=== PATIENT | female | born 1930 | race Caucasian/White ===

== ENCOUNTER 2017-01-05 07:18 | Inpatient (IN) | payer MEDICARE, OTHER ==
[2017-01-05] MEDS ORDERED: SODIUM CHLORIDE 0.9% 1,000 ML IV STA ×5 (07:22→13:37)
--- NOTE | 2017-01-05 07:28 | ED ---
Abdominal Pain HPI - General Stated Complaint: diff breathing Time Seen by Provider: 01/05/17 07:18 Source: patient, EMS, RN notes reviewed, old records reviewed Mode of arrival: EMS - History of Present Illness Initial Comments: This is a 86-year-old female with a history of COPD who was brought in by EMS after family called because of abdominal pain with nausea vomiting and diarrhea. Past 2-3 days. Upon arrival the paramedics found the patient was dyspneic with a tachycardic heart rate low pulse oximeter reading and also she did have altered mental status were normally she is awake alert oriented 3. Is confused. She also had urinary frequency has been urinating in bed apparently. No reports of any blood per rectum. No reports of fevers chills or sweats. The patient herself is a poor historian at this time limited available information due to no family members being present. MD Complaint: abdominal pain, other - Related Data Home Medications Medication Instructions Recorded Confirmed ALPRAZolam [Xanax] 0.5 mg PO Q8HR PRN 01/05/17 01/05/17 Albuterol Nebulized [Ventolin 2.5 mg INHALATION Q6H PRN 01/05/17 01/05/17 Nebulized] Aspirin 81 mg PO DAILY 01/05/17 01/05/17 Budesonide/Formoterol Fumarate 2 puff INHALATION RT-BID 01/05/17 01/05/17 [Symbicort 160-4.5 Mcg Inhaler] Calcium Carb-Vit D 500Mg-200Un 1 tab PO W/SUPPER 01/05/17 01/05/17 [Oscal 500+D] Diphenox-Atrop 2.5-0.025 mg 1 tab PO TID 01/05/17 01/05/17 [Lomotil] Hydrocodone/Acetaminophen [[place] 1 tab PO TID PRN 01/05/17 01/05/17 5-325] Ipratropium-Albuterol Nebulize 3 ml INHALATION RT-TID 01/05/17 01/05/17 [Duoneb 0.5 mg-3 mg/3 ml Soln] Lactulose [Cephulac] 20 gm PO DAILY PRN 01/05/17 01/05/17 Levothyroxine Sodium [Synthroid] 25 mcg PO DAILY 01/05/17 01/05/17 Loratadine [Claritin] 10 mg PO DAILY PRN 01/05/17 01/05/17 Magnesium Oxide [Mag-Ox] 400 mg PO W/SUPPER 01/05/17 01/05/17 Meclizine HCl 12.5 mg PO TID PRN 01/05/17 01/05/17 Melatonin 5 mg PO HS 01/05/17 01/05/17 Omeprazole 20 mg PO DAILY 01/05/17 01/05/17 Ondansetron HCl [Zofran] 8 mg PO Q8H PRN 01/05/17 01/05/17 Potassium Chloride [Klor-Con 10] 10 meq PO BID-W/MEALS 01/05/17 01/05/17 amLODIPine [Norvasc] 5 mg PO DAILY 01/05/17 01/05/17 guaiFENesin [Mucinex] 600 mg PO BID-W/MEALS 01/05/17 01/05/17 traZODone HCL 100 mg PO HS PRN 01/05/17 01/05/17 Allergies Allergy/AdvReac Type Severity Reaction Status Date / Time metronidazole [From Flagyl] Allergy Unknown Verified 01/05/17 08:23 [id number]-Vvt-Gbi Reductase Allergy Unknown Verified 01/05/17 08:23 Inhibitor sulfamethoxazole Allergy Unknown Verified 01/05/17 08:23 [From Bactrim] trimethobenzamide Allergy Unknown Verified 01/05/17 08:23 [From Tigan] trimethoprim [From Bactrim] Allergy Unknown Verified 01/05/17 08:23 Review of Systems ROS Statement: Those systems with pertinent positive or pertinent negative responses have been documented in the HPI. ROS Other: All systems not noted in ROS Statement are negative. Limitations: ROS unobtainable due to patients medical condition General Exam - General Exam Comments Initial Comments: This is a well-developed well-nourished awake alert but confused female Limitations: altered mental status, physical limitation ENT exam: Present: mucous membranes dry Neck exam: Present: normal inspection. Absent: tenderness, meningismus, lymphadenopathy Respiratory exam: Present: accessory muscle use (Markedly diminished breath sounds on the right compared to the left which also is diminished. No definite crackles or wheezes at this time the patient currently is receiving a DuoNeb treatment. Additionally she does have evidence of a right mastectomy.), decreased breath sounds Cardiovascular Exam: Present: tachycardia GI/Abdominal exam: Present: distended, tenderness. Absent: bruit, pulsatile mass, hernia Rectal exam: Present: deferred External exam: Present: normal external exam Extremities exam: Present: other (Diminished capillary refill: Extremities patient does state she also has cool extremities) Back exam: Present: normal inspection Neurological exam: Present: altered, CN II-XII intact. Absent: motor sensory deficit Psychiatric exam: Present: anxious Skin exam: Present: warm, intact (: Extremities no mottling) Course Vital Signs 01/05/17 01/05/17 01/05/17 07:19 08:48 08:57 Temperature 97.4 F L 97.8 F Pulse Rate 133 H 177 H Respiratory 20 18 Rate Blood Pressure 112/69 106/54 O2 Sat by Pulse 99 Oximetry - Reevaluation(s) Reevaluation #1: 01/05/17 08:07 The patient was noted have runs of apparent SVT. It was captured and EKG and on the monitor. She did require adenosine which did not really seem to affect the rate. On the monitors there was some evidence of possible torsades. IV magnesium has been ordered. Patient also is on Synthroid for thyroid studies have been added. I did discuss the initial findings with the patient's son who states she's been ill for several days and has refused medical evaluation up until today. Reevaluation #2: 01/05/17 09:20 Patient still has evidence of paroxysmal SVT with some wide-complex activity. Patient will be started on amiodarone. Reevaluation #3: 01/05/17 12:20 The patient's heart rate seems to have stabilized compared to earlier after the IV amiodarone. CAT scan shows evidence of a early small bowel obstruction versus ileus. Reevaluation #4: 01/05/17 12:24 Repeat EKG shortly after the initial one showed a sinus tachycardia with PACs rate was 141. Interval 138 QRS duration 68 daily since QTC of 314/[address]-T wave configuration PVC was noted. Reevaluation #5: 01/05/17 12:36 The lactic acid has returned to normal initial elevated level was likely secondary to dehydration. Procedures - Central Line Placement Right SC Consent Obtained: emergent situation Time Out Performed: Yes Patient Placed on Monitor/Pulse Ox: Yes Prep: mask, gown, gloves, other Central Line Prep: Chlorhexidine scrub Local Anesthesia Used: Lidocaine 1% Amount of Anesthesia Used (mls): 4 Ultrasound Used for Placement: No Central Line Lumen Inserted: triple Bloods Obtained for Lab: No Central Line Position: good blood return, sutured in place with 2-0 silk Dressing Applied: Tegaderm Post Procedure X-Ray: tip of catheter in good position Patient Tolerated Procedure: well Complications: none Medical Decision Making - Lab Data Result diagrams: 01/05/17 07:48 01/05/17 07:48 Lab Results 01/05/17 01/05/17 01/05/17 Range/Units 07:48 07:48 07:48 WBC 26.7 H* (3.8-10.6) k/uL RBC 4.79 (3.80-5.40) m/uL Hgb 13.7 (11.4-16.0) gm/dL Hct 41.4 (34.0-46.0) % MCV 86.3 (80.0-100.0) fL MCH 28.5 (25.0-35.0) pg MCHC 33.0 (31.0-37.0) g/dL RDW 16.1 H (11.5-15.5) % Plt Count 435 (150-450) k/uL Neutrophils % (Manual) 62.0 % Band Neutrophils % 25.0 % Lymphocytes % (Manual) 7.0 % Monocytes % (Manual) 6.0 % Neutrophils # (Manual) 23.2 H (1.3-7.7) k/uL Lymphocytes # (Manual) 1.9 (1.0-4.8) k/uL Monocytes # (Manual) 1.6 H (0-1.0) k/uL Nucleated RBCs 0 (0-0) /100 WBC Anisocytosis Slight Target Cells Present PT (9.0-12.0) sec INR (<1.1) APTT (22.0-30.0) sec Sodium 130 L (137-145) mmol/L Potassium 3.8 (3.5-5.1) mmol/L Chloride 94 L (98-107) mmol/L Carbon Dioxide 25 (22-30) mmol/L Anion Gap 11 mmol/L BUN 29 H (7-17) mg/dL Creatinine 1.00 (0.52-1.04) mg/dL Est GFR (MDRD) Af Amer >60 (>60 ml/min/1.73 sqM) Est GFR (MDRD) Non-Af 52 (>60 ml/min/1.73 sqM) Glucose 73 L (74-99) mg/dL Plasma Lactic Acid Zuhair (0.7-2.0) mmol/L Calcium 8.2 L (8.4-10.2) mg/dL Magnesium 1.3 L (1.6-2.3) mg/dL Total Bilirubin 1.4 H (0.2-1.3) mg/dL AST 35 (14-36) U/L ALT 24 (9-52) U/L Alkaline Phosphatase 214 H (38-126) U/L Total Creatine Kinase 112 (30-135) U/L CK-MB (CK-2) 1.1 (0.0-2.4) ng/mL CK-MB (CK-2) Rel Index 1.0 Troponin I 0.017 (0.000-0.034) ng/mL Total Protein 6.8 (6.3-8.2) g/dL Albumin 2.6 L (3.5-5.0) g/dL Amylase 44 (30-110) U/L Lipase 12 L (23-300) U/L Urine Color Urine Appearance (Clear) Urine pH (5.0-8.0) Ur Specific [place] (1.001-1.035) Urine Protein (Negative) Urine Glucose (UA) (Negative) Urine Ketones (Negative) Urine Blood (Negative) Urine Nitrite (Negative) Urine Bilirubin (Negative) Urine Urobilinogen (<2.0) mg/dL Ur Leukocyte Esterase (Negative) 01/05/17 01/05/17 01/05/17 Range/Units 07:48 07:48 08:50 WBC (3.8-10.6) k/uL RBC (3.80-5.40) m/uL Hgb (11.4-16.0) gm/dL Hct (34.0-46.0) % MCV (80.0-100.0) fL MCH (25.0-35.0) pg MCHC (31.0-37.0) g/dL RDW (11.5-15.5) % Plt Count (150-450) k/uL Neutrophils % (Manual) % Band Neutrophils % % Lymphocytes % (Manual) % Monocytes % (Manual) % Neutrophils # (Manual) (1.3-7.7) k/uL Lymphocytes # (Manual) (1.0-4.8) k/uL Monocytes # (Manual) (0-1.0) k/uL Nucleated RBCs (0-0) /100 WBC Anisocytosis Target Cells PT 20.9 H (9.0-12.0) sec INR 2.2 (<1.1) APTT 46.4 H (22.0-30.0) sec Sodium (137-145) mmol/L Potassium (3.5-5.1) mmol/L Chloride (98-107) mmol/L Carbon Dioxide (22-30) mmol/L Anion Gap mmol/L BUN (7-17) mg/dL Creatinine (0.52-1.04) mg/dL Est GFR (MDRD) Af Amer (>60 ml/min/1.73 sqM) Est GFR (MDRD) Non-Af (>60 ml/min/1.73 sqM) Glucose (74-99) mg/dL Plasma Lactic Acid [place] 2.6 H* (0.7-2.0) mmol/L Calcium (8.4-10.2) mg/dL Magnesium (1.6-2.3) mg/dL Total Bilirubin (0.2-1.3) mg/dL AST (14-36) U/L ALT (9-52) U/L Alkaline Phosphatase (38-126) U/L Total Creatine Kinase (30-135) U/L CK-MB (CK-2) (0.0-2.4) ng/mL CK-MB (CK-2) Rel Index Troponin I (0.000-0.034) ng/mL Total Protein (6.3-8.2) g/dL Albumin (3.5-5.0) g/dL Amylase (30-110) U/L Lipase (23-300) U/L Urine Color [place] Urine Appearance Clear (Clear) Urine pH 6.0 (5.0-8.0) Ur Specific [place] 1.022 (1.001-1.035) Urine Protein Trace H (Negative) Urine Glucose (UA) Negative (Negative) Urine Ketones Trace H (Negative) Urine Blood Negative (Negative) Urine Nitrite Negative (Negative) Urine Bilirubin 1+ H (Negative) Urine Urobilinogen 4.0 (<2.0) mg/dL Ur Leukocyte Esterase Negative (Negative) 01/05/17 Range/Units 11:40 WBC (3.8-10.6) k/uL RBC (3.80-5.40) m/uL Hgb (11.4-16.0) gm/dL Hct (34.0-46.0) % MCV (80.0-100.0) fL MCH (25.0-35.0) pg MCHC (31.0-37.0) g/dL RDW (11.5-15.5) % Plt Count (150-450) k/uL Neutrophils % (Manual) % Band Neutrophils % % Lymphocytes % (Manual) % Monocytes % (Manual) % Neutrophils # (Manual) (1.3-7.7) k/uL Lymphocytes # (Manual) (1.0-4.8) k/uL Monocytes # (Manual) (0-1.0) k/uL Nucleated RBCs (0-0) /100 WBC Anisocytosis Target Cells PT (9.0-12.0) sec INR (<1.1) APTT (22.0-30.0) sec Sodium (137-145) mmol/L Potassium (3.5-5.1) mmol/L Chloride (98-107) mmol/L Carbon Dioxide (22-30) mmol/L Anion Gap mmol/L BUN (7-17) mg/dL Creatinine (0.52-1.04) mg/dL Est GFR (MDRD) Af Amer (>60 ml/min/1.73 sqM) Est GFR (MDRD) Non-Af (>60 ml/min/1.73 sqM) Glucose (74-99) mg/dL Plasma Lactic Acid [place] 1.8 (0.7-2.0) mmol/L Calcium (8.4-10.2) mg/dL Magnesium (1.6-2.3) mg/dL Total Bilirubin (0.2-1.3) mg/dL AST (14-36) U/L ALT (9-52) U/L Alkaline Phosphatase (38-126) U/L Total Creatine Kinase (30-135) U/L CK-MB (CK-2) (0.0-2.4) ng/mL CK-MB (CK-2) Rel Index Troponin I (0.000-0.034) ng/mL Total Protein (6.3-8.2) g/dL Albumin (3.5-5.0) g/dL Amylase (30-110) U/L Lipase (23-300) U/L Urine Color Urine Appearance (Clear) Urine pH (5.0-8.0) Ur Specific [place] (1.001-1.035) Urine Protein (Negative) Urine Glucose (UA) (Negative) Urine Ketones (Negative) Urine Blood (Negative) Urine Nitrite (Negative) Urine Bilirubin (Negative) Urine Urobilinogen (<2.0) mg/dL Ur Leukocyte Esterase (Negative) - EKG Data -: EKG Interpreted by Me (Initial EKG showed evidence of sinus tachycardia SVT rate was 200 QRS 66 QT) - Radiology Data Radiology results: report reviewed (I did review the x-rays and report or is evidence of a distal small bowel obstruction. X-ray of the chest appears be unremarkable.), image reviewed Critical Care Time Critical Care Time: Yes Critical Care Time: 55 minutes of critical care time which does not include the central line placement. This does include initial monitoring the EMS call and discussed with paramedics history physical lab and x-ray CAT scan results on the patient and evaluation thereof. Multiple reevaluation the patient response to therapy. Discussion with attending hours on several occasions. Discussion with the admitting physician. Admission orders and documentation the above. Disposition Clinical Impression: Paroxysmal supraventricular tachycardia, Small bowel obstruction, Hypomagnesemia syndrome, Dehydration, Confusion, Hypotension, Prerenal azotemia Disposition: ADMITTED IP TO [facility] Condition: Serious Referrals: Humza Garcia MD [Primary Care Provider] - 1-2 days
[2017-01-05] MEDS ORDERED: MAGNESIUM SULFATE-D5W PMX 1 GM in DEXTROSE/WATER 1 100ML.BAG IVPB ONE ×2 (08:05→08:22)
[2017-01-05] MEDS ORDERED: ADENOSINE 3 MG/ML 2 ML VIAL IVP STA ×2 (08:08→08:09)
[2017-01-05 08:09] LABS: ALT 24 U/L (9-52); AST 35 U/L (14-36); Alkaline Phosphatase 214 U/L (38-126); Amylase 44 U/L (30-110); Anion Gap 11 mmol/L; Anisocytosis Slight; Blood Urea Nitrogen 29 mg/dL (7-17); CH 27.4; CHCM 31.8; Calcium 8.2 mg/dL (8.4-10.2); Carbon Dioxide 25 mmol/L (22-30); Chloride 94 mmol/L (98-107); Glucose 73 mg/dL (74-99); HCT 41.4 % (34.0-46.0); HDW 2.33; HGB 13.7 gm/dL (11.4-16.0); Immature Gran Flag Marked; MCH 28.5 pg (25.0-35.0); MCV 86.3 fL (80.0-100.0); Magnesium 1.3 mg/dL (1.6-2.3); Mean Platelet Volume 7.5; Non-African American GFR(MDRD) 52 (>60 ml/min/1.73 sqM); Potassium 3.8 mmol/L (3.5-5.1); RBC 4.79 m/uL (3.80-5.40); RDW 16.1 % (11.5-15.5); Sodium 130 mmol/L (137-145); Total Bilirubin 1.4 mg/dL (0.2-1.3); Total Protein 6.8 g/dL (6.3-8.2); WBC (Perox) 26.12
[2017-01-05 08:16] LABS: INR 2.2 (<1.1); Partial Thromboplastin Time 46.4 sec (22.0-30.0); Prothrombin Time 20.9 sec (9.0-12.0)
[2017-01-05 08:17] LABS: WBC 26.7 k/uL (3.8-10.6)
[2017-01-05] MEDS ORDERED: SODIUM CHLORIDE 0.9% 1,000 ML IV ONE (08:21)
[2017-01-05] MEDS ORDERED: DILTIAZEM 125 MG in SODIUM CHLORIDE 0.9% 100 ML IV ONE (08:22)
[2017-01-05 08:34] LABS: Add Differential Manual Differential
[2017-01-05 08:37] LABS: Nucleated Red Blood Cells 0 /100 WBC (0-0); Total Cells Counted 100
[2017-01-05 08:38] LABS: Target Cells Present
[2017-01-05 08:47] LABS: Creatine Kinase MB 1.1 ng/mL (0.0-2.4); Troponin I 0.017 ng/mL (0.000-0.034)
--- NOTE | 2017-01-05 08:55 | XR ---
EXAMINATION TYPE: XR KUB DATE OF EXAM: 01/05/2017 8:40 AM COMPARISON: NONE HISTORY: Pain TECHNIQUE: Single supine KUB image of the abdomen is obtained FINDINGS: There are dilated loops of small bowel with paucity of air within the colon. Suspect distal small bow el obstruction. Gas and fecal material is seen in non-distended colon. No convincing evidence for pneumoperitoneum. No unusual calcifications. The lung bases are clear. The osseous structures are intact. IMPRESSION: 1. Correlate for distal small bowel obstruction.
--- NOTE | 2017-01-05 08:56 | XR ---
EXAMINATION TYPE: XR chest 1V portable DATE OF EXAM: 01/05/2017 8:41 AM HISTORY: Shortness of breath. COMPARISON: 03/12/2013 TECHNIQUE: Single view of the chest is submitted. FINDINGS: Demonstrated are scattered senescent parenchymal change. There is no evidence for focal infiltrate. The heart is stable. Vascularity seen on end right hilum. Hilar and mediastinal structures are within normal limits. Degenerative changes are seen of the dorsal spine. IMPRESSION: 1. Chronic changes without evidence for acute pulmonary disease.
[2017-01-05] MEDS ORDERED: RX INFO: IV CONTRAST WAS GIVEN 1 EACH MISC MISCELLANE PRN (09:06)
[2017-01-05 09:10] LABS: Appearance,Urine Clear (Clear); Bilirubin,Urine 1+ (Negative); Glucose,Urine (UA) Negative (Negative); Ketones,Urine Trace (Negative); Leukocyte Esterase,Urine Negative (Negative); Nitrite,Urine Negative (Negative); Protein,Urine Trace (Negative); Specific Gravity,Urine 1.022 (1.001-1.035); UA Billing (MACRO vs. MICRO) CHEM
[2017-01-05] MEDS ORDERED: DEXTROSE 5% IN WATER 100 ML with AMIODARONE 150 MG IV ONE (09:17)
[2017-01-05] MEDS ORDERED: PIPERACILLIN-TAZOBACTAM 3.375 GM in DEXTROSE/WATER 1 50ML.BAG IVPB STA (09:32)
--- NOTE | 2017-01-05 10:29 | XR ---
EXAMINATION TYPE: XR chest 1V portable DATE OF EXAM: 01/05/2017 10:20 AM COMPARISON: 01/05/2017 03/18/2012 INDICATION: Abnormal chest x-ray, pain TECHNIQUE: Single frontal view of the chest is obtained. FINDINGS: The heart size is normal. The pulmonary vasculature is normal. There are some scattered punctate densities throughout the bilateral lungs which are stable. A right central venous catheter is present with the tip in the superior vena cava region. No pneumothorax is evident. Vascular calcifications at the aortic arch. Suspicious infiltrates are not identified. IMPRESSION: 1. Multiple bilateral punctate lung nodules. These are present in 2011. 2. Right central venous catheter tip is in the superior vena cava region.
[2017-01-05] MEDS ORDERED: fentaNYL (PF) 50 MCG/ML 2 ML AMP IV STA ×2 (10:32→16:39)
--- NOTE | 2017-01-05 11:24 | CT ---
EXAMINATION TYPE: CT abdomen pelvis w con DATE OF EXAM: 01/05/2017 10:58 AM COMPARISON: NONE INDICATION: Difficulty breathing; SBO DLP: 1164 mGycm, Automated exposure control for dose reduction was used. CONTRAST: 100 ml mL of Omnipaque 300. Study performed without Oral Contrast TECHNIQUE: Axial images were obtained from above the diaphragm to the pubic rami in the axial plane a t 5 mm thick sections. Reconstructed images are reviewed on the computer in the coronal plane. FINDINGS: Limited CT sections are obtained the lung bases. There is some atelectasis of the lingula. Some comp ressive atelectasis may be in the left lung base as well. Coronary artery calcification is present.. CT ABDOMEN: Liver: There is moderate fatty infiltration through the liver. No discrete masses are evident. Spleen: Normal Pancreas: Atrophic Adrenal glands: The adrenal glands are normal. Gallbladder: Surgically absent. Kidneys: No masses are evident. No hydronephrosis is present. A 1.0 cm cyst on the posterior superi or right kidney. A 0.8 cm posterior lateral left renal cyst is present. Delayed images were obtained through the kidneys, which remain unremarkable. Aorta: Vascular calcification is within the aorta. Inferior vena cava: Normal. CT PELVIS: Multiple dilated small bowel loops are present with fluid. Colon contains fluid but is decompressed. Small bowel zone of transition is not identified. Correlate for ileus. Early small bowel obstruction should be considered. Appendix: Not identified. No suspicious tubular structures are evident. Urinary bladder: Maxwell catheter is present. Small amount of air from the catheter placement may be pr esent. Genitourinary structures: Uterus and ovaries are not identified. Osseous structures: No suspicious lytic or sclerotic lesions. Degenerative changes are within the lum bar facets. A left hip prosthesis is present causing beam hardening artifact. Sacroiliac joint degene rative changes are noted. IMPRESSIONS: 1. Findings suggestive for ileus. Early small bowel obstruction should be considered within the diff erential. 2. Moderate fatty infiltration to the liver.
[2017-01-05] MEDS ORDERED: NALOXONE 0.4 MG/ML 1 ML VIAL IV PRN (12:37)
--- NOTE | 2017-01-05 12:43 | ED ---
Medical Decision Making - Lab Data Result diagrams: 01/05/17 07:48 01/05/17 07:48 Lab Results 01/05/17 01/05/17 01/05/17 Range/Units 07:48 07:48 07:48 WBC 26.7 H* (3.8-10.6) k/uL RBC 4.79 (3.80-5.40) m/uL Hgb 13.7 (11.4-16.0) gm/dL Hct 41.4 (34.0-46.0) % MCV 86.3 (80.0-100.0) fL MCH 28.5 (25.0-35.0) pg MCHC 33.0 (31.0-37.0) g/dL RDW 16.1 H (11.5-15.5) % Plt Count 435 (150-450) k/uL Neutrophils % (Manual) 62.0 % Band Neutrophils % 25.0 % Lymphocytes % (Manual) 7.0 % Monocytes % (Manual) 6.0 % Neutrophils # (Manual) 23.2 H (1.3-7.7) k/uL Lymphocytes # (Manual) 1.9 (1.0-4.8) k/uL Monocytes # (Manual) 1.6 H (0-1.0) k/uL Nucleated RBCs 0 (0-0) /100 WBC Anisocytosis Slight Target Cells Present PT (9.0-12.0) sec INR (<1.1) APTT (22.0-30.0) sec Sodium 130 L (137-145) mmol/L Potassium 3.8 (3.5-5.1) mmol/L Chloride 94 L (98-107) mmol/L Carbon Dioxide 25 (22-30) mmol/L Anion Gap 11 mmol/L BUN 29 H (7-17) mg/dL Creatinine 1.00 (0.52-1.04) mg/dL Est GFR (MDRD) Af Amer >60 (>60 ml/min/1.73 sqM) Est GFR (MDRD) Non-Af 52 (>60 ml/min/1.73 sqM) Glucose 73 L (74-99) mg/dL Plasma Lactic Acid [place] (0.7-2.0) mmol/L Calcium 8.2 L (8.4-10.2) mg/dL Magnesium 1.3 L (1.6-2.3) mg/dL Total Bilirubin 1.4 H (0.2-1.3) mg/dL AST 35 (14-36) U/L ALT 24 (9-52) U/L Alkaline Phosphatase 214 H (38-126) U/L Total Creatine Kinase 112 (30-135) U/L CK-MB (CK-2) 1.1 (0.0-2.4) ng/mL CK-MB (CK-2) Rel Index 1.0 Troponin I 0.017 (0.000-0.034) ng/mL Total Protein 6.8 (6.3-8.2) g/dL Albumin 2.6 L (3.5-5.0) g/dL Amylase 44 (30-110) U/L Lipase 12 L (23-300) U/L Urine Color Urine Appearance (Clear) Urine pH (5.0-8.0) Ur Specific [place] (1.001-1.035) Urine Protein (Negative) Urine Glucose (UA) (Negative) Urine Ketones (Negative) Urine Blood (Negative) Urine Nitrite (Negative) Urine Bilirubin (Negative) Urine Urobilinogen (<2.0) mg/dL Ur Leukocyte Esterase (Negative) 01/05/17 01/05/17 01/05/17 Range/Units 07:48 07:48 08:50 WBC (3.8-10.6) k/uL RBC (3.80-5.40) m/uL Hgb (11.4-16.0) gm/dL Hct (34.0-46.0) % MCV (80.0-100.0) fL MCH (25.0-35.0) pg MCHC (31.0-37.0) g/dL RDW (11.5-15.5) % Plt Count (150-450) k/uL Neutrophils % (Manual) % Band Neutrophils % % Lymphocytes % (Manual) % Monocytes % (Manual) % Neutrophils # (Manual) (1.3-7.7) k/uL Lymphocytes # (Manual) (1.0-4.8) k/uL Monocytes # (Manual) (0-1.0) k/uL Nucleated RBCs (0-0) /100 WBC Anisocytosis Target Cells PT 20.9 H (9.0-12.0) sec INR 2.2 (<1.1) APTT 46.4 H (22.0-30.0) sec Sodium (137-145) mmol/L Potassium (3.5-5.1) mmol/L Chloride (98-107) mmol/L Carbon Dioxide (22-30) mmol/L Anion Gap mmol/L BUN (7-17) mg/dL Creatinine (0.52-1.04) mg/dL Est GFR (MDRD) Af Amer (>60 ml/min/1.73 sqM) Est GFR (MDRD) Non-Af (>60 ml/min/1.73 sqM) Glucose (74-99) mg/dL Plasma Lactic Acid [place] 2.6 H* (0.7-2.0) mmol/L Calcium (8.4-10.2) mg/dL Magnesium (1.6-2.3) mg/dL Total Bilirubin (0.2-1.3) mg/dL AST (14-36) U/L ALT (9-52) U/L Alkaline Phosphatase (38-126) U/L Total Creatine Kinase (30-135) U/L CK-MB (CK-2) (0.0-2.4) ng/mL CK-MB (CK-2) Rel Index Troponin I (0.000-0.034) ng/mL Total Protein (6.3-8.2) g/dL Albumin (3.5-5.0) g/dL Amylase (30-110) U/L Lipase (23-300) U/L Urine Color [place] Urine Appearance Clear (Clear) Urine pH 6.0 (5.0-8.0) Ur Specific [place] 1.022 (1.001-1.035) Urine Protein Trace H (Negative) Urine Glucose (UA) Negative (Negative) Urine Ketones Trace H (Negative) Urine Blood Negative (Negative) Urine Nitrite Negative (Negative) Urine Bilirubin 1+ H (Negative) Urine Urobilinogen 4.0 (<2.0) mg/dL Ur Leukocyte Esterase Negative (Negative) 01/05/17 Range/Units 11:40 WBC (3.8-10.6) k/uL RBC (3.80-5.40) m/uL Hgb (11.4-16.0) gm/dL Hct (34.0-46.0) % MCV (80.0-100.0) fL MCH (25.0-35.0) pg MCHC (31.0-37.0) g/dL RDW (11.5-15.5) % Plt Count (150-450) k/uL Neutrophils % (Manual) % Band Neutrophils % % Lymphocytes % (Manual) % Monocytes % (Manual) % Neutrophils # (Manual) (1.3-7.7) k/uL Lymphocytes # (Manual) (1.0-4.8) k/uL Monocytes # (Manual) (0-1.0) k/uL Nucleated RBCs (0-0) /100 WBC Anisocytosis Target Cells PT (9.0-12.0) sec INR (<1.1) APTT (22.0-30.0) sec Sodium (137-145) mmol/L Potassium (3.5-5.1) mmol/L Chloride (98-107) mmol/L Carbon Dioxide (22-30) mmol/L Anion Gap mmol/L BUN (7-17) mg/dL Creatinine (0.52-1.04) mg/dL Est GFR (MDRD) Af Amer (>60 ml/min/1.73 sqM) Est GFR (MDRD) Non-Af (>60 ml/min/1.73 sqM) Glucose (74-99) mg/dL Plasma Lactic Acid [place] 1.8 (0.7-2.0) mmol/L Calcium (8.4-10.2) mg/dL Magnesium (1.6-2.3) mg/dL Total Bilirubin (0.2-1.3) mg/dL AST (14-36) U/L ALT (9-52) U/L Alkaline Phosphatase (38-126) U/L Total Creatine Kinase (30-135) U/L CK-MB (CK-2) (0.0-2.4) ng/mL CK-MB (CK-2) Rel Index Troponin I (0.000-0.034) ng/mL Total Protein (6.3-8.2) g/dL Albumin (3.5-5.0) g/dL Amylase (30-110) U/L Lipase (23-300) U/L Urine Color Urine Appearance (Clear) Urine pH (5.0-8.0) Ur Specific [place] (1.001-1.035) Urine Protein (Negative) Urine Glucose (UA) (Negative) Urine Ketones (Negative) Urine Blood (Negative) Urine Nitrite (Negative) Urine Bilirubin (Negative) Urine Urobilinogen (<2.0) mg/dL Ur Leukocyte Esterase (Negative) Disposition Clinical Impression: Paroxysmal supraventricular tachycardia, Small bowel obstruction, Hypomagnesemia syndrome, Dehydration, Confusion, Hypotension, Prerenal azotemia Disposition: ADMITTED IP TO THIS [facility] Condition: Serious Referrals: Humza Garcia MD [Primary Care Provider] - 1-2 days Decision Time: 08:00
[2017-01-05] MEDS: 0.9% NACL WITH KCL 20 MEQ/L 1,000 ML IV SCH (14:41)
[2017-01-05 14:46] LABS: Glucose,Whole Blood 78 mg/dL (75-99)
[2017-01-05] MEDS: IPRATROPIUM-ALBUTEROL 3 ML NEB INHALATION SCH ×2 (17:15→21:10)
[2017-01-05 17:40] LABS: Glucose,Whole Blood 47 mg/dL (75-99)
[2017-01-05] MEDS ORDERED: DEXTROSE 50%-WATER 50 ML SYRINGE IVP ONE (17:40)
[2017-01-05 18:47] LABS: Glucose,Whole Blood 92 mg/dL (75-99)
[2017-01-05 18:57] LABS: Anisocytosis Slight; CH 27.2; CHCM 29.6; HCT 35.7 % (34.0-46.0); HDW 2.25; HGB 11.1 gm/dL (11.4-16.0); Hypochromasia Marked; Immature Gran Flag Marked; MCH 28.6 pg (25.0-35.0); MCHC 31.1 g/dL (31.0-37.0); Mean Platelet Volume 7.2; RBC 3.88 m/uL (3.80-5.40); RDW 16.1 % (11.5-15.5); WBC 17.1 k/uL (3.8-10.6); WBC (Perox) 18.82
[2017-01-05 19:05] LABS: INR 2.1 (<1.1); Prothrombin Time 20.6 sec (9.0-12.0)
[2017-01-05 19:07] LABS: Anion Gap 8 mmol/L; Blood Urea Nitrogen 24 mg/dL (7-17); Carbon Dioxide 19 mmol/L (22-30); Chloride 106 mmol/L (98-107); Glucose 88 mg/dL (74-99); Magnesium 1.7 mg/dL (1.6-2.3); Non-African American GFR(MDRD) >60 (>60 ml/min/1.73 sqM); Potassium 3.8 mmol/L (3.5-5.1); Sodium 133 mmol/L (137-145)
[2017-01-05 19:22] LABS: Add Differential Manual Differential
[2017-01-05 19:27] LABS: Metamyelocytes % 1.5 %; Nucleated Red Blood Cells 0 /100 WBC (0-0); Target Cells Present; Total Cells Counted 200
[2017-01-05 19:28] LABS: Manual Review Performed
--- NOTE | 2017-01-05 21:02 | P.GSCN ---
History of Present Illness Consult date: 01/05/17 Reason for Consult: Abdominal pain History of present illness: Patient was brought to the ER today with abdominal bloating, lower abdominal pain, some anorexia, and diarrhea with incontinence. She apparently has been having episodes like this intermittently over the last few months. She was hospitalized most recently at [facility] and underwent colonoscopy by Dr. Barros. Denies rectal bleeding. Pain she states is intermittent and crampy at times. CAT scan shows fluid-filled bowel loops consistent with enteritis. The mesenteric vasculature reveals some atherosclerosis but I do not see any discrete cutoff of the flow of contrast. Some areas where the small bowel and colon have some subtle bowel wall thickening suspected. Small bowel obstruction was listed as a possible diagnosis. Some dysuria. The patient was hypoxic and also hypertensive. She is currently in the ICU. Lactic acid was elevated although improved on the second check. She has bandemia and the level of bandemia has increased during the hospital stay. She still has some hypotension. She is afebrile. The patient's INR is elevated. The patient and her daughter both state that she is not on Coumadin. There is question of intermittent A. fib. Review of Systems The patient denies any acute changes in his vision or hearing, no dysphagia or odynophagia, no chest pain or shortness of breath, no dysuria or hematuria, no headache, no runny nose, no rectal bleeding or melena, no unexplained weight loss Past Medical History Past Medical History: Asthma, Coronary Artery Disease (CAD), Cancer, COPD, GERD/ Reflux, Hyperlipidemia, Hypertension, Osteoarthritis (OA), Pneumonia, Thyroid Disorder Additional Past Medical History / Comment(s): R BREAST CANCER, bronchitis, IBS ( newly diagnosed), balance issues, numbness/tingling bilateral legs/feet, anemia , UTI, chronic low back pain, past fracture L hip with sx and fx L wrist, sinus problems. History of Any Multi-Drug Resistant Organisms: None Reported Past Surgical History: Bladder Surgery, Breast Surgery, Cholecystectomy, Heart Catheterization, Hysterectomy Additional Past Surgical History / Comment(s): 1979 RIGHT MASTECTOMY, colonoscopies, bilateral cataracts removed with lasek sx, hemorroidectomy, L hip fx repair (metal in hip), bladder suspension. Past Anesthesia/Blood Transfusion Reactions: No Reported Reaction Past Psychological History: Anxiety Additional Psychological History / Comment(s): Pt lives with her daughter. She uses a walker with wheels or a 4 prong cane to ambulate. She has a potty chair and hospital bed. She has recently uses [facility] home care but that is complete. Smoking Status: Former smoker Past Alcohol Use History: None Reported Additional Past Alcohol Use History / Comment(s): Pt quit smoking in 1989. Past Drug Use History: None Reported - Past Family History Father History Unknown: Yes Additional Family Medical History / Comment(s): Pt adopted and does not know parents hx. Medications and Allergies Home Medications Medication Instructions Recorded Confirmed Type ALPRAZolam [Xanax] 0.5 mg PO Q8HR PRN 01/05/17 01/05/17 History Albuterol Nebulized [Ventolin 2.5 mg INHALATION Q6H PRN 01/05/17 01/05/17 History Nebulized] Aspirin 81 mg PO DAILY 01/05/17 01/05/17 History Budesonide/Formoterol Fumarate 2 puff INHALATION RT-BID 01/05/17 01/05/17 History [Symbicort 160-4.5 Mcg Inhaler] Calcium Carb-Vit D 500Mg-200Un 1 tab PO W/SUPPER 01/05/17 01/05/17 History [Oscal 500+D] Diphenox-Atrop 2.5-0.025 mg 1 tab PO TID 01/05/17 01/05/17 History [Lomotil] Hydrocodone/Acetaminophen [[place] 1 tab PO TID PRN 01/05/17 01/05/17 History 5-325] Ipratropium-Albuterol Nebulize 3 ml INHALATION RT-TID 01/05/17 01/05/17 History [Duoneb 0.5 mg-3 mg/3 ml Soln] Lactulose [Cephulac] 20 gm PO DAILY PRN 01/05/17 01/05/17 History Levothyroxine Sodium [Synthroid] 25 mcg PO DAILY 01/05/17 01/05/17 History Loratadine [Claritin] 10 mg PO DAILY PRN 01/05/17 01/05/17 History Magnesium Oxide [Mag-Ox] 400 mg PO W/SUPPER 01/05/17 01/05/17 History Meclizine HCl 12.5 mg PO TID PRN 01/05/17 01/05/17 History Melatonin 5 mg PO HS 01/05/17 01/05/17 History Omeprazole 20 mg PO DAILY 01/05/17 01/05/17 History Ondansetron HCl [Zofran] 8 mg PO Q8H PRN 01/05/17 01/05/17 History Potassium Chloride [Klor-Con 10] 10 meq PO BID-W/MEALS 01/05/17 01/05/17 History amLODIPine [Norvasc] 5 mg PO DAILY 01/05/17 01/05/17 History guaiFENesin [Mucinex] 600 mg PO BID-W/MEALS 01/05/17 01/05/17 History traZODone HCL 100 mg PO HS PRN 01/05/17 01/05/17 History Allergies Allergy/AdvReac Type Severity Reaction Status Date / Time metronidazole [From Flagyl] Allergy Unknown Verified 01/05/17 08:23 Nixvvht-Obb-Lhq Reductase Allergy Unknown Verified 01/05/17 08:23 Inhibitor sulfamethoxazole Allergy Unknown Verified 01/05/17 08:23 [From Bactrim] trimethobenzamide Allergy Unknown Verified 01/05/17 08:23 [From Tigan] trimethoprim [From Bactrim] Allergy Unknown Verified 01/05/17 08:23 Surgical - Exam Vital Signs Temp Pulse Resp BP 97.4 F L 133 H 20 112/69 01/05/17 07:19 01/05/17 07:19 01/05/17 07:19 01/05/17 07:19 Physical exam: General: Well-developed, well-nourished HEENT: Normocephalic, sclerae nonicteric Abdomen: Distended, mild diffuse tenderness, bowel sounds diminished Extremities: No edema Neuro: Alert and oriented Results - Labs 01/05/17 18:43 01/05/17 18:43 Abnormal Lab Results - Last 24 Hours (Table) 01/05/17 01/05/17 01/05/17 Range/Units 17:39 18:43 18:43 WBC 17.1 H (3.8-10.6) k/uL Hgb 11.1 L (11.4-16.0) gm/dL RDW 16.1 H (11.5-15.5) % Neutrophils # (Manual) 14.9 H (1.3-7.7) k/uL PT 20.6 H (9.0-12.0) sec Sodium (137-145) mmol/L Carbon Dioxide (22-30) mmol/L BUN (7-17) mg/dL POC Glucose (mg/dL) 47 L (75-99) mg/dL Calcium (8.4-10.2) mg/dL 01/05/17 Range/Units 18:43 WBC (3.8-10.6) k/uL Hgb (11.4-16.0) gm/dL RDW (11.5-15.5) % Neutrophils # (Manual) (1.3-7.7) k/uL PT (9.0-12.0) sec Sodium 133 L (137-145) mmol/L Carbon Dioxide 19 L (22-30) mmol/L BUN 24 H (7-17) mg/dL POC Glucose (mg/dL) (75-99) mg/dL Calcium 7.0 L (8.4-10.2) mg/dL Diabetes panel 01/05/17 Range/Units 18:43 Sodium 133 L (137-145) mmol/L Potassium 3.8 (3.5-5.1) mmol/L Chloride 106 (98-107) mmol/L Carbon Dioxide 19 L (22-30) mmol/L BUN 24 H (7-17) mg/dL Creatinine 0.80 (0.52-1.04) mg/dL Glucose 88 (74-99) mg/dL Calcium 7.0 L (8.4-10.2) mg/dL Calcium panel 01/05/17 Range/Units 18:43 Calcium 7.0 L (8.4-10.2) mg/dL Pituitary panel 01/05/17 Range/Units 18:43 Sodium 133 L (137-145) mmol/L Potassium 3.8 (3.5-5.1) mmol/L Chloride 106 (98-107) mmol/L Carbon Dioxide 19 L (22-30) mmol/L BUN 24 H (7-17) mg/dL Creatinine 0.80 (0.52-1.04) mg/dL Glucose 88 (74-99) mg/dL Calcium 7.0 L (8.4-10.2) mg/dL Adrenal panel 01/05/17 Range/Units 18:43 Sodium 133 L (137-145) mmol/L Potassium 3.8 (3.5-5.1) mmol/L Chloride 106 (98-107) mmol/L Carbon Dioxide 19 L (22-30) mmol/L BUN 24 H (7-17) mg/dL Creatinine 0.80 (0.52-1.04) mg/dL Glucose 88 (74-99) mg/dL Calcium 7.0 L (8.4-10.2) mg/dL Assessment and Plan (1) Abdominal pain Narrative/Plan: Continue nothing by mouth. Continue broad-spectrum antibiotics. Await C. diff. Suspect ischemic bowel as the etiology of the patient's abdominal pain at this time. Would recommend GI evaluation given the fact that they saw her during her most recent hospitalization and performed her colonoscopy. I did discuss the options of exploration with the patient's and her family. We'll continue to observe closely with you. Status: Acute
[2017-01-05] MEDS ORDERED: PANTOPRAZOLE 40 MG/10 ML VIAL ONE (21:40)
[2017-01-06] MEDS ORDERED: DEXTROSE 50%-WATER 50 ML SYRINGE IVP ONE ×2 (01:06)
[2017-01-06 04:20] LABS: Glucose,Whole Blood 90 mg/dL (75-99)
[2017-01-06 04:20] LABS: Glucose,Whole Blood 63 mg/dL (75-99)
[2017-01-06 04:21] LABS: Glucose,Whole Blood 88 mg/dL (75-99)
[2017-01-06 04:56] LABS: ALT 29 U/L (9-52); AST 24 U/L (14-36); Alkaline Phosphatase 144 U/L (38-126); Anion Gap 6 mmol/L; Blood Urea Nitrogen 23 mg/dL (7-17); Calcium 7.1 mg/dL (8.4-10.2); Carbon Dioxide 22 mmol/L (22-30); Chloride 107 mmol/L (98-107); Glucose 82 mg/dL (74-99); Magnesium 1.7 mg/dL (1.6-2.3); Non-African American GFR(MDRD) >60 (>60 ml/min/1.73 sqM); Phosphorous 2.5 mg/dL (2.5-4.5); Sodium 135 mmol/L (137-145); Total Protein 4.9 g/dL (6.3-8.2)
[2017-01-06 05:02] LABS: Anisocytosis Slight; CH 27.9; CHCM 31.5; HDW 2.39; HGB 10.8 gm/dL (11.4-16.0); Immature Gran Flag Marked; MCH 28.1 pg (25.0-35.0); MCHC 31.7 g/dL (31.0-37.0); MCV 88.7 fL (80.0-100.0); Mean Platelet Volume 8.2; RBC 3.83 m/uL (3.80-5.40); RDW 16.3 % (11.5-15.5); WBC 16.6 k/uL (3.8-10.6); WBC (Perox) 16.79
[2017-01-06] MEDS: IPRATROPIUM-ALBUTEROL 3 ML NEB INHALATION SCH ×5 (05:10→19:57)
[2017-01-06] MEDS ORDERED: Magnesium Replacement Protocol 1 EACH MISC MISCELLANE PRN (05:23)
[2017-01-06] MEDS: MAGNESIUM SULFATE-D5W PMX 1 GM in DEXTROSE/WATER 1 100ML.BAG IVPB SCH ×2 (06:54→09:05)
--- NOTE | 2017-01-06 07:58 | XR ---
EXAMINATION TYPE: XR chest 1V DATE OF EXAM: 01/06/2017 7:00 AM HISTORY: SOB. REFERENCE: Previous study dated 01/05/2017. FINDINGS: The patient's right subclavian catheter remains in place unchanged in appearance. An NG tub e is been passed. Its tip is in the stomach. There is left basilar airspace disease. There are multiple pulmonary nodules, unchanged from previous . There has developed a left-sided effusion. There is scarring or atelectasis in the right midlung. H eart is mildly prominent. There is some unfolding and ectasia of the thoracic aorta. IMPRESSION: 1. MILD CARDIOMEGALY. 2. WORSENING LEFT BASILAR AIRSPACE DISEASE. 3. DEVELOPING LEFT EFFUSION. 4. MULTIPLE, STABLE PULMONARY NODULES.
[2017-01-06] MEDS: PIPERACILLIN-TAZOBACTAM 3.375 GM in DEXTROSE/WATER 1 50ML.BAG IVPB SCH ×4 (08:56→17:29)
[2017-01-06] MEDS: PANTOPRAZOLE 40 MG/10 ML VIAL IV SCH ×3 (08:57→22:41)
[2017-01-06 10:15] LABS: Add Differential Manual Differential
[2017-01-06 10:23] LABS: Manual Review Performed; Nucleated Red Blood Cells 0 /100 WBC (0-0); Total Cells Counted 200
[2017-01-06 10:24] LABS: Toxic Vacuolation Present
[2017-01-06 10:25] LABS: Target Cells Present
[2017-01-06] MEDS: 0.9% NACL WITH KCL 20 MEQ/L 1,000 ML IV SCH ×3 (11:00→18:50)
[2017-01-06] MEDS: AMIODARONE 450 MG in DEXTROSE 5% IN WATER 250 ML IV SCH ×4 (11:01→17:50)
[2017-01-06 11:51] LABS: Glucose,Whole Blood 96 mg/dL (75-99)
--- NOTE | 2017-01-06 12:16 | ECHOF ---
Referral Reason:new onset afib MEASUREMENTS -------- HEIGHT: 160.0 cm WEIGHT: 73.9 kg BP: 101/70 IVSd: 1.1 cm (0.6 - 1.1) LVIDd: 3.4 cm (3.9 - 5.3) LVPWd: 1.0 cm (0.6 - 1.1) IVSs: 1.6 cm LVIDs: 1.7 cm LVPWs: 1.7 cm Ao Diam: 3.1 cm (2.0 - 3.7) AV Cusp: 1.8 cm (1.5 - 2.6) LA Diam: 3.8 cm (2.7 - 3.8) MV EXCURSION: 7.289 mm (> 18.000) MV EF SLOPE: 49 mm/s (70 - 150) EPSS: 0.7 cm MV E Terrance: 0.58 m/s MV DecT: 147 ms MV A Terrance: 0.84 m/s MV E/A Ratio: 0.70 AR PHT: 350 ms RAP: 5.00 mmHg RVSP: 12.14 mmHg FINDINGS -------- Atrial fibrillation. This was a technically adequate study. Left ventricular wall thickness is normal. Overall left ventricular systolic function is normal with, an EF between 55 - 60 %. The diastolic filling pattern is normal for the age of the patient 14.50. The right ventricle is normal in size and function. The left atrium is normal in size. The right atrium is normal in size. Aortic valve is trileaflet and is mildly thickened. There is mild aortic regurgitation. The mitral valve leaflets are mildly thickened. There is trace mitral regurgitation. Trace tricuspid regurgitation present. The right ventricular systolic pressure, as measured by Doppler, is 12.14mmHg. Pulmonic valve appears structurally normal. The aortic root size is normal. The pericardium is normal. CONCLUSIONS -------- 1. Atrial fibrillation. 2. There is mild aortic regurgitation. 3. The mitral valve leaflets are mildly thickened. 4. There is trace mitral regurgitation. 5. Trace tricuspid regurgitation present. 6. The right ventricular systolic pressure, as measured by Doppler, is 12.14mmHg. 7. Pulmonic valve appears structurally normal. 8. The aortic root size is normal. 9. The pericardium is normal. 10. This was a technically adequate study. 11. Left ventricular wall thickness is normal. 12. Overall left ventricular systolic function is normal with, an EF between 55 - 60 %. 13. The diastolic filling pattern is normal for the age of the patient 14.50 14. The right ventricle is normal in size and function. 15. The left atrium is normal in size. 16. The right atrium is normal in size. 17. Aortic valve is trileaflet and is mildly thickened. V BELT BUILDER: Shana Lomeli RDCS
--- NOTE | 2017-01-06 12:58 | CONS ---
DATE OF CONSULTATION: This is an 86-year-old elderly lady who came into the hospital yesterday afternoon with increasing shortness of breath. EMS brought her after the family called because of some abdominal pain and diarrhea. Upon arrival, they found that she was dyspneic, tachycardic with a low oxygen saturation. She was also a bit confused. She was brought into the hospital and after arrival, EKG revealed what seems to be atrial flutter with 2:[address]-T changes. She received adenosine without much benefit. Subsequently, she was started on amiodarone and now has converted to sinus rhythm. She has sinus with PACs. She has an NG tube for a bowel obstruction. She is resting comfortably. Denies any chest pain. Her laboratory data does not reveal any significant troponin elevation. She had an echocardiogram that was performed this morning and study revealed a fairly well-preserved systolic function with an ejection fraction of 55% to 60% with some diastolic dysfunction. At the time of my evaluation, she is comfortable. Her abdominal pain has resolved and the diarrhea seems to be better also. NG-tube is in right now. PAST MEDICAL HISTORY: 1. Hypertension. 2. Hypothyroidism. 3. History of gastroesophageal reflux disease. 4. History of some cardiac arrhythmia, details unclear. I will review the office chart. Apparently she has seen Dr. Damon in the past. Medications at home include trazodone, albuterol, magnesium supplements, Zofran, levothyroxine, calcium supplements and Norvasc. ALLERGIES: She is allergic to METRONIDAZOLE, STATINS and SULFA DRUGS. On examination, blood pressure is 108/70, pulse rate is about 98 per minute, sinus. HEENT unremarkable. Fundus was not examined by me. Neck is supple. There is JVD of 1 cm, no carotid bruit. Heart exam reveals S1, S2 with irregular rhythm, short systolic murmur. Lungs reveal diminished air entry. Abdomen is soft. CENTRAL NERVOUS SYSTEM: Grossly no focal deficits. Lower extremities reveal diminished pulses, 1+ edema. IMPRESSION: 1. Paroxysmal atrial flutter, converted to sinus rhythm. 2. History of hypertension. 3. Bowel obstruction with some diarrhea, which is improving with NG-tube in place. RECOMMENDATION: I am recommending that we continue IV amiodarone and when she can take oral medications, will switch her to oral amiodarone. I will review her office record. Her thyroid supplements need to be resumed as well. Thank you very much for the consult.
--- NOTE | 2017-01-06 14:18 | P.HPIM ---
History of Present Illness H&P Date: 01/06/17 86-year-old female arrived via the EMS system to the emergency room on January 05 to be evaluated for abdominal pain nausea vomiting frequent stooling with incontinent urine onset several days prior. Patient is a poor historian health care history has been obtained from reviewing prior computerized record from the emergency room. T he record indicated that the paramedics found the patient short of breath tachycardic with a low pulse oximetry. Also they noted the patient to be confused. According to the family this was all different from the patient's baseline. Currently this morning the patient's being seen in the intensive care unit is tachycardic did have a short burst of A. fib with a rapid ventricular response heart rate up in the 170s converted shortly after to sinus rhythm heart rate down to 110. Pleasant but oriented to self only patient states she's not sure why she is in the hospital when questioning patient stating she was sore all over and could not control her urine. No family at the bedside x-rays were obtained in the emergency room suggest evidence of a distal small bowel obstruction. The chest x-ray was unremarkable. Subsequently the patient was admitted to the intensive care unit with a surgical cardiology consultation requested currently a nasal gastric tube is in place. The white count on admission was 17.4 the INR on admission was 2.2 home medication record indicates patient is not on Coumadin or any anticoagulation reviewing surgical eval indicate the patient did have a colonoscopy done by Dr. Papo WILKINSON at [facility] recently not certain of the timing Echocardiogram was obtained did show left ventricular systolic function normal EF between 55 and 60%. No valvular heart disease noted Review of Systems Essentially unremarkable except as mentioned in the present illness Past Medical History Past Medical History: Asthma, Coronary Artery Disease (CAD), Cancer, COPD, GERD/ Reflux, Hyperlipidemia, Hypertension, Osteoarthritis (OA), Pneumonia, Thyroid Disorder Additional Past Medical History / Comment(s): R BREAST CANCER, bronchitis, IBS ( newly diagnosed), balance issues, numbness/tingling bilateral legs/feet, anemia , UTI, chronic low back pain, past fracture L hip with sx and fx L wrist, sinus problems. History of Any Multi-Drug Resistant Organisms: None Reported Past Surgical History: Bladder Surgery, Breast Surgery, Cholecystectomy, Heart Catheterization, Hysterectomy Additional Past Surgical History / Comment(s): 1979 RIGHT MASTECTOMY, colonoscopies, bilateral cataracts removed with lasek sx, hemorroidectomy, L hip fx repair (metal in hip), bladder suspension. Past Anesthesia/Blood Transfusion Reactions: No Reported Reaction Past Psychological History: Anxiety Additional Psychological History / Comment(s): Pt lives with her daughter. She uses a walker with wheels or a 4 prong cane to ambulate. She has a potty chair and hospital bed. She has recently uses [facility] home care but that is complete. Smoking Status: Former smoker Past Alcohol Use History: None Reported Additional Past Alcohol Use History / Comment(s): Pt quit smoking in 1989. Past Drug Use History: None Reported - Past Family History Father History Unknown: Yes Additional Family Medical History / Comment(s): Pt adopted and does not know parents hx. Medications and Allergies Home Medications Medication Instructions Recorded Confirmed Type ALPRAZolam [Xanax] 0.5 mg PO Q8HR PRN 01/05/17 01/05/17 History Albuterol Nebulized [Ventolin 2.5 mg INHALATION Q6H PRN 01/05/17 01/05/17 History Nebulized] Aspirin 81 mg PO DAILY 01/05/17 01/05/17 History Budesonide/Formoterol Fumarate 2 puff INHALATION RT-BID 01/05/17 01/05/17 History [Symbicort 160-4.5 Mcg Inhaler] Calcium Carb-Vit D 500Mg-200Un 1 tab PO W/SUPPER 01/05/17 01/05/17 History [Oscal 500+D] Diphenox-Atrop 2.5-0.025 mg 1 tab PO TID 01/05/17 01/05/17 History [Lomotil] Hydrocodone/Acetaminophen [[place] 1 tab PO TID PRN 01/05/17 01/05/17 History 5-325] Ipratropium-Albuterol Nebulize 3 ml INHALATION RT-TID 01/05/17 01/05/17 History [Duoneb 0.5 mg-3 mg/3 ml Soln] Lactulose [Cephulac] 20 gm PO DAILY PRN 01/05/17 01/05/17 History Levothyroxine Sodium [Synthroid] 25 mcg PO DAILY 01/05/17 01/05/17 History Loratadine [Claritin] 10 mg PO DAILY PRN 01/05/17 01/05/17 History Magnesium Oxide [Mag-Ox] 400 mg PO W/SUPPER 01/05/17 01/05/17 History Meclizine HCl 12.5 mg PO TID PRN 01/05/17 01/05/17 History Melatonin 5 mg PO HS 01/05/17 01/05/17 History Omeprazole 20 mg PO DAILY 01/05/17 01/05/17 History Ondansetron HCl [Zofran] 8 mg PO Q8H PRN 01/05/17 01/05/17 History Potassium Chloride [Klor-Con 10] 10 meq PO BID-W/MEALS 01/05/17 01/05/17 History amLODIPine [Norvasc] 5 mg PO DAILY 01/05/17 01/05/17 History guaiFENesin [Mucinex] 600 mg PO BID-W/MEALS 01/05/17 01/05/17 History traZODone HCL 100 mg PO HS PRN 01/05/17 01/05/17 History Allergies Allergy/AdvReac Type Severity Reaction Status Date / Time metronidazole [From Flagyl] Allergy Unknown Verified 01/05/17 08:23 Ntkqhuv-Snv-Ibz Reductase Allergy Unknown Verified 01/05/17 08:23 Inhibitor sulfamethoxazole Allergy Unknown Verified 01/05/17 08:23 [From Bactrim] trimethobenzamide Allergy Unknown Verified 01/05/17 08:23 [From Tigan] trimethoprim [From Bactrim] Allergy Unknown Verified 01/05/17 08:23 Physical Exam Vitals: Vital Signs Temp Pulse Pulse Resp BP BP Pulse Ox 01/06/17 11:49 103 H 01/06/17 11:38 98 01/06/17 10:00 101 H 17 101/70 96 01/06/17 09:00 105 H 17 104/55 100 01/06/17 08:00 97 F L 105 H 17 100/48 100 01/06/17 07:44 103 H 01/06/17 07:35 102 H 98 01/06/17 07:00 104 H 19 111/56 96 01/06/17 06:00 100 20 97/46 96 01/06/17 05:00 100 21 99/60 98 01/06/17 04:00 97.8 F 99 21 93/51 98 01/06/17 03:00 100 19 92/44 100 01/06/17 02:00 103 H 15 95/44 98 01/06/17 01:00 101 H 43 H 93/48 95 01/06/17 00:00 97.8 F 98 20 103/51 94 L 01/05/17 23:00 101 H 20 98/45 100 01/05/17 22:00 102 H 31 H 86/47 83 L 01/05/17 21:23 105 H 01/05/17 21:10 101 H 01/05/17 21:00 98 22 98/44 100 01/05/17 20:33 97.6 F 99 20 95/45 96 01/05/17 20:00 100 57 L 21 85/45 97 01/05/17 19:00 113 H 18 97 01/05/17 18:00 97 20 91/41 100 01/05/17 17:25 97.7 F 57 L 19 84/43 01/05/17 16:50 99 18 100/52 95 01/05/17 16:00 96 20 100/53 98 01/05/17 14:45 107 H 18 93/57 97 01/05/17 14:11 106 H 18 129/61 98 Intake and Output 01/05/17 01/06/17 01/06/17 22:59 06:59 14:59 Intake Total 375 1000 400 Output Total 205 435 565 Balance 170 565 -165 Intake: IV 250 1000 250 0.9% NaCl with KCl 20 Meq 250 1000 250 /l 1,000 ml @ 125 mls/hr IV .Q8H SELENA Rx#:[id number] Intake, IV Titration 125 150 Amount 0.9% NaCl with KCl 20 Meq 125 /l 1,000 ml @ 125 mls/hr IV .Q8H SELENA Rx#:[id number] Magnesium Sulfate-D5w Pmx 100 1 gm In Dextrose/Water 1 100ml.bag @ 100 mls/hr IVPB Q1H SELENA Rx#: [id number] Piperacillin-Tazobactam 3 50 .375 gm In Dextrose/Water 1 50ml.bag @ 12.5 mls/hr IVPB ONCE STA Rx#: [id number] Output: Gastric Drainage 400 Urine 205 435 165 Other: Voiding Method Indwelling Catheter Indwelling Catheter Indwelling Catheter Weight 70 kg 74.2 kg 74.2 kg Patient Weight 01/07/17 06:59 Weight 74.2 kg Physical exam 86-year-old female looking older than stated age sitting up pleasant cooperative oriented to self Lungs diminished at the bases otherwise adequate air movement no wheezing rales or rhonchi noted sats are 96% Heart S1-S2 audible irregular heart rate currently 110 tachycardic denying chest pain no murmur Abdomen slightly distended firm few hypoactive bowel tones indwelling Maxwell catheter in place no stool nasal gastric tube connected to suction Extremities no evidence of edema to the upper or lower extremities Results CBC & Chem 7: 01/06/17 06:00 01/06/17 03:50 Labs: Abnormal Lab Results - Last 24 Hours (Table) 01/05/17 01/05/17 01/05/17 Range/Units 17:39 18:43 18:43 WBC 17.1 H (3.8-10.6) k/uL Hgb 11.1 L (11.4-16.0) gm/dL RDW 16.1 H (11.5-15.5) % Neutrophils # (Manual) 14.9 H (1.3-7.7) k/uL PT 20.6 H (9.0-12.0) sec Sodium (137-145) mmol/L Carbon Dioxide (22-30) mmol/L BUN (7-17) mg/dL POC Glucose (mg/dL) 47 L (75-99) mg/dL Calcium (8.4-10.2) mg/dL Alkaline Phosphatase (38-126) U/L Total Protein (6.3-8.2) g/dL Albumin (3.5-5.0) g/dL 01/05/17 01/06/17 01/06/17 Range/Units 18:43 00:55 03:50 WBC (3.8-10.6) k/uL Hgb (11.4-16.0) gm/dL RDW (11.5-15.5) % Neutrophils # (Manual) (1.3-7.7) k/uL PT (9.0-12.0) sec Sodium 133 L 135 L (137-145) mmol/L Carbon Dioxide 19 L (22-30) mmol/L BUN 24 H 23 H (7-17) mg/dL POC Glucose (mg/dL) 63 L (75-99) mg/dL Calcium 7.0 L 7.1 L (8.4-10.2) mg/dL Alkaline Phosphatase 144 H (38-126) U/L Total Protein 4.9 L (6.3-8.2) g/dL Albumin 1.8 L (3.5-5.0) g/dL 01/06/17 Range/Units 06:00 WBC 16.6 H (3.8-10.6) k/uL Hgb 10.8 L (11.4-16.0) gm/dL RDW 16.3 H (11.5-15.5) % Neutrophils # (Manual) 14.0 H (1.3-7.7) k/uL PT (9.0-12.0) sec Sodium (137-145) mmol/L Carbon Dioxide (22-30) mmol/L BUN (7-17) mg/dL POC Glucose (mg/dL) (75-99) mg/dL Calcium (8.4-10.2) mg/dL Alkaline Phosphatase (38-126) U/L Total Protein (6.3-8.2) g/dL Albumin (3.5-5.0) g/dL Thrombosis Risk Factor Assmnt - Choose All That Apply Any of the Below Risk Factors Present?: Yes Each Factor Represents 1 point: Abnormal pulmonary function (COPD), Obesity ( BMI >25) Other Risk Factors: Yes Each Risk Factor Represents 2 Points: Malignancy Other congenital or acquired thrombophilia - If yes, enter type in comment: No Thrombosis Risk Factor Assessment Total Risk Factor Score: 4 Thrombosis Risk Factor Assessment Level: Moderate Risk Assessment and Plan Plan: Impression Present on admission nausea vomiting abdominal pain suspect ischemic bowel as etiology Present on admission coagulopathy INR 2.2 Episodes of paroxysmal atrial fibrillation with rapid ventricular response Present on admission hypocalcium Present on admission leukocytosis Echocardiogram on January 06 HER systolic function with an ejection fraction 55-60 % with some diastolic dysfunction Cardiac arrhythmias history of History of esophageal reflux disease History of a recent colonoscopy by Dr. Barros Plan Continue recommendations by cardiology service defer to Continue recommendations by surgical service Dr. Green defer to IV fluid for hydration Monitor labs keep electrolytes therapeutic Resume home meds when appropriate DVT and GI prophylaxis IV amiodarone per cardiology services recommendations Continue broad-spectrum antibiotics Follow-up on stool for C. diff pending GI service eval pending The above dictated assessment and findings were discussed with dr green Impression and the plan of care have been dictated as directed. Laura Patel nurse practitioner acting as a scribe for dr green
--- NOTE | 2017-01-06 15:33 | HP ---
DATE OF ADMISSION: CHIEF COMPLAINT: Acute respiratory distress with nausea, vomiting, diarrhea and tachycardia. HISTORY OF PRESENT ILLNESS: This is another admission for this 86-year-old white female. She suddenly started to have nausea, vomiting and diarrhea and became acutely dyspneic. Ambulance was summoned. When they arrived she had a pulse of over 200 beats per minute and was confused. She came to the emergency room, where she was assessed, and it was decided that she should be admitted. Her magnesium was low, and studies suggested that she may have an ileus or small bowel obstruction. Review of systems cannot be obtained, in that she is lethargic and somewhat disoriented. PHYSICAL EXAMINATION: Blood pressure 94/55 with a pulse of 63, respirations of 39, and she is afebrile. In general she appeared to be pale and dehydrated. She was weak and somewhat lethargic. Head, ears, eyes, nose, mouth and throat were otherwise normal. Neck veins were not distended. The carotids were normal. Chest demonstrated poor breath sounds. Cardiac exam demonstrated tachycardia, at times going up over 200 beats per minute. The abdomen was slightly protuberant, soft and nontender. Bowel sounds were not heard. Extremities were normal. Neurologically she seemed to be intact except for being lethargic and somewhat confused. There was no focal neurologic deficit. She is admitted to the hospital with diagnoses: 1. Acute respiratory failure. 2. Nausea, vomiting, diarrhea; etiology unknown. 3. Supraventricular tachycardia with rate over 200. 4. Hypomagnesemia. 5. Possible ileus or small bowel obstruction. 6. Probable anemia. PLAN: 1. Bed rest. 2. IV fluids. 3. Consult with Cardiology and General Surgery.
--- NOTE | 2017-01-06 15:38 | PN ---
DATE OF SERVICE: 01/06/2017 CHIEF COMPLAINT: Respiratory failure, vomiting and diarrhea. Possible ileus or bowel obstruction. Pallor. HISTORY OF PRESENT ILLNESS: This lady is extremely pale this morning. Hemoglobin was read out as 7, but she looks like she is much more anemic. PHYSICAL EXAMINATION: She is a little bit lethargic but fairly intact. She is extremely pale. Chest demonstrates rales and rhonchi bilaterally. Cardiac exam demonstrates tachycardia. The abdomen is slightly protuberant, soft, and she is not particularly tender. Bowel sounds are not heard. IMPRESSION: 1. Acute respiratory failure. 2. Anemia, etiology unknown. 3. Supraventricular tachycardia. 4. Ileus or bowel obstruction. PLAN: 1. Repeat labs, with specific attention to hemoglobin. 2. Continue IV fluids. 3. Await recommendations from Cardiology. 4. Continue to follow her abdominal findings.
--- NOTE | 2017-01-06 16:16 | P.PN ---
Subjective Principal diagnosis: Abdominal pain Patient says her pain is much improved. Still no flatus or bowel movement. Her labs are improved as well. White blood cell count 16.6. Bandemia is mostly resolved. Lactic acid is normal. Objective - Vital Signs Vital signs: Vital Signs Temp 97.5 F L 01/06/17 12:00 Pulse 93 01/06/17 15:50 Resp 19 01/06/17 14:00 BP 104/43 01/06/17 14:00 Pulse Ox 91 L 01/06/17 14:00 Intake & Output 01/05/17 01/06/17 01/06/17 18:59 06:59 18:59 Intake Total 1375 1025 Output Total 250 640 745 Balance -250 735 280 Weight 74.2 kg 74.2 kg Intake: IV 1250 750 0.9% NaCl with KCl 20 Meq 1250 750 /l 1,000 ml @ 125 mls/hr IV .Q8H [facility] Rx#:[id number] Intake, IV Titration 125 275 Amount 0.9% NaCl with KCl 20 Meq 125 125 /l 1,000 ml @ 125 mls/hr IV .Q8H [facility] Rx#:[id number] Magnesium Sulfate-D5w Pmx 100 1 gm In Dextrose/Water 1 100ml.bag @ 100 mls/hr IVPB Q1H [facility] Rx#: [id number] Piperacillin-Tazobactam 3 50 .375 gm In Dextrose/Water 1 50ml.bag @ 12.5 mls/hr IVPB ONCE [facility] Rx#: [id number] Output: Gastric Drainage 400 Urine 250 640 345 Other: Voiding Method Indwelling Catheter Indwelling Catheter - Exam Abdomen: Soft, minimal distention, minimal lower abdominal tenderness bilaterally - Labs CBC & Chem 7: 01/06/17 06:00 01/06/17 03:50 Labs: Abnormal Lab Results - Last 24 Hours (Table) 01/05/17 01/05/17 01/05/17 Range/Units 17:39 18:43 18:43 WBC 17.1 H (3.8-10.6) k/uL Hgb 11.1 L (11.4-16.0) gm/dL RDW 16.1 H (11.5-15.5) % Neutrophils # (Manual) 14.9 H (1.3-7.7) k/uL PT 20.6 H (9.0-12.0) sec Sodium (137-145) mmol/L Carbon Dioxide (22-30) mmol/L BUN (7-17) mg/dL POC Glucose (mg/dL) 47 L (75-99) mg/dL Calcium (8.4-10.2) mg/dL Alkaline Phosphatase (38-126) U/L Total Protein (6.3-8.2) g/dL Albumin (3.5-5.0) g/dL 01/05/17 01/06/17 01/06/17 Range/Units 18:43 00:55 03:50 WBC (3.8-10.6) k/uL Hgb (11.4-16.0) gm/dL RDW (11.5-15.5) % Neutrophils # (Manual) (1.3-7.7) k/uL PT (9.0-12.0) sec Sodium 133 L 135 L (137-145) mmol/L Carbon Dioxide 19 L (22-30) mmol/L BUN 24 H 23 H (7-17) mg/dL POC Glucose (mg/dL) 63 L (75-99) mg/dL Calcium 7.0 L 7.1 L (8.4-10.2) mg/dL Alkaline Phosphatase 144 H (38-126) U/L Total Protein 4.9 L (6.3-8.2) g/dL Albumin 1.8 L (3.5-5.0) g/dL 01/06/17 Range/Units 06:00 WBC 16.6 H (3.8-10.6) k/uL Hgb 10.8 L (11.4-16.0) gm/dL RDW 16.3 H (11.5-15.5) % Neutrophils # (Manual) 14.0 H (1.3-7.7) k/uL PT (9.0-12.0) sec Sodium (137-145) mmol/L Carbon Dioxide (22-30) mmol/L BUN (7-17) mg/dL POC Glucose (mg/dL) (75-99) mg/dL Calcium (8.4-10.2) mg/dL Alkaline Phosphatase (38-126) U/L Total Protein (6.3-8.2) g/dL Albumin (3.5-5.0) g/dL Assessment and Plan (1) Abdominal pain Narrative/Plan: Keep nasogastric tube until tomorrow. Keep nothing by mouth for now. Continue broad-spectrum antibiotics. Suspect low flow ischemia as the source of the patient's abdominal pain and suspected ischemic bowel. This seems to have improved conservatively. We'll follow with you. Await GI evaluation. Status: Acute
[2017-01-06 17:14] LABS: Glucose,Whole Blood 74 mg/dL (75-99)
--- NOTE | 2017-01-06 17:56 | CONS ---
DATE OF CONSULTATION: 01/06/2017 REASON FOR CONSULTATION: Abdominal pain. HISTORY OF PRESENT ILLNESS: The patient is an 86-year-old white female who is known to me from her previous hospitalizations at [facility]. She was admitted to the hospital because of intermittent cramping lower abdominal pain which has been progressively getting worse for the last 3 to 4 days' duration, associated with some nausea but no emesis. She came into the emergency room and subsequently had a CT of the abdomen and pelvis done that showed fluid-filled small bowel loops suspicious for enteritis with a small bowel obstruction. Subsequently she was noted to have severe leukocytosis and lactic acidosis, and hence she was admitted to the intensive care unit. She was seen by Dr. Green yesterday for possible small bowel ischemia. At present she is being managed conservatively with broad-spectrum antibiotics and NG tube placement. We were consulted to evaluate her, as she is known to me from is known to me from previous office visits. The patient was evaluated about 6 months ago for intermittent diarrhea and lower abdominal pain on and off for the last one-year duration. She underwent EGD and colonoscopy in April of 2016. Upper endoscopy showed some gastritis and small hiatal hernia, but colonoscopy was within normal limits. The patient was subsequently diagnosed with irritable bowel syndrome and was treated with anti-motility agents on an outpatient basis. This morning patient states that the abdominal pain has significantly improved. No further episodes of nausea or vomiting. She still has an NG tube in place. Past medical history is significant for: 1. GERD. 2. IBS. 3. Coronary artery disease. 4. Congestive heart failure. 5. COPD. 6. Hypertension. 7. Hyperlipidemia. 8. Hypothyroidism. PAST SURGICAL HISTORY: 1. Right mastectomy. 2. Last colonoscopy April of 2016 that was normal. 3. EGD at the same time showed gastritis and small hiatal hernia. 4. History of hemorrhoidectomy. 5. Bilateral cataract surgery. 6. Bladder suspension. Medications at home include: 1. Xanax. 2. Ventolin. 3. Aspirin. 4. Lomotil. 5. Badger. 6. Synthroid. 7. Claritin. 8. Meclizine. 9. Omeprazole. 10. Zofran. 11. K-Henrietta. 12. Norvasc. 13. Mucinex. 14. Trazodone. 15. Magnesium oxide. ALLERGIES: 1. FLAGYL. 2. STATINS. 3. BACTRIM. 4. TIGAN. SOCIAL HISTORY: Quit smoking many years ago. No alcohol use. FAMILY HISTORY: Patient was adopted, so no family history is available. On physical examination she appears comfortable, in no apparent distress. Vital signs are stable. Blood pressure 109/50, pulse rate 103, temperature 97.5. HEENT EXAMINATION: Unremarkable. Conjunctivae pink. Sclerae anicteric. Oral cavity with no lesions. NECK: No JVD or lymph node enlargement. Chest was clear to auscultation. HEART: Regular rate and rhythm. ABDOMEN: Soft. It was tender diffusely all over the abdomen but no rebound or rigidity. Bowel sounds are positive. No organomegaly. EXTREMITIES: No pedal edema. SKIN: No rashes. NEURO: She is alert and oriented x3. No focal deficits. LABS DONE AT THE TIME OF ADMISSION TO THE HOSPITAL: WBC was 26.7. Today it is 16.3. Platelets are 435. Hemoglobin is 10.8. PT 20.6 with an INR of 2.1. Comprehensive metabolic panel is within normal limits. Amylase and lipase are normal. Lactic acid was 1.8 and this morning it is 1.1. IMPRESSION: 1. This is a lady who presented to the hospital with diffuse abdominal pain for the last 3 to 4 days' duration associated with some nausea, vomiting and intermittent episodes of diarrhea. At the time of admission she was noted to have severe leukocytosis. CT scan showed evidence of dilated small bowel loops suspicious for a small bowel obstruction versus ileus versus enteritis. Dr. Green from Surgery has been consulted and she is at present on broad-spectrum antibiotics, being treated conservatively. Overall her clinical picture is gradually improving. Possibility of small bowel ischemia is presently being entertained. 2. History of irritable bowel syndrome with a negative EGD and colonoscopy in April of 2016, on anti-motility agents on an outpatient basis. RECOMMENDATIONS: 1. Agree with broad-spectrum antibiotics. 2. Keep her n.p.o. for now. 3. I will continue to follow the patient closely during her hospital stay. 4. No need for any endoscopic intervention. Thank you for this consultation.
[2017-01-06] MEDS ORDERED: IPRATROPIUM-ALBUTEROL 3 ML NEB INHALATION PRN (22:07)
[2017-01-07 02:14] LABS: Glucose,Whole Blood 90 mg/dL (75-99)
[2017-01-07] MEDS: 0.9% NACL WITH KCL 20 MEQ/L 1,000 ML IV SCH ×3 (02:38→09:27)
[2017-01-07] MEDS: PIPERACILLIN-TAZOBACTAM 3.375 GM in DEXTROSE/WATER 1 50ML.BAG IVPB SCH ×3 (03:05→18:06)
[2017-01-07] MEDS: AMIODARONE 450 MG in DEXTROSE 5% IN WATER 250 ML IV SCH ×6 (03:06→14:32)
[2017-01-07 06:49] LABS: Glucose,Whole Blood 77 mg/dL (75-99)
[2017-01-07] MEDS: IPRATROPIUM-ALBUTEROL 3 ML NEB INHALATION SCH ×4 (07:38→20:14)
[2017-01-07 08:02] LABS: Anisocytosis Slight; CH 27.6; CHCM 31.2; HCT 31.2 % (34.0-46.0); HDW 2.46; HGB 9.9 gm/dL (11.4-16.0); Hypochromasia Slight; Immature Gran Flag Marked; MCH 28.1 pg (25.0-35.0); MCHC 31.6 g/dL (31.0-37.0); MCV 88.8 fL (80.0-100.0); Mean Platelet Volume 7.9; RBC 3.51 m/uL (3.80-5.40); RDW 16.2 % (11.5-15.5); WBC 12.9 k/uL (3.8-10.6)
[2017-01-07 08:13] LABS: Add Differential Manual Differential
[2017-01-07 08:18] LABS: Band Neutrophils % 5.5 %; Manual Review Performed; Metamyelocytes % 0.5 %; Nucleated Red Blood Cells 0 /100 WBC (0-0); Total Cells Counted 200
[2017-01-07 08:22] LABS: Anion Gap 3 mmol/L; Blood Urea Nitrogen 22 mg/dL (7-17); Calcium 7.3 mg/dL (8.4-10.2); Carbon Dioxide 23 mmol/L (22-30); Chloride 112 mmol/L (98-107); Glucose 90 mg/dL (74-99); Magnesium 2.1 mg/dL (1.6-2.3); Non-African American GFR(MDRD) >60 (>60 ml/min/1.73 sqM); Phosphorous 2.7 mg/dL (2.5-4.5); Potassium 4.9 mmol/L (3.5-5.1); Sodium 138 mmol/L (137-145)
[2017-01-07] MEDS: PANTOPRAZOLE 40 MG/10 ML VIAL IV SCH ×2 (09:26→21:46)
[2017-01-07 12:03] LABS: Glucose,Whole Blood 66 mg/dL (75-99)
[2017-01-07] MEDS: DEXTROSE 50%-WATER 50 ML SYRINGE IVP STA (12:14)
[2017-01-07 12:39] LABS: Glucose,Whole Blood 70 mg/dL (75-99)
[2017-01-07] MEDS ORDERED: DEXTROSE 50%-WATER 50 ML SYRINGE IVP STA (12:39)
[2017-01-07 13:01] LABS: Glucose,Whole Blood 58 mg/dL (75-99)
[2017-01-07 13:08] LABS: Glucose,Whole Blood 277 mg/dL (75-99)
--- NOTE | 2017-01-07 13:10 | PN ---
DATE OF SERVICE: 01/07/2017 CHIEF COMPLAINT: Tachycardia, anemia, abdominal pain with bowel obstruction or ileus. HISTORY OF PRESENT ILLNESS: This lady is alert and awake. Vital signs are fairly stable. She is still tachycardic. NG tube is in place. PHYSICAL EXAMINATION: She remains pale. Chest demonstrates rhonchi and rales bilaterally. Cardiac exam demonstrates sinus tachycardia. The abdomen is slightly protuberant. There is lower abdominal tenderness. There are no masses. Bowel sounds are not heard. IMPRESSION: 1. Ileus or small bowel obstruction. 2. Anemia. 3. Tachycardia. PLAN: No change in her program at this time and await further recommendations from Surgery.
[2017-01-07] MEDS: SODIUM CHLORIDE 0.9% 1,000 ML IV SCH ×2 (13:16→21:46)
--- NOTE | 2017-01-07 13:43 | XR ---
2 view abdomen HISTORY: Follow-up small bowel obstruction Correlation to prior abdomen and CT 05 January 2017 Distended loops of small bowel are present, there is an NG tube within the stomach. Basilar increased density with obscured left hemidiaphragm is noted. Surgical clips are present in the right upper joyce drant. There is blunting the left costophrenic angle and right costophrenic angle. Postop change agai n noted to the left hip. Right subclavian central venous catheter is present with the distal tip over lying superior vena cava. There are overlying cardiac leads. IMPRESSION: Suspect some improvement as compared to previous exam, findings may represent ileus rathe r than bowel obstruction, correlate.
--- NOTE | 2017-01-07 14:00 | P.PN ---
Subjective Minute is lying comfortably in bed no chest pain no respiratory distress She came to the hospital with shortness of breath she is found to be tachycardic and dyspneic with a low oxygen saturation and mild confusion She was in atrial flutter with 21 block treated with amiodarone and now in sinus rhythm Normal LV function She follows with me in the office and has had supraventricular arrhythmias in the past that her first documented [facility] On examination Heart sounds are normal no murmurs no gallops breath sounds are normal no rhonchi no crackles Abdomen is soft Extremities are warm Rhythm is regular She is being evaluated by surgery for ischemic bowel Impression Known atrial flutter History of SVT History of nonsustained VT Admitted with atrial flutter with 1-1 conduction versus rapid atrial tachycardia /atrial fibrillation Suspected ischemic bowel Plan She will need anticoagulation for prevention of embolism secondary to atrial flutter Objective - Vital Signs Vital signs: Vital Signs Temp 97.4 F L 01/07/17 12:00 Pulse 84 01/07/17 13:00 Resp 16 01/07/17 13:00 BP 99/52 01/07/17 13:00 Pulse Ox 99 01/07/17 13:00 Intake & Output 01/06/17 01/07/17 01/07/17 18:59 06:59 18:59 Intake Total 9085.844 0148 1664 Output Total 865 405 215 Balance 375.959 6627 1449 Weight 74.2 kg 75.2 kg Intake: IV 1000 1500 875 0.9% NaCl with KCl 20 Meq 1000 1500 500 /l 1,000 ml @ 125 mls/hr IV .Q8H [facility] Rx#:[id number] 0.9nacl 375 Intake, IV Titration 801.457 309 Amount 0.9% NaCl with KCl 20 Meq 375 /l 1,000 ml @ 125 mls/hr IV .Q8H [facility] Rx#:[id number] Amiodarone 450 mg In 226.457 259 Dextrose 5% in Water 250 ml @ 1 MG/MIN 34.53 mls/ hr IV .Q7H31M [facility] Rx#: [id number] Magnesium Sulfate-D5w Pmx 100 1 gm In Dextrose/Water 1 100ml.bag @ 100 mls/hr IVPB Q1H [facility] Rx#: [id number] Piperacillin-Tazobactam 3 50 .375 gm In Dextrose/Water 1 50ml.bag @ 12.5 mls/hr IVPB ONCE [facility] Rx#: [id number] Piperacillin-Tazobactam 3 50 50 .375 gm In Dextrose/Water 1 50ml.bag @ 12.5 mls/hr IVPB Q8H [facility] Rx#: [id number] Oral 480 Output: Gastric Drainage 400 Urine 465 405 215 Other: Voiding Method Indwelling Catheter Indwelling Catheter Indwelling Catheter # Bowel Movements 0 - Labs CBC & Chem 7: 01/07/17 07:45 01/07/17 07:45 Labs: Abnormal Lab Results - Last 24 Hours (Table) 01/06/17 01/07/17 01/07/17 Range/Units 17:12 07:45 07:45 WBC 12.9 H (3.8-10.6) k/uL RBC 3.51 L (3.80-5.40) m/uL Hgb 9.9 L (11.4-16.0) gm/dL Hct 31.2 L (34.0-46.0) % RDW 16.2 H (11.5-15.5) % Neutrophils # (Manual) 10.7 H (1.3-7.7) k/uL Chloride 112 H (98-107) mmol/L BUN 22 H (7-17) mg/dL POC Glucose (mg/dL) 74 L (75-99) mg/dL Calcium 7.3 L (8.4-10.2) mg/dL 01/07/17 01/07/17 01/07/17 Range/Units 12:01 12:38 12:59 WBC (3.8-10.6) k/uL RBC (3.80-5.40) m/uL Hgb (11.4-16.0) gm/dL Hct (34.0-46.0) % RDW (11.5-15.5) % Neutrophils # (Manual) (1.3-7.7) k/uL Chloride (98-107) mmol/L BUN (7-17) mg/dL POC Glucose (mg/dL) 66 L 70 L 58 L (75-99) mg/dL Calcium (8.4-10.2) mg/dL 01/07/17 Range/Units 13:07 WBC (3.8-10.6) k/uL RBC (3.80-5.40) m/uL Hgb (11.4-16.0) gm/dL Hct (34.0-46.0) % RDW (11.5-15.5) % Neutrophils # (Manual) (1.3-7.7) k/uL Chloride (98-107) mmol/L BUN (7-17) mg/dL POC Glucose (mg/dL) 277 H (75-99) mg/dL Calcium (8.4-10.2) mg/dL
--- NOTE | 2017-01-07 14:17 | P.PN ---
Subjective Principal diagnosis: Abdominal pain Patient denies abdominal pain. No seen in bowel function. Denies nausea. Today's x-ray shows an ileus pattern slightly improved. Objective - Vital Signs Vital signs: Vital Signs Temp 97.4 F L 01/07/17 12:00 Pulse 84 01/07/17 13:00 Resp 16 01/07/17 13:00 BP 99/52 01/07/17 13:00 Pulse Ox 99 01/07/17 13:00 Intake & Output 01/06/17 01/07/17 01/07/17 18:59 06:59 18:59 Intake Total 8014.415 0630 1664 Output Total 865 405 215 Balance 702.394 1296 1449 Weight 74.2 kg 75.2 kg Intake: IV 1000 1500 875 0.9% NaCl with KCl 20 Meq 1000 1500 500 /l 1,000 ml @ 125 mls/hr IV .Q8H [facility] Rx#:[id number] 0.9nacl 375 Intake, IV Titration 801.457 309 Amount 0.9% NaCl with KCl 20 Meq 375 /l 1,000 ml @ 125 mls/hr IV .Q8H [facility] Rx#:[id number] Amiodarone 450 mg In 226.457 259 Dextrose 5% in Water 250 ml @ 1 MG/MIN 34.53 mls/ hr IV .Q7H31M [facility] Rx#: [id number] Magnesium Sulfate-D5w Pmx 100 1 gm In Dextrose/Water 1 100ml.bag @ 100 mls/hr IVPB Q1H [facility] Rx#: [id number] Piperacillin-Tazobactam 3 50 .375 gm In Dextrose/Water 1 50ml.bag @ 12.5 mls/hr IVPB ONCE [facility] Rx#: [id number] Piperacillin-Tazobactam 3 50 50 .375 gm In Dextrose/Water 1 50ml.bag @ 12.5 mls/hr IVPB Q8H [facility] Rx#: [id number] Oral 480 Output: Gastric Drainage 400 Urine 465 405 215 Other: Voiding Method Indwelling Catheter Indwelling Catheter Indwelling Catheter # Bowel Movements 0 - Exam Abdomen: Soft, nontender, nondistended - Labs CBC & Chem 7: 01/07/17 07:45 01/07/17 07:45 Labs: Abnormal Lab Results - Last 24 Hours (Table) 01/06/17 01/07/1701/07/17 Range/Units 17:12 07:45 07:45 WBC 12.9 H (3.8-10.6) k/uL RBC 3.51 L (3.80-5.40) m/uL Hgb 9.9 L (11.4-16.0) gm/dL Hct 31.2 L (34.0-46.0) % RDW 16.2 H (11.5-15.5) % Neutrophils # (Manual) 10.7 H (1.3-7.7) k/uL Chloride 112 H (98-107) mmol/L BUN 22 H (7-17) mg/dL POC Glucose (mg/dL) 74 L (75-99) mg/dL Calcium 7.3 L (8.4-10.2) mg/dL 01/07/17 01/07/17 01/07/17 Range/Units 12:01 12:38 12:59 WBC (3.8-10.6) k/uL RBC (3.80-5.40) m/uL Hgb (11.4-16.0) gm/dL Hct (34.0-46.0) % RDW (11.5-15.5) % Neutrophils # (Manual) (1.3-7.7) k/uL Chloride (98-107) mmol/L BUN (7-17) mg/dL POC Glucose (mg/dL) 66 L 70 L 58 L (75-99) mg/dL Calcium (8.4-10.2) mg/dL 01/07/17 Range/Units 13:07 WBC (3.8-10.6) k/uL RBC (3.80-5.40) m/uL Hgb (11.4-16.0) gm/dL Hct (34.0-46.0) % RDW (11.5-15.5) % Neutrophils # (Manual) (1.3-7.7) k/uL Chloride (98-107) mmol/L BUN (7-17) mg/dL POC Glucose (mg/dL) 277 H (75-99) mg/dL Calcium (8.4-10.2) mg/dL Assessment and Plan (1) Abdominal pain Narrative/Plan: We'll clamp the patient's nasogastric tube at this time. Possible removal of nasogastric tube later today. Status: Acute
--- NOTE | 2017-01-07 16:23 | P.CNPUL ---
History of Present Illness Consult date: 01/06/17 Requesting physician: Humza Garcia Reason for consult: other (ICU management, known to office) Chief complaint: Shortness of breath History of present illness: This is an 86-year-old female patient who is being evaluated and examined today in the intensive care unit. The patient was brought into the emergency room via EMS after family called due to increasing in abdominal pain with no nausea vomiting and diarrhea that had been going on for the past 3 days. Upon arrival the paramedics on the patient to be dyspneic and tachycardic and her pulse ox was low as well. She did have some altered mental status changes however normally is alert and oriented 3. She is also been having some frequency in urination and bedtime wetting. While in the emergency room the patient did go into SVT, was given adenosine which did not affect the rate. She also then went into possibly torsades and was given IV magnesium. CT of the abdomen and pelvis reveals suggestions for ileus, possible early small bowel obstruction, and a moderate fatty infiltration to the liver. Surgical on consult for CT results. Also GI was consulted. Chest x-ray was completed and reveals some mild cardiomegaly, worsening left basilar airspace disease, developing left effusion, and multiple stable pulmonary nodules. Upon examination today the patient is resting up in bed on 4 L of oxygen she does complain of a cough which is dry. She continues to be nothing by mouth. Review of Systems 14 point review of systems was completed and is negative other than what's noted in the HPI Past Medical History Past Medical History: Asthma, Coronary Artery Disease (CAD), Cancer, COPD, GERD/ Reflux, Hyperlipidemia, Hypertension, Osteoarthritis (OA), Pneumonia, Thyroid Disorder Additional Past Medical History / Comment(s): R BREAST CANCER, bronchitis, IBS ( newly diagnosed), balance issues, numbness/tingling bilateral legs/feet, anemia , UTI, chronic low back pain, past fracture L hip with sx and fx L wrist, sinus problems. History of Any Multi-Drug Resistant Organisms: None Reported Past Surgical History: Bladder Surgery, Breast Surgery, Cholecystectomy, Heart Catheterization, Hysterectomy Additional Past Surgical History / Comment(s): 1979 RIGHT MASTECTOMY, colonoscopies, bilateral cataracts removed with lasek sx, hemorroidectomy, L hip fx repair (metal in hip), bladder suspension. Past Anesthesia/Blood Transfusion Reactions: No Reported Reaction Past Psychological History: Anxiety Additional Psychological History / Comment(s): Pt lives with her daughter. She uses a walker with wheels or a 4 prong cane to ambulate. She has a potty chair and hospital bed. She has recently uses [facility] home care but that is complete. Smoking Status: Former smoker Past Alcohol Use History: None Reported Additional Past Alcohol Use History / Comment(s): Pt quit smoking in 1989. Past Drug Use History: None Reported - Past Family History Father History Unknown: Yes Additional Family Medical History / Comment(s): Pt adopted and does not know parents hx. Medications and Allergies Home Medications Medication Instructions Recorded Confirmed Type ALPRAZolam [Xanax] 0.5 mg PO Q8HR PRN 01/05/17 01/05/17 History Albuterol Nebulized [Ventolin 2.5 mg INHALATION Q6H PRN 01/05/17 01/05/17 History Nebulized] Aspirin 81 mg PO DAILY 01/05/17 01/05/17 History Budesonide/Formoterol Fumarate 2 puff INHALATION RT-BID 01/05/17 01/05/17 History [Symbicort 160-4.5 Mcg Inhaler] Calcium Carb-Vit D 500Mg-200Un 1 tab PO W/SUPPER 01/05/17 01/05/17 History [Oscal 500+D] Diphenox-Atrop 2.5-0.025 mg 1 tab PO TID 01/05/17 01/05/17 History [Lomotil] Hydrocodone/Acetaminophen [[place] 1 tab PO TID PRN 01/05/17 01/05/17 History 5-325] Ipratropium-Albuterol Nebulize 3 ml INHALATION RT-TID 01/05/17 01/05/17 History [Duoneb 0.5 mg-3 mg/3 ml Soln] Lactulose [Cephulac] 20 gm PO DAILY PRN 01/05/17 01/05/17 History Levothyroxine Sodium [Synthroid] 25 mcg PO DAILY 01/05/17 01/05/17 History Loratadine [Claritin] 10 mg PO DAILY PRN 01/05/17 01/05/17 History Magnesium Oxide [Mag-Ox] 400 mg PO W/SUPPER 01/05/17 01/05/17 History Meclizine HCl 12.5 mg PO TID PRN 01/05/17 01/05/17 History Melatonin 5 mg PO HS 01/05/17 01/05/17 History Omeprazole 20 mg PO DAILY 01/05/17 01/05/17 History Ondansetron HCl [Zofran] 8 mg PO Q8H PRN 01/05/17 01/05/17 History Potassium Chloride [Klor-Con 10] 10 meq PO BID-W/MEALS 01/05/17 01/05/17 History amLODIPine [Norvasc] 5 mg PO DAILY 01/05/17 01/05/17 History guaiFENesin [Mucinex] 600 mg PO BID-W/MEALS 01/05/17 01/05/17 History traZODone HCL 100 mg PO HS PRN 01/05/17 01/05/17 History Allergies Allergy/AdvReac Type Severity Reaction Status Date / Time metronidazole [From Flagyl] Allergy Unknown Verified 01/05/17 08:23 Cyascik-Tcu-Eek Reductase Allergy Unknown Verified 01/05/17 08:23 Inhibitor sulfamethoxazole Allergy Unknown Verified 01/05/17 08:23 [From Bactrim] trimethobenzamide Allergy Unknown Verified 01/05/17 08:23 [From Tigan] trimethoprim [From Bactrim] Allergy Unknown Verified 01/05/17 08:23 Physical Exam Vitals: Vital Signs Temp Pulse Pulse Resp BP BP Pulse Ox 01/06/17 09:00 105 H 17 104/55 100 01/06/17 08:00 97 F L 105 H 18 100/48 100 01/06/17 07:44 103 H 01/06/17 07:35 102 H 98 01/06/17 07:00 104 H 19 111/56 96 01/06/17 06:00 100 20 97/46 96 01/06/17 05:00 100 21 99/60 98 01/06/17 04:00 97.8 F 99 21 93/51 98 01/06/17 03:00 100 19 92/44 100 01/06/17 02:00 103 H 15 95/44 98 01/06/17 01:00 101 H 43 H 93/48 95 01/06/17 00:00 97.8 F 98 20 103/51 94 L 01/05/17 23:00 101 H 20 98/45 100 01/05/17 22:00 102 H 31 H 86/47 83 L 01/05/17 21:23 105 H 01/05/17 21:10 101 H 01/05/17 21:00 98 22 98/44 100 01/05/17 20:33 97.6 F 99 20 95/45 96 01/05/17 20:00 100 57 L 21 85/45 97 01/05/17 19:00 113 H 18 97 01/05/17 18:00 97 20 91/41 100 01/05/17 17:25 97.7 F 57 L 19 84/43 01/05/17 16:50 99 18 100/52 95 01/05/17 16:00 96 20 100/53 98 01/05/17 14:45 107 H 18 93/57 97 01/05/17 14:11 106 H 18 129/61 98 01/05/17 13:56 104 H 99/51 96 01/05/17 13:41 106 H 82/55 99 01/05/17 13:30 104 H 80/50 99 01/05/17 12:54 100 18 91/51 99 Intake and Output 01/05/17 01/06/17 01/06/17 22:59 06:59 14:59 Intake Total 375 1000 250 Output Total 205 435 475 Balance 170 565 -225 Intake: IV 250 1000 250 0.9% NaCl with KCl 20 Meq 250 1000 250 /l 1,000 ml @ 125 mls/hr IV .Q8H [facility] Rx#:[id number] Intake, IV Titration 125 Amount 0.9% NaCl with KCl 20 Meq 125 /l 1,000 ml @ 125 mls/hr IV .Q8H [facility] Rx#:[id number] Output: Gastric Drainage 400 Urine 205 435 75 Other: Voiding Method Indwelling Catheter Indwelling Catheter Weight 70 kg 74.2 kg 74.2 kg Patient Weight 01/07/17 06:59 Weight 74.2 kg GENERAL EXAM: Alert, active, comfortable in no apparent distress. HEAD: Normocephalic. EYES: Normal reaction of pupils, equal size. NOSE: Clear with pink turbinates. THROAT: No erythema or exudates. NECK: No masses, no JVD. CHEST: No chest wall deformity. LUNGS: Equal air entry noted to be somewhat coarse, few scattered rhonchi. CVS: S1 and S2 normal with no audible mumurs, regular rhythm. ABDOMEN: Slightly distended mild diffuse tenderness noted, hypoactive bowel sounds EXTREMITIES: No edema noted, pedal pulses palpable. SKIN: No rashes CENTRAL NERVOUS SYSTEM: No focal deficits, tone is normal in all 4 extremities. Results - Laboratory Findings CBC and BMP: 01/06/17 06:00 01/06/17 03:50 PT/INR, D-dimer PT 20.6 sec (9.0-12.0) H 01/05/17 18:43 INR 2.1 (<1.1) 01/05/17 18:43 Abnormal lab findings: Abnormal Labs 01/05/17 01/05/17 01/05/17 17:39 18:43 18:43 WBC 17.1 H Hgb 11.1 L RDW 16.1 H Neutrophils # (Manual) 14.9 H PT 20.6 H Sodium Carbon Dioxide BUN POC Glucose (mg/dL) 47 L Calcium Alkaline Phosphatase Total Protein Albumin 01/05/17 01/06/17 01/06/17 18:43 00:55 03:50 WBC Hgb RDW Neutrophils # (Manual) PT Sodium 133 L 135 L Carbon Dioxide 19 L BUN 24 H 23 H POC Glucose (mg/dL) 63 L Calcium 7.0 L 7.1 L Alkaline Phosphatase 144 H Total Protein 4.9 L Albumin 1.8 L 01/06/17 06:00 WBC 16.6 H Hgb 10.8 L RDW 16.3 H Neutrophils # (Manual) 14.0 H PT Sodium Carbon Dioxide BUN POC Glucose (mg/dL) Calcium Alkaline Phosphatase Total Protein Albumin - Diagnostic Findings Chest x-ray: report reviewed Assessment and Plan Plan: Assessment Acute hypoxic respiratory failure Paroxysmal supraventricular tachycardia Small bowel obstruction Dehydration Hypotension Diffuse abdominal pain Leukocytosis Plan Medications have been reviewed and will be continued as ordered. Flu swab has been negative. Continue with nebulizer treatments, supplemental oxygen, and pulmonary hygiene. Incentive spirometer was initiated. Appreciate recommendations from surgical and GI. We will continue to monitor labs/reports and adjust treatment as necessary. I performed an examination of the patient and discussed their management with the nurse practitioner. I have reviewed the nurse practitioner's note and agree with the documented findings and plan of care.
--- NOTE | 2017-01-07 16:27 | P.PN ---
Subjective This is an 86-year-old female patient who is being evaluated and examined today in the intensive care unit. The patient was brought into the emergency room via EMS after family called due to increasing in abdominal pain with no nausea vomiting and diarrhea that had been going on for the past 3 days. Upon arrival the paramedics on the patient to be dyspneic and tachycardic and her pulse ox was low as well. She did have some altered mental status changes however normally is alert and oriented 3. She is also been having some frequency in urination and bedtime wetting. While in the emergency room the patient did go into SVT, was given adenosine which did not affect the rate. She also then went into possibly torsades and was given IV magnesium. CT of the abdomen and pelvis reveals suggestions for ileus, possible early small bowel obstruction, and a moderate fatty infiltration to the liver. Surgical on consult for CT results. Also GI was consulted. Chest x-ray was completed and reveals some mild cardiomegaly, worsening left basilar airspace disease, developing left effusion, and multiple stable pulmonary nodules. Upon examination today the patient's resting up in bed on the 4 L of oxygen via nasal cannula. Patient denies any cough or shortness of breath at this time. Objective - Vital Signs Vital signs: Vital Signs Temp 97.4 F L 01/07/17 12:00 Pulse 84 01/07/17 15:53 Resp 14 01/07/17 15:00 BP 108/53 01/07/17 15:00 Pulse Ox 98 01/07/17 15:00 Intake & Output 01/06/17 01/07/17 01/07/17 18:59 06:59 18:59 Intake Total 6626.156 1537 1947.4 Output Total 865 405 845 Balance 534.469 9136 1102.4 Weight 74.2 kg 75.2 kg Intake: IV 1000 1500 1125 0.9% NaCl with KCl 20 Meq 1000 1500 500 /l 1,000 ml @ 125 mls/hr IV .Q8H [facility] Rx#:[id number] 0.9nacl 625 Intake, IV Titration 801.457 342.4 Amount 0.9% NaCl with KCl 20 Meq 375 /l 1,000 ml @ 125 mls/hr IV .Q8H [facility] Rx#:[id number] Amiodarone 450 mg In 33.4 Dextrose 5% in Water 250 ml @ 0.5 MG/MIN 17.26 mls /hr IV .Q15H1M [facility] Rx#: [id number] Amiodarone 450 mg In 226.457 259 Dextrose 5% in Water 250 ml @ 1 MG/MIN 34.53 mls/ hr IV .Q7H31M [facility] Rx#: [id number] Magnesium Sulfate-D5w Pmx 100 1 gm In Dextrose/Water 1 100ml.bag @ 100 mls/hr IVPB Q1H [facility] Rx#: [id number] Piperacillin-Tazobactam 3 50 .375 gm In Dextrose/Water 1 50ml.bag @ 12.5 mls/hr IVPB [facility] Rx#: [id number] Piperacillin-Tazobactam 3 50 50 .375 gm In Dextrose/Water 1 50ml.bag @ 12.5 mls/hr IVPB Q8H [facility] Rx#: [id number] Oral 480 Output: Gastric Drainage 400 600 Urine 465 405 245 Other: Voiding Method Indwelling Catheter Indwelling Catheter Indwelling Catheter # Bowel Movements 0 - Exam GENERAL EXAM: Alert, active, comfortable in no apparent distress. HEAD: Normocephalic. EYES: Normal reaction of pupils, equal size. NOSE: Clear with pink turbinates. THROAT: No erythema or exudates. NECK: No masses, no JVD. CHEST: No chest wall deformity. LUNGS: Equal air entry with no crackles, wheeze, rhonchi or dullness. CVS: S1 and S2 normal with no audible mumurs, regular rhythm. ABDOMEN: No hepatosplenomegaly, normal bowel sounds, no guarding or rigidity. EXTREMITIES: No edema noted, pedal pulses palpable. SKIN: No rashes CENTRAL NERVOUS SYSTEM: No focal deficits, tone is normal in all 4 extremities. - Labs CBC & Chem 7: 01/07/17 07:45 01/07/17 07:45 Labs: Abnormal Lab Results - Last 24 Hours (Table) 01/06/17 01/07/17 01/07/17 Range/Units 17:12 07:45 07:45 WBC 12.9 H (3.8-10.6) k/uL RBC 3.51 L (3.80-5.40) m/uL Hgb 9.9 L (11.4-16.0) gm/dL Hct 31.2 L (34.0-46.0) % RDW 16.2 H (11.5-15.5) % Neutrophils # (Manual) 10.7 H (1.3-7.7) k/uL Chloride 112 H (98-107) mmol/L BUN 22 H (7-17) mg/dL POC Glucose (mg/dL) 74 L (75-99) mg/dL Calcium 7.3 L (8.4-10.2) mg/dL 01/07/17 01/07/17 01/07/17 Range/Units 12:01 12:38 12:59 WBC (3.8-10.6) k/uL RBC (3.80-5.40) m/uL Hgb (11.4-16.0) gm/dL Hct (34.0-46.0) % RDW (11.5-15.5) % Neutrophils # (Manual) (1.3-7.7) k/uL Chloride (98-107) mmol/L BUN (7-17) mg/dL POC Glucose (mg/dL) 66 L 70 L 58 L (75-99) mg/dL Calcium (8.4-10.2) mg/dL 01/07/17 Range/Units 13:07 WBC (3.8-10.6) k/uL RBC (3.80-5.40) m/uL Hgb (11.4-16.0) gm/dL Hct (34.0-46.0) % RDW (11.5-15.5) % Neutrophils # (Manual) (1.3-7.7) k/uL Chloride (98-107) mmol/L BUN (7-17) mg/dL POC Glucose (mg/dL) 277 H (75-99) mg/dL Calcium (8.4-10.2) mg/dL Assessment and Plan Plan: Assessment Acute hypoxic respiratory failure Paroxysmal supraventricular tachycardia Small bowel obstruction Dehydration Hypotension Diffuse abdominal pain Leukocytosis Plan Patient could be downgraded to selective care. Medications have been reviewed and will be continued as ordered. Flu swab has been negative. Continue with nebulizer treatments, supplemental oxygen, and pulmonary hygiene. Incentive spirometer was initiated. Appreciate recommendations from surgical and GI. We will continue to monitor labs/reports and adjust treatment as necessary. I performed an examination of the patient and discussed their management with the nurse practitioner. I have reviewed the nurse practitioner's note and agree with the documented findings and plan of care.
[2017-01-07 18:20] LABS: Glucose,Whole Blood 99 mg/dL (75-99)
[2017-01-08] MEDS: AMIODARONE 450 MG in DEXTROSE 5% IN WATER 250 ML IV SCH ×2 (00:03)
[2017-01-08 00:21] LABS: Glucose,Whole Blood 86 mg/dL (75-99)
[2017-01-08] MEDS: PIPERACILLIN-TAZOBACTAM 3.375 GM in DEXTROSE/WATER 1 50ML.BAG IVPB SCH ×3 (04:19→17:03)
[2017-01-08 06:24] LABS: Glucose,Whole Blood 69 mg/dL (75-99)
[2017-01-08 06:24] LABS: Glucose,Whole Blood 77 mg/dL (75-99)
[2017-01-08 06:47] LABS: Anion Gap 4 mmol/L; Blood Urea Nitrogen 16 mg/dL (7-17); Calcium 7.2 mg/dL (8.4-10.2); Carbon Dioxide 17 mmol/L (22-30); Chloride 114 mmol/L (98-107); Glucose 82 mg/dL (74-99); Magnesium 1.8 mg/dL (1.6-2.3); Non-African American GFR(MDRD) >60 (>60 ml/min/1.73 sqM); Phosphorous 2.3 mg/dL (2.5-4.5); Potassium 4.7 mmol/L (3.5-5.1); Sodium 135 mmol/L (137-145)
[2017-01-08 06:49] LABS: Anisocytosis Slight; CH 27.4; CHCM 30.1; HCT 32.8 % (34.0-46.0); HDW 2.44; HGB 10.2 gm/dL (11.4-16.0); Hypochromasia Moderate; Immature Gran Flag Marked; MCH 28.4 pg (25.0-35.0); MCHC 31.1 g/dL (31.0-37.0); MCV 91.1 fL (80.0-100.0); Mean Platelet Volume 8.2; RDW 16.2 % (11.5-15.5); WBC 12.5 k/uL (3.8-10.6)
[2017-01-08 06:58] LABS: Add Differential Manual Differential
[2017-01-08 07:00] LABS: Manual Review Performed; Nucleated Red Blood Cells 0 /100 WBC (0-0); Total Cells Counted 200
[2017-01-08 07:01] LABS: Toxic Vacuolation Present
[2017-01-08] MEDS ORDERED: BISACODYL 10 MG SUPP RECTAL STA (07:46)
--- NOTE | 2017-01-08 07:47 | P.PN ---
Subjective Principal diagnosis: Abdominal pain Patient doing well today. Denies abdominal pain. She did pass flatus. Her nasogastric tube was removed. She is hungry. Objective - Vital Signs Vital signs: Vital Signs Temp 97.5 F L 01/08/17 04:00 Pulse 79 01/08/17 04:00 Resp 16 01/08/17 04:00 BP 117/58 01/08/17 04:00 Pulse Ox 97 01/08/17 04:00 Intake & Output 01/07/17 01/08/17 01/08/17 18:59 06:59 18:59 Intake Total 1947.4 1500 Output Total 845 Balance 1102.4 1500 Weight 79.5 kg Intake: IV 1125 1500 0.9% NaCl with KCl 20 Meq 500 /l 1,000 ml @ 125 mls/hr IV .Q8H [facility] Rx#:[id number] 0.9nacl 625 1500 Intake, IV Titration 342.4 Amount Amiodarone 450 mg In 33.4 Dextrose 5% in Water 250 ml @ 0.5 MG/MIN 17.26 mls /hr IV .Q15H1M [facility] Rx#: [id number] Amiodarone 450 mg In 259 Dextrose 5% in Water 250 ml @ 1 MG/MIN 34.53 mls/ hr IV .Q7H31M [facility] Rx#: [id number] Piperacillin-Tazobactam 3 50 .375 gm In Dextrose/Water 1 50ml.bag @ 12.5 mls/hr IVPB Q8H [facility] Rx#: [id number] Oral 480 Output: Gastric Drainage 600 Urine 245 Other: Voiding Method Indwelling Catheter Diaper Incontinent # Voids 1 - Exam Abdomen: Soft, minimal distention, nontender - Labs CBC & Chem 7: 01/08/17 06:10 01/08/17 06:10 Labs: Abnormal Lab Results - Last 24 Hours (Table) 01/07/17 01/07/17 01/07/17 Range/Units 07:45 07:45 12:01 WBC 12.9 H (3.8-10.6) k/uL RBC 3.51 L (3.80-5.40) m/uL Hgb 9.9 L (11.4-16.0) gm/dL Hct 31.2 L (34.0-46.0) % RDW 16.2 H (11.5-15.5) % Neutrophils # (Manual) 10.7 H (1.3-7.7) k/uL Monocytes # (Manual) (0-1.0) k/uL Sodium (137-145) mmol/L Chloride 112 H (98-107) mmol/L Carbon Dioxide (22-30) mmol/L BUN 22 H (7-17) mg/dL Creatinine (0.52-1.04) mg/dL POC Glucose (mg/dL) 66 L (75-99) mg/dL Calcium 7.3 L (8.4-10.2) mg/dL Phosphorus (2.5-4.5) mg/dL 01/07/17 01/07/17 01/07/17 Range/Units 12:38 12:59 13:07 WBC (3.8-10.6) k/uL RBC (3.80-5.40) m/uL Hgb (11.4-16.0) gm/dL Hct (34.0-46.0) % RDW (11.5-15.5) % Neutrophils # (Manual) (1.3-7.7) k/uL Monocytes # (Manual) (0-1.0) k/uL Sodium (137-145) mmol/L Chloride (98-107) mmol/L Carbon Dioxide (22-30) mmol/L BUN (7-17) mg/dL Creatinine (0.52-1.04) mg/dL POC Glucose (mg/dL) 70 L 58 L 277 H (75-99) mg/dL Calcium (8.4-10.2) mg/dL Phosphorus (2.5-4.5) mg/dL 01/08/17 01/08/17 01/08/17 Range/Units 06:10 06:10 06:21 WBC 12.5 H (3.8-10.6) k/uL RBC 3.60 L (3.80-5.40) m/uL Hgb 10.2 L (11.4-16.0) gm/dL Hct 32.8 L (34.0-46.0) % RDW 16.2 H (11.5-15.5) % Neutrophils # (Manual) 10.3 H (1.3-7.7) k/uL Monocytes # (Manual) 1.1 H (0-1.0) k/uL Sodium 135 L (137-145) mmol/L Chloride 114 H (98-107) mmol/L Carbon Dioxide 17 L (22-30) mmol/L BUN (7-17) mg/dL Creatinine 0.44 L (0.52-1.04) mg/dL POC Glucose (mg/dL) 69 L (75-99) mg/dL Calcium 7.2 L (8.4-10.2) mg/dL Phosphorus 2.3 L (2.5-4.5) mg/dL Assessment and Plan (1) Abdominal pain Narrative/Plan: Will start clear liquid diet. Dulcolax suppository today. Status: Acute
[2017-01-08] MEDS: IPRATROPIUM-ALBUTEROL 3 ML NEB INHALATION SCH ×4 (07:58→20:05)
[2017-01-08] MEDS: SODIUM CHLORIDE 0.9% 1,000 ML IV SCH ×2 (08:40→15:24)
[2017-01-08] MEDS: PANTOPRAZOLE 40 MG/10 ML VIAL IV SCH ×2 (08:41→22:16)
[2017-01-08] MEDS: AMIODARONE 200 MG TAB PO SCH (11:25)
--- NOTE | 2017-01-08 11:33 | P.PN ---
Miguel Reese is doing well. She is lying comfortably in bed. No chest discomfort no undue shortness of breath On examination Temperature 96.9F, pulse rate in the 70s and 80s sinus rhythm blood pressure 111/55 mmHg Heart sounds S1 and S2 are soft and regular no murmurs Breath sounds are normal no rhonchi no crackles Abdomen is soft nontender Extremities are warm no edema Impression Atrial flutter SVT Nonsustained VT Admitted with atrial flutter with one-to-one conduction versus atrial tachycardia/atrial fibrillation Suspected ischemic bowel Suggest Switched to oral amiodarone 200 mg by mouth daily If no surgery is contemplated she should be anticoagulated for stroke prevention and prevention of embolism Objective - Vital Signs Vital signs: Vital Signs Temp 96.9 F L 01/08/17 08:00 Pulse 88 01/08/17 08:09 Resp 18 01/08/17 08:00 BP 111/55 01/08/17 08:00 Pulse Ox 92 L 01/08/17 08:00 Intake & Output 01/07/17 01/08/17 01/08/17 18:59 06:59 18:59 Intake Total 1947.4 1500 Output Total 845 Balance 1102.4 1500 Weight 79.5 kg Intake: IV 1125 1500 0.9% NaCl with KCl 20 Meq 500 /l 1,000 ml @ 125 mls/hr IV .Q8H [facility] Rx#:[id number] 0.9nacl 625 1500 Intake, IV Titration 342.4 Amount Amiodarone 450 mg In 33.4 Dextrose 5% in Water 250 ml @ 0.5 MG/MIN 17.26 mls /hr IV .Q15H1M [facility] Rx#: [id number] Amiodarone 450 mg In 259 Dextrose 5% in Water 250 ml @ 1 MG/MIN 34.53 mls/ hr IV .Q7H31M [facility] Rx#: [id number] Piperacillin-Tazobactam 3 50 .375 gm In Dextrose/Water 1 50ml.bag @ 12.5 mls/hr IVPB Q8H [facility] Rx#: [id number] Oral 480 Output: Gastric Drainage 600 Urine 245 Other: Voiding Method Indwelling Catheter Diaper Diaper Incontinent Incontinent # Voids 1 - Labs CBC & Chem 7: 01/08/17 06:10 01/08/17 06:10 Labs: Abnormal Lab Results - Last 24 Hours (Table) 01/07/17 01/07/17 01/07/17 Range/Units 12:01 12:38 12:59 WBC (3.8-10.6) k/uL RBC (3.80-5.40) m/uL Hgb (11.4-16.0) gm/dL Hct (34.0-46.0) % RDW (11.5-15.5) % Neutrophils # (Manual) (1.3-7.7) k/uL Monocytes # (Manual) (0-1.0) k/uL Sodium (137-145) mmol/L Chloride (98-107) mmol/L Carbon Dioxide (22-30) mmol/L Creatinine (0.52-1.04) mg/dL POC Glucose (mg/dL) 66 L 70 L 58 L (75-99) mg/dL Calcium (8.4-10.2) mg/dL Phosphorus (2.5-4.5) mg/dL 01/07/17 01/08/17 01/08/17 Range/Units 13:07 06:10 06:10 WBC 12.5 H (3.8-10.6) k/uL RBC 3.60 L (3.80-5.40) m/uL Hgb 10.2 L (11.4-16.0) gm/dL Hct 32.8 L (34.0-46.0) % RDW 16.2 H (11.5-15.5) % Neutrophils # (Manual) 10.3 H (1.3-7.7) k/uL Monocytes # (Manual) 1.1 H (0-1.0) k/uL Sodium 135 L (137-145) mmol/L Chloride 114 H (98-107) mmol/L Carbon Dioxide 17 L (22-30) mmol/L Creatinine 0.44 L (0.52-1.04) mg/dL POC Glucose (mg/dL) 277 H (75-99) mg/dL Calcium 7.2 L (8.4-10.2) mg/dL Phosphorus 2.3 L (2.5-4.5) mg/dL 01/08/17 Range/Units 06:21 WBC (3.8-10.6) k/uL RBC (3.80-5.40) m/uL Hgb (11.4-16.0) gm/dL Hct (34.0-46.0) % RDW (11.5-15.5) % Neutrophils # (Manual) (1.3-7.7) k/uL Monocytes # (Manual) (0-1.0) k/uL Sodium (137-145) mmol/L Chloride (98-107) mmol/L Carbon Dioxide (22-30) mmol/L Creatinine (0.52-1.04) mg/dL POC Glucose (mg/dL) 69 L (75-99) mg/dL Calcium (8.4-10.2) mg/dL Phosphorus (2.5-4.5) mg/dL
--- NOTE | 2017-01-08 12:07 | PN ---
DATE OF SERVICE: 01/08/2017 The patient is an 86-year-old pleasant lady admitted to the hospital with diffuse abdominal pain associated with nausea, vomiting, and lactacidosis. CT scan showed dilated small bowel loops and possibility of mesenteric ischemia versus small bowel obstruction was being considered. She was started on broad-spectrum antibiotics, ( ) with NG tube decompression and for the last 3 days has done extremely well. She was transferred from the ICU yesterday. NG tube is out. She is hungry and wants to have some clear liquids. On physical examination, she appears comfortable in no apparent distress. Vitals as are stable. Blood pressure is 117/58, pulse is 79, temperature 97.8. HEENT: Unremarkable. Conjunctivae pink. Sclerae anicteric. Oral cavity, no lesions. NECK: No JVD or lymph node enlargement. Chest was clear to auscultation. HEART: Regular rate and rhythm. ABDOMEN: Slightly distended. Very minimal tenderness in the left lower quadrant and periumbilical area but it was soft. Bowel sounds positive. EXTREMITIES: No pedal edema. SKIN: No rashes. NEURO: Alert and oriented x3. No focal deficits. LABS: WBC 10.5, hemoglobin 10.2, platelets are normal. Basic metabolic panel is within normal limits. IMPRESSION: This is a lady who presents with abdominal pain, abdominal distention, nausea, vomiting lactic acidosis, possibly related to small bowel ischemia versus small bowel obstruction. CT of the abdomen findings as mentioned above. On broad-spectrum antibiotics significantly improved in the last 3 days. RECOMMENDATIONS: 1. Start on clear liquid diet if okay with surgery. 2. Continue antibiotics. 3. No plans on any endoscopic intervention. 4. We will follow her closely during her hospital stay.
[2017-01-08 12:11] LABS: Glucose,Whole Blood 58 mg/dL (75-99)
[2017-01-08 12:32] LABS: Glucose,Whole Blood 53 mg/dL (75-99)
[2017-01-08 12:32] LABS: Glucose,Whole Blood 66 mg/dL (75-99)
[2017-01-08 12:46] LABS: Glucose,Whole Blood 48 mg/dL (75-99)
[2017-01-08] MEDS ORDERED: GLUCAGON 1 MG/ML VIAL ONE (12:47)
[2017-01-08] MEDS ORDERED: DEXTROSE 50%-WATER 50 ML SYRINGE IVP ONE (12:49)
[2017-01-08] MEDS: DEXTROSE 50%-WATER 50 ML SYRINGE IVP STA (12:52)
[2017-01-08 13:19] LABS: Glucose,Whole Blood 62 mg/dL (75-99)
--- NOTE | 2017-01-08 13:25 | P.PN ---
Subjective This is an 86-year-old female patient who is being evaluated and examined today in the intensive care unit. The patient was brought into the emergency room via EMS after family called due to increasing in abdominal pain with no nausea vomiting and diarrhea that had been going on for the past 3 days. Upon arrival the paramedics on the patient to be dyspneic and tachycardic and her pulse ox was low as well. She did have some altered mental status changes however normally is alert and oriented 3. She is also been having some frequency in urination and bedtime wetting. While in the emergency room the patient did go into SVT, was given adenosine which did not affect the rate. She also then went into possibly torsades and was given IV magnesium. CT of the abdomen and pelvis reveals suggestions for ileus, possible early small bowel obstruction, and a moderate fatty infiltration to the liver. Surgical on consult for CT results. Also GI was consulted. Chest x-ray was completed and reveals some mild cardiomegaly, worsening left basilar airspace disease, developing left effusion, and multiple stable pulmonary nodules. Upon examination today the patient's resting up in bed on the 4 L of oxygen via nasal cannula. Patient denies any cough or shortness of breath at this time. Patient was somewhat hypoglycemic this afternoon however she was treated per protocol and it has resolved. Also her NG tube has been discontinued. Objective - Vital Signs Vital signs: Vital Signs Temp 96.9 F L 01/08/17 08:00 Pulse 80 01/08/17 11:53 Resp 18 01/08/17 11:37 BP 104/62 01/08/17 11:37 Pulse Ox 92 L 01/08/17 11:37 Intake & Output 01/07/17 01/08/17 01/08/17 18:59 06:59 18:59 Intake Total 1947.4 1500 Output Total 845 Balance 1102.4 1500 Weight 79.5 kg Intake: IV 1125 1500 0.9% NaCl with KCl 20 Meq 500 /l 1,000 ml @ 125 mls/hr IV .Q8H [facility] Rx#:[id number] 0.9nacl 625 1500 Intake, IV Titration 342.4 Amount Amiodarone 450 mg In 33.4 Dextrose 5% in Water 250 ml @ 0.5 MG/MIN 17.26 mls /hr IV .Q15H1M [facility] Rx#: [id number] Amiodarone 450 mg In 259 Dextrose 5% in Water 250 ml @ 1 MG/MIN 34.53 mls/ hr IV .Q7H31M [facility] Rx#: [id number] Piperacillin-Tazobactam 3 50 .375 gm In Dextrose/Water 1 50ml.bag @ 12.5 mls/hr IVPB Q8H [facility] Rx#: [id number] Oral 480 Output: Gastric Drainage 600 Urine 245 Other: Voiding Method Indwelling Catheter Diaper Diaper Incontinent Incontinent # Voids 1 - Exam GENERAL EXAM: Alert, active, comfortable in no apparent distress. HEAD: Normocephalic. EYES: Normal reaction of pupils, equal size. NOSE: Clear with pink turbinates. THROAT: No erythema or exudates. NECK: No masses, no JVD. CHEST: No chest wall deformity. LUNGS: Equal air entry with no crackles, wheeze, rhonchi or dullness. CVS: S1 and S2 normal with no audible mumurs, regular rhythm. ABDOMEN: No hepatosplenomegaly, normal bowel sounds, no guarding or rigidity. EXTREMITIES: No edema noted, pedal pulses palpable. SKIN: No rashes CENTRAL NERVOUS SYSTEM: No focal deficits, tone is normal in all 4 extremities. - Labs CBC & Chem 7: 01/08/17 06:10 01/08/17 06:10 Labs: Abnormal Lab Results - Last 24 Hours (Table) 01/08/17 01/08/17 01/08/17 Range/Units 06:10 06:10 06:21 WBC 12.5 H (3.8-10.6) k/uL RBC 3.60 L (3.80-5.40) m/uL Hgb 10.2 L (11.4-16.0) gm/dL Hct 32.8 L (34.0-46.0) % RDW 16.2 H (11.5-15.5) % Neutrophils # (Manual) 10.3 H (1.3-7.7) k/uL Monocytes # (Manual) 1.1 H (0-1.0) k/uL Sodium 135 L (137-145) mmol/L Chloride 114 H (98-107) mmol/L Carbon Dioxide 17 L (22-30) mmol/L Creatinine 0.44 L (0.52-1.04) mg/dL POC Glucose (mg/dL) 69 L (75-99) mg/dL Calcium 7.2 L (8.4-10.2) mg/dL Phosphorus 2.3 L (2.5-4.5) mg/dL 01/08/17 01/08/17 01/08/17 Range/Units 12:06 12:18 12:21 WBC (3.8-10.6) k/uL RBC (3.80-5.40) m/uL Hgb (11.4-16.0) gm/dL Hct (34.0-46.0) % RDW (11.5-15.5) % Neutrophils # (Manual) (1.3-7.7) k/uL Monocytes # (Manual) (0-1.0) k/uL Sodium (137-145) mmol/L Chloride (98-107) mmol/L Carbon Dioxide (22-30) mmol/L Creatinine (0.52-1.04) mg/dL POC Glucose (mg/dL) 58 L 53 L 66 L (75-99) mg/dL Calcium (8.4-10.2) mg/dL Phosphorus (2.5-4.5) mg/dL 01/08/17 01/08/17 Range/Units 12:44 13:17 WBC (3.8-10.6) k/uL RBC (3.80-5.40) m/uL Hgb (11.4-16.0) gm/dL Hct (34.0-46.0) % RDW (11.5-15.5) % Neutrophils # (Manual) (1.3-7.7) k/uL Monocytes # (Manual) (0-1.0) k/uL Sodium (137-145) mmol/L Chloride (98-107) mmol/L Carbon Dioxide (22-30) mmol/L Creatinine (0.52-1.04) mg/dL POC Glucose (mg/dL) 48 L 62 L (75-99) mg/dL Calcium (8.4-10.2) mg/dL Phosphorus (2.5-4.5) mg/dL Assessment and Plan Plan: Assessment Acute hypoxic respiratory failure Paroxysmal supraventricular tachycardia Small bowel obstruction Dehydration Hypotension Diffuse abdominal pain Leukocytosis Plan Medications have been reviewed and will be continued as ordered. Flu swab has been negative. Continue with nebulizer treatments, supplemental oxygen, and pulmonary hygiene. Incentive spirometer was initiated. Appreciate recommendations from surgical and GI. She has been switched to oral amiodarone and her heart rate seems to be better controlled. We will continue to monitor labs/reports and adjust treatment as necessary. I performed an examination of the patient and discussed their management with the nurse practitioner. I have reviewed the nurse practitioner's note and agree with the documented findings and plan of care.
[2017-01-08 13:55] LABS: Glucose,Whole Blood 60 mg/dL (75-99)
[2017-01-08 14:16] LABS: Glucose,Whole Blood 123 mg/dL (75-99)
[2017-01-08 18:25] LABS: Glucose,Whole Blood 70 mg/dL (75-99)
[2017-01-08 18:25] LABS: Glucose,Whole Blood 53 mg/dL (75-99)
[2017-01-08 18:59] LABS: Glucose,Whole Blood 87 mg/dL (75-99)
[2017-01-08 21:37] LABS: Glucose,Whole Blood 96 mg/dL (75-99)
[2017-01-08] MEDS ORDERED: SODIUM PHOSPHATE 10 MMOL in SODIUM CHLORIDE 0.9% 100 ML IVPB ONE (23:08)
[2017-01-08] MEDS ORDERED: Phosphorus Replacement Protoco 1 EACH MISC MISCELLANE PRN (23:08)
[2017-01-08] MEDS ORDERED: METOPROLOL TARTRATE 5 MG/5 ML VIAL IVP SCH (23:15)
[2017-01-08] MEDS: MAGNESIUM SULFATE-D5W PMX 1 GM in DEXTROSE/WATER 1 100ML.BAG IVPB SCH (23:45)
[2017-01-09 00:17] LABS: Glucose,Whole Blood 108 mg/dL (75-99)
[2017-01-09] MEDS: MAGNESIUM SULFATE-D5W PMX 1 GM in DEXTROSE/WATER 1 100ML.BAG IVPB SCH (01:17)
[2017-01-09] MEDS: PIPERACILLIN-TAZOBACTAM 3.375 GM in DEXTROSE/WATER 1 50ML.BAG IVPB SCH ×3 (02:23→17:26)
[2017-01-09] MEDS: ONDANSETRON 4 MG/2 ML VIAL IVP PRN ×2 (04:34→09:44)
[2017-01-09] MEDS: METOPROLOL TARTRATE 12.5 MG TAB PO SCH ×3 (06:14→21:35)
[2017-01-09 06:18] LABS: Glucose,Whole Blood 103 mg/dL (75-99)
[2017-01-09 07:14] LABS: Anion Gap 7 mmol/L; Blood Urea Nitrogen 15 mg/dL (7-17); Calcium 7.4 mg/dL (8.4-10.2); Carbon Dioxide 20 mmol/L (22-30); Chloride 110 mmol/L (98-107); Glucose 98 mg/dL (74-99); Magnesium 2.1 mg/dL (1.6-2.3); Non-African American GFR(MDRD) >60 (>60 ml/min/1.73 sqM); Phosphorous 2.7 mg/dL (2.5-4.5); Potassium 4.4 mmol/L (3.5-5.1); Sodium 137 mmol/L (137-145)
[2017-01-09] MEDS: SODIUM CHLORIDE 0.9% 1,000 ML IV SCH ×4 (07:19→13:41)
[2017-01-09] MEDS: IPRATROPIUM-ALBUTEROL 3 ML NEB INHALATION SCH ×4 (07:52→19:32)
[2017-01-09] MEDS: PANTOPRAZOLE 40 MG/10 ML VIAL IV SCH (08:41)
[2017-01-09] MEDS: AMIODARONE 200 MG TAB PO SCH (08:41)
--- NOTE | 2017-01-09 09:27 | P.PN ---
Subjective 86-year-old female being seen this morning sitting up in bed. Patient denies chest pain no shortness of breath. Continues to report having abdominal discomfort. Patients being followed by surgical service. The nasal gastric tube was removed. Patient states not passing gas no stool incontinent of urine labs were noted and reviewed the urine culture shows no growth patients being followed by cardiology service recommendations reviewed noted and appreciated cardiology service indicates that there is no surgery planned patient would need to be anticoagulated for stroke prevention and prevention of emboli for episodes of atrial flutter. Additionally patient has been seen by GI service reviewed the recommendations start on clear liquid continue antibiotics with no plans of endoscopic intervention Objective - Vital Signs Vital signs: Vital Signs Temp 96.8 F L 01/09/17 03:46 Pulse 86 01/09/17 08:03 Resp 18 01/09/17 03:46 BP 119/58 01/09/17 03:46 Pulse Ox 92 L 01/09/17 03:46 Intake & Output 01/08/17 01/09/17 01/09/17 18:59 06:59 18:59 Intake Total 50 Balance 50 Weight 82 kg Intake: Intake, IV Titration 50 Amount Piperacillin-Tazobactam 3 50 .375 gm In Dextrose/Water 1 50ml.bag @ 12.5 mls/hr IVPB Q8H [facility] Rx#: [id number] Other: Voiding Method Diaper Diaper Incontinent Incontinent # Voids 2 1 - Exam Physical exam 86-year-old female resting in bed continues to report having abdominal discomfort no stool no reports of nausea vomiting Lungs bilateral adequate air movement no wheezing rales or rhonchi noted nasal cannula 3 L sats are 92 Heart S1-S2 audible irregular monitor episodes of sinus tach heart rate up during the night with activity currently denying chest pain Abdomen soft nontender slightly distended no stool Extremities no edema - Labs CBC & Chem 7: 01/08/17 06:10 01/09/17 06:28 Labs: Abnormal Lab Results - Last 24 Hours (Table) 01/08/17 01/08/17 01/08/17 Range/Units 12:06 12:18 12:21 Chloride (98-107) mmol/L Carbon Dioxide (22-30) mmol/L Creatinine (0.52-1.04) mg/dL POC Glucose (mg/dL) 58 L 53 L 66 L (75-99) mg/dL Calcium (8.4-10.2) mg/dL 01/08/17 01/08/17 01/08/17 Range/Units 12:44 13:17 13:34 Chloride (98-107) mmol/L Carbon Dioxide (22-30) mmol/L Creatinine (0.52-1.04) mg/dL POC Glucose (mg/dL) 48 L 62 L 60 L (75-99) mg/dL Calcium (8.4-10.2) mg/dL 01/08/17 01/08/17 01/08/17 Range/Units 14:14 17:57 18:23 Chloride (98-107) mmol/L Carbon Dioxide (22-30) mmol/L Creatinine (0.52-1.04) mg/dL POC Glucose (mg/dL) 123 H 53 L 70 L (75-99) mg/dL Calcium (8.4-10.2) mg/dL 01/09/17 01/09/17 01/09/17 Range/Units 00:05 06:16 06:28 Chloride 110 H (98-107) mmol/L Carbon Dioxide 20 L (22-30) mmol/L Creatinine 0.44 L (0.52-1.04) mg/dL POC Glucose (mg/dL) 108 H 103 H (75-99) mg/dL Calcium 7.4 L (8.4-10.2) mg/dL Assessment and Plan Plan: Impression Present on admission nausea vomiting abdominal pain suspect ischemic bowel as etiology Present on admission coagulopathy INR 2.2 Episodes of paroxysmal atrial fibrillation with rapid ventricular response Present on admission hypocalcium Present on admission leukocytosis Echocardiogram on January 06 HER systolic function with an ejection fraction 55-60 % with some diastolic dysfunction Cardiac arrhythmias history of History of esophageal reflux disease History of a colonoscopy April [address] Barros negative findings Acute hypoxic respiratory failure resolving Paroxysmal supraventricular tachycardia Present on admission Atrial flutter with one-to-one conduction or atrial tachycardia ,atrial fibrillation unable to determine cardiology following Plan Continue recommendations by surgical service Dr. Green defer to IV fluid for hydration Monitor labs keep electrolytes therapeutic Resume home meds when appropriate DVT and GI prophylaxis Oral amiodarone per cardiology services recommendations Continue broad-spectrum antibiotics On a clear liquid diet to be advanced per surgical services recommendations If no surgical intervention cardiology recommends anticoagulation be initiated The above dictated assessment and findings were discussed with dr green Impression and the plan of care have been dictated as directed. Laura Patel nurse practitioner acting as a scribe for dr green
[2017-01-09] MEDS: HEPARIN SODIUM,PORCINE 5,000 UNIT/ML 1 ML VIAL SQ SCH ×3 (10:44→23:35)
[2017-01-09 11:56] LABS: Glucose,Whole Blood 87 mg/dL (75-99)
[2017-01-09 11:57] LABS: Anisocytosis Slight; Basophils # (A) 0.1 k/uL (0-0.2); Basophils % (A) 1 %; CH 26.8; CHCM 28.5; Eosinophils % (A) 0 %; HCT 36.2 % (34.0-46.0); HDW 2.21; HGB 10.6 gm/dL (11.4-16.0); Hypochromasia Marked; Immature Gran Flag Slight; Luc # (Auto) 0.18; Luc % (Auto) 1; Lymphocytes # (A) 0.9 k/uL (1.0-4.8); Lymphocytes % (A) 6 %; MCH 27.6 pg (25.0-35.0); MCHC 29.3 g/dL (31.0-37.0); MCV 94.2 fL (80.0-100.0); Mean Platelet Volume 9.6; Monocytes # (A) 0.5 k/uL (0-1.0); Monocytes % (A) 4 %; Neutrophils # (A) 12.4 k/uL (1.3-7.7); Neutrophils % (A) 88 %; RBC 3.84 m/uL (3.80-5.40); RDW 16.4 % (11.5-15.5); WBC 14.2 k/uL (3.8-10.6); WBC (Perox) 13.94
--- NOTE | 2017-01-09 12:25 | PN ---
DATE OF SERVICE: 01/08/2017 CHIEF COMPLAINT: Shortness of breath, SVT, anemia, ileus or small bowel obstruction. HISTORY OF PRESENT ILLNESS: This lady is still struggling. NG tube is out, but she is having a lot of distention and abdominal pain. She has had no vomiting. PHYSICAL EXAMINATION: She remains very pale. Chest demonstrates poor breath sounds with rales and rhonchi bilaterally. Cardiac exam demonstrates tachycardia with rate of around 110. ABDOMEN: Slightly distended and she has generalized tenderness. Bowel sounds are not heard. There are no masses. IMPRESSION: 1. ?Ileus versus small bowel obstruction. 2. Unexplained anemia. 3. Tachycardia. PLAN: Continue to follow with Cardiology and General Surgery.
--- NOTE | 2017-01-09 12:40 | PN ---
DATE OF SERVICE: 01/09/2017 CHIEF COMPLAINT: Persistent abdominal pain. HISTORY OF PRESENT ILLNESS: This lady is still having a lot of abdominal discomfort and cramping. She has had no melena, diarrhea, etc. PHYSICAL EXAM: Her abdomen is fairly distended and she is generally quite tender. There are no masses or visceromegaly. Bowel sounds are heard. IMPRESSION: 1. Ileus or small bowel obstruction. 2. Anemia. 3. Tachycardia. PLAN: Repeat blood work and flat and upright films today.
--- NOTE | 2017-01-09 13:10 | XR ---
EXAMINATION TYPE: XR abdomen complete w decub DATE OF EXAM: 01/09/2017 12:54 PM COMPARISON: 01/07/2017 HISTORY: 86-year-old female with decreased bowel sounds, distended abdomen TECHNIQUE: Supine, upright, and left side down lateral decubitus views of the abdomen are obtained. FINDINGS: Interval removal of NG tube. Multiple lines and tubes over the thoracoabdominal junction. Possible small left effusion with left b asilar opacity. Diffuse small bowel dilatation persists but shows interval worsening with small bowel loops now dilat ed up to 7.2 cm versus 5.5 cm, previously. Diffuse air-fluid levels. Overall paucity of colonic gas. Small amount of rectal air is seen. Left hip hemiarthroplasty noted. Cholecystectomy clips. IMPRESSION: Interval worsening now with small bowel loops dilated up to 7.2 cm versus 5.5 cm, previously. Small b owel obstruction not excluded. No free intraperitoneal air seen.
--- NOTE | 2017-01-09 13:11 | CDI ---
In responding to this query, please exercise your independent professional judgment. The [facility] Coding Staff and Clinical Documentation Specialists appreciate your assistance in clarifying documentation, maintaining compliance with coding guidelines, accurately documenting patients condition and capturing severity of illness. The fact that a question is asked does not imply that any particular answer is desired or expected. Communication forms are a method of clarifying documentation and are not made part of the Legal Health Record. Thank you in advance for your clarification. Last Revision, November 2015 Joshua Henry [address] [facility] [address] Documentation Clarification Form Date: 01/09/2017 1:00:00 PM From: Carey Garciakermit Admit Date: 01/05/2017 12:37:00 PM Patient Name: Mary Ann Culver Visit Number: [id number] Dr. Humza Garcia and Laura Patel NP Patient history/risk factors: Age 86 y/o Suspected ischemic bowel per progress notes Clinical Indicators: Paroxysmal Supraventricular tachycardia per progress notes Atrial flutter, atrial tachycardia, atrial fibrillation per progress notes Dehydration per Pulmonary Labs on admission: wbc 26.7, na 130, cl 94, bun 29, ca 8.2, mg 1.3 Vitals on admission: temp 97.4, hr 133, bp 112/69 - bp dropped to 80/50 Treatment: Multiple IV fluid boluses ICU monitoring In your professional opinion, can you please specify if this indicates a diagnosis listed below? Septic Shock Cardiogenic Shock Hypovolemic Shock Other, please specify Unable to determine Please document in your progress notes and discharge summary in order to capture severity of illness and risk of mortality. Include clinical findings that support your diagnosis. FYI: Press F11 to launch patient chart. Place X here if this finding has no clinical significance, is not applicable or if you are not able to provide any additional documentation. STONE
--- NOTE | 2017-01-09 14:23 | P.PN ---
Subjective This is an 86-year-old female patient who is being evaluated and examined today in the intensive care unit. The patient was brought into the emergency room via EMS after family called due to increasing in abdominal pain with no nausea vomiting and diarrhea that had been going on for the past 3 days. Upon arrival the paramedics on the patient to be dyspneic and tachycardic and her pulse ox was low as well. She did have some altered mental status changes however normally is alert and oriented 3. She is also been having some frequency in urination and bedtime wetting. While in the emergency room the patient did go into SVT, was given adenosine which did not affect the rate. She also then went into possibly torsades and was given IV magnesium. CT of the abdomen and pelvis reveals suggestions for ileus, possible early small bowel obstruction, and a moderate fatty infiltration to the liver. Surgical on consult for CT results. Also GI was consulted. Chest x-ray was completed and reveals some mild cardiomegaly, worsening left basilar airspace disease, developing left effusion, and multiple stable pulmonary nodules. Upon examination today the patient's resting up in bed on the 3 L of oxygen via nasal cannula. Patient denies any cough or shortness of breath at this time. Patient continues to complain of abdominal discomfort Dr. Chitra Yan is aware, and is addressing. Objective - Vital Signs Vital signs: Vital Signs Temp 96.8 F L 01/09/17 03:46 Pulse 65 01/09/17 08:41 Resp 20 01/09/17 08:41 BP 113/66 01/09/17 08:41 Pulse Ox 93 L 01/09/17 08:41 Intake & Output 01/08/17 01/09/17 01/09/17 18:59 06:59 18:59 Intake Total 50 Balance 50 Weight 82 kg 82 kg Intake: Intake, IV Titration 50 Amount Piperacillin-Tazobactam 3 50 .375 gm In Dextrose/Water 1 50ml.bag @ 12.5 mls/hr IVPB Q8H [facility] Rx#: [id number] Other: Voiding Method Diaper Diaper Diaper Incontinent Incontinent Incontinent # Voids 2 1 1 - Exam GENERAL EXAM: Alert, active, comfortable in no apparent distress. HEAD: Normocephalic. EYES: Normal reaction of pupils, equal size. NOSE: Clear with pink turbinates. THROAT: No erythema or exudates. NECK: No masses, no JVD. CHEST: No chest wall deformity. LUNGS: Equal air entry with no crackles, wheeze, rhonchi or dullness. CVS: S1 and S2 normal with no audible mumurs, regular rhythm. ABDOMEN: No hepatosplenomegaly, normal bowel sounds, no guarding or rigidity. EXTREMITIES: No edema noted, pedal pulses palpable. SKIN: No rashes CENTRAL NERVOUS SYSTEM: No focal deficits, tone is normal in all 4 extremities. - Labs CBC & Chem 7: 01/08/17 06:10 01/09/17 06:28 Labs: Abnormal Lab Results - Last 24 Hours (Table) 01/08/17 01/08/17 01/08/17 Range/Units 12:06 12:18 12:21 Chloride (98-107) mmol/L Carbon Dioxide (22-30) mmol/L Creatinine (0.52-1.04) mg/dL POC Glucose (mg/dL) 58 L 53 L 66 L (75-99) mg/dL Calcium (8.4-10.2) mg/dL 01/08/17 01/08/17 01/08/17 Range/Units 12:44 13:17 13:34 Chloride (98-107) mmol/L Carbon Dioxide (22-30) mmol/L Creatinine (0.52-1.04) mg/dL POC Glucose (mg/dL) 48 L 62 L 60 L (75-99) mg/dL Calcium (8.4-10.2) mg/dL 01/08/17 01/08/17 01/08/17 Range/Units 14:14 17:57 18:23 Chloride (98-107) mmol/L Carbon Dioxide (22-30) mmol/L Creatinine (0.52-1.04) mg/dL POC Glucose (mg/dL) 123 H 53 L 70 L (75-99) mg/dL Calcium (8.4-10.2) mg/dL 01/09/17 01/09/17 01/09/17 Range/Units 00:05 06:16 06:28 Chloride 110 H (98-107) mmol/L Carbon Dioxide 20 L (22-30) mmol/L Creatinine 0.44 L (0.52-1.04) mg/dL POC Glucose (mg/dL) 108 H 103 H (75-99) mg/dL Calcium 7.4 L (8.4-10.2) mg/dL Assessment and Plan Plan: Assessment Acute hypoxic respiratory failure Paroxysmal supraventricular tachycardia Small bowel obstruction Dehydration Hypotension Diffuse abdominal pain Leukocytosis Plan Medications have been reviewed and will be continued as ordered. Flu swab has been negative. Continue with nebulizer treatments, supplemental oxygen, and pulmonary hygiene. Incentive spirometer was initiated. Appreciate recommendations from surgical and GI. . We will continue to monitor labs/ reports and adjust treatment as necessary. I performed an examination of the patient and discussed their management with the nurse practitioner. I have reviewed the nurse practitioner's note and agree with the documented findings and plan of care.
--- NOTE | 2017-01-09 14:52 | P.PN ---
Subjective Principal diagnosis: Shortness of breath This is an 86-year-old female who initially presented to the hospital with symptoms of progressively worsening shortness of breath. EKG on arrival here showed atrial flutter for this reason a cardiology consultation was requested. Patient was also found to have possible ischemic bowel or bowel obstruction, currently still nothing by mouth. Patient's heart rate has remained stable, meaning in normal sinus rhythm. If patient is not undergoing surgery we would recommend initiating anticoagulation for stroke prevention. Objective - Vital Signs Vital signs: Vital Signs Temp 96.6 F L 01/09/17 11:30 Pulse 76 01/09/17 11:49 Resp 18 01/09/17 11:30 BP 136/72 01/09/17 11:30 Pulse Ox 93 L 01/09/17 11:30 Intake & Output 01/08/17 01/09/17 01/09/17 18:59 06:59 18:59 Intake Total 50 Balance 50 Weight 82 kg 82 kg Intake: Intake, IV Titration 50 Amount Piperacillin-Tazobactam 3 50 .375 gm In Dextrose/Water 1 50ml.bag @ 12.5 mls/hr IVPB Q8H [facility] Rx#: [id number] Other: Voiding Method Diaper Diaper Diaper Incontinent Incontinent Incontinent # Voids 2 1 1 - Exam PHYSICAL EXAMINATION: HEENT: Head is atraumatic, normocephalic. Pupils equal, round. Neck is supple. There is no elevated jugular venous pressure. HEART EXAMINATION: Heart S1 and S2 with systolic murmur is heard. CHEST EXAMINATION: Lungs are clear to auscultation and precussion. No chest wall tenderness is noted on palpation or with deep breathing. ABDOMEN: Soft, mild generalized tenderness. . Bowel sounds are heard. No organomegaly noted. EXTREMITIES: 2+ peripheral pulses with no evidence of peripheral edema and no calf tenderness noted. NEUROLOGIC patient is awake, alert and oriented -3. . - Labs CBC & Chem 7: 01/09/17 06:28 01/09/17 06:28 Labs: Abnormal Lab Results - Last 24 Hours (Table) 01/08/17 01/08/17 01/09/17 Range/Units 17:57 18:23 00:05 WBC (3.8-10.6) k/uL Hgb (11.4-16.0) gm/dL MCHC (31.0-37.0) g/dL RDW (11.5-15.5) % Neutrophils # (1.3-7.7) k/uL Lymphocytes # (1.0-4.8) k/uL Chloride (98-107) mmol/L Carbon Dioxide (22-30) mmol/L Creatinine (0.52-1.04) mg/dL POC Glucose (mg/dL) 53 L 70 L 108 H (75-99) mg/dL Calcium (8.4-10.2) mg/dL 01/09/17 01/09/17 01/09/17 Range/Units 06:16 06:28 06:28 WBC 14.2 H (3.8-10.6) k/uL Hgb 10.6 L (11.4-16.0) gm/dL MCHC 29.3 L (31.0-37.0) g/dL RDW 16.4 H (11.5-15.5) % Neutrophils # 12.4 H (1.3-7.7) k/uL Lymphocytes # 0.9 L (1.0-4.8) k/uL Chloride 110 H (98-107) mmol/L Carbon Dioxide 20 L (22-30) mmol/L Creatinine 0.44 L (0.52-1.04) mg/dL POC Glucose (mg/dL) 103 H (75-99) mg/dL Calcium 7.4 L (8.4-10.2) mg/dL Assessment and Plan (1) Atrial flutter, paroxysmal Status: Acute (2) HTN (hypertension) Status: Acute (3) Abdominal pain Status: Acute (4) Confusion Status: Acute (5) Hypotension Status: Acute (6) Small bowel obstruction Status: Acute Plan: From cardiology's perspective, we will recommend to continue the patient on her current medications. Once the patient is taking oral medications, if no surgical procedures are planned, she will require anticoagulation for stroke prevention. DNP note has been reviewed, I agree with a documented findings and plan of care. Patient was seen and examined.
[2017-01-09 16:56] LABS: Glucose,Whole Blood 86 mg/dL (75-99)
[2017-01-09] MEDS ORDERED: RX INFO: IV CONTRAST WAS GIVEN 1 EACH MISC MISCELLANE PRN (17:41)
--- NOTE | 2017-01-09 17:45 | P.PN ---
Subjective Principal diagnosis: Abdominal pain Patient with some mild complaints of abdominal pain today. No nausea. Bowel function diminished. She was noted by the nursing staff to have more abdominal distention. Abdominal x-rays show increased small bowel distention. Objective - Vital Signs Vital signs: Vital Signs Temp 96.6 F L 01/09/17 15:30 Pulse 90 01/09/17 15:30 Resp 18 01/09/17 15:30 BP 125/63 01/09/17 15:30 Pulse Ox 93 L 01/09/17 15:30 Intake & Output 01/08/17 01/09/17 01/09/17 18:59 06:59 18:59 Intake Total 50 Balance 50 Weight 82 kg 82 kg Intake: Intake, IV Titration 50 Amount Piperacillin-Tazobactam 3 50 .375 gm In Dextrose/Water 1 50ml.bag @ 12.5 mls/hr IVPB Q8H [facility] Rx#: [id number] Other: Voiding Method Diaper Diaper Diaper Incontinent Incontinent Incontinent # Voids 2 1 1 - Exam Abdomen: Soft, distended, tympanic, mild abdominal tenderness diffusely, bowel sounds diminished - Labs CBC & Chem 7: 01/09/17 06:28 01/09/17 06:28 Labs: Abnormal Lab Results - Last 24 Hours (Table) 01/08/17 01/08/17 01/09/17 Range/Units 17:57 18:23 00:05 WBC (3.8-10.6) k/uL Hgb (11.4-16.0) gm/dL MCHC (31.0-37.0) g/dL RDW (11.5-15.5) % Neutrophils # (1.3-7.7) k/uL Lymphocytes # (1.0-4.8) k/uL Chloride (98-107) mmol/L Carbon Dioxide (22-30) mmol/L Creatinine (0.52-1.04) mg/dL POC Glucose (mg/dL) 53 L 70 L 108 H (75-99) mg/dL Calcium (8.4-10.2) mg/dL 01/09/17 01/09/17 01/09/17 Range/Units 06:16 06:28 06:28 WBC 14.2 H (3.8-10.6) k/uL Hgb 10.6 L (11.4-16.0) gm/dL MCHC 29.3 L (31.0-37.0) g/dL RDW 16.4 H (11.5-15.5) % Neutrophils # 12.4 H (1.3-7.7) k/uL Lymphocytes # 0.9 L (1.0-4.8) k/uL Chloride 110 H (98-107) mmol/L Carbon Dioxide 20 L (22-30) mmol/L Creatinine 0.44 L (0.52-1.04) mg/dL POC Glucose (mg/dL) 103 H (75-99) mg/dL Calcium 7.4 L (8.4-10.2) mg/dL Assessment and Plan (1) Abdominal pain Narrative/Plan: Will place nasogastric tube once again. Repeat CAT scan ordered for tomorrow morning. The patient's family was updated as to her ongoing ileus. Likely still doubt small bowel structure at this point given the air-filled colon seen on the x-rays. Status: Acute
--- NOTE | 2017-01-09 19:29 | XR ---
EXAMINATION TYPE: XR chest 1V portable DATE OF EXAM: 01/09/2017 7:12 PM COMPARISON: 01/06/2017 HISTORY: Check tube placement TECHNIQUE: Single frontal view of the chest is obtained. FINDINGS: There is a nasogastric tube that appears to be looped in the gastric fundus. There is some interstitial edema and infiltrates in the left lung more than the right. Thoracic aorta is atheromat ous. There are no hilar masses. There are chest leads. There is a right subclavian catheter with the tip in the superior vena cava without change. IMPRESSION: There is interstitial pulmonary edema that could relate to heart failure that is the wilmar e or worse than last exam. NG tube is in good position. There is probably some infiltrate at the left lung base that is unchanged.
[2017-01-10 00:46] LABS: Glucose,Whole Blood 109 mg/dL (75-99)
[2017-01-10] MEDS: PIPERACILLIN-TAZOBACTAM 3.375 GM in DEXTROSE/WATER 1 50ML.BAG IVPB SCH ×3 (01:30→18:28)
[2017-01-10 06:30] LABS: Glucose,Whole Blood 104 mg/dL (75-99)
[2017-01-10] MEDS: PANTOPRAZOLE 40 MG TABLET PO SCH (06:43)
[2017-01-10 07:38] LABS: Anisocytosis Slight; CH 28.2; CHCM 32.4; HCT 38.2 % (34.0-46.0); HDW 2.45; HGB 12.3 gm/dL (11.4-16.0); Immature Gran Flag Moderate; MCH 28.1 pg (25.0-35.0); MCHC 32.2 g/dL (31.0-37.0); Mean Platelet Volume 8.4; RBC 4.37 m/uL (3.80-5.40); RDW 16.8 % (11.5-15.5); WBC (Perox) 13.73
[2017-01-10 07:42] LABS: MCV 87.4 fL (80.0-100.0)
[2017-01-10 07:58] LABS: ALT 25 U/L (9-52); AST 39 U/L (14-36); Alkaline Phosphatase 130 U/L (38-126); Anion Gap 4 mmol/L; Blood Urea Nitrogen 20 mg/dL (7-17); Calcium 7.8 mg/dL (8.4-10.2); Carbon Dioxide 25 mmol/L (22-30); Chloride 108 mmol/L (98-107); Glucose 89 mg/dL (74-99); Non-African American GFR(MDRD) >60 (>60 ml/min/1.73 sqM); Phosphorous 2.9 mg/dL (2.5-4.5); Potassium 4.3 mmol/L (3.5-5.1); Sodium 137 mmol/L (137-145); Total Bilirubin 2.1 mg/dL (0.2-1.3); Total Protein 6.3 g/dL (6.3-8.2)
[2017-01-10 08:02] LABS: Add Differential Manual Differential
[2017-01-10 08:09] LABS: Nucleated Red Blood Cells 0 /100 WBC (0-0); Target Cells Present; Total Cells Counted 200
[2017-01-10] MEDS: IPRATROPIUM-ALBUTEROL 3 ML NEB INHALATION SCH ×4 (08:34→21:20)
[2017-01-10] MEDS: HEPARIN SODIUM,PORCINE 5,000 UNIT/ML 1 ML VIAL SQ SCH ×3 (08:57→23:13)
[2017-01-10] MEDS: METOPROLOL TARTRATE 12.5 MG TAB PO SCH ×2 (10:19→21:19)
[2017-01-10] MEDS: AMIODARONE 200 MG TAB PO SCH (10:19)
--- NOTE | 2017-01-10 10:31 | P.PN ---
Subjective A 86-year-old female being seen this morning on rounds with the attending. Chief complaint "hungry I need something to drink " patient is taking ice chips. When questioning patient is denying abdominal discomfort. Abdomen is less distended. A few hypoactive bowel tones noted No stool.Documented incontinent of urine being followed by surgical service and cardiology service recommendations reviewed noted and appreciated the white count this morning is 14 hemoglobin is 12.3 patient is scheduled today for a CAT scan of the abdomen and pelvis with contrast Objective - Vital Signs Vital signs: Vital Signs Temp 97.1 F L 01/10/17 08:00 Pulse 84 01/10/17 08:47 Resp 17 01/10/17 08:00 BP 119/64 01/10/17 08:00 Pulse Ox 94 L 01/10/17 08:00 Intake & Output 01/09/17 01/10/17 01/10/17 18:59 06:59 18:59 Output Total 800 800 Balance -800 -800 Weight 82 kg 80.5 kg 80.5 kg Output: Gastric Drainage 800 800 Other: Voiding Method Diaper Diaper Incontinent Incontinent # Voids 1 1 - Exam Physical exam 86-year-old female resting in bed oriented 3 currently denying abdominal discomfort no stool no reports of nausea vomiting nasal gastric tube in place taking ice chips freely asking for a diet Lungs bilateral adequate air movement no wheezing rales or rhonchi noted nasal cannula 3 L sats are 92 Heart S1-S2 audible irregular monitor episodes of sinus tach heart rate up during the night with activity currently denying chest pain Abdomen soft nontender slightly distended no stool Extremities no edema - Labs CBC & Chem 7: 01/10/17 07:18 01/10/17 07:18 Labs: Abnormal Lab Results - Last 24 Hours (Table) 01/09/17 01/10/17 01/10/17 Range/Units 06:28 00:34 06:28 WBC 14.2 H (3.8-10.6) k/uL Hgb 10.6 L (11.4-16.0) gm/dL MCHC 29.3 L (31.0-37.0) g/dL RDW 16.4 H (11.5-15.5) % Neutrophils # 12.4 H (1.3-7.7) k/uL Neutrophils # (Manual) (1.3-7.7) k/uL Lymphocytes # 0.9 L (1.0-4.8) k/uL Chloride (98-107) mmol/L BUN (7-17) mg/dL POC Glucose (mg/dL) 109 H 104 H (75-99) mg/dL Calcium (8.4-10.2) mg/dL Total Bilirubin (0.2-1.3) mg/dL AST (14-36) U/L Alkaline Phosphatase (38-126) U/L Albumin (3.5-5.0) g/dL 01/10/17 01/10/17 Range/Units 07:18 07:18 WBC 14.0 H (3.8-10.6) k/uL Hgb (11.4-16.0) gm/dL MCHC (31.0-37.0) g/dL RDW 16.8 H (11.5-15.5) % Neutrophils # (1.3-7.7) k/uL Neutrophils # (Manual) 12.6 H (1.3-7.7) k/uL Lymphocytes # (1.0-4.8) k/uL Chloride 108 H (98-107) mmol/L BUN 20 H (7-17) mg/dL POC Glucose (mg/dL) (75-99) mg/dL Calcium 7.8 L (8.4-10.2) mg/dL Total Bilirubin 2.1 H (0.2-1.3) mg/dL AST 39 H (14-36) U/L Alkaline Phosphatase 130 H (38-126) U/L Albumin 2.0 L (3.5-5.0) g/dL Assessment and Plan Plan: Impression Present on admission nausea vomiting abdominal pain suspect ischemic bowel as etiology Present on admission coagulopathy INR 2.2 Episodes of paroxysmal atrial fibrillation with rapid ventricular response Present on admission hypocalcium Present on admission leukocytosis Echocardiogram on January 06 HER systolic function with an ejection fraction 55-60 % with some diastolic dysfunction Cardiac arrhythmias history of History of esophageal reflux disease History of a colonoscopy April [address] Barros negative findings Acute hypoxic respiratory failure resolving Paroxysmal supraventricular tachycardia Present on admission Atrial flutter with one-to-one conduction or atrial tachycardia ,atrial fibrillation unable to determine cardiology following Plan Continue recommendations by surgical service Dr. Green defer to IV fluid for hydration Monitor labs keep electrolytes therapeutic Resume home meds when appropriate DVT and GI prophylaxis Oral amiodarone per cardiology services recommendations Continue broad-spectrum antibiotics On a clear liquid diet to be advanced per surgical services recommendations If no surgical intervention cardiology recommends anticoagulation be initiated Follow up on the CAT scan of the abdomen and pelvis with contrast The above dictated assessment and findings were discussed with dr norma Ferreira and the plan of care have been dictated as directed. Laura Patel nurse practitioner acting as a scribe for dr green
--- NOTE | 2017-01-10 11:37 | P.PN ---
Subjective This is an 86-year-old female patient who is being evaluated and examined today in the intensive care unit. The patient was brought into the emergency room via EMS after family called due to increasing in abdominal pain with no nausea vomiting and diarrhea that had been going on for the past 3 days. Upon arrival the paramedics on the patient to be dyspneic and tachycardic and her pulse ox was low as well. She did have some altered mental status changes however normally is alert and oriented 3. She is also been having some frequency in urination and bedtime wetting. While in the emergency room the patient did go into SVT, was given adenosine which did not affect the rate. She also then went into possibly torsades and was given IV magnesium. CT of the abdomen and pelvis reveals suggestions for ileus, possible early small bowel obstruction, and a moderate fatty infiltration to the liver. Surgical on consult for CT results. Also GI was consulted. Chest x-ray was completed and reveals some mild cardiomegaly, worsening left basilar airspace disease, developing left effusion, and multiple stable pulmonary nodules. Upon examination today the patient's resting up in bed on the 3 L of oxygen via nasal cannula. Patient denies any cough or shortness of breath at this time. Patient denies any abdominal discomfort today, she is requesting have something to eat and drink. NG tube present and hooked to low intermittent suction. Objective - Vital Signs Vital signs: Vital Signs Temp 96.4 F L 01/10/17 11:24 Pulse 84 01/10/17 11:24 Resp 18 01/10/17 11:24 BP 130/58 01/10/17 11:24 Pulse Ox 93 L 01/10/17 11:24 Intake & Output 01/09/17 01/10/17 01/10/17 18:59 06:59 18:59 Output Total 800 800 Balance -800 -800 Weight 82 kg 80.5 kg 80.5 kg Output: Gastric Drainage 800 800 Other: Voiding Method Diaper Diaper Diaper Incontinent Incontinent Incontinent # Voids 1 1 - Exam GENERAL EXAM: Alert, active, comfortable in no apparent distress. HEAD: Normocephalic. EYES: Normal reaction of pupils, equal size. NOSE: Clear with pink turbinates. THROAT: No erythema or exudates. NECK: No masses, no JVD. CHEST: No chest wall deformity. LUNGS: Equal air entry with no crackles, wheeze, rhonchi or dullness. CVS: S1 and S2 normal with no audible mumurs, regular rhythm. ABDOMEN: No hepatosplenomegaly, normal bowel sounds, no guarding or rigidity. EXTREMITIES: No edema noted, pedal pulses palpable. SKIN: No rashes CENTRAL NERVOUS SYSTEM: No focal deficits, tone is normal in all 4 extremities. - Labs CBC & Chem 7: 01/10/17 07:18 01/10/17 07:18 Labs: Abnormal Lab Results - Last 24 Hours (Table) 01/09/17 01/10/17 01/10/17 Range/Units 06:28 00:34 06:28 WBC 14.2 H (3.8-10.6) k/uL Hgb 10.6 L (11.4-16.0) gm/dL MCHC 29.3 L (31.0-37.0) g/dL RDW 16.4 H (11.5-15.5) % Neutrophils # 12.4 H (1.3-7.7) k/uL Neutrophils # (Manual) (1.3-7.7) k/uL Lymphocytes # 0.9 L (1.0-4.8) k/uL Chloride (98-107) mmol/L BUN (7-17) mg/dL POC Glucose (mg/dL) 109 H 104 H (75-99) mg/dL Calcium (8.4-10.2) mg/dL Total Bilirubin (0.2-1.3) mg/dL AST (14-36) U/L Alkaline Phosphatase (38-126) U/L Albumin (3.5-5.0) g/dL 01/10/17 01/10/17 Range/Units 07:18 07:18 WBC 14.0 H (3.8-10.6) k/uL Hgb (11.4-16.0) gm/dL MCHC (31.0-37.0) g/dL RDW 16.8 H (11.5-15.5) % Neutrophils # (1.3-7.7) k/uL Neutrophils # (Manual) 12.6 H (1.3-7.7) k/uL Lymphocytes # (1.0-4.8) k/uL Chloride 108 H (98-107) mmol/L BUN 20 H (7-17) mg/dL POC Glucose (mg/dL) (75-99) mg/dL Calcium 7.8 L (8.4-10.2) mg/dL Total Bilirubin 2.1 H (0.2-1.3) mg/dL AST 39 H (14-36) U/L Alkaline Phosphatase 130 H (38-126) U/L Albumin 2.0 L (3.5-5.0) g/dL Assessment and Plan Plan: Assessment Acute hypoxic respiratory failure Paroxysmal supraventricular tachycardia Small bowel obstruction Dehydration Hypotension Diffuse abdominal pain Leukocytosis Plan Medications have been reviewed and will be continued as ordered. Flu swab has been negative. Continue with nebulizer treatments, supplemental oxygen, and pulmonary hygiene. Incentive spirometer was initiated. Appreciate recommendations from surgical and GI. . We will continue to monitor labs/ reports and adjust treatment as necessary. I performed an examination of the patient and discussed their management with the nurse practitioner. I have reviewed the nurse practitioner's note and agree with the documented findings and plan of care.
[2017-01-10 12:00] LABS: Glucose,Whole Blood 82 mg/dL (75-99)
--- NOTE | 2017-01-10 12:22 | P.PN ---
Subjective Principal diagnosis: Abdominal pain Patient's feels somewhat better since the nasogastric tube was placed last night. She had approximately 800 mL of output immediately after replacement. Abdominal distention improved. Denies pain currently. She is thirsty. CAT scan is currently pending. White blood cell count today 14. Bilirubin slightly elevated at 2 Objective - Vital Signs Vital signs: Vital Signs Temp 96.4 F L 01/10/17 11:24 Pulse 84 01/10/17 11:24 Resp 18 01/10/17 11:24 BP 130/58 01/10/17 11:24 Pulse Ox 93 L 01/10/17 11:24 Intake & Output 01/09/17 01/10/17 01/10/17 18:59 06:59 18:59 Output Total 800 800 Balance -800 -800 Weight 82 kg 80.5 kg 80.5 kg Output: Gastric Drainage 800 800 Other: Voiding Method Diaper Diaper Diaper Incontinent Incontinent Incontinent # Voids 1 1 - Exam Abdomen: Soft, mild distention, mild diffuse tenderness - Labs CBC & Chem 7: 01/10/17 07:18 01/10/17 07:18 Labs: Abnormal Lab Results - Last 24 Hours (Table) 01/10/17 01/10/17 01/10/17 Range/Units 00:34 06:28 07:18 WBC (3.8-10.6) k/uL RDW (11.5-15.5) % Neutrophils # (Manual) (1.3-7.7) k/uL Chloride 108 H (98-107) mmol/L BUN 20 H (7-17) mg/dL POC Glucose (mg/dL) 109 H 104 H (75-99) mg/dL Calcium 7.8 L (8.4-10.2) mg/dL Total Bilirubin 2.1 H (0.2-1.3) mg/dL AST 39 H (14-36) U/L Alkaline Phosphatase 130 H (38-126) U/L Albumin 2.0 L (3.5-5.0) g/dL 01/10/17 Range/Units 07:18 WBC 14.0 H (3.8-10.6) k/uL RDW 16.8 H (11.5-15.5) % Neutrophils # (Manual) 12.6 H (1.3-7.7) k/uL Chloride (98-107) mmol/L BUN (7-17) mg/dL POC Glucose (mg/dL) (75-99) mg/dL Calcium (8.4-10.2) mg/dL Total Bilirubin (0.2-1.3) mg/dL AST (14-36) U/L Alkaline Phosphatase (38-126) U/L Albumin (3.5-5.0) g/dL Assessment and Plan (1) Abdominal pain Narrative/Plan: Will check CT abdomen and pelvis already ordered for today. Continue nasogastric tube to suction for now. Recheck lab work in a.m. Status: Acute
[2017-01-10] MEDS: IOHEXOL 350 MG/ML 25 ML BOTTLE (ORAL USE) PO PRN ×2 (12:59→14:05)
[2017-01-10] MEDS: SODIUM CHLORIDE 0.9% 1,000 ML IV SCH (14:10)
--- NOTE | 2017-01-10 15:42 | CT ---
EXAMINATION TYPE: CT abdomen pelvis w con DATE OF EXAM: 01/10/2017 3:00 PM COMPARISON: 01/05/2017 HISTORY: Abdominal pain. Hx of breast CA. CT DLP: 1551 mGycm CONTRAST: CT scan of the abdomen and pelvis is performed with Oral Contrast and with IV Contrast, patient injec james with 100 mL of Omnipaque 300. FINDINGS: LUNG BASES-: Basilar pleural effusions left greater than right as well as a compressive atelectasis. LIVER/GB: No calcified gallstones. No space occupying hepatic lesion. Biliary tree is of normal ca liber. Severe hepatic steatosis is noted. Cholecystectomy changes are seen. PANCREAS: No inflammation. No distinct mass. SPLEEN: No splenic enlargement. No lesion seen. ADRENALS: No nodule. No thickening. KIDNEYS/BLADDER: No hydronephrosis. No nephrolithiasis. No disctinct renal mass. Urinary bladder g rossly unremarkable. BOWEL: Noted are dilated loops of jejunum measuring up to 4.4 cm. With proximal ileal transition zone difficult to exclude. Ileal loops appear decompressed. No contrast is seen within the ileum or withi n the colon at this time. Mild scattered fecal stasis. Small amount of ascites seen within the pelvis and left paracolic gutter. GENITAL ORGANS: No gross abnormality. LYMPH NODES: No greater than 1cm abdominal or pelvic lymph nodes are appreciated. AORTA: No significant abnormality. OSSEOUS STRUCTURES: Left hip prosthesis with streak artifact limiting evaluation of the pelvis. OTHER: Subcutaneous edema may reflect a degree of anasarca. IMPRESSION: 1. Persistent mildly progressive dilatation of jejunal loops with a suggestion of proximal ileal staley sition zone and lack of contrast within decompressed bowel loops. Partial or early complete small bow el obstruction is suspected. Consider delayed flat plate of the abdomen for confirmation purposes. 2. Interval development of bilateral pleural effusions, left basilar atelectasis and anasarca changes . Small amount of ascites within the abdomen. 3. Severe hepatic steatosis.
[2017-01-10 18:13] LABS: Glucose,Whole Blood 84 mg/dL (75-99)
[2017-01-11 00:36] LABS: Glucose,Whole Blood 57 mg/dL (75-99)
[2017-01-11 00:36] LABS: Glucose,Whole Blood 65 mg/dL (75-99)
[2017-01-11] MEDS ORDERED: DEXTROSE 50%-WATER 50 ML SYRINGE IVP ONE (00:37)
[2017-01-11] MEDS: DEXTROSE 50%-WATER 50 ML SYRINGE IVP STA ×2 (00:38→01:00)
[2017-01-11 00:48] LABS: Glucose,Whole Blood 76 mg/dL (75-99)
[2017-01-11] MEDS: PIPERACILLIN-TAZOBACTAM 3.375 GM in DEXTROSE/WATER 1 50ML.BAG IVPB SCH ×3 (02:26→18:27)
[2017-01-11 05:43] LABS: Glucose,Whole Blood 52 mg/dL (75-99)
[2017-01-11 05:49] LABS: Glucose,Whole Blood 74 mg/dL (75-99)
[2017-01-11] MEDS: PANTOPRAZOLE 40 MG TABLET PO SCH (06:40)
[2017-01-11 07:46] LABS: ALT 30 U/L (9-52); AST 38 U/L (14-36); Alkaline Phosphatase 110 U/L (38-126); Anion Gap 5 mmol/L; Blood Urea Nitrogen 20 mg/dL (7-17); Calcium 7.7 mg/dL (8.4-10.2); Carbon Dioxide 23 mmol/L (22-30); Chloride 109 mmol/L (98-107); Glucose 70 mg/dL (74-99); Non-African American GFR(MDRD) >60 (>60 ml/min/1.73 sqM); Potassium 4.1 mmol/L (3.5-5.1); Sodium 137 mmol/L (137-145); Total Bilirubin 1.6 mg/dL (0.2-1.3); Total Protein 5.6 g/dL (6.3-8.2)
[2017-01-11] MEDS: IPRATROPIUM-ALBUTEROL 3 ML NEB INHALATION SCH ×4 (07:58→20:45)
[2017-01-11 08:20] LABS: Anisocytosis Slight; Basophils % (A) 0 %; CH 27.8; Eosinophils # (A) 0.1 k/uL (0-0.7); Eosinophils % (A) 1 %; HCT 31.9 % (34.0-46.0); HDW 2.45; HGB 10.3 gm/dL (11.4-16.0); Luc # (Auto) 0.17; Luc % (Auto) 2; Lymphocytes % (A) 9 %; MCHC 32.2 g/dL (31.0-37.0); MCV 87.2 fL (80.0-100.0); Mean Platelet Volume 8.6; Monocytes # (A) 0.4 k/uL (0-1.0); Monocytes % (A) 3 %; Neutrophils # (A) 9.3 k/uL (1.3-7.7); Neutrophils % (A) 85 %; RBC 3.66 m/uL (3.80-5.40); RDW 16.9 % (11.5-15.5); WBC (Perox) 11.36
[2017-01-11] MEDS: METOPROLOL TARTRATE 12.5 MG TAB PO SCH ×2 (09:01→21:24)
[2017-01-11] MEDS: AMIODARONE 200 MG TAB PO SCH (09:01)
[2017-01-11] MEDS: HEPARIN SODIUM,PORCINE 5,000 UNIT/ML 1 ML VIAL SQ SCH ×3 (09:01→22:52)
--- NOTE | 2017-01-11 10:49 | P.PN ---
Subjective 86-year-old female being seen with the attending on rounds this morning nasal gastric tube to suction. Patient is asking to be fed. Continues to have tenderness across the abdominal wall. no reports of nausea vomiting.no document stool. Spoke surgical services tentatively will be scheduled tomorrow for a exploratorylaparoscopic as part of workup for abdominal pain labs reviewed blood sugars on the low side 50-74. Hemoglobin stable at 10.3 with a white count of 11 has been afebrile. Surgical service indicated that they will update the daughter on the plan of care no family at bedside Objective - Vital Signs Vital signs: Vital Signs Temp 97.5 F L 01/11/17 07:00 Pulse 88 01/11/17 07:59 Resp 18 01/11/17 07:00 BP 129/65 01/11/17 07:00 Pulse Ox 98 01/11/17 07:59 Intake & Output 01/10/17 01/11/17 01/11/17 18:59 06:59 18:59 Intake Total 1700 150 Output Total 2059 Balance -360 150 Weight 80.5 kg 77 kg Intake: IV 100 0.9nacl 100 Intake, IV Titration 300 50 Amount Piperacillin-Tazobactam 3 100 50 .375 gm In Dextrose/Water 1 50ml.bag @ 12.5 mls/hr IVPB Q8H [facility] Rx#: [id number] Sodium Chloride 0.9% 1, 200 000 ml @ 20 mls/hr IV . Q24H [facility] Rx#:[id number] Oral 1400 Output: Gastric Drainage 2059 Other: Voiding Method Diaper Diaper Incontinent Incontinent # Voids 1 1 - Exam Physical exam 86-year-old female resting in bed oriented 3 currently denying abdominal discomfort no stool no reports of nausea vomiting nasal gastric tube in place taking ice chips freely asking for a dietdenying chest pain or shortness of breath when questioning Lungs bilateral adequate air movement no wheezing rales or rhonchi noted nasal cannula 3 L sats are 98 Heart S1-S2 audible irregular monitor episodes of sinus tachycardia heart rates up in the 90s current heart rate in the 80s currently denying chest pain Abdomen soft nontender slightly distended no stool incontinent a urine Extremities no edema - Labs CBC & Chem 7: 01/11/17 06:44 01/11/17 06:44 Labs: Abnormal Lab Results - Last 24 Hours (Table) 01/11/17 01/11/17 01/11/17 Range/Units 00:27 00:34 05:41 WBC (3.8-10.6) k/uL RBC (3.80-5.40) m/uL Hgb (11.4-16.0) gm/dL Hct (34.0-46.0) % RDW (11.5-15.5) % Neutrophils # (1.3-7.7) k/uL Chloride (98-107) mmol/L BUN (7-17) mg/dL Creatinine (0.52-1.04) mg/dL Glucose (74-99) mg/dL POC Glucose (mg/dL) 65 L 57 L 52 L (75-99) mg/dL Calcium (8.4-10.2) mg/dL Total Bilirubin (0.2-1.3) mg/dL AST (14-36) U/L Total Protein (6.3-8.2) g/dL Albumin (3.5-5.0) g/dL 01/11/17 01/11/17 01/11/17 Range/Units 05:48 06:44 06:44 WBC 11.0 H (3.8-10.6) k/uL RBC 3.66 L (3.80-5.40) m/uL Hgb 10.3 L (11.4-16.0) gm/dL Hct 31.9 L (34.0-46.0) % RDW 16.9 H (11.5-15.5) % Neutrophils # 9.3 H (1.3-7.7) k/uL Chloride 109 H (98-107) mmol/L BUN 20 H (7-17) mg/dL Creatinine 0.47 L (0.52-1.04) mg/dL Glucose 70 L (74-99) mg/dL POC Glucose (mg/dL) 74 L (75-99) mg/dL Calcium 7.7 L (8.4-10.2) mg/dL Total Bilirubin 1.6 H (0.2-1.3) mg/dL AST 38 H (14-36) U/L Total Protein 5.6 L (6.3-8.2) g/dL Albumin 1.8 L (3.5-5.0) g/dL Assessment and Plan Plan: Impression Present on admission nausea vomiting abdominal pain suspect ischemic bowel as etiology Present on admission coagulopathy INR 2.2 Episodes of paroxysmal atrial fibrillation with rapid ventricular response Present on admission hypocalcium Present on admission leukocytosis Echocardiogram on January 06 HER systolic function with an ejection fraction 55-60 % with some diastolic dysfunction Cardiac arrhythmias history of History of esophageal reflux disease History of a colonoscopy April [address] Barros negative findings Acute hypoxic respiratory failure resolving Paroxysmal supraventricular tachycardia Present on admission Atrial flutter with one-to-one conduction or atrial tachycardia ,atrial fibrillation unable to determine cardiology following Plan Continue recommendations by surgical service Dr. Green defer topossible or tomorrow IV fluid for hydration Monitor labs keep electrolytes therapeutic Resume home meds when appropriate DVT and GI prophylaxis Oral amiodarone per cardiology services recommendations Continue broad-spectrum antibiotics IV Zosyn continue the nasogastric tube cardiology recommends anticoagulation be initiated when appropriate The above dictated assessment and findings were discussed with dr green Impression and the plan of care have been dictated as directed. Laura Patel nurse practitioner acting as a scribe for dr green
[2017-01-11 12:14] LABS: Glucose,Whole Blood 40 mg/dL (75-99)
--- NOTE | 2017-01-11 12:32 | P.PN ---
Subjective Principal diagnosis: Abdominal pain Patient's CAT scan yesterday was reviewed. The patient has distended bowel loops possibly on the basis of ongoing small bowel obstruction. The patient says she feels about the same. She is hungry. Her pain is improved since her decompression with the nasogastric tube. White blood cell count today is 11 hemoglobin 10.3. Objective - Vital Signs Vital signs: Vital Signs Temp 97.5 F L 01/11/17 07:00 Pulse 82 01/11/17 08:30 Resp 18 01/11/17 12:00 BP 129/65 01/11/17 07:00 Pulse Ox 98 01/11/17 07:59 Intake & Output 01/10/17 01/11/17 01/11/17 18:59 06:59 18:59 Intake Total 1700 150 20 Output Total 2059 Balance -360 150 20 Weight 80.5 kg 77 kg Intake: IV 100 0.9nacl 100 Intake, IV Titration 300 50 20 Amount Piperacillin-Tazobactam 3 100 50 .375 gm In Dextrose/Water 1 50ml.bag @ 12.5 mls/hr IVPB Q8H [facility] Rx#: [id number] Sodium Chloride 0.9% 1, 200 20 000 ml @ 20 mls/hr IV . Q24H [facility] Rx#:[id number] Oral 1400 Output: Gastric Drainage 2059 Other: Voiding Method Diaper Diaper Diaper Incontinent Incontinent Incontinent # Voids 1 1 - Exam Abdomen: Soft, less distended, mild tenderness - Labs CBC & Chem 7: 01/11/17 06:44 01/11/17 06:44 Labs: Abnormal Lab Results - Last 24 Hours (Table) 01/11/17 01/11/17 01/11/17 Range/Units 00:27 00:34 05:41 WBC (3.8-10.6) k/uL RBC (3.80-5.40) m/uL Hgb (11.4-16.0) gm/dL Hct (34.0-46.0) % RDW (11.5-15.5) % Neutrophils # (1.3-7.7) k/uL Chloride (98-107) mmol/L BUN (7-17) mg/dL Creatinine (0.52-1.04) mg/dL Glucose (74-99) mg/dL POC Glucose (mg/dL) 65 L 57 L 52 L (75-99) mg/dL Calcium (8.4-10.2) mg/dL Total Bilirubin (0.2-1.3) mg/dL AST (14-36) U/L Total Protein (6.3-8.2) g/dL Albumin (3.5-5.0) g/dL 01/11/17 01/11/17 01/11/17 Range/Units 05:48 06:44 06:44 WBC 11.0 H (3.8-10.6) k/uL RBC 3.66 L (3.80-5.40) m/uL Hgb 10.3 L (11.4-16.0) gm/dL Hct 31.9 L (34.0-46.0) % RDW 16.9 H (11.5-15.5) % Neutrophils # 9.3 H (1.3-7.7) k/uL Chloride 109 H (98-107) mmol/L BUN 20 H (7-17) mg/dL Creatinine 0.47 L (0.52-1.04) mg/dL Glucose 70 L (74-99) mg/dL POC Glucose (mg/dL) 74 L (75-99) mg/dL Calcium 7.7 L (8.4-10.2) mg/dL Total Bilirubin 1.6 H (0.2-1.3) mg/dL AST 38 H (14-36) U/L Total Protein 5.6 L (6.3-8.2) g/dL Albumin 1.8 L (3.5-5.0) g/dL 01/11/17 Range/Units 12:07 WBC (3.8-10.6) k/uL RBC (3.80-5.40) m/uL Hgb (11.4-16.0) gm/dL Hct (34.0-46.0) % RDW (11.5-15.5) % Neutrophils # (1.3-7.7) k/uL Chloride (98-107) mmol/L BUN (7-17) mg/dL Creatinine (0.52-1.04) mg/dL Glucose (74-99) mg/dL POC Glucose (mg/dL) 40 L (75-99) mg/dL Calcium (8.4-10.2) mg/dL Total Bilirubin (0.2-1.3) mg/dL AST (14-36) U/L Total Protein (6.3-8.2) g/dL Albumin (3.5-5.0) g/dL Assessment and Plan (1) Abdominal pain Narrative/Plan: The CAT scan findings were discussed with the patient's daughter and the patient. At this point I would suggest a diagnostic laparoscopy to rule out small bowel obstruction. Possible need for laparotomy and/or bowel resection was discussed. The risks of bleeding, infection, bowel injury, leak, abscess, ostomy were all discussed. They understand and wish to proceed. Status: Acute
[2017-01-11] MEDS ORDERED: MVI, ADULT NO.4 WITH VIT K 10 ML, TRACE (CONC-1ML/DOSE) 1 ML in AMINO ACID 5%-D25W+LYTE... IV ONE ×3 (16:00)
--- NOTE | 2017-01-11 16:11 | P.PN ---
Subjective This is an 86-year-old female patient who is being evaluated and examined today in the intensive care unit. The patient was brought into the emergency room via EMS after family called due to increasing in abdominal pain with no nausea vomiting and diarrhea that had been going on for the past 3 days. Upon arrival the paramedics on the patient to be dyspneic and tachycardic and her pulse ox was low as well. She did have some altered mental status changes however normally is alert and oriented 3. She is also been having some frequency in urination and bedtime wetting. While in the emergency room the patient did go into SVT, was given adenosine which did not affect the rate. She also then went into possibly torsades and was given IV magnesium. CT of the abdomen and pelvis reveals suggestions for ileus, possible early small bowel obstruction, and a moderate fatty infiltration to the liver. Surgical on consult for CT results. Also GI was consulted. Chest x-ray was completed and reveals some mild cardiomegaly, worsening left basilar airspace disease, developing left effusion, and multiple stable pulmonary nodules. Upon examination today the patient's resting up in bed on the 3 L of oxygen via nasal cannula. Patient denies any cough or shortness of breath at this time. Patient denies any abdominal discomfort today, she is continuously requesting have something to eat and drink. NG tube present and hooked to low intermittent suction. The patient is possibly going to have a laparotmy procedure or a small bowel resection with Surgical services. Objective - Vital Signs Vital signs: Vital Signs Temp 97.5 F L 01/11/17 07:00 Pulse 88 01/11/17 12:45 Resp 18 01/11/17 12:00 BP 129/65 01/11/17 07:00 Pulse Ox 98 01/11/17 07:59 Intake & Output 01/10/17 01/11/17 01/11/17 18:59 06:59 18:59 Intake Total 1700 150 20 Output Total 2060 Balance -360 150 20 Weight 80.5 kg 77 kg 77 kg Intake: IV 100 0.9nacl 100 Intake, IV Titration 300 50 20 Amount Piperacillin-Tazobactam 3 100 50 .375 gm In Dextrose/Water 1 50ml.bag @ 12.5 mls/hr IVPB Q8H [facility] Rx#: [id number] Sodium Chloride 0.9% 1, 200 20 000 ml @ 20 mls/hr IV . Q24H [facility] Rx#:[id number] Oral 1400 Output: Gastric Drainage 2059 Other: Voiding Method Diaper Diaper Diaper Incontinent Incontinent Incontinent # Voids 1 1 - Exam GENERAL EXAM: Alert, active, comfortable in no apparent distress. HEAD: Normocephalic. EYES: Normal reaction of pupils, equal size. NOSE: Clear with pink turbinates. THROAT: No erythema or exudates. NECK: No masses, no JVD. CHEST: No chest wall deformity. LUNGS: Equal air entry with no crackles, wheeze, rhonchi or dullness. CVS: S1 and S2 normal with no audible mumurs, regular rhythm. ABDOMEN: No hepatosplenomegaly, normal bowel sounds, no guarding or rigidity. EXTREMITIES: No edema noted, pedal pulses palpable. SKIN: No rashes CENTRAL NERVOUS SYSTEM: No focal deficits, tone is normal in all 4 extremities. - Labs CBC & Chem 7: 01/11/17 06:44 01/11/17 06:44 Labs: Abnormal Lab Results - Last 24 Hours (Table) 01/11/17 01/11/17 01/11/17 Range/Units 00:27 00:34 05:41 WBC (3.8-10.6) k/uL RBC (3.80-5.40) m/uL Hgb (11.4-16.0) gm/dL Hct (34.0-46.0) % RDW (11.5-15.5) % Neutrophils # (1.3-7.7) k/uL Chloride (98-107) mmol/L BUN (7-17) mg/dL Creatinine (0.52-1.04) mg/dL Glucose (74-99) mg/dL POC Glucose (mg/dL) 65 L 57 L 52 L (75-99) mg/dL Calcium (8.4-10.2) mg/dL Total Bilirubin (0.2-1.3) mg/dL AST (14-36) U/L Total Protein (6.3-8.2) g/dL Albumin (3.5-5.0) g/dL Triglycerides (<150) mg/dL 01/11/17 01/11/17 01/11/17 Range/Units 05:48 06:44 06:44 WBC 11.0 H (3.8-10.6) k/uL RBC 3.66 L (3.80-5.40) m/uL Hgb 10.3 L (11.4-16.0) gm/dL Hct 31.9 L (34.0-46.0) % RDW 16.9 H (11.5-15.5) % Neutrophils # 9.3 H (1.3-7.7) k/uL Chloride 109 H (98-107) mmol/L BUN 20 H (7-17) mg/dL Creatinine 0.47 L (0.52-1.04) mg/dL Glucose 70 L (74-99) mg/dL POC Glucose (mg/dL) 74 L (75-99) mg/dL Calcium 7.7 L (8.4-10.2) mg/dL Total Bilirubin 1.6 H (0.2-1.3) mg/dL AST 38 H (14-36) U/L Total Protein 5.6 L (6.3-8.2) g/dL Albumin 1.8 L (3.5-5.0) g/dL Triglycerides (<150) mg/dL 01/11/17 01/11/17 Range/Units 06:44 12:07 WBC (3.8-10.6) k/uL RBC (3.80-5.40) m/uL Hgb (11.4-16.0) gm/dL Hct (34.0-46.0) % RDW (11.5-15.5) % Neutrophils # (1.3-7.7) k/uL Chloride (98-107) mmol/L BUN (7-17) mg/dL Creatinine (0.52-1.04) mg/dL Glucose (74-99) mg/dL POC Glucose (mg/dL) 40 L (75-99) mg/dL Calcium (8.4-10.2) mg/dL Total Bilirubin (0.2-1.3) mg/dL AST (14-36) U/L Total Protein (6.3-8.2) g/dL Albumin (3.5-5.0) g/dL Triglycerides 181 H (<150) mg/dL Assessment and Plan Plan: Assessment Acute hypoxic respiratory failure Paroxysmal supraventricular tachycardia Small bowel obstruction Dehydration Hypotension Diffuse abdominal pain Leukocytosis Plan Medications have been reviewed and will be continued as ordered. Flu swab has been negative. Continue with nebulizer treatments, supplemental oxygen, and pulmonary hygiene. Incentive spirometer was initiated. Appreciate recommendations from surgical and GI. Patient possibly going for laparotomy or small bowel resection with surgical services . We will continue to monitor labs /reports and adjust treatment as necessary. I performed an examination of the patient and discussed their management with the nurse practitioner. I have reviewed the nurse practitioner's note and agree with the documented findings and plan of care.
[2017-01-11 16:16] LABS: ALT 26 U/L (9-52); AST 45 U/L (14-36); Alkaline Phosphatase 118 U/L (38-126); Anion Gap 7 mmol/L; Blood Urea Nitrogen 19 mg/dL (7-17); Calcium 7.8 mg/dL (8.4-10.2); Carbon Dioxide 21 mmol/L (22-30); Chloride 107 mmol/L (98-107); Glucose 75 mg/dL (74-99); Magnesium 1.8 mg/dL (1.6-2.3); Non-African American GFR(MDRD) >60 (>60 ml/min/1.73 sqM); Phosphorous 2.8 mg/dL (2.5-4.5); Potassium 4.4 mmol/L (3.5-5.1); Sodium 135 mmol/L (137-145); Total Bilirubin 1.7 mg/dL (0.2-1.3); Total Protein 5.8 g/dL (6.3-8.2); Triglycerides 185 mg/dL (<150)
--- NOTE | 2017-01-11 16:24 | PN ---
DATE OF SERVICE: 01/10/2017 CHIEF COMPLAINT: Bowel obstruction, shortness of breath and arrhythmia. HISTORY OF PRESENT ILLNESS: This lady continues to have difficulty. NG tube has been placed back in and she is having a lot of abdominal discomfort. She also is still going in and out of SVT with rapid ventricular response and she does have some edema, all leaning toward congestive heart failure. REVIEW OF SYSTEMS: She denies any chest pain. PHYSICAL EXAMINATION: She remains pale and slightly edematous. Neck veins not distended. The chest is clear except for poor breath sounds posteriorly with rales and rhonchi and poor breath sounds at the bases. The abdomen is slightly protuberant and generally tender throughout. Bowel sounds are not heard. IMPRESSION: 1. Small bowel obstruction. 2. Mild congestive heart failure. 3. Supraventricular tachycardia. PLAN: No change in program. Await further recommendations from Surgery and Cardiology.
--- NOTE | 2017-01-11 16:49 | PN ---
DATE OF SERVICE: 01/11/2017 CHIEF COMPLAINT: Persistent bowel obstruction, anasarca and SVT. HISTORY OF PRESENT ILLNESS: This lady is still not doing well. NG tube is still in place. She still has episodes of SVT. Surgery wants to hold off on her bowel obstruction management surgically for the time being. PHYSICAL EXAMINATION: She remains edematous and pale. She is alert. Chest demonstrates poor breath sounds with rales and rhonchi throughout and decreased breath sounds in the bases. Cardiac exam demonstrates tachycardia. The abdomen is soft. IMPRESSION: 1. Small bowel obstruction. 2. Supraventricular tachycardia. 3. Anemia. PLAN: Continue with IV fluids and nasogastric tube drainage.
[2017-01-11] MEDS: SODIUM CHLORIDE 0.9% 1,000 ML IV SCH (17:00)
[2017-01-11] MEDS: FAT EMULSION 20% 250 ML in EMPTY BAG 1 BAG IV SCH (18:27)
[2017-01-11] MEDS: HYDROmorphone 1 MG/ML 1 ML SYRINGE IVP PRN (21:39)
[2017-01-12 01:31] LABS: Glucose,Whole Blood 130 mg/dL (75-99)
[2017-01-12] MEDS: PIPERACILLIN-TAZOBACTAM 3.375 GM in DEXTROSE/WATER 1 50ML.BAG IVPB SCH ×3 (02:21→18:13)
[2017-01-12 06:17] LABS: Glucose,Whole Blood 154 mg/dL (75-99)
[2017-01-12] MEDS: PANTOPRAZOLE 40 MG TABLET PO SCH (06:30)
[2017-01-12 06:40] LABS: Anisocytosis Slight; Basophils # (A) 0.1 k/uL (0-0.2); Basophils % (A) 1 %; CHCM 29.7; Eosinophils # (A) 0.1 k/uL (0-0.7); Eosinophils % (A) 1 %; HCT 31.7 % (34.0-46.0); HDW 2.29; HGB 9.7 gm/dL (11.4-16.0); Hypochromasia Marked; Luc # (Auto) 0.13; Luc % (Auto) 1; Lymphocytes # (A) 0.9 k/uL (1.0-4.8); Lymphocytes % (A) 9 %; MCHC 30.7 g/dL (31.0-37.0); MCV 91.4 fL (80.0-100.0); Mean Platelet Volume 8.2; Monocytes # (A) 0.4 k/uL (0-1.0); Monocytes % (A) 4 %; Neutrophils # (A) 8.1 k/uL (1.3-7.7); Neutrophils % (A) 84 %; RBC 3.47 m/uL (3.80-5.40); WBC 9.6 k/uL (3.8-10.6); WBC (Perox) 9.71
[2017-01-12] MEDS: INSULIN LISPRO (humaLOG) 300 UNIT/3 ML VIAL SQ SCH ×4 (06:49→23:40)
[2017-01-12 07:22] LABS: ALT 25 U/L (9-52); AST 37 U/L (14-36); Alkaline Phosphatase 116 U/L (38-126); Anion Gap 5 mmol/L; Blood Urea Nitrogen 19 mg/dL (7-17); Calcium 7.7 mg/dL (8.4-10.2); Carbon Dioxide 22 mmol/L (22-30); Chloride 109 mmol/L (98-107); Glucose 143 mg/dL (74-99); Magnesium 1.8 mg/dL (1.6-2.3); Non-African American GFR(MDRD) >60 (>60 ml/min/1.73 sqM); Phosphorous 2.3 mg/dL (2.5-4.5); Sodium 136 mmol/L (137-145); Total Bilirubin 1.1 mg/dL (0.2-1.3); Total Protein 5.3 g/dL (6.3-8.2)
[2017-01-12] MEDS: IPRATROPIUM-ALBUTEROL 3 ML NEB INHALATION SCH ×4 (08:03→19:40)
[2017-01-12] MEDS: HEPARIN SODIUM,PORCINE 5,000 UNIT/ML 1 ML VIAL SQ SCH ×3 (08:24→23:44)
[2017-01-12] MEDS: HYDROmorphone 1 MG/ML 1 ML SYRINGE IVP PRN ×2 (08:53→23:42)
[2017-01-12 08:54] LABS: INR 1.5 (<1.1); Prothrombin Time 14.7 sec (9.0-12.0)
[2017-01-12] MEDS ORDERED: SODIUM PHOSPHATE 10 MMOL in SODIUM CHLORIDE 0.9% 100 ML IVPB ONE (10:30)
[2017-01-12] MEDS: MAGNESIUM SULFATE-D5W PMX 1 GM in DEXTROSE/WATER 1 100ML.BAG IVPB SCH ×2 (11:18→13:15)
[2017-01-12 12:10] LABS: Glucose,Whole Blood 137 mg/dL (75-99)
--- NOTE | 2017-01-12 12:51 | PN ---
DATE OF SERVICE: 01/12/2017 CHIEF COMPLAINT: Bowel obstruction. HISTORY OF PRESENT ILLNESS: This lady continued to have difficulty and she is going to operating room today. PHYSICAL EXAM: She remains pale. Chest demonstrates rales throughout. The cardiac exam is unchanged and the abdomen is protuberant and slightly tender. IMPRESSION: Bowel obstruction. PLAN: She is going to the operating room today.
[2017-01-12] MEDS: SODIUM CHLORIDE 0.9% 1,000 ML IV SCH (13:18)
--- NOTE | 2017-01-12 13:42 | P.PN ---
Subjective Principal diagnosis: Abdominal pain Patient without new complaints. Nasogastric tube remains bilious. Her hemoglobin was slightly lower today and her INR was 1.5. Type and screen was apparently unsuccessful because of numerous antibiotics. Her blood is being evaluated at [place] this time. Surgery was placed on hold until blood typing can be completed. Objective - Vital Signs Vital signs: Vital Signs Temp 97.8 F 01/12/17 08:00 Pulse 80 01/12/17 12:11 Resp 18 01/12/17 08:00 BP 150/70 01/12/17 08:00 Pulse Ox 90 L 01/12/17 08:04 Intake & Output 01/11/17 01/12/17 01/12/17 18:59 06:59 18:59 Intake Total 220 405 Balance 220 405 Weight 77 kg 81 kg Intake: IV 200 100 0.9nacl 200 100 Intake, IV Titration 20 305 Amount Fat Emulsion 20% 250 ml 105 In Empty Bag 1 bag @ 21 mls/hr IV MoWeFr@1800 [facility] Rx#:[id number] Mvi, Adult No.4 with Vit 150 K 10 ml Trace (Conc-1Ml/ Dose) 1 ml In Amino Acid 5%-D25w+Lytes*E* 1,000 ml @ 30 mls/hr IV .Q24H [facility] Rx#:[id number] Piperacillin-Tazobactam 3 50 .375 gm In Dextrose/Water 1 50ml.bag @ 12.5 mls/hr IVPB Q8H [facility] Rx#: [id number] Sodium Chloride 0.9% 1, 20 000 ml @ 20 mls/hr IV . Q24H [facility] Rx#:[id number] Oral 0 Other: Voiding Method Diaper Diaper Diaper Incontinent Incontinent Incontinent # Voids 1 1 - Exam Abdomen: Soft, minimal distention, nontender - Labs CBC & Chem 7: 01/12/17 06:06 01/12/17 06:06 Labs: Abnormal Lab Results - Last 24 Hours (Table) 01/11/17 01/11/17 01/12/17 Range/Units 06:44 15:24 01:30 RBC (3.80-5.40) m/uL Hgb (11.4-16.0) gm/dL Hct (34.0-46.0) % MCHC (31.0-37.0) g/dL RDW (11.5-15.5) % Neutrophils # (1.3-7.7) k/uL Lymphocytes # (1.0-4.8) k/uL PT (9.0-12.0) sec Sodium 135 L (137-145) mmol/L Chloride (98-107) mmol/L Carbon Dioxide 21 L (22-30) mmol/L BUN 19 H (7-17) mg/dL Creatinine 0.46 L (0.52-1.04) mg/dL Glucose (74-99) mg/dL POC Glucose (mg/dL) 130 H (75-99) mg/dL Calcium 7.8 L (8.4-10.2) mg/dL Phosphorus (2.5-4.5) mg/dL Total Bilirubin 1.7 H (0.2-1.3) mg/dL AST 45 H (14-36) U/L Total Protein 5.8 L (6.3-8.2) g/dL Albumin 1.8 L (3.5-5.0) g/dL Triglycerides 181 H 185 H (<150) mg/dL 01/12/17 01/12/17 01/12/17 Range/Units 06:06 06:06 06:16 RBC 3.47 L (3.80-5.40) m/uL Hgb 9.7 L (11.4-16.0) gm/dL Hct 31.7 L (34.0-46.0) % MCHC 30.7 L (31.0-37.0) g/dL RDW 17.0 H (11.5-15.5) % Neutrophils # 8.1 H (1.3-7.7) k/uL Lymphocytes # 0.9 L (1.0-4.8) k/uL PT (9.0-12.0) sec Sodium 136 L (137-145) mmol/L Chloride 109 H (98-107) mmol/L Carbon Dioxide (22-30) mmol/L BUN 19 H (7-17) mg/dL Creatinine 0.40 L (0.52-1.04) mg/dL Glucose 143 H (74-99) mg/dL POC Glucose (mg/dL) 154 H (75-99) mg/dL Calcium 7.7 L (8.4-10.2) mg/dL Phosphorus 2.3 L (2.5-4.5) mg/dL Total Bilirubin (0.2-1.3) mg/dL AST 37 H (14-36) U/L Total Protein 5.3 L (6.3-8.2) g/dL Albumin 1.7 L (3.5-5.0) g/dL Triglycerides (<150) mg/dL 01/12/17 01/12/17 Range/Units 08:26 12:07 RBC (3.80-5.40) m/uL Hgb (11.4-16.0) gm/dL Hct (34.0-46.0) % MCHC (31.0-37.0) g/dL RDW (11.5-15.5) % Neutrophils # (1.3-7.7) k/uL Lymphocytes # (1.0-4.8) k/uL PT 14.7 H (9.0-12.0) sec Sodium (137-145) mmol/L Chloride (98-107) mmol/L Carbon Dioxide (22-30) mmol/L BUN (7-17) mg/dL Creatinine (0.52-1.04) mg/dL Glucose (74-99) mg/dL POC Glucose (mg/dL) 137 H (75-99) mg/dL Calcium (8.4-10.2) mg/dL Phosphorus (2.5-4.5) mg/dL Total Bilirubin (0.2-1.3) mg/dL AST (14-36) U/L Total Protein (6.3-8.2) g/dL Albumin (3.5-5.0) g/dL Triglycerides (<150) mg/dL Assessment and Plan (1) Abdominal pain Narrative/Plan: Await blood typing. Anticipate surgery tomorrow. Family was informed. Status: Acute
[2017-01-12] MEDS: METOPROLOL TARTRATE 12.5 MG TAB PO SCH ×2 (14:10→20:35)
[2017-01-12] MEDS: AMIODARONE 200 MG TAB PO SCH (14:11)
[2017-01-12] MEDS ORDERED: MVI, ADULT NO.4 WITH VIT K 10 ML, TRACE (CONC-1ML/DOSE) 1 ML in AMINO ACID 5%-D25W+LYTE... IV SCH ×3 (16:00)
--- NOTE | 2017-01-12 17:13 | P.PN ---
Subjective This is an 86-year-old female patient who is being evaluated and examined today in the intensive care unit. The patient was brought into the emergency room via EMS after family called due to increasing in abdominal pain with no nausea vomiting and diarrhea that had been going on for the past 3 days. Upon arrival the paramedics on the patient to be dyspneic and tachycardic and her pulse ox was low as well. She did have some altered mental status changes however normally is alert and oriented 3. She is also been having some frequency in urination and bedtime wetting. While in the emergency room the patient did go into SVT, was given adenosine which did not affect the rate. She also then went into possibly torsades and was given IV magnesium. CT of the abdomen and pelvis reveals suggestions for ileus, possible early small bowel obstruction, and a moderate fatty infiltration to the liver. Surgical on consult for CT results. Also GI was consulted. Chest x-ray was completed and reveals some mild cardiomegaly, worsening left basilar airspace disease, developing left effusion, and multiple stable pulmonary nodules. Upon examination today the patient's resting up in bed on the 3 L of oxygen via nasal cannula. Patient denies any cough or shortness of breath at this time. Patient denies any abdominal discomfort today, she is continuously requesting have something to eat and drink. NG tube present and hooked to low intermittent suction. The patient is possibly going to have a laparotmy procedure or a small bowel resection with Surgical services, was supposed to be today however, is delayed due to blood bank at this time.. Objective - Vital Signs Vital signs: Vital Signs Temp 96.4 F L 01/12/17 15:29 Pulse 84 01/12/17 16:57 Resp 18 01/12/17 16:47 BP 134/64 01/12/17 15:29 Pulse Ox 92 L 01/12/17 15:29 Intake & Output 01/11/17 01/12/17 01/12/17 18:59 06:59 18:59 Intake Total 220 405 Output Total 1 Balance 220 405 -1 Weight 77 kg 81 kg Intake: IV 200 100 0.9nacl 200 100 Intake, IV Titration 20 305 Amount Fat Emulsion 20% 250 ml 105 In Empty Bag 1 bag @ 21 mls/hr IV MoWeFr@1800 [facility] Rx#:[id number] Mvi, Adult No.4 with Vit 150 K 10 ml Trace (Conc-1Ml/ Dose) 1 ml In Amino Acid 5%-D25w+Lytes*E* 1,000 ml @ 30 mls/hr IV .Q24H [facility] Rx#:[id number] Piperacillin-Tazobactam 3 50 .375 gm In Dextrose/Water 1 50ml.bag @ 12.5 mls/hr IVPB Q8H [facility] Rx#: [id number] Sodium Chloride 0.9% 1, 20 000 ml @ 20 mls/hr IV . Q24H [facility] Rx#:[id number] Oral 0 Output: Urine 1 Other: Voiding Method Diaper Diaper Diaper Incontinent Incontinent Incontinent # Voids 1 1 - Exam GENERAL EXAM: Alert, active, comfortable in no apparent distress. HEAD: Normocephalic. EYES: Normal reaction of pupils, equal size. NOSE: Clear with pink turbinates. THROAT: No erythema or exudates. NECK: No masses, no JVD. CHEST: No chest wall deformity. LUNGS: Equal air entry with no crackles, wheeze, rhonchi or dullness. CVS: S1 and S2 normal with no audible mumurs, regular rhythm. ABDOMEN: No hepatosplenomegaly, normal bowel sounds, no guarding or rigidity. EXTREMITIES: No edema noted, pedal pulses palpable. SKIN: No rashes CENTRAL NERVOUS SYSTEM: No focal deficits, tone is normal in all 4 extremities. - Labs CBC & Chem 7: 01/12/17 06:06 01/12/17 06:06 Labs: Abnormal Lab Results - Last 24 Hours (Table) 01/12/17 01/12/17 01/12/17 Range/Units 01:30 06:06 06:06 RBC 3.47 L (3.80-5.40) m/uL Hgb 9.7 L (11.4-16.0) gm/dL Hct 31.7 L (34.0-46.0) % MCHC 30.7 L (31.0-37.0) g/dL RDW 17.0 H (11.5-15.5) % Neutrophils # 8.1 H (1.3-7.7) k/uL Lymphocytes # 0.9 L (1.0-4.8) k/uL PT (9.0-12.0) sec Sodium 136 L (137-145) mmol/L Chloride 109 H (98-107) mmol/L BUN 19 H (7-17) mg/dL Creatinine 0.40 L (0.52-1.04) mg/dL Glucose 143 H (74-99) mg/dL POC Glucose (mg/dL) 130 H (75-99) mg/dL Calcium 7.7 L (8.4-10.2) mg/dL Phosphorus 2.3 L (2.5-4.5) mg/dL AST 37 H (14-36) U/L Total Protein 5.3 L (6.3-8.2) g/dL Albumin 1.7 L (3.5-5.0) g/dL 01/12/17 01/12/17 01/12/17 Range/Units 06:16 08:26 12:07 RBC (3.80-5.40) m/uL Hgb (11.4-16.0) gm/dL Hct (34.0-46.0) % MCHC (31.0-37.0) g/dL RDW (11.5-15.5) % Neutrophils # (1.3-7.7) k/uL Lymphocytes # (1.0-4.8) k/uL PT 14.7 H (9.0-12.0) sec Sodium (137-145) mmol/L Chloride (98-107) mmol/L BUN (7-17) mg/dL Creatinine (0.52-1.04) mg/dL Glucose (74-99) mg/dL POC Glucose (mg/dL) 154 H 137 H (75-99) mg/dL Calcium (8.4-10.2) mg/dL Phosphorus (2.5-4.5) mg/dL AST (14-36) U/L Total Protein (6.3-8.2) g/dL Albumin (3.5-5.0) g/dL Assessment and Plan Plan: Assessment Acute hypoxic respiratory failure Paroxysmal supraventricular tachycardia Small bowel obstruction Dehydration Hypotension Diffuse abdominal pain Leukocytosis Plan Medications have been reviewed and will be continued as ordered. Flu swab has been negative. Continue with nebulizer treatments, supplemental oxygen, and pulmonary hygiene. Incentive spirometer was initiated. Appreciate recommendations from surgical and GI. Patient possibly going for laparotomy or small bowel resection with surgical services . We will continue to monitor labs /reports and adjust treatment as necessary. I performed an examination of the patient and discussed their management with the nurse practitioner. I have reviewed the nurse practitioner's note and agree with the documented findings and plan of care.
[2017-01-12 18:13] LABS: Glucose,Whole Blood 122 mg/dL (75-99)
[2017-01-12 23:40] LABS: Glucose,Whole Blood 127 mg/dL (75-99)
[2017-01-13] MEDS: PIPERACILLIN-TAZOBACTAM 3.375 GM in DEXTROSE/WATER 1 50ML.BAG IVPB SCH ×3 (02:30→20:27)
[2017-01-13 06:08] LABS: Glucose,Whole Blood 130 mg/dL (75-99)
[2017-01-13] MEDS: INSULIN LISPRO (humaLOG) 300 UNIT/3 ML VIAL SQ SCH ×3 (06:22→20:28)
[2017-01-13 06:37] LABS: Anisocytosis Slight; Basophils % (A) 1 %; CH 27.4; CHCM 32.4; Eosinophils # (A) 0.1 k/uL (0-0.7); Eosinophils % (A) 1 %; HCT 28.5 % (34.0-46.0); HDW 2.54; HGB 9.3 gm/dL (11.4-16.0); Luc # (Auto) 0.09; Luc % (Auto) 1; Lymphocytes % (A) 11 %; MCH 27.6 pg (25.0-35.0); MCHC 32.6 g/dL (31.0-37.0); Mean Platelet Volume 8.7; Monocytes # (A) 0.3 k/uL (0-1.0); Monocytes % (A) 3 %; Neutrophils # (A) 7.7 k/uL (1.3-7.7); Neutrophils % (A) 84 %; RBC 3.36 m/uL (3.80-5.40); RDW 17.2 % (11.5-15.5); WBC 9.3 k/uL (3.8-10.6); WBC (Perox) 9.14
[2017-01-13] MEDS: PANTOPRAZOLE 40 MG TABLET PO SCH (06:43)
[2017-01-13 06:49] LABS: MCV 84.8 fL (80.0-100.0)
[2017-01-13 07:26] LABS: ALT 25 U/L (9-52); AST 41 U/L (14-36); Alkaline Phosphatase 94 U/L (38-126); Anion Gap 2 mmol/L; Blood Urea Nitrogen 14 mg/dL (7-17); Calcium 7.3 mg/dL (8.4-10.2); Carbon Dioxide 28 mmol/L (22-30); Chloride 107 mmol/L (98-107); Glucose 124 mg/dL (74-99); Magnesium 1.8 mg/dL (1.6-2.3); Non-African American GFR(MDRD) >60 (>60 ml/min/1.73 sqM); Phosphorous 2.4 mg/dL (2.5-4.5); Sodium 137 mmol/L (137-145); Total Bilirubin 1.3 mg/dL (0.2-1.3); Total Protein 5.2 g/dL (6.3-8.2)
[2017-01-13] MEDS: AMIODARONE 200 MG TAB PO SCH (08:14)
[2017-01-13] MEDS: HEPARIN SODIUM,PORCINE 5,000 UNIT/ML 1 ML VIAL SQ SCH ×3 (08:14→20:07)
[2017-01-13] MEDS: METOPROLOL TARTRATE 12.5 MG TAB PO SCH ×2 (08:14→21:22)
--- NOTE | 2017-01-13 08:46 | P.PN ---
Subjective 86-year-old female being seen on rounds. Currently resting in bed continues to report having abdominal discomfort. The nasogastric tube in placeput out 400 mL 's during the night. no document stool Did note the surgery was held yesterday until blood typing could be completed. Labs this morning were reviewed hemoglobin 9.3 electrolytes within normal limits Objective - Vital Signs Vital signs: Vital Signs Temp 97.4 F L 01/13/17 07:39 Pulse 84 01/13/17 08:25 Resp 18 01/13/17 07:39 BP 148/97 01/13/17 07:39 Pulse Ox 87 L 01/13/17 07:39 Intake & Output 01/12/17 01/13/17 01/13/17 18:59 06:59 18:59 Intake Total 250 Output Total 401 600 Balance -151 -600 Weight 81 kg Intake: Oral 250 Output: Gastric Drainage 400 600 Urine 1 Other: Voiding Method Diaper Diaper Incontinent Incontinent # Voids 1 1 - Exam Physical exam 86-year-old female resting in bed oriented 3 currently denying abdominal discomfort no stool nasal gastric tube in place denying chest pain or shortness of breath when questioning Lungs bilateral adequate air movement no wheezing rales or rhonchi noted nasal cannula 3 L sats are 98 Heart S1-S2 audible irregular monitor episodes of sinus tachycardia heart rates up in the 90s current heart rate in the 80s currently denying chest pain Abdomen soft nontender slightly distended no stool incontinent a urine Extremities no edema - Labs CBC & Chem 7: 01/13/17 06:22 01/13/17 06:22 Labs: Abnormal Lab Results - Last 24 Hours (Table) 01/12/17 01/12/17 01/12/17 Range/Units 08:26 12:07 18:08 RBC (3.80-5.40) m/uL Hgb (11.4-16.0) gm/dL Hct (34.0-46.0) % RDW (11.5-15.5) % PT 14.7 H (9.0-12.0) sec Creatinine (0.52-1.04) mg/dL Glucose (74-99) mg/dL POC Glucose (mg/dL) 137 H 122 H (75-99) mg/dL Calcium (8.4-10.2) mg/dL Phosphorus (2.5-4.5) mg/dL AST (14-36) U/L Total Protein (6.3-8.2) g/dL Albumin (3.5-5.0) g/dL 01/12/17 01/13/17 01/13/17 Range/Units 23:38 06:07 06:22 RBC 3.36 L (3.80-5.40) m/uL Hgb 9.3 L (11.4-16.0) gm/dL Hct 28.5 L (34.0-46.0) % RDW 17.2 H (11.5-15.5) % PT (9.0-12.0) sec Creatinine (0.52-1.04) mg/dL Glucose (74-99) mg/dL POC Glucose (mg/dL) 127 H 130 H (75-99) mg/dL Calcium (8.4-10.2) mg/dL Phosphorus (2.5-4.5) mg/dL AST (14-36) U/L Total Protein (6.3-8.2) g/dL Albumin (3.5-5.0) g/dL 01/13/17 Range/Units 06:22 RBC (3.80-5.40) m/uL Hgb (11.4-16.0) gm/dL Hct (34.0-46.0) % RDW (11.5-15.5) % PT (9.0-12.0) sec Creatinine 0.35 L (0.52-1.04) mg/dL Glucose 124 H (74-99) mg/dL POC Glucose (mg/dL) (75-99) mg/dL Calcium 7.3 L (8.4-10.2) mg/dL Phosphorus 2.4 L (2.5-4.5) mg/dL AST 41 H (14-36) U/L Total Protein 5.2 L (6.3-8.2) g/dL Albumin 1.7 L (3.5-5.0) g/dL Assessment and Plan Plan: Impression Present on admission nausea vomiting abdominal pain suspect ischemic bowel as etiology Present on admission coagulopathy INR 2.2 Episodes of paroxysmal atrial fibrillation with rapid ventricular response Present on admission hypocalcium Present on admission leukocytosis Echocardiogram on [facility] 14 HER systolic function with an ejection fraction 55-60 % with some diastolic dysfunction Cardiac arrhythmias history of History of esophageal reflux disease History of a colonoscopy April [address] Barros negative findings Acute hypoxic respiratory failure resolving Paroxysmal supraventricular tachycardia Present on admission Atrial flutter with one-to-one conduction atrial tachycardia ,atrial fibrillation unable to determine cardiology following mild protein calorie malnutrition suspect due to poor caloric intake present on admission leukocytosis tachycardic hypotensive septic shocksuspect due to ischemic bowel not ruled out Plan Continue recommendations by surgical service Dr. Green defer tosurgery scheduled today IV fluid for hydration Monitor labs keep electrolytes therapeutic Resume home meds when appropriate DVT and GI prophylaxis Oral amiodarone per cardiology services recommendations Continue broad-spectrum antibiotics IV Zosyn continue the nasogastric tube cardiology recommends anticoagulation be initiated when appropriate continue TPN for nutritional support The above dictated assessment and findings were discussed with dr norma Ferreira and the plan of care have been dictated as directed. Laura Patel nurse practitioner acting as a scribe for dr green
[2017-01-13] MEDS: IPRATROPIUM-ALBUTEROL 3 ML NEB INHALATION SCH ×4 (08:59→20:44)
[2017-01-13] MEDS: MAGNESIUM SULFATE-D5W PMX 1 GM in DEXTROSE/WATER 1 100ML.BAG IVPB SCH ×2 (09:55→11:21)
[2017-01-13] MEDS: [UNRECOGNIZED DRUG - REMARK] IV SCH ×4 (11:24)
[2017-01-13 11:25] LABS: Glucose,Whole Blood 147 mg/dL (75-99)
--- NOTE | 2017-01-13 12:42 | P.PN ---
Subjective This is an 86-year-old female patient who is being evaluated and examined today in the intensive care unit. The patient was brought into the emergency room via EMS after family called due to increasing in abdominal pain with no nausea vomiting and diarrhea that had been going on for the past 3 days. Upon arrival the paramedics on the patient to be dyspneic and tachycardic and her pulse ox was low as well. She did have some altered mental status changes however normally is alert and oriented 3. She is also been having some frequency in urination and bedtime wetting. While in the emergency room the patient did go into SVT, was given adenosine which did not affect the rate. She also then went into possibly torsades and was given IV magnesium. CT of the abdomen and pelvis reveals suggestions for ileus, possible early small bowel obstruction, and a moderate fatty infiltration to the liver. Surgical on consult for CT results. Also GI was consulted. Chest x-ray was completed and reveals some mild cardiomegaly, worsening left basilar airspace disease, developing left effusion, and multiple stable pulmonary nodules. Upon examination today the patient's resting up in bed on the 3 L of oxygen via nasal cannula. Patient denies any cough or shortness of breath at this time. Patient denies any abdominal discomfort today, she is continuously requesting have something to eat and drink. NG tube present and hooked to low intermittent suction. Patient also receiving TPN for nutrition. The patient is possibly going to have a laparotmy procedure or a small bowel resection with Surgical services, scheduled for today. Objective - Vital Signs Vital signs: Vital Signs Temp 98.4 F 01/13/17 11:30 Pulse 88 01/13/17 12:27 Resp 18 01/13/17 11:34 BP 120/55 01/13/17 11:30 Pulse Ox 92 L 01/13/17 11:30 Intake & Output 01/12/17 01/13/17 01/13/17 18:59 06:59 18:59 Intake Total 250 535 Output Total 401 600 Balance -151 -600 535 Weight 81 kg 81 kg Intake: IV 215 0.9nacl 215 Intake, IV Titration 320 Amount Mvi, Adult No.4 with Vit 320 K 10 ml Trace (Conc-1Ml/ Dose) 1 ml Magnesium Sulfate 8 meq In Amino Acid 5%-D25w+Lytes*E* 1, 000 ml @ 50 mls/hr IV . [id number] [facility] Rx#:[id number] Oral 250 Output: Gastric Drainage 400 600 Urine 1 Other: Voiding Method Diaper Diaper Diaper Incontinent Incontinent Incontinent # Voids 1 1 1 # Bowel Movements 0 - Exam GENERAL EXAM: Alert, active, comfortable in no apparent distress. HEAD: Normocephalic. EYES: Normal reaction of pupils, equal size. NOSE: Clear with pink turbinates. THROAT: No erythema or exudates. NECK: No masses, no JVD. CHEST: No chest wall deformity. LUNGS: Equal air entry, some scattered rhonchi and wheeze. Basis diminished CVS: S1 and S2 normal with no audible mumurs, regular rhythm. ABDOMEN: No hepatosplenomegaly, normal bowel sounds, no guarding or rigidity. Slightly distended EXTREMITIES: No edema noted, pedal pulses palpable. SKIN: No rashes CENTRAL NERVOUS SYSTEM: No focal deficits, tone is normal in all 4 extremities. - Labs CBC & Chem 7: 01/13/17 06:22 01/13/17 06:22 Labs: Abnormal Lab Results - Last 24 Hours (Table) 01/12/17 01/12/17 01/13/17 Range/Units 18:08 23:38 06:07 RBC (3.80-5.40) m/uL Hgb (11.4-16.0) gm/dL Hct (34.0-46.0) % RDW (11.5-15.5) % Creatinine (0.52-1.04) mg/dL Glucose (74-99) mg/dL POC Glucose (mg/dL) 122 H 127 H 130 H (75-99) mg/dL Calcium (8.4-10.2) mg/dL Phosphorus (2.5-4.5) mg/dL AST (14-36) U/L Total Protein (6.3-8.2) g/dL Albumin (3.5-5.0) g/dL 01/13/17 01/13/17 01/13/17 Range/Units 06:22 06:22 11:21 RBC 3.36 L (3.80-5.40) m/uL Hgb 9.3 L (11.4-16.0) gm/dL Hct 28.5 L (34.0-46.0) % RDW 17.2 H (11.5-15.5) % Creatinine 0.35 L (0.52-1.04) mg/dL Glucose 124 H (74-99) mg/dL POC Glucose (mg/dL) 147 H (75-99) mg/dL Calcium 7.3 L (8.4-10.2) mg/dL Phosphorus 2.4 L (2.5-4.5) mg/dL AST 41 H (14-36) U/L Total Protein 5.2 L (6.3-8.2) g/dL Albumin 1.7 L (3.5-5.0) g/dL Assessment and Plan Plan: Assessment Acute hypoxic respiratory failure Paroxysmal supraventricular tachycardia Small bowel obstruction Dehydration Hypotension Diffuse abdominal pain Leukocytosis Plan Medications have been reviewed and will be continued as ordered. Continue with nebulizer treatments, supplemental oxygen, and pulmonary hygiene. Incentive spirometer was initiated. Appreciate recommendations from surgical and GI. Patient possibly going for laparotomy or small bowel resection with surgical services . We will continue to monitor labs/reports and adjust treatment as necessary. I performed an examination of the patient and discussed their management with the nurse practitioner. I have reviewed the nurse practitioner's note and agree with the documented findings and plan of care.
[2017-01-13] MEDS ORDERED: IV FLUID CONTINUATION 1,000 ML IV ONE ×4 (14:14)
--- NOTE | 2017-01-13 14:15 | PN ---
DATE OF SERVICE: 01/13/2017 CHIEF COMPLAINT: Bowel obstruction. HISTORY OF PRESENT ILLNESS: This lady is suppose to go to the operating room today. She did not apparently go yesterday. PHYSICAL EXAM: Abdomen is still distended and tender. Chest is clear. Cardiac exam is normal. IMPRESSION: Bowel obstruction. PLAN: Surgery today.
[2017-01-13] MEDS ORDERED: fentaNYL (PF) 50 MCG/ML 2 ML AMP ONE (14:37)
[2017-01-13] MEDS ORDERED: MIDAZOLAM 2 MG/2 ML VIAL ONE (14:37)
[2017-01-13] MEDS ORDERED: ALBUMIN HUMAN 5% 250 ML BOTTLE IVPB ONE (14:37)
[2017-01-13] MEDS ORDERED: ROCURONIUM BROMIDE 10 MG/ML 10 ML VIAL IV ONE (14:37)
[2017-01-13] MEDS ORDERED: ETOMIDATE 2 MG/ML 10 ML VIAL ONE (14:37)
[2017-01-13] MEDS ORDERED: NEOSTIGMINE 1 MG/ML 10 ML VIAL ONE (14:37)
[2017-01-13] MEDS ORDERED: SUCCINYLCHOLINE CHLORIDE 100 MG/5 ML SYR IV ONE (14:37)
[2017-01-13] MEDS ORDERED: GLYCOPYRROLATE 0.2 MG/ML 2 ML VIAL ONE (14:37)
[2017-01-13] MEDS ORDERED: BUPIVACAIN-EPI 0.25%-1:200,000 30 ML VIAL SQ ONE (15:19)
[2017-01-13] MEDS ORDERED: LACTATED RINGERS 1,000 ML IV ONE (15:20)
--- NOTE | 2017-01-13 16:05 | P.PCN ---
Date of Procedure: 01/13/17 Procedure(s) Performed: PREOPERATIVE DIAGNOSIS: Abdominal pain, possible bowel obstruction POSTOPERATIVE DIAGNOSIS: Ileus, adhesion PROCEDURE: Diagnostic laparoscopy with lysis of adhesions SURGEON: Norma EBL: Minimal see anesthesia record ANESTHESIA: Gen. COMPLICATIONS: None OPERATIVE PROCEDURE: The patient was brought and placed on the operating room table in the supine position. The patient was placed under general anesthesia at that time. The abdomen was prepped and draped in the usual sterile fashion. A small vertical infraumbilical incision was made. The fascia was grasped with the Lilliana forceps. The fascia was retracted anteriorly. The Veress needle was advanced into the peritoneal cavity. The saline drop test was normal. Insufflation took place up to 15 mmHg. A 5 mm optical trocar was advanced and the peritoneal cavity. 2 additional 5 mm trochars were placed in the right upper quadrant under direct visualization. An additional 5 mm trocar was later placed in the epigastrium. The patient's bowel was visualized. There was no evidence of ischemia. There was some distended bowel loops but no definite transition point. The cecum and ascending colon appeared normal. The ileocecal valve was identified. This appeared normal. I then ran the bowel completely from the ileocecal valve to the ligament of Treitz. There was no abnormalities noted. There was a single adhesion between the omentum and the abdominal wall. Initially I thought this may have represented an adhesive band that was causing some issue for her but after running the entire bowel this appeared to be nonpathologic. I did divide the adhesive band using electrocautery to avoid future problems. The visualized transverse colon and descending colon and sigmoid colon appeared normal. The stomach was inspected and appeared normal. The insufflation was evacuated. The skin at all 4 incision sites were closed using 4-0 Monocryl sutures. Steri-Strips and sterile dressings were applied. At the end of this procedure the sponge and needle counts were correct. DISPOSITION: Stable to the recovery room
[2017-01-13 16:37] LABS: Glucose,Whole Blood 157 mg/dL (75-99)
[2017-01-13] MEDS ORDERED: MIDAZOLAM 2 MG/2 ML VIAL IVP ONE ×2 (16:56→17:28)
[2017-01-13] MEDS: HYDROmorphone 1 MG/ML 1 ML SYRINGE IVP ONE ×2 (16:57→17:04)
[2017-01-13] MEDS ORDERED: [UNRECOGNIZED DRUG - REMARK] IV SCH ×4 (17:00)
[2017-01-13 18:09] LABS: Glucose,Whole Blood 138 mg/dL (75-99)
[2017-01-13] MEDS: SODIUM CHLORIDE 0.9% 1,000 ML IV SCH (20:04)
[2017-01-13] MEDS: FAT EMULSION 20% 250 ML in EMPTY BAG 1 BAG IV SCH (20:07)
[2017-01-13] MEDS: HYDROmorphone 1 MG/ML 1 ML SYRINGE IVP PRN (20:15)
[2017-01-13] MEDS ORDERED: IPRATROPIUM-ALBUTEROL 3 ML NEB INHALATION PRN (20:43)
[2017-01-13] MEDS ORDERED: PROPOFOL 50 ML IV ONE (20:49)
--- NOTE | 2017-01-13 21:10 | XR ---
EXAMINATION TYPE: XR chest 1V portable DATE OF EXAM: 01/13/2017 8:59 PM COMPARISON: 01/09/2017 HISTORY: Check tube placement TECHNIQUE: Single frontal view of the chest is obtained. FINDINGS: There is pulmonary vascular congestion. Endotracheal tube is in fairly good position. Ther e is right central venous catheter with tip in the superior vena cava. There is nasogastric tube that appears in good position. IMPRESSION: There is pulmonary edema consistent with heart failure that is slightly worse than last exam. Endotracheal tube is in good position.
[2017-01-13] MEDS: CHLORHEXIDINE GLUCONATE 15 ML CUP MUCOUS MEM SCH (21:22)
[2017-01-13 21:25] LABS: ABG Base Excess 2.9 mmol/L; ABG HCO3 27 mmol/L (21-25); ABG PCO2 46 mmHg (35-45); ABG PO2 132 mmHg (83-108); ABG TCO2 29 mmol/L (19-24)
[2017-01-13] MEDS ORDERED: SODIUM CHLORIDE 0.9% 500 ML IV ONE (21:42)
[2017-01-13] MEDS ORDERED: NOREPINEPHRIN 16 MG-0.9%NS PMX 16 MG/250 ML ML IV SCH (22:00)
[2017-01-14 00:09] LABS: Glucose,Whole Blood 105 mg/dL (75-99)
[2017-01-14] MEDS: HEPARIN SODIUM,PORCINE 5,000 UNIT/ML 1 ML VIAL SQ SCH ×4 (00:25→23:22)
[2017-01-14] MEDS: INSULIN LISPRO (humaLOG) 300 UNIT/3 ML VIAL SQ SCH ×5 (00:25→23:23)
[2017-01-14] MEDS: PROPOFOL 500 MG in EMPTY BAG 1 BAG IV SCH ×3 (01:13→08:20)
[2017-01-14] MEDS: PIPERACILLIN-TAZOBACTAM 3.375 GM in DEXTROSE/WATER 1 50ML.BAG IVPB SCH ×3 (02:44→18:49)
[2017-01-14 04:47] LABS: Anisocytosis Slight; Basophils % (A) 0 %; CH 27.3; CHCM 31.1; Eosinophils # (A) 0.1 k/uL (0-0.7); Eosinophils % (A) 1 %; HCT 26.2 % (34.0-46.0); HDW 2.51; HGB 8.2 gm/dL (11.4-16.0); Hypochromasia Slight; Luc # (Auto) 0.14; Luc % (Auto) 2; Lymphocytes # (A) 0.9 k/uL (1.0-4.8); Lymphocytes % (A) 11 %; MCH 27.5 pg (25.0-35.0); MCHC 31.2 g/dL (31.0-37.0); Monocytes # (A) 0.3 k/uL (0-1.0); Monocytes % (A) 3 %; Neutrophils # (A) 6.6 k/uL (1.3-7.7); Neutrophils % (A) 82 %; RBC 2.97 m/uL (3.80-5.40); RDW 17.8 % (11.5-15.5); WBC 8.1 k/uL (3.8-10.6); WBC (Perox) 8.43
[2017-01-14 05:12] LABS: ALT 26 U/L (9-52); AST 41 U/L (14-36); Alkaline Phosphatase 97 U/L (38-126); Anion Gap 3 mmol/L; Blood Urea Nitrogen 12 mg/dL (7-17); Calcium 7.4 mg/dL (8.4-10.2); Carbon Dioxide 30 mmol/L (22-30); Chloride 104 mmol/L (98-107); Glucose 123 mg/dL (74-99); Magnesium 2.1 mg/dL (1.6-2.3); Non-African American GFR(MDRD) >60 (>60 ml/min/1.73 sqM); Phosphorous 2.2 mg/dL (2.5-4.5); Potassium 3.4 mmol/L (3.5-5.1); Sodium 137 mmol/L (137-145); Total Bilirubin 1.2 mg/dL (0.2-1.3)
[2017-01-14] MEDS ORDERED: Potassium Replacement Protocol 1 EACH MISC MISCELLANE PRN (05:27)
[2017-01-14] MEDS ORDERED: POTASSIUM CHLORIDE 20 MEQ in WATER FOR INJECTION 1 100ML.BAG IVPB ONE (06:00)
[2017-01-14 06:13] LABS: Glucose,Whole Blood 135 mg/dL (75-99)
--- NOTE | 2017-01-14 07:52 | XR ---
EXAMINATION TYPE: XR chest 1V portable DATE OF EXAM: 01/14/2017 7:04 AM COMPARISON: 01/13/2017 INDICATION: Previous abnormal chest TECHNIQUE: Single frontal view of the chest is obtained. FINDINGS: The heart size is normal. The pulmonary vasculature is somewhat prominent, slightly diminished from prior. There is increased lung markings in the lung apices. Right central venous catheter is present with tip in the superior vena cava region. Nasogastric tube transverses the thorax. Endotracheal tube is present above the yon IMPRESSION: 1. Improving apical lung infiltrates. Continued follow-up is recommended. 2. Lines and catheters discussed above.
[2017-01-14] MEDS ORDERED: SODIUM PHOSPHATE 10 MMOL in SODIUM CHLORIDE 0.9% 100 ML IVPB ONE (08:00)
[2017-01-14] MEDS: [UNRECOGNIZED DRUG - REMARK] IV SCH ×4 (08:00)
[2017-01-14] MEDS: IPRATROPIUM-ALBUTEROL 3 ML NEB INHALATION SCH ×4 (08:04→21:10)
[2017-01-14] MEDS: AMIODARONE 200 MG TAB PO SCH (08:25)
[2017-01-14] MEDS: CHLORHEXIDINE GLUCONATE 15 ML CUP MUCOUS MEM SCH (08:27)
[2017-01-14] MEDS: PANTOPRAZOLE 40 MG TABLET PO SCH (08:27)
--- NOTE | 2017-01-14 12:54 | PN ---
Critical care time of 40 minutes. Ms. Mary Ann Culver is seen, evaluated, and examined. She is at this point in time sedated with propofol drip. She is getting 10 mcg of propofol. She is also on 5 mcg of Levophed drip as well. She is arousable. She remains on full respirator support. Current vent settings, assist control rate of 18, breathing 20, tidal volume of 500, 5 of PEEP and 40% oxygen. She is status post exploratory laparotomy for small bowel obstruction for surgery. Please refer to operative details. Her last set of vitals include blood pressure is 116/61, respiratory rate is 20, heart rate is on 91, temperature 97, saturation of 100%. HEENT EXAMINATION: Otherwise unremarkable. Patient is intubated orally with a NG tube. NECK: Supple without any lymphadenopathy, jugular venous distention or carotid bruit. LUNGS: Bilateral good air entry is present with a few crackles at bases. HEART: Regular rate and rhythm. Abdomen is soft. Hypoactive bowel sounds. EXTREMITIES: +1 peripheral pulses. NEUROLOGICAL EXAMINATION: Otherwise arousable, opens eyes. Follows simple commands. Patient is gently sedated with propofol drip. The chest x-ray performed today reviewed and compared with the prior x-ray revealed improving apical lung infiltrate, stable lines and tubes. Surgical procedure note reviewed. Patient underwent exploratory laparoscopic surgery with lysis of adhesions and bands for a small bowel obstruction. Her other laboratory data reviewed. White cell count 8,100, hemoglobin 8.2, hematocrit 26, platelet count 367,000. Sodium is 130, potassium 3.4, BUN 12 and creatinine 0.4. IMPRESSION: 1. Pneumonia with acute hypoxic respiratory failure. 2. Small bowel obstruction. 3. Pneumonia, likely to be mixed bacterial and gram-negative, has been on broad-spectrum antibiotics. 4. Electrolyte imbalance, on replacement. PLAN AND RECOMMENDATION: To continue antibiotics. Continue DVT and peptic ulcer disease prophylaxis. Continue breathing treatments. Patient is being placed on CPAP 5, pressure support of 5, will obtain a blood gas if does well, likely will be extubated. Propofol has been discontinued. Continue with the supportive care. Critical care time spent of 40 minutes.
--- NOTE | 2017-01-14 13:58 | P.PN ---
Progress Note - Text The patient is slowly improving. Had abdominal exploration by Dr. Green. He is starting to ask for some liquids to drink a food. In G output is not excessive. She is awake. Vitals are stable. No fever. Abdomen shows usual postoperative tenderness. Some fine with no evidence of infection or complication. The abdomen noted. Mild leukocytosis. Impression stable postop. Recommendation continued supportive care medical management. Started on some liquids in the next few days.
[2017-01-14] MEDS: HYDROmorphone 1 MG/ML 1 ML SYRINGE IVP PRN (14:11)
[2017-01-14] MEDS: METOPROLOL TARTRATE 12.5 MG TAB PO SCH ×2 (17:02→21:17)
[2017-01-14] MEDS: SODIUM CHLORIDE 0.9% 1,000 ML IV SCH (17:07)
[2017-01-14 17:10] LABS: Glucose,Whole Blood 122 mg/dL (75-99)
--- NOTE | 2017-01-14 18:03 | P.PN ---
Subjective Principal diagnosis: Intestinal obstruction, atrial flutter fibrillation, status post surgery This patient had surgery and explored with laparotomy for suspected intestinal obstruction and patient had a rapid rate with atrial flutter during surgery. Patient is currently on amiodarone 200 mg daily along with metoprolol. Patient is maintaining heart rate in the 50s and 60s. Doesn't appear to be in acute distress. We'll continue current medical therapy Objective - Vital Signs Vital signs: Vital Signs Temp 98.2 F 01/14/17 16:00 Pulse 91 01/14/17 17:00 Resp 21 01/14/17 17:00 BP 104/53 01/14/17 17:00 Pulse Ox 92 L 01/14/17 17:00 Intake & Output 01/13/17 01/14/17 01/14/17 18:59 06:59 18:59 Intake Total 1127 553.994 5194.06 Output Total 302 600 245 Balance 825 976.721 6272.06 Weight 78.6 kg Intake: IV 807 240 520 0.9nacl 215 Mvi, Adult No.4 with Vit 300 K 10 ml Trace (Conc-1Ml/ Dose) 1 ml Magnesium Sulfate 8 meq In Amino Acid 5%-D25w+Lytes*E* 1, 000 ml @ 50 mls/hr IV . [id number] [facility] Rx#:[id number] Sodium Chloride 0.9% 1, 240 220 000 ml @ 20 mls/hr IV . Q24H [facility] Rx#:[id number] Intake, IV Titration 320 654.401 8441.06 Amount Mvi, Adult No.4 with Vit 300 150 K 10 ml Trace (Conc-1Ml/ Dose) 1 ml In Amino Acid 5%-D25w+Lytes*E* 1,000 ml @ 50 mls/hr IV .[id number] [facility] Rx#:[id number] Mvi, Adult No.4 with Vit 737 400 3159 K 10 ml Trace (Conc-1Ml/ Dose) 1 ml Magnesium Sulfate 8 meq In Amino Acid 5%-D25w+Lytes*E* 1, 000 ml @ 50 mls/hr IV . [id number] [facility] Rx#:[id number] Piperacillin-Tazobactam 3 12.5 .375 gm In Dextrose/Water 1 50ml.bag @ 12.5 mls/hr IVPB Q8H [facility] Rx#: [id number] Potassium Chloride 20 meq 100 In Water For Injection 1 100ml.bag @ 50 mls/hr IVPB ONCE ONE Rx#: [id number] Propofol 500 mg In Empty 63.407 19.56 Bag 1 bag @ Titrate IV . Q0M [facility] Rx#:[id number] Sodium Phosphate 10 mmol 100 In Sodium Chloride 0.9% 100 ml @ 50 mls/hr IVPB ONCE ONE Rx#:[id number] Output: Gastric Drainage 100 300 Urine 200 300 245 Estimated Blood Loss 2 Other: Voiding Method Diaper Indwelling Catheter Indwelling Catheter Incontinent # Voids 1 # Bowel Movements 0 - Exam GENERAL EXAM: Patient is alert and oriented and doesn't appear to be in any acute distress HEENT: Normocephalic. Normal reaction of pupils, equal size, normal range of extraocular motion. No erythema or exudates in the throat. NECK: No masses, no nuchal rigidity. CHEST: No chest wall deformity. LUNGS: Diminished breath sounds at bases HEART: Irregular heart sounds ABDOMEN: No hepatosplenomegaly, normal bowel sounds, no guarding or rigidity. SKIN: No rashes CENTRAL NERVOUS SYSTEM: No focal deficits. EXTREMITIES: No cyanosis, clubbing or edema. - Labs CBC & Chem 7: 01/14/17 04:30 01/14/17 04:30 Labs: Abnormal Lab Results - Last 24 Hours (Table) 01/13/17 01/13/17 01/14/17 Range/Units 18:04 20:22 00:08 RBC (3.80-5.40) m/uL Hgb (11.4-16.0) gm/dL Hct (34.0-46.0) % RDW (11.5-15.5) % Lymphocytes # (1.0-4.8) k/uL ABG pCO2 46 H (35-45) mmHg ABG pO2 132 H (83-108) mmHg ABG HCO3 27 H (21-25) mmol/L ABG Total CO2 29 H (19-24) mmol/L ABG O2 Saturation 99.0 H (94-97) % Potassium (3.5-5.1) mmol/L Creatinine (0.52-1.04) mg/dL Glucose (74-99) mg/dL POC Glucose (mg/dL) 138 H 105 H (75-99) mg/dL Calcium (8.4-10.2) mg/dL Phosphorus (2.5-4.5) mg/dL AST (14-36) U/L Total Protein (6.3-8.2) g/dL Albumin (3.5-5.0) g/dL 01/14/17 01/14/17 01/14/17 Range/Units 04:30 04:30 06:10 RBC 2.97 L (3.80-5.40) m/uL Hgb 8.2 L (11.4-16.0) gm/dL Hct 26.2 L (34.0-46.0) % RDW 17.8 H (11.5-15.5) % Lymphocytes # 0.9 L (1.0-4.8) k/uL ABG pCO2 (35-45) mmHg ABG pO2 (83-108) mmHg ABG HCO3 (21-25) mmol/L ABG Total CO2 (19-24) mmol/L ABG O2 Saturation (94-97) % Potassium 3.4 L (3.5-5.1) mmol/L Creatinine 0.40 L (0.52-1.04) mg/dL Glucose 123 H (74-99) mg/dL POC Glucose (mg/dL) 135 H (75-99) mg/dL Calcium 7.4 L (8.4-10.2) mg/dL Phosphorus 2.2 L (2.5-4.5) mg/dL AST 41 H (14-36) U/L Total Protein 5.0 L (6.3-8.2) g/dL Albumin 1.8 L (3.5-5.0) g/dL 01/14/17 Range/Units 17:09 RBC (3.80-5.40) m/uL Hgb (11.4-16.0) gm/dL Hct (34.0-46.0) % RDW (11.5-15.5) % Lymphocytes # (1.0-4.8) k/uL ABG pCO2 (35-45) mmHg ABG pO2 (83-108) mmHg ABG HCO3 (21-25) mmol/L ABG Total CO2 (19-24) mmol/L ABG O2 Saturation (94-97) % Potassium (3.5-5.1) mmol/L Creatinine (0.52-1.04) mg/dL Glucose (74-99) mg/dL POC Glucose (mg/dL) 122 H (75-99) mg/dL Calcium (8.4-10.2) mg/dL Phosphorus (2.5-4.5) mg/dL AST (14-36) U/L Total Protein (6.3-8.2) g/dL Albumin (3.5-5.0) g/dL Assessment and Plan (1) Persistent atrial fibrillation Status: Acute (2) HTN (hypertension) Status: Acute (3) Small bowel obstruction Status: Acute Plan: We will continue current management with amiodarone and metoprolol combination. Rest of the management as for the surgeons and primary care physician
--- NOTE | 2017-01-14 18:06 | PN ---
CHIEF COMPLAINT: Status post laparotomy, lysis of adhesions. HISTORY OF PRESENT ILLNESS: This lady is on a ventilator and is stable at this time. PHYSICAL EXAMINATION: She is pale. Vital signs are normal. Breath sounds are heard on both sides. CARDIAC: Normal. IMPRESSION: Status post laparotomy with lysis of adhesions for small bowel obstruction. PLAN: Follow with surgery and intensive medicine.
[2017-01-14 23:19] LABS: Glucose,Whole Blood 124 mg/dL (75-99)
[2017-01-15] MEDS: PIPERACILLIN-TAZOBACTAM 3.375 GM in DEXTROSE/WATER 1 50ML.BAG IVPB SCH ×3 (01:26→17:09)
[2017-01-15] MEDS: [UNRECOGNIZED DRUG - REMARK] IV SCH ×4 (03:52)
[2017-01-15 04:44] LABS: ALT 26 U/L (9-52); AST 41 U/L (14-36); Alkaline Phosphatase 144 U/L (38-126); Anion Gap 2 mmol/L; Blood Urea Nitrogen 13 mg/dL (7-17); Calcium 7.2 mg/dL (8.4-10.2); Carbon Dioxide 31 mmol/L (22-30); Chloride 104 mmol/L (98-107); Glucose 109 mg/dL (74-99); Non-African American GFR(MDRD) >60 (>60 ml/min/1.73 sqM); Phosphorous 2.2 mg/dL (2.5-4.5); Potassium 3.5 mmol/L (3.5-5.1); Sodium 137 mmol/L (137-145); Total Protein 4.6 g/dL (6.3-8.2)
[2017-01-15] MEDS ORDERED: Potassium Replacement Protocol 1 EACH MISC MISCELLANE PRN (04:55)
[2017-01-15 05:37] LABS: Anisocytosis Slight; Basophils % (A) 0 %; CH 27.7; CHCM 31.2; Eosinophils % (A) 1 %; HCT 23.6 % (34.0-46.0); HDW 2.41; HGB 7.2 gm/dL (11.4-16.0); Hypochromasia Slight; Luc % (Auto) 2; Lymphocytes # (A) 0.8 k/uL (1.0-4.8); Lymphocytes % (A) 13 %; MCH 27.3 pg (25.0-35.0); MCHC 30.7 g/dL (31.0-37.0); MCV 88.9 fL (80.0-100.0); Monocytes # (A) 0.4 k/uL (0-1.0); Monocytes % (A) 7 %; Neutrophils # (A) 4.5 k/uL (1.3-7.7); Neutrophils % (A) 77 %; RBC 2.65 m/uL (3.80-5.40); WBC 5.9 k/uL (3.8-10.6); WBC (Perox) 5.93
[2017-01-15] MEDS: POTASSIUM CHLORIDE ORAL LIQUID 40 MEQ/30 ML CUP NG-TUBE SCH ×2 (05:39→06:29)
[2017-01-15] MEDS: INSULIN LISPRO (humaLOG) 300 UNIT/3 ML VIAL SQ SCH ×4 (05:44→23:59)
[2017-01-15 05:45] LABS: Glucose,Whole Blood 111 mg/dL (75-99)
--- NOTE | 2017-01-15 08:17 | XR ---
EXAMINATION TYPE: XR chest 1V DATE OF EXAM: 01/15/2017 6:42 AM COMPARISON: NONE INDICATION: Short of breath TECHNIQUE: Single frontal view of the chest is obtained. FINDINGS: The heart size is normal. The pulmonary vasculature is normal. Infiltrates at the lung apices. Findings are worsening. Left lower lobe infiltrate and/or pleural eff usion is likely present Catheters on the right with the tip in superior vena cava region. Nasogastric tube transverses the th orax. Endotracheal tube is been removed. IMPRESSION: 1. Worsening infiltrates at the lung apices and at the left base. Small left pleural effusion is pres ent. Correlate for atelectasis and atypical pulmonary edema.
[2017-01-15] MEDS: HYDROmorphone 1 MG/ML 1 ML SYRINGE IVP PRN ×2 (08:42→21:21)
[2017-01-15] MEDS: HEPARIN SODIUM,PORCINE 5,000 UNIT/ML 1 ML VIAL SQ SCH ×2 (08:45→17:09)
[2017-01-15] MEDS: AMIODARONE 200 MG TAB PO SCH (08:47)
[2017-01-15] MEDS: PANTOPRAZOLE 40 MG TABLET PO SCH (08:47)
[2017-01-15] MEDS: METOPROLOL TARTRATE 12.5 MG TAB PO SCH ×2 (08:47→21:24)
[2017-01-15] MEDS ORDERED: SODIUM PHOSPHATE 10 MMOL in SODIUM CHLORIDE 0.9% 100 ML IVPB ONE (09:00)
--- NOTE | 2017-01-15 09:19 | P.PN ---
Progress Note - Text The patient feels better. She is starting to get hungry. However has not passed any gas or bowel movement yet. On examination the patient is awake and more alert. Vitals are stable temperature is normal. Respirations are about 20 a minute the unlabored. Abdomen is softer and less distended. Incisions look fine. No evidence of infection. Impression improving ileus Recommendation would like to wait until she has some evidence of bowel action would flatus or bowel movement before we it DC the NG tube. We'll continue to monitor closely.
[2017-01-15] MEDS: IPRATROPIUM-ALBUTEROL 3 ML NEB INHALATION SCH ×4 (09:40→20:12)
[2017-01-15 11:37] LABS: Glucose,Whole Blood 105 mg/dL (75-99)
[2017-01-15] MEDS: SODIUM CHLORIDE 0.9% 1,000 ML IV SCH (15:15)
--- NOTE | 2017-01-15 16:52 | PN ---
An 86-year-old female, status post laparoscopic resection of the band adhesion for a small-bowel obstruction, postop day #2. Patient has been successfully weaned and extubated for more than 24 hours. She is off of vasopressors. Her hemodynamic status is marginal, but stable. She is not passing gas adequately; still has an NG tube, though. Physical Therapy has been working and she is being placed sitting upright on the bed. She likely will go on a chair later on today. Her blood pressure 110/60, respiratory rate is in mid teens, heart rate is 77, saturation 94% on 4L oxygen. HEENT: Oral mucosa is moist. NECK: Supple. Neck veins are prominent. No bruits. No jugular venous distention otherwise. LUNGS: Good air entry. A few basal crackles. HEART: Regular rate and rhythm. S1 and S2 audible. ABDOMEN: Soft. No rebound or rigidity. EXTREMITIES: +1 to trace edema. NEUROLOGICAL: Otherwise awake and alert. Labs reviewed. Hemoglobin is trickling down to 7.2, but it is stable. White cell count 5900, platelets 389,000. Chemistry reviewed. BUN and creatinine 13 and 0.4. Rest of chemistry reviewed as well. Alk phos 144. The phosphorus 2.2. Potassium 3.5. IMPRESSION AND PLAN: As dictated above. 1. Small-bowel obstruction. 2. Status post a laparoscopic resection of band adhesions. 3. Left basal pneumonia and left-sided pleural effusion, post extubation. The patient is adequately treated with broad-spectrum antibiotics, pulmonary toilet, suctioning. 4. Electrolyte imbalance with hypokalemia and hypophosphatemia. Patient has been on K-Mag-Phos replacement protocol. Repeat labs tomorrow. 5. Anemia, postoperative as well as chronic. Will monitor closely. If hemoglobin was less than 7, consider transfusion of 1 unit of packed red blood cells. For now, will monitor and observe.
[2017-01-15 17:42] LABS: Glucose,Whole Blood 93 mg/dL (75-99)
[2017-01-15 23:51] LABS: Glucose,Whole Blood 116 mg/dL (75-99)
[2017-01-15] MEDS: [UNRECOGNIZED DRUG - REMARK] IV SCH ×5 (23:57)
[2017-01-16] MEDS: PIPERACILLIN-TAZOBACTAM 3.375 GM in DEXTROSE/WATER 1 50ML.BAG IVPB SCH ×3 (01:40→17:57)
[2017-01-16] MEDS: INSULIN LISPRO (humaLOG) 300 UNIT/3 ML VIAL SQ SCH ×3 (06:08→17:54)
[2017-01-16 06:15] LABS: Glucose,Whole Blood 119 mg/dL (75-99)
[2017-01-16] MEDS: HYDROmorphone 1 MG/ML 1 ML SYRINGE IVP PRN ×3 (06:15→22:44)
[2017-01-16] MEDS: IPRATROPIUM-ALBUTEROL 3 ML NEB INHALATION SCH ×4 (08:02→20:24)
--- NOTE | 2017-01-16 08:02 | XR ---
EXAMINATION TYPE: XR chest 1V DATE OF EXAM: 01/16/2017 7:47 AM CLINICAL HISTORY: Difficulty breathing progress study. TECHNIQUE: Single AP portable frontal view of the chest is obtained. COMPARISON: Chest x-ray from one day earlier FINDINGS: A right subclavian central venous catheter and orogastric tube are stable in appearance. C ardiac silhouette size is stable and upper limits of normal with atherosclerotic thoracic aorta. 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 There is small right pleural effusion redem onstrated. There is persistent left basilar opacity. Osseous structures are demineralized. IMPRESSION: Overall stable findings, chronic parenchymal change bilaterally with small right pleura l effusion and focal left basilar atelectasis and/or infiltrate all redemonstrated.
[2017-01-16 09:06] LABS: Anisocytosis Moderate; Basophils % (A) 1 %; Eosinophils # (A) 0.1 k/uL (0-0.7); Eosinophils % (A) 1 %; HCT 26.5 % (34.0-46.0); HDW 2.62; HGB 8.2 gm/dL (11.4-16.0); Luc # (Auto) 0.12; Luc % (Auto) 2; Lymphocytes # (A) 1.5 k/uL (1.0-4.8); Lymphocytes % (A) 22 %; MCH 27.3 pg (25.0-35.0); MCV 87.8 fL (80.0-100.0); Mean Platelet Volume 7.6; Monocytes # (A) 0.4 k/uL (0-1.0); Monocytes % (A) 5 %; Neutrophils # (A) 4.8 k/uL (1.3-7.7); Neutrophils % (A) 70 %; RBC 3.01 m/uL (3.80-5.40); RDW 20.1 % (11.5-15.5); WBC 6.9 k/uL (3.8-10.6); WBC (Perox) 6.62
[2017-01-16 09:29] LABS: ALT 31 U/L (9-52); AST 56 U/L (14-36); Alkaline Phosphatase 242 U/L (38-126); Anion Gap 5 mmol/L; Blood Urea Nitrogen 15 mg/dL (7-17); Calcium 7.5 mg/dL (8.4-10.2); Carbon Dioxide 26 mmol/L (22-30); Chloride 106 mmol/L (98-107); Glucose 100 mg/dL (74-99); Non-African American GFR(MDRD) >60 (>60 ml/min/1.73 sqM); Potassium 3.9 mmol/L (3.5-5.1); Sodium 137 mmol/L (137-145); Total Protein 5.4 g/dL (6.3-8.2)
[2017-01-16] MEDS: PANTOPRAZOLE 40 MG TABLET PO SCH (09:35)
[2017-01-16] MEDS: HEPARIN SODIUM,PORCINE 5,000 UNIT/ML 1 ML VIAL SQ SCH ×3 (09:35→17:54)
[2017-01-16] MEDS: AMIODARONE 200 MG TAB PO SCH (09:36)
[2017-01-16] MEDS: METOPROLOL TARTRATE 12.5 MG TAB PO SCH ×2 (09:36→20:25)
--- NOTE | 2017-01-16 10:09 | PN ---
CHIEF COMPLAINT: Status post laparotomy and lysis of adhesions. HISTORY OF PRESENT ILLNESS: This lady is awake and alert, but confused. Vital signs are stable and she has had no other problems today. PHYSICAL EXAMINATION: She remains pale. No rales bilaterally. Cardiac exam ( ). The abdomen is flat and there are no bowel sounds. Dressing is dry. IMPRESSION: Status post laparotomy and lysis of adhesions. PLAN: Continue with Surgery.
--- NOTE | 2017-01-16 12:03 | P.PN ---
Subjective This is an 86-year-old female patient who is being evaluated and examined today in the intensive care unit. The patient was brought into the emergency room via EMS after family called due to increasing in abdominal pain with no nausea vomiting and diarrhea that had been going on for the past 3 days. Upon arrival the paramedics on the patient to be dyspneic and tachycardic and her pulse ox was low as well. She did have some altered mental status changes however normally is alert and oriented 3. She is also been having some frequency in urination and bedtime wetting. While in the emergency room the patient did go into SVT, was given adenosine which did not affect the rate. She also then went into possibly torsades and was given IV magnesium. CT of the abdomen and pelvis reveals suggestions for ileus, possible early small bowel obstruction, and a moderate fatty infiltration to the liver. Surgical on consult for CT results. Also GI was consulted. Chest x-ray was completed and reveals some mild cardiomegaly, worsening left basilar airspace disease, developing left effusion, and multiple stable pulmonary nodules. Upon examination today the patient's resting up in bed on the 3 L of oxygen via nasal cannula. Patient denies any cough or shortness of breath at this time. Patient denies any abdominal discomfort today, she is continuously requesting have something to eat and drink. NG tube present and hooked to low intermittent suction. Patient also receiving TPN for nutrition. The patient had a laparotmy procedure or a small bowel resection with Surgical services. Objective - Vital Signs Vital signs: Vital Signs Temp 97.2 F L 01/16/17 07:00 Pulse 88 01/16/17 11:51 Resp 18 01/16/17 07:00 BP 161/66 01/16/17 07:00 Pulse Ox 96 01/16/17 08:03 Intake & Output 01/15/17 01/16/17 01/16/17 18:59 06:59 18:59 Intake Total 420 Output Total 895 550 250 Balance -475 -550 -250 Weight 84.5 kg Intake: IV 420 Mvi, Adult No.4 with Vit 300 K 10 ml Trace (Conc-1Ml/ Dose) 1 ml Magnesium Sulfate 8 meq In Amino Acid 5%-D25w+Lytes*E* 1, 000 ml @ 50 mls/hr IV . [id number] [facility] Rx#:[id number] Sodium Chloride 0.9% 1, 120 000 ml @ 20 mls/hr IV . Q24H [facility] Rx#:[id number] Output: Gastric Drainage 600 Drainage 250 NG 250 Urine 295 550 Other: Voiding Method Indwelling Catheter Indwelling Catheter Indwelling Catheter # Voids 0 # Bowel Movements 0 - Exam GENERAL EXAM: Alert, active, comfortable in no apparent distress. HEAD: Normocephalic. EYES: Normal reaction of pupils, equal size. NOSE: Clear with pink turbinates. THROAT: No erythema or exudates. NECK: No masses, no JVD. CHEST: No chest wall deformity. LUNGS: Equal air entry, some scattered rhonchi and wheeze. Basis diminished CVS: S1 and S2 normal with no audible mumurs, regular rhythm. ABDOMEN: No hepatosplenomegaly, normal bowel sounds, no guarding or rigidity. Slightly distended EXTREMITIES: No edema noted, pedal pulses palpable. SKIN: No rashes CENTRAL NERVOUS SYSTEM: No focal deficits, tone is normal in all 4 extremities. - Labs CBC & Chem 7: 01/16/17 08:42 01/16/17 08:42 Labs: Abnormal Lab Results - Last 24 Hours (Table) 01/15/17 01/16/17 01/16/17 Range/Units 23:49 06:13 08:42 RBC 3.01 L (3.80-5.40) m/uL Hgb 8.2 L (11.4-16.0) gm/dL Hct 26.5 L (34.0-46.0) % RDW 20.1 H (11.5-15.5) % Creatinine (0.52-1.04) mg/dL Glucose (74-99) mg/dL POC Glucose (mg/dL) 116 H 119 H (75-99) mg/dL Calcium (8.4-10.2) mg/dL AST (14-36) U/L Alkaline Phosphatase (38-126) U/L Total Protein (6.3-8.2) g/dL Albumin (3.5-5.0) g/dL 01/16/17 Range/Units 08:42 RBC (3.80-5.40) m/uL Hgb (11.4-16.0) gm/dL Hct (34.0-46.0) % RDW (11.5-15.5) % Creatinine 0.34 L (0.52-1.04) mg/dL Glucose 100 H (74-99) mg/dL POC Glucose (mg/dL) (75-99) mg/dL Calcium 7.5 L (8.4-10.2) mg/dL AST 56 H (14-36) U/L Alkaline Phosphatase 242 H (38-126) U/L Total Protein 5.4 L (6.3-8.2) g/dL Albumin 1.8 L (3.5-5.0) g/dL Assessment and Plan Plan: Assessment Acute hypoxic respiratory failure Paroxysmal supraventricular tachycardia Small bowel obstruction Dehydration Hypotension Diffuse abdominal pain Leukocytosis Plan Medications have been reviewed and will be continued as ordered. Continue with nebulizer treatments, supplemental oxygen, and pulmonary hygiene. Incentive spirometer was initiated. Appreciate recommendations from surgical and GI. We will continue to monitor labs/reports and adjust treatment as necessary. I performed an examination of the patient and discussed their management with the nurse practitioner. I have reviewed the nurse practitioner's note and agree with the documented findings and plan of care.
[2017-01-16 12:39] LABS: Glucose,Whole Blood 96 mg/dL (75-99)
[2017-01-16] MEDS: SODIUM CHLORIDE 0.9% 1,000 ML IV SCH (12:48)
[2017-01-16 17:12] LABS: Glucose,Whole Blood 108 mg/dL (75-99)
--- NOTE | 2017-01-16 17:18 | P.PN ---
Subjective Principal diagnosis: Abdominal pain Patient without new complaints. Nasogastric tube remains bilious. she did have a large soft stool earlier today. Denies abdominal pain at this time. Bowel sounds remained diminished. Objective - Vital Signs Vital signs: Vital Signs Temp 96.2 F L 01/16/17 15:00 Pulse 84 01/16/17 15:57 Resp 19 01/16/17 15:00 BP 133/63 01/16/17 15:00 Pulse Ox 94 L 01/16/17 15:00 Intake & Output 01/15/17 01/16/17 01/16/17 18:59 06:59 18:59 Intake Total 420 Output Total 540 127 5457 Balance -475 -550 -1050 Weight 84.5 kg 84.5 kg Intake: IV 420 Mvi, Adult No.4 with Vit 300 K 10 ml Trace (Conc-1Ml/ Dose) 1 ml Magnesium Sulfate 8 meq In Amino Acid 5%-D25w+Lytes*E* 1, 000 ml @ 50 mls/hr IV . [id number] [facility] Rx#:[id number] Sodium Chloride 0.9% 1, 120 000 ml @ 20 mls/hr IV . Q24H [facility] Rx#:[id number] Output: Gastric Drainage 600 Drainage 250 NG 250 Urine 295 550 800 Other: Voiding Method Indwelling Catheter Indwelling Catheter Indwelling Catheter # Voids 0 1 # Bowel Movements 0 0 - Exam abdomen: Soft, nondistended, incisions clean and dry, no appreciable tenderness - Labs CBC & Chem 7: 01/16/17 08:42 01/16/17 08:42 Labs: Abnormal Lab Results - Last 24 Hours (Table) 01/15/17 01/16/17 01/16/17 Range/Units 23:49 06:13 08:42 RBC 3.01 L (3.80-5.40) m/uL Hgb 8.2 L (11.4-16.0) gm/dL Hct 26.5 L (34.0-46.0) % RDW 20.1 H (11.5-15.5) % Creatinine (0.52-1.04) mg/dL Glucose (74-99) mg/dL POC Glucose (mg/dL) 116 H 119 H (75-99) mg/dL Calcium (8.4-10.2) mg/dL AST (14-36) U/L Alkaline Phosphatase (38-126) U/L Total Protein (6.3-8.2) g/dL Albumin (3.5-5.0) g/dL 01/16/17 01/16/17 Range/Units 08:42 17:10 RBC (3.80-5.40) m/uL Hgb (11.4-16.0) gm/dL Hct (34.0-46.0) % RDW (11.5-15.5) % Creatinine 0.34 L (0.52-1.04) mg/dL Glucose 100 H (74-99) mg/dL POC Glucose (mg/dL) 108 H (75-99) mg/dL Calcium 7.5 L (8.4-10.2) mg/dL AST 56 H (14-36) U/L Alkaline Phosphatase 242 H (38-126) U/L Total Protein 5.4 L (6.3-8.2) g/dL Albumin 1.8 L (3.5-5.0) g/dL Assessment and Plan (1) Abdominal pain Narrative/Plan: keep nothing by mouth for now. We'll check bowel sounds again tomorrow. Increase activity level. Status: Acute
[2017-01-16] MEDS: FAT EMULSION 20% 250 ML in EMPTY BAG 1 BAG IV SCH (17:54)
[2017-01-16] MEDS: [UNRECOGNIZED DRUG - REMARK] IV SCH ×5 (20:24)
[2017-01-17 00:16] LABS: Glucose,Whole Blood 114 mg/dL (75-99)
[2017-01-17] MEDS: HEPARIN SODIUM,PORCINE 5,000 UNIT/ML 1 ML VIAL SQ SCH ×3 (00:19→17:17)
[2017-01-17] MEDS: INSULIN LISPRO (humaLOG) 300 UNIT/3 ML VIAL SQ SCH ×4 (00:19→17:50)
[2017-01-17] MEDS: PIPERACILLIN-TAZOBACTAM 3.375 GM in DEXTROSE/WATER 1 50ML.BAG IVPB SCH ×3 (02:05→17:14)
[2017-01-17 06:19] LABS: Glucose,Whole Blood 109 mg/dL (75-99)
--- NOTE | 2017-01-17 06:47 | PN ---
CHIEF COMPLAINT: Status post laparotomy and lysis of adhesions. HISTORY OF PRESENT ILLNESS: This lady is doing well and her orientation is improving. PHYSICAL EXAM: She remains pale. Her chest is clear. The cardiac exam is normal. The abdomen is silent. IMPRESSION: Bowel obstruction due to adhesions. PLAN: Continue to follow with surgery and then work on discharge plan.
--- NOTE | 2017-01-17 07:51 | XR ---
EXAMINATION TYPE: XR chest 1V DATE OF EXAM: 01/17/2017 7:32 AM HISTORY: Shortness of breath COMPARISON: 01/16/2017 TECHNIQUE: Single view of the chest is submitted. FINDINGS: NG tube and right-sided subclavian central venous line are unchanged in position. There is areas of p atchy infiltrate within the right upper lobe shows a left lower lobe and right medial lung base. The cardiomediastinal silhouette unchanged. IMPRESSION: 1. Stable chest.
[2017-01-17] MEDS: AMIODARONE 200 MG TAB PO SCH (08:49)
[2017-01-17] MEDS: METOPROLOL TARTRATE 12.5 MG TAB PO SCH ×2 (08:49→20:01)
[2017-01-17] MEDS: PANTOPRAZOLE 40 MG TABLET PO SCH (08:49)
[2017-01-17] MEDS: HYDROmorphone 1 MG/ML 1 ML SYRINGE IVP PRN ×2 (09:05→19:57)
[2017-01-17] MEDS: IPRATROPIUM-ALBUTEROL 3 ML NEB INHALATION SCH ×4 (09:07→20:55)
[2017-01-17 10:08] LABS: Anisocytosis Moderate; Basophils % (A) 0 %; CH 27.9; CHCM 31.8; Eosinophils # (A) 0.1 k/uL (0-0.7); Eosinophils % (A) 1 %; HCT 27.1 % (34.0-46.0); HDW 2.72; HGB 8.5 gm/dL (11.4-16.0); Hypochromasia Slight; Luc # (Auto) 0.15; Luc % (Auto) 2; Lymphocytes # (A) 1.1 k/uL (1.0-4.8); Lymphocytes % (A) 16 %; MCH 27.8 pg (25.0-35.0); MCHC 31.5 g/dL (31.0-37.0); MCV 88.3 fL (80.0-100.0); Macrocytosis Slight; Mean Platelet Volume 7.6; Monocytes # (A) 0.3 k/uL (0-1.0); Monocytes % (A) 5 %; Neutrophils # (A) 5.1 k/uL (1.3-7.7); Neutrophils % (A) 76 %; RBC 3.07 m/uL (3.80-5.40); RDW 21.1 % (11.5-15.5); WBC 6.7 k/uL (3.8-10.6); WBC (Perox) 6.33
[2017-01-17 11:02] LABS: ALT 32 U/L (9-52); AST 68 U/L (14-36); Alkaline Phosphatase 323 U/L (38-126); Anion Gap 4 mmol/L; Blood Urea Nitrogen 15 mg/dL (7-17); Calcium 7.5 mg/dL (8.4-10.2); Carbon Dioxide 26 mmol/L (22-30); Chloride 104 mmol/L (98-107); Glucose 107 mg/dL (74-99); Non-African American GFR(MDRD) >60 (>60 ml/min/1.73 sqM); Phosphorous 3.4 mg/dL (2.5-4.5); Potassium 3.8 mmol/L (3.5-5.1); Sodium 134 mmol/L (137-145); Total Protein 5.9 g/dL (6.3-8.2)
[2017-01-17 11:36] LABS: Glucose,Whole Blood 115 mg/dL (75-99)
[2017-01-17] MEDS: SODIUM CHLORIDE 0.9% 1,000 ML IV SCH (13:03)
--- NOTE | 2017-01-17 15:59 | P.PN ---
Subjective This is an 86-year-old female patient who is being evaluated and examined today in the intensive care unit. The patient was brought into the emergency room via EMS after family called due to increasing in abdominal pain with no nausea vomiting and diarrhea that had been going on for the past 3 days. Upon arrival the paramedics on the patient to be dyspneic and tachycardic and her pulse ox was low as well. She did have some altered mental status changes however normally is alert and oriented 3. She is also been having some frequency in urination and bedtime wetting. While in the emergency room the patient did go into SVT, was given adenosine which did not affect the rate. She also then went into possibly torsades and was given IV magnesium. CT of the abdomen and pelvis reveals suggestions for ileus, possible early small bowel obstruction, and a moderate fatty infiltration to the liver. Surgical on consult for CT results. Also GI was consulted. Chest x-ray was completed and reveals some mild cardiomegaly, worsening left basilar airspace disease, developing left effusion, and multiple stable pulmonary nodules. Upon examination today the patient's resting up in bed on the 3 L of oxygen via nasal cannula. Patient denies any cough or shortness of breath at this time. Patient denies any abdominal discomfort today, she is continuously requesting have something to eat and drink. NG tube present and hooked to low intermittent suction. Patient also receiving TPN for nutrition. The patient had a laparotmy procedure or a small bowel resection with Surgical services. Patient continues to have intermittent confusion. Objective - Vital Signs Vital signs: Vital Signs Temp 96.9 F L 01/17/17 15:00 Pulse 82 01/17/17 15:00 Resp 16 01/17/17 15:00 BP 120/65 01/17/17 15:00 Pulse Ox 95 01/17/17 15:00 Intake & Output 01/16/17 01/17/17 01/17/17 18:59 06:59 18:59 Intake Total 1018 560 Output Total 1350 900 850 Balance -1350 118 -290 Weight 84.5 kg 85.5 kg Intake: IV 160 Sodium Chloride 0.9% 1, 160 000 ml @ 20 mls/hr IV . Q24H [facility] Rx#:[id number] Intake, IV Titration 1018 Amount Mvi, Adult No.4 with Vit 1018 K 10 ml Trace (Conc-1Ml/ Dose) 1 ml Magnesium Sulfate 8 meq Potassium Phosphate 15 mmol In Amino Acid 5%-D25w+Lytes* E* 1,000 ml @ 50 mls/hr IV .[id number] [facility] Rx#: [id number] TPN/PPN 400 Sodium Chloride 0.9% 1, 400 000 ml @ 20 mls/hr IV . Q24H [facility] Rx#:[id number] Output: Gastric Drainage 300 Drainage 250 250 100 NG 250 250 100 Urine 800 650 750 Other: Voiding Method Indwelling Catheter Indwelling Catheter Indwelling Catheter # Voids 1 1 # Bowel Movements 0 - Exam GENERAL EXAM: Alert, active, comfortable in no apparent distress. HEAD: Normocephalic. EYES: Normal reaction of pupils, equal size. NOSE: Clear with pink turbinates. NG present THROAT: No erythema or exudates. NECK: No masses, no JVD. CHEST: No chest wall deformity. LUNGS: Equal air entry, some scattered rhonchi and wheeze. Basis diminished CVS: S1 and S2 normal with no audible mumurs, regular rhythm. ABDOMEN: No hepatosplenomegaly, normal bowel sounds, no guarding or rigidity. Slightly distended EXTREMITIES: No edema noted, pedal pulses palpable. SKIN: No rashes CENTRAL NERVOUS SYSTEM: No focal deficits, tone is normal in all 4 extremities. - Labs CBC & Chem 7: 01/17/17 08:46 01/17/17 10:26 Labs: Abnormal Lab Results - Last 24 Hours (Table) 01/16/17 01/17/17 01/17/17 Range/Units 17:10 00:14 06:05 RBC (3.80-5.40) m/uL Hgb (11.4-16.0) gm/dL Hct (34.0-46.0) % RDW (11.5-15.5) % Plt Count (150-450) k/uL Sodium (137-145) mmol/L Creatinine (0.52-1.04) mg/dL Glucose (74-99) mg/dL POC Glucose (mg/dL) 108 H 114 H 109 H (75-99) mg/dL Calcium (8.4-10.2) mg/dL AST (14-36) U/L Alkaline Phosphatase (38-126) U/L Total Protein (6.3-8.2) g/dL Albumin (3.5-5.0) g/dL 01/17/17 01/17/17 01/17/17 Range/Units 08:46 10:26 11:29 RBC 3.07 L (3.80-5.40) m/uL Hgb 8.5 L (11.4-16.0) gm/dL Hct 27.1 L (34.0-46.0) % RDW 21.1 H (11.5-15.5) % Plt Count 480 H (150-450) k/uL Sodium 134 L (137-145) mmol/L Creatinine 0.36 L (0.52-1.04) mg/dL Glucose 107 H (74-99) mg/dL POC Glucose (mg/dL) 115 H (75-99) mg/dL Calcium 7.5 L (8.4-10.2) mg/dL AST 68 H (14-36) U/L Alkaline Phosphatase 323 H (38-126) U/L Total Protein 5.9 L (6.3-8.2) g/dL Albumin 2.0 L (3.5-5.0) g/dL Assessment and Plan Plan: Assessment Acute hypoxic respiratory failure Paroxysmal supraventricular tachycardia Small bowel obstruction Dehydration Hypotension Diffuse abdominal pain Leukocytosis Plan Medications have been reviewed and will be continued as ordered. Continue with nebulizer treatments, supplemental oxygen, and pulmonary hygiene. Incentive spirometer was initiated. Appreciate recommendations from surgical and GI. We will continue to monitor labs/reports and adjust treatment as necessary. I performed an examination of the patient and discussed their management with the nurse practitioner. I have reviewed the nurse practitioner's note and agree with the documented findings and plan of care.
[2017-01-17] MEDS: [UNRECOGNIZED DRUG - REMARK] IV SCH ×5 (17:15)
[2017-01-17 17:41] LABS: Glucose,Whole Blood 110 mg/dL (75-99)
--- NOTE | 2017-01-17 18:37 | P.PN ---
Subjective Principal diagnosis: Abdominal pain Patient had a bowel movement yesterday but none further today. Nasogastric output is about 2-300 mL per shift. Does describe some mild abdominal discomfort. Objective - Vital Signs Vital signs: Vital Signs Temp 96.9 F L 01/17/17 15:00 Pulse 80 01/17/17 16:24 Resp 16 01/17/17 16:00 BP 120/65 01/17/17 15:00 Pulse Ox 95 01/17/17 15:00 Intake & Output 01/16/17 01/17/17 01/17/17 18:59 06:59 18:59 Intake Total 1018 1578 Output Total 9073 265 6306 Balance -1350 118 -122 Weight 84.5 kg 85.5 kg 85.5 kg Intake: IV 160 Sodium Chloride 0.9% 1, 160 000 ml @ 20 mls/hr IV . Q24H [facility] Rx#:[id number] Intake, IV Titration 1018 1018 Amount Mvi, Adult No.4 with Vit 1018 1018 K 10 ml Trace (Conc-1Ml/ Dose) 1 ml Magnesium Sulfate 8 meq Potassium Phosphate 15 mmol In Amino Acid 5%-D25w+Lytes* E* 1,000 ml @ 50 mls/hr IV .[id number] [facility] Rx#: [id number] TPN/PPN 400 Sodium Chloride 0.9% 1, 400 000 ml @ 20 mls/hr IV . Q24H [facility] Rx#:[id number] Output: Gastric Drainage 300 100 Drainage 250 250 100 NG 250 250 100 Urine 839 423 8756 Other: Voiding Method Indwelling Catheter Indwelling Catheter Indwelling Catheter # Voids 1 1 1 # Bowel Movements 0 - Exam Abdomen: Soft, nondistended, bowel sounds sluggish but improved from yesterday, incisions clean and dry - Labs CBC & Chem 7: 01/17/17 08:46 01/17/17 10:26 Labs: Abnormal Lab Results - Last 24 Hours (Table) 01/17/17 01/17/17 01/17/17 Range/Units 00:14 06:05 08:46 RBC 3.07 L (3.80-5.40) m/uL Hgb 8.5 L (11.4-16.0) gm/dL Hct 27.1 L (34.0-46.0) % RDW 21.1 H (11.5-15.5) % Plt Count 480 H (150-450) k/uL Sodium (137-145) mmol/L Creatinine (0.52-1.04) mg/dL Glucose (74-99) mg/dL POC Glucose (mg/dL) 114 H 109 H (75-99) mg/dL Calcium (8.4-10.2) mg/dL AST (14-36) U/L Alkaline Phosphatase (38-126) U/L Total Protein (6.3-8.2) g/dL Albumin (3.5-5.0) g/dL 01/17/17 01/17/17 01/17/17 Range/Units 10:26 11:29 17:39 RBC (3.80-5.40) m/uL Hgb (11.4-16.0) gm/dL Hct (34.0-46.0) % RDW (11.5-15.5) % Plt Count (150-450) k/uL Sodium 134 L (137-145) mmol/L Creatinine 0.36 L (0.52-1.04) mg/dL Glucose 107 H (74-99) mg/dL POC Glucose (mg/dL) 115 H 110 H (75-99) mg/dL Calcium 7.5 L (8.4-10.2) mg/dL AST 68 H (14-36) U/L Alkaline Phosphatase 323 H (38-126) U/L Total Protein 5.9 L (6.3-8.2) g/dL Albumin 2.0 L (3.5-5.0) g/dL Assessment and Plan (1) Abdominal pain Narrative/Plan: Keep nasogastric tube for now. Continue TPN. Hopefully we'll remove nasogastric tube tomorrow. Status: Acute
[2017-01-17 21:25] LABS: Glucose,Whole Blood 102 mg/dL (75-99)
[2017-01-18 00:11] LABS: Glucose,Whole Blood 110 mg/dL (75-99)
[2017-01-18] MEDS: HEPARIN SODIUM,PORCINE 5,000 UNIT/ML 1 ML VIAL SQ SCH ×4 (00:26→23:41)
[2017-01-18] MEDS: INSULIN LISPRO (humaLOG) 300 UNIT/3 ML VIAL SQ SCH ×4 (00:27→18:40)
[2017-01-18] MEDS: PIPERACILLIN-TAZOBACTAM 3.375 GM in DEXTROSE/WATER 1 50ML.BAG IVPB SCH ×3 (02:46→18:16)
[2017-01-18] MEDS: HYDROmorphone 1 MG/ML 1 ML SYRINGE IVP PRN ×4 (04:54→23:40)
[2017-01-18 06:10] LABS: Glucose,Whole Blood 111 mg/dL (75-99)
[2017-01-18] MEDS: PANTOPRAZOLE 40 MG TABLET PO SCH (08:30)
[2017-01-18] MEDS: IPRATROPIUM-ALBUTEROL 3 ML NEB INHALATION SCH ×4 (08:52→20:53)
[2017-01-18] MEDS: METOPROLOL TARTRATE 12.5 MG TAB PO SCH ×2 (09:15→21:09)
[2017-01-18] MEDS: AMIODARONE 200 MG TAB PO SCH (09:15)
--- NOTE | 2017-01-18 10:04 | P.PN ---
Subjective Principal diagnosis: Abdominal pain Patient complaining of some mild discomfort today. No bowel movements. May be some flatus. Denies abdominal pain currently. Objective - Vital Signs Vital signs: Vital Signs Temp 96.9 F L 01/18/17 07:00 Pulse 88 01/18/17 09:03 Resp 20 01/18/17 07:00 BP 121/68 01/18/17 07:00 Pulse Ox 96 01/18/17 07:00 Intake & Output 01/17/17 01/18/17 01/18/17 18:59 06:59 18:59 Intake Total 1578 0 Output Total 1700 1350 Balance -122 -1350 Weight 85.5 kg 82.5 kg Intake: IV 160 Sodium Chloride 0.9% 1, 160 000 ml @ 20 mls/hr IV . Q24H [facility] Rx#:[id number] Intake, IV Titration 1018 Amount Mvi, Adult No.4 with Vit 1018 K 10 ml Trace (Conc-1Ml/ Dose) 1 ml Magnesium Sulfate 8 meq Potassium Phosphate 15 mmol In Amino Acid 5%-D25w+Lytes* E* 1,000 ml @ 50 mls/hr IV .[id number] [facility] Rx#: [id number] Oral 0 TPN/PPN 400 Sodium Chloride 0.9% 1, 400 000 ml @ 20 mls/hr IV . Q24H [facility] Rx#:[id number] Output: Gastric Drainage 100 Drainage 100 150 NG 100 150 Urine 1500 1200 Other: Voiding Method Indwelling Catheter Indwelling Catheter # Voids 1 - Exam Abdomen: Soft, mild distention, bowel sounds diminished actually less than yesterday, nontender, incisions clean and dry - Labs CBC & Chem 7: 01/17/17 08:46 01/17/17 10:26 Labs: Abnormal Lab Results - Last 24 Hours (Table) 01/17/17 01/17/17 01/17/17 Range/Units 08:46 10:26 11:29 RBC 3.07 L (3.80-5.40) m/uL Hgb 8.5 L (11.4-16.0) gm/dL Hct 27.1 L (34.0-46.0) % RDW 21.1 H (11.5-15.5) % Plt Count 480 H (150-450) k/uL Sodium 134 L (137-145) mmol/L Creatinine 0.36 L (0.52-1.04) mg/dL Glucose 107 H (74-99) mg/dL POC Glucose (mg/dL) 115 H (75-99) mg/dL Calcium 7.5 L (8.4-10.2) mg/dL AST 68 H (14-36) U/L Alkaline Phosphatase 323 H (38-126) U/L Total Protein 5.9 L (6.3-8.2) g/dL Albumin 2.0 L (3.5-5.0) g/dL 01/17/17 01/17/17 01/18/17 Range/Units 17:39 21:15 00:09 RBC (3.80-5.40) m/uL Hgb (11.4-16.0) gm/dL Hct (34.0-46.0) % RDW (11.5-15.5) % Plt Count (150-450) k/uL Sodium (137-145) mmol/L Creatinine (0.52-1.04) mg/dL Glucose (74-99) mg/dL POC Glucose (mg/dL) 110 H 102 H 110 H (75-99) mg/dL Calcium (8.4-10.2) mg/dL AST (14-36) U/L Alkaline Phosphatase (38-126) U/L Total Protein (6.3-8.2) g/dL Albumin (3.5-5.0) g/dL 01/18/17 Range/Units 06:07 RBC (3.80-5.40) m/uL Hgb (11.4-16.0) gm/dL Hct (34.0-46.0) % RDW (11.5-15.5) % Plt Count (150-450) k/uL Sodium (137-145) mmol/L Creatinine (0.52-1.04) mg/dL Glucose (74-99) mg/dL POC Glucose (mg/dL) 111 H (75-99) mg/dL Calcium (8.4-10.2) mg/dL AST (14-36) U/L Alkaline Phosphatase (38-126) U/L Total Protein (6.3-8.2) g/dL Albumin (3.5-5.0) g/dL Assessment and Plan (1) Abdominal pain Narrative/Plan: Ambulate. Dulcolax positive. Check abdominal x-rays. Status: Acute
[2017-01-18 11:39] LABS: Anisocytosis Moderate; Basophils # (A) 0.1 k/uL (0-0.2); Basophils % (A) 2 %; CH 28.3; CHCM 31.6; Eosinophils % (A) 1 %; HCT 37.8 % (34.0-46.0); HDW 2.71; HGB 11.3 gm/dL (11.4-16.0); Hypochromasia Slight; Luc # (Auto) 0.13; Luc % (Auto) 4; Lymphocytes # (A) 0.7 k/uL (1.0-4.8); Lymphocytes % (A) 20 %; MCH 27.1 pg (25.0-35.0); MCV 90.3 fL (80.0-100.0); Macrocytosis Slight; Mean Platelet Volume 7.7; Monocytes # (A) 0.2 k/uL (0-1.0); Monocytes % (A) 5 %; Neutrophils # (A) 2.5 k/uL (1.3-7.7); Neutrophils % (A) 67 %; RBC 4.18 m/uL (3.80-5.40); RDW 21.7 % (11.5-15.5); WBC 3.6 k/uL (3.8-10.6); WBC (Perox) 3.29
[2017-01-18 11:51] LABS: Glucose,Whole Blood 110 mg/dL (75-99)
[2017-01-18 12:01] LABS: ALT 40 U/L (9-52); AST 74 U/L (14-36); Alkaline Phosphatase 337 U/L (38-126); Anion Gap 3 mmol/L; Blood Urea Nitrogen 12 mg/dL (7-17); Calcium 7.5 mg/dL (8.4-10.2); Carbon Dioxide 27 mmol/L (22-30); Chloride 102 mmol/L (98-107); Glucose 105 mg/dL (74-99); Non-African American GFR(MDRD) >60 (>60 ml/min/1.73 sqM); Phosphorous 3.4 mg/dL (2.5-4.5); Potassium 3.9 mmol/L (3.5-5.1); Sodium 132 mmol/L (137-145); Total Bilirubin 0.7 mg/dL (0.2-1.3); Total Protein 5.3 g/dL (6.3-8.2)
[2017-01-18] MEDS: [UNRECOGNIZED DRUG - REMARK] IV SCH ×5 (13:05)
--- NOTE | 2017-01-18 15:50 | PN ---
The patient is seen, evaluated, examined. She is a morbidly obese 86-year-old female with paroxysmal atrial fibrillation. Patient has small bowel obstruction requiring laparoscopic resection of ( ) and adhesions. Clinically patient is still short of breath, very weak; however, recovering from surgery. Physical Therapy has been following. Her hemodynamic status is marginal but stable. Blood pressure is 120/68, respiratory rate 20, pulse 81, temperature 98, saturation 96% on 2 L. HEENT: Otherwise unremarkable. Narrow pharyngeal opening is present. NECK: Supple without lymphadenopathy, jugular venous distention or carotid bruit. LUNGS: Bilateral good air entry. A few crackles at bases cannot be excluded. HEART: Regular rate, rhythm. S1, S2 audible. ABDOMEN: Soft. No rebound or rigidity. EXTREMITIES: Plus one peripheral pulses. NEUROLOGICAL EXAMINATION: Awake and alert. Labs reviewed. Alkaline phosphatase is up to 337. AST and ALT are 74 and 40. Albumin is only 1.8. Sodium down to 132. BUN and creatinine are 12 and 0.4. CBC otherwise revealed white cell count of 3600, hemoglobin 11, hematocrit 37, platelet count 361,000. Culture results and reports are reviewed. The latest chest x-ray performed 01/17/17 has been reviewed. Patchy infiltrate in the right upper lobe and the left lower lobe and right lower lobe cannot be excluded. Current medications are reviewed which include: 1. DuoNeb unit dose updraft 4 times a day. 2. Amiodarone 200 mg daily. 3. Dulcolax. 4. TPN. 5. Heparin. 6. Dilaudid. 7. Sliding scale insulin. 8. Metoprolol. 9. Naloxone 10. Zofran. 11. Zosyn. 12. IV fluids KVO. IMPRESSION: 1. Patchy bilateral pneumonia, more so on the left side. Continue Zosyn. 2. Small bowel obstruction, status post laparoscopic resection and lysis of ( ) and adhesions, recovering slowly, but patient has severe protein-calorie malnourishment, requiring TPN. 3. Electrolyte imbalance with hyponatremia 4. Maintain patient on deep venous thrombosis and peptic ulcer disease prophylaxis. 5. Chronic atrial fibrillation, on amiodarone. Patient is a poor candidate for anticoagulation. PLAN: As above. Continue supportive care. Continue deep breathing exercises, incentive spirometry. Will follow.
[2017-01-18 17:29] LABS: Glucose,Whole Blood 110 mg/dL (75-99)
[2017-01-18] MEDS: FAT EMULSION 20% 250 ML in EMPTY BAG 1 BAG IV SCH (18:16)
[2017-01-18] MEDS: SODIUM CHLORIDE 0.9% 1,000 ML IV SCH (21:10)
[2017-01-19 00:04] LABS: Glucose,Whole Blood 112 mg/dL (75-99)
[2017-01-19] MEDS: INSULIN LISPRO (humaLOG) 300 UNIT/3 ML VIAL SQ SCH ×4 (00:18→17:55)
[2017-01-19] MEDS: PIPERACILLIN-TAZOBACTAM 3.375 GM in DEXTROSE/WATER 1 50ML.BAG IVPB SCH ×3 (02:03→17:41)
[2017-01-19] MEDS: [UNRECOGNIZED DRUG - REMARK] IV SCH ×6 (05:13)
[2017-01-19 06:32] LABS: Glucose,Whole Blood 120 mg/dL (75-99)
[2017-01-19] MEDS: HEPARIN SODIUM,PORCINE 5,000 UNIT/ML 1 ML VIAL SQ SCH ×2 (07:59→16:32)
[2017-01-19] MEDS: PANTOPRAZOLE 40 MG TABLET PO SCH (08:00)
[2017-01-19] MEDS: BISACODYL 10 MG SUPP RECTAL SCH (08:00)
[2017-01-19] MEDS: AMIODARONE 200 MG TAB PO SCH (08:00)
[2017-01-19] MEDS: METOPROLOL TARTRATE 12.5 MG TAB PO SCH ×2 (08:00→20:13)
[2017-01-19] MEDS: HYDROmorphone 1 MG/ML 1 ML SYRINGE IVP PRN ×2 (08:43→17:41)
[2017-01-19] MEDS: IPRATROPIUM-ALBUTEROL 3 ML NEB INHALATION SCH ×4 (08:44→19:38)
[2017-01-19] MEDS: SODIUM CHLORIDE 0.9% 1,000 ML IV SCH (08:49)
[2017-01-19 10:15] LABS: Anion Gap 3 mmol/L; Blood Urea Nitrogen 10 mg/dL (7-17); Calcium 7.6 mg/dL (8.4-10.2); Carbon Dioxide 27 mmol/L (22-30); Chloride 103 mmol/L (98-107); Glucose 120 mg/dL (74-99); Magnesium 1.9 mg/dL (1.6-2.3); Non-African American GFR(MDRD) >60 (>60 ml/min/1.73 sqM); Phosphorous 3.4 mg/dL (2.5-4.5); Potassium 3.7 mmol/L (3.5-5.1); Sodium 133 mmol/L (137-145); Triglycerides 145 mg/dL (<150)
[2017-01-19] MEDS: POTASSIUM CHLORIDE 10 MEQ in WATER FOR INJECTION 1 100ML.BAG IVPB SCH ×2 (11:24→12:34)
[2017-01-19 11:48] LABS: Glucose,Whole Blood 124 mg/dL (75-99)
--- NOTE | 2017-01-19 13:43 | P.PN ---
Subjective This is an 86-year-old female patient who is being evaluated and examined today in the intensive care unit. The patient was brought into the emergency room via EMS after family called due to increasing in abdominal pain with no nausea vomiting and diarrhea that had been going on for the past 3 days. Upon arrival the paramedics on the patient to be dyspneic and tachycardic and her pulse ox was low as well. She did have some altered mental status changes however normally is alert and oriented 3. She is also been having some frequency in urination and bedtime wetting. While in the emergency room the patient did go into SVT, was given adenosine which did not affect the rate. She also then went into possibly torsades and was given IV magnesium. CT of the abdomen and pelvis reveals suggestions for ileus, possible early small bowel obstruction, and a moderate fatty infiltration to the liver. Surgical on consult for CT results. Also GI was consulted. Chest x-ray was completed and reveals some mild cardiomegaly, worsening left basilar airspace disease, developing left effusion, and multiple stable pulmonary nodules. Upon examination today the patient's resting up in bed on the 3 L of oxygen via nasal cannula. Patient denies any cough or shortness of breath at this time. Patient denies any abdominal discomfort today, she is continuously requesting have something to eat and drink. NG tube present and hooked to low intermittent suction. Patient also receiving TPN for nutrition. The patient had a laparotmy procedure or a small bowel resection with Surgical services. Patient continues to have intermittent confusion. Hemodynamically the patient has been marginal but stable. Objective - Vital Signs Vital signs: Vital Signs Temp 96.8 F L 01/19/17 07:00 Pulse 88 01/19/17 12:28 Resp 22 01/19/17 07:00 BP 132/63 01/19/17 07:00 Pulse Ox 93 L 01/19/17 07:00 Intake & Output 01/18/17 01/19/17 01/19/17 18:59 06:59 18:59 Intake Total 1041.667 30 100 Output Total 1150 2200 Balance -108.333 -2170 100 Weight 79.5 kg 79.5 kg Intake: Intake, IV Titration 1041.667 100 Amount Mvi, Adult No.4 with Vit 991.667 K 10 ml Trace (Conc-1Ml/ Dose) 1 ml Magnesium Sulfate 8 meq Potassium Phosphate 15 mmol In Amino Acid 5%-D25w+Lytes* E* 1,000 ml @ 50 mls/hr IV .[id number] [facility] Rx#: [id number] Piperacillin-Tazobactam 3 50 .375 gm In Dextrose/Water 1 50ml.bag @ 12.5 mls/hr IVPB Q8H [facility] Rx#: [id number] Potassium Chloride 10 meq 100 In Water For Injection 1 100ml.bag @ 100 mls/hr IVPB Q1H [facility] Rx#: [id number] Oral 30 Output: Gastric Drainage 150 Urine 1000 2200 Other: Voiding Method Indwelling Catheter Indwelling Catheter Indwelling Catheter # Bowel Movements 0 1 - Exam GENERAL EXAM: Alert, active, comfortable in no apparent distress. HEAD: Normocephalic. EYES: Normal reaction of pupils, equal size. NOSE: Clear with pink turbinates. NG present THROAT: No erythema or exudates. NECK: No masses, no JVD. CHEST: No chest wall deformity. LUNGS: Equal air entry, some scattered rhonchi and wheeze. Basis diminished CVS: S1 and S2 normal with no audible mumurs, regular rhythm. ABDOMEN: No hepatosplenomegaly, normal bowel sounds, no guarding or rigidity. Slightly distended EXTREMITIES: No edema noted, pedal pulses palpable. SKIN: No rashes CENTRAL NERVOUS SYSTEM: No focal deficits, tone is normal in all 4 extremities. - Labs CBC & Chem 7: 01/18/17 10:50 01/19/17 09:40 Labs: Abnormal Lab Results - Last 24 Hours (Table) 01/18/17 01/18/17 01/19/17 Range/Units : 23:59 06:20 Sodium (137-145) mmol/L Creatinine (0.52-1.04) mg/dL Glucose (74-99) mg/dL POC Glucose (mg/dL) 110 H 112 H 120 H (75-99) mg/dL Calcium (8.4-10.2) mg/dL 01/19/17 01/19/17 Range/Units 09:40 11:34 Sodium 133 L (137-145) mmol/L Creatinine 0.39 L (0.52-1.04) mg/dL Glucose 120 H (74-99) mg/dL POC Glucose (mg/dL) 124 H (75-99) mg/dL Calcium 7.6 L (8.4-10.2) mg/dL Assessment and Plan Plan: Assessment patchy bilateral pneumonia, more so on the left side. Acute hypoxic respiratory failure Paroxysmal supraventricular tachycardia Small bowel obstruction Dehydration Hypotension Diffuse abdominal pain Leukocytosis Plan Medications have been reviewed and will be continued as ordered. Continue with nebulizer treatments, supplemental oxygen, and pulmonary hygiene. Incentive spirometer was initiated. Appreciate recommendations from surgical and GI. Patient is not stable for discharge at this time. We will continue to monitor labs/reports and adjust treatment as necessary. I performed an examination of the patient and discussed their management with the nurse practitioner. I have reviewed the nurse practitioner's note and agree with the documented findings and plan of care.
--- NOTE | 2017-01-19 14:09 | P.PN ---
Subjective Principal diagnosis: Abdominal pain Patient doing better today. She is having more frequent bowel movements with 1 yesterday and 1 today. Denies abdominal pain at this time. Objective - Vital Signs Vital signs: Vital Signs Temp 96.8 F L 01/19/17 07:00 Pulse 88 01/19/17 12:28 Resp 22 01/19/17 07:00 BP 132/63 01/19/17 07:00 Pulse Ox 93 L 01/19/17 07:00 Intake & Output 01/18/17 01/19/17 01/19/17 18:59 06:59 18:59 Intake Total 1041.667 30 100 Output Total 1150 2200 Balance -108.333 -2170 100 Weight 79.5 kg 79.5 kg Intake: Intake, IV Titration 1041.667 100 Amount Mvi, Adult No.4 with Vit 991.667 K 10 ml Trace (Conc-1Ml/ Dose) 1 ml Magnesium Sulfate 8 meq Potassium Phosphate 15 mmol In Amino Acid 5%-D25w+Lytes* E* 1,000 ml @ 50 mls/hr IV .[id number] [facility] Rx#: [id number] Piperacillin-Tazobactam 3 50 .375 gm In Dextrose/Water 1 50ml.bag @ 12.5 mls/hr IVPB Q8H [facility] Rx#: [id number] Potassium Chloride 10 meq 100 In Water For Injection 1 100ml.bag @ 100 mls/hr IVPB Q1H [facility] Rx#: [id number] Oral 30 Output: Gastric Drainage 150 Urine 1000 2200 Other: Voiding Method Indwelling Catheter Indwelling Catheter Indwelling Catheter # Bowel Movements 0 1 - Exam Abdomen: Soft, nondistended, nontender, bowel sounds present and improved - Labs CBC & Chem 7: 01/18/17 10:50 01/19/17 09:40 Labs: Abnormal Lab Results - Last 24 Hours (Table) 01/18/17 01/18/17 01/19/17 Range/Units 17:27 23:59 06:20 Sodium (137-145) mmol/L Creatinine (0.52-1.04) mg/dL Glucose (74-99) mg/dL POC Glucose (mg/dL) 110 H 112 H 120 H (75-99) mg/dL Calcium (8.4-10.2) mg/dL 01/19/17 01/19/17 Range/Units 09:40 11:34 Sodium 133 L (137-145) mmol/L Creatinine 0.39 L (0.52-1.04) mg/dL Glucose 120 H (74-99) mg/dL POC Glucose (mg/dL) 124 H (75-99) mg/dL Calcium 7.6 L (8.4-10.2) mg/dL Assessment and Plan (1) Abdominal pain Narrative/Plan: Remove nasogastric tube and begin clear liquids at this time. Status: Acute
[2017-01-19 17:03] LABS: Glucose,Whole Blood 99 mg/dL (75-99)
--- NOTE | 2017-01-19 18:00 | XR ---
EXAMINATION TYPE: XR abdomen complete w decub DATE OF EXAM: 01/19/2017 5:08 PM COMPARISON: NONE HISTORY: Ileus TECHNIQUE: Upright abdomen supine abdomen left lateral decubitus abdomen. FINDINGS: Air-fluid levels are within the ascending colon region. No free air is evident. Air is pres ent throughout the colon. Suspicious differential air-fluid levels are not evident. No free air is ev ident. No mass effect is evident. Psoas margins faintly visualized appear normal. Organomegaly is not evident. Cholecystectomy clips in right upper quadrant. IMPRESSION: 1. No air-fluid levels within the ascending colon. 2. No suspicious changes for colonic obstruction.
[2017-01-19 20:43] LABS: Glucose,Whole Blood 112 mg/dL (75-99)
[2017-01-20] MEDS: HYDROmorphone 1 MG/ML 1 ML SYRINGE IVP PRN ×3 (00:02→17:45)
[2017-01-20] MEDS: HEPARIN SODIUM,PORCINE 5,000 UNIT/ML 1 ML VIAL SQ SCH ×4 (00:04→23:32)
[2017-01-20] MEDS: INSULIN LISPRO (humaLOG) 300 UNIT/3 ML VIAL SQ SCH ×4 (00:05→18:26)
[2017-01-20 00:07] LABS: Glucose,Whole Blood 123 mg/dL (75-99)
[2017-01-20] MEDS: [UNRECOGNIZED DRUG - REMARK] IV SCH ×12 (01:33→20:30)
[2017-01-20] MEDS: PIPERACILLIN-TAZOBACTAM 3.375 GM in DEXTROSE/WATER 1 50ML.BAG IVPB SCH ×3 (03:34→17:47)
[2017-01-20 06:17] LABS: Glucose,Whole Blood 104 mg/dL (75-99)
[2017-01-20 07:50] LABS: Anion Gap -2 mmol/L; Blood Urea Nitrogen 11 mg/dL (7-17); Calcium 7.7 mg/dL (8.4-10.2); Carbon Dioxide 31 mmol/L (22-30); Chloride 105 mmol/L (98-107); Glucose 80 mg/dL (74-99); Magnesium 1.9 mg/dL (1.6-2.3); Non-African American GFR(MDRD) >60 (>60 ml/min/1.73 sqM); Phosphorous 3.5 mg/dL (2.5-4.5); Potassium 4.1 mmol/L (3.5-5.1); Sodium 134 mmol/L (137-145)
[2017-01-20] MEDS: PANTOPRAZOLE 40 MG TABLET PO SCH (08:35)
[2017-01-20] MEDS: SODIUM CHLORIDE 0.9% 1,000 ML IV SCH (08:36)
[2017-01-20] MEDS: METOPROLOL TARTRATE 12.5 MG TAB PO SCH ×2 (08:36→21:23)
[2017-01-20] MEDS: AMIODARONE 200 MG TAB PO SCH (08:37)
[2017-01-20] MEDS: BISACODYL 10 MG SUPP RECTAL SCH (08:42)
[2017-01-20] MEDS: IPRATROPIUM-ALBUTEROL 3 ML NEB INHALATION SCH ×4 (09:22→20:08)
[2017-01-20 11:50] LABS: Glucose,Whole Blood 121 mg/dL (75-99)
--- NOTE | 2017-01-20 13:40 | P.PN ---
Subjective Principal diagnosis: Abdominal pain Patient feels better today. She is having active bowel movements. Is hungry. Denies abdominal pain. Objective - Vital Signs Vital signs: Vital Signs Temp 97.2 F L 01/20/17 07:00 Pulse 80 01/20/17 12:07 Resp 19 01/20/17 07:00 BP 134/85 01/20/17 07:00 Pulse Ox 94 L 01/20/17 07:00 Intake & Output 01/19/17 01/20/17 01/20/17 18:59 06:59 18:59 Intake Total 600 1066.667 Output Total 2600 2260 Balance -1999 -1193.333 Weight 79.5 kg 80 kg Intake: Intake, IV Titration 600 1066.667 Amount Mvi, Adult No.4 with Vit 350 1016.667 K 10 ml Trace (Conc-1Ml/ Dose) 1 ml Magnesium Sulfate 8 meq Potassium Phosphate 15 mmol Sodium Chloride 4Meq/ml Vial 20 meq In Amino Acid 5%-D25w +Lytes*E* 1,000 ml @ 50 mls/hr IV .[id number] [facility] Rx #:[id number] Piperacillin-Tazobactam 3 50 50 .375 gm In Dextrose/Water 1 50ml.bag @ 12.5 mls/hr IVPB Q8H [facility] Rx#: [id number] Potassium Chloride 10 meq 200 In Water For Injection 1 100ml.bag @ 100 mls/hr IVPB Q1H [facility] Rx#: [id number] Oral 0 Output: Drainage 0 NG 0 Urine 2600 2260 Other: Voiding Method Indwelling Catheter Indwelling Catheter Indwelling Catheter # Voids 1 # Bowel Movements 1 1 - Exam Abdomen: Soft, nondistended, nontender - Labs CBC & Chem 7: 01/18/17 10:50 01/20/17 06:55 Labs: Abnormal Lab Results - Last 24 Hours (Table) 01/19/17 01/20/17 01/20/17 Range/Units 20:41 00:04 06:09 Sodium (137-145) mmol/L Carbon Dioxide (22-30) mmol/L Creatinine (0.52-1.04) mg/dL POC Glucose (mg/dL) 112 H 123 H 104 H (75-99) mg/dL Calcium (8.4-10.2) mg/dL 01/20/17 01/20/17 Range/Units 06:55 11:49 Sodium 134 L (137-145) mmol/L Carbon Dioxide 31 H (22-30) mmol/L Creatinine 0.40 L (0.52-1.04) mg/dL POC Glucose (mg/dL) 121 H (75-99) mg/dL Calcium 7.7 L (8.4-10.2) mg/dL Assessment and Plan (1) Abdominal pain Narrative/Plan: Advance diet. May discharge tolerates. Status: Acute
[2017-01-20 16:52] LABS: Glucose,Whole Blood 114 mg/dL (75-99)
[2017-01-20] MEDS: FAT EMULSION 20% 250 ML in EMPTY BAG 1 BAG IV SCH (17:47)
--- NOTE | 2017-01-20 20:42 | PN ---
DATE OF SERVICE: 01/17/2017 CHIEF COMPLAINT: Status post laparotomy and lysis of adhesions. HISTORY OF PRESENT ILLNESS: This lady remains confused, and she is upset because the nasogastric tube is still in place. PHYSICAL EXAMINATION: Her vital signs are normal. Chest is clear. Cardiac exam is normal. Dressing is dry. IMPRESSION: Status post laparotomy and lysis of adhesions. PLAN: Continue with IV fluids and wait for her GI motility to return.
--- NOTE | 2017-01-20 20:47 | PN ---
DATE OF SERVICE: 01/18/2017 CHIEF COMPLAINT: Status post bowel obstruction and laparotomy with lysis of adhesions. HISTORY OF PRESENT ILLNESS: This lady is doing reasonably well but still has a nasogastric tube in place. PHYSICAL EXAMINATION: Bowel sounds are not heard. Chest is clear. Cardiac exam is normal. IMPRESSION: Status post laparotomy for lysis of adhesions and bowel obstruction. PLAN: Continue to follow with Surgery.
--- NOTE | 2017-01-20 21:00 | PN ---
DATE OF SERVICE: 01/19/2017 CHIEF COMPLAINT: Postoperative ileus. HISTORY OF PRESENT ILLNESS: This lady is doing reasonably well, but she is still complaining of not being able to eat or drink. PHYSICAL EXAMINATION: Color remains pale. Chest is clear. The cardiac exam is normal. The abdomen is soft. No bowel sounds are heard. IMPRESSION: Status post laparotomy and lysis of adhesions. PLAN: No change in program. Advance diet once her GI function returns.
--- NOTE | 2017-01-20 21:10 | PN ---
DATE OF SERVICE: 01/20/2017 CHIEF COMPLAINT: Status post lysis of adhesions for small bowel obstruction. HISTORY OF PRESENT ILLNESS: This lady is improved. The NG tube is out. She is still not eating. PHYSICAL EXAMINATION: Chest is clear. Cardiac exam is normal. IMPRESSION: 1. Status post laparotomy and lysis of adhesions for bowel obstruction. 2. Anemia. PLAN: Progress activity and diet slowly while working on discharge plan.
--- NOTE | 2017-01-20 21:22 | PN ---
This patient is seen, evaluated, examined. Patient is status post laparoscopic lysis of band adhesions for small bowel obstruction. Patient has a component of pneumonia, for which she is getting broad-spectrum antibiotics. Patient is still very weak; still gets short of breath on minimal activity and exertion. Her blood pressure is 126/65, respiratory rate 20, pulse 81, temperature 97, saturation 95% on 2 L oxygen. HEENT EXAMINATION: Unremarkable. NECK: Supple. LUNGS: Poor air entry at the bases with fine expiratory rhonchi. HEART: Regular rate, rhythm. ABDOMEN: Soft. Hypoactive bowel sounds. No rebound or rigidity. EXTREMITIES: Plus one peripheral pulses. NEUROLOGICAL EXAMINATION: Otherwise awake and alert. Medications reviewed. Laboratory data reviewed as well. Last checked glucose is 104. Abdominal x-ray performed yesterday was reviewed; no air fluid level has been seen. Last chest x-ray on 01/17/17 was reviewed as well, which revealed patchy area, right upper lobe, as well as left lower lobe patchy infiltrate. IMPRESSION: 1. Bilateral pneumonia. 2. Acute on chronic hypoxic respiratory failure related to above as well as abdominal small bowel obstruction. 3. Intermittent paroxysmal tachycardia. 4. Protein-calorie malnourishment, moderate to severe type. 5. Abdominal pain and discomfort and leukocytosis, overall slowly and progressively improving. 6. Severe chronic obstructive pulmonary disease. 7. Chronic atrial fibrillation ( ) patient has been back on amiodarone. 8. Hyperglycemia and diabetes, overall stable with current intervention. 9. Electrolyte imbalance; remains on K-mag-phos replacement. Will follow.
[2017-01-21] MEDS: INSULIN LISPRO (humaLOG) 300 UNIT/3 ML VIAL SQ SCH ×4 (00:08→17:40)
[2017-01-21] MEDS: HYDROmorphone 1 MG/ML 1 ML SYRINGE IVP PRN ×3 (00:11→21:53)
[2017-01-21 00:12] LABS: Glucose,Whole Blood 106 mg/dL (75-99)
[2017-01-21 06:34] LABS: Glucose,Whole Blood 109 mg/dL (75-99)
[2017-01-21] MEDS: IPRATROPIUM-ALBUTEROL 3 ML NEB INHALATION SCH ×4 (07:51→19:23)
[2017-01-21] MEDS: PANTOPRAZOLE 40 MG TABLET PO SCH (07:54)
[2017-01-21] MEDS: AMIODARONE 200 MG TAB PO SCH (07:54)
[2017-01-21] MEDS: METOPROLOL TARTRATE 12.5 MG TAB PO SCH ×2 (07:54→20:59)
[2017-01-21] MEDS: HEPARIN SODIUM,PORCINE 5,000 UNIT/ML 1 ML VIAL SQ SCH ×3 (07:54→23:15)
[2017-01-21] MEDS: BISACODYL 10 MG SUPP RECTAL SCH (07:54)
[2017-01-21] MEDS: SODIUM CHLORIDE 0.9% 1,000 ML IV SCH (07:54)
[2017-01-21 09:04] LABS: Anion Gap 3 mmol/L; Blood Urea Nitrogen 11 mg/dL (7-17); Calcium 7.9 mg/dL (8.4-10.2); Carbon Dioxide 25 mmol/L (22-30); Chloride 105 mmol/L (98-107); Glucose 106 mg/dL (74-99); Magnesium 1.9 mg/dL (1.6-2.3); Non-African American GFR(MDRD) >60 (>60 ml/min/1.73 sqM); Phosphorous 3.9 mg/dL (2.5-4.5); Sodium 133 mmol/L (137-145)
--- NOTE | 2017-01-21 10:51 | P.PN ---
Progress Note - Text The patient resting comfortably in her bed. She states that she has had multiple bowel movements. On exam her vital signs are stable. Her abdomen soft. It. Patient will continue soft diet. She will be discharged home per medicine.
[2017-01-21 11:23] LABS: Glucose,Whole Blood 115 mg/dL (75-99)
[2017-01-21] MEDS: HYDROcodone/APAP 5-325MG 1 EACH TAB PO PRN (13:30)
--- NOTE | 2017-01-21 14:24 | P.PN ---
Subjective Principal diagnosis: Small bowel obstruction Patient seen and examined covering for Dr. Kim. The patient has been hospitalized for 16 days with a complex history. The patient had an exploratory laparoscopy for small bowel obstruction. She also has known severe COPD and atrial fibrillation. The patient states she is feeling well today. She is hoping to go home soon. She states she does not want to go to rehab. She is encouraged to think about going to rehab given her prolonged hospitalization and generalized weakness. It also seems that she does not have support at home at this time as her daughter is attending to another family member who had a stroke. The patient is complaining of intermittent coughing. She is asking for Mucinex. She states she has had this in the past and it has helped. Objective - Vital Signs Vital signs: Vital Signs Temp 97.5 F L 01/21/17 07:00 Pulse 82 01/21/17 11:07 Resp 19 01/21/17 07:00 BP 142/60 01/21/17 07:00 Pulse Ox 95 01/21/17 07:53 Intake & Output 01/20/17 01/21/17 01/21/17 18:59 06:59 18:59 Intake Total 947.5 Output Total 1650 1 Balance -702.5 -1 Weight 78 kg Intake: Intake, IV Titration 947.5 Amount Mvi, Adult No.4 with Vit 947.5 K 10 ml Trace (Conc-1Ml/ Dose) 1 ml Magnesium Sulfate 8 meq Potassium Phosphate 15 mmol Sodium Chloride 4Meq/ml Vial 20 meq In Amino Acid 5%-D25w +Lytes*E* 1,000 ml @ 50 mls/hr IV .[id number] [facility] Rx #:[id number] Output: Urine 1650 Stool 1 Other: Voiding Method Indwelling Catheter Indwelling Catheter Indwelling Catheter # Voids 1 # Bowel Movements 1 1 - Exam Gen.: Patient is alert and oriented 3, no acute distress Cardiovascular: Regular rate and rhythm, S1/S2 Lungs: Diminished bilaterally otherwise clear Abdomen: Soft mildly diffusely tender nondistended positive bowel sounds Extremities: No edema - Labs CBC & Chem 7: 01/18/17 10:50 01/21/17 08:22 Labs: Abnormal Lab Results - Last 24 Hours (Table) 01/20/17 01/21/17 01/21/17 Range/Units 16:50 00:00 06:28 Sodium (137-145) mmol/L Creatinine (0.52-1.04) mg/dL Glucose (74-99) mg/dL POC Glucose (mg/dL) 114 H 106 H 109 H (75-99) mg/dL Calcium (8.4-10.2) mg/dL 01/21/17 01/21/17 Range/Units 08:22 11:21 Sodium 133 L (137-145) mmol/L Creatinine 0.43 L (0.52-1.04) mg/dL Glucose 106 H (74-99) mg/dL POC Glucose (mg/dL) 115 H (75-99) mg/dL Calcium 7.9 L (8.4-10.2) mg/dL Assessment and Plan Plan: Acute on chronic hypoxic respiratory failure Bilateral pneumonia Status post exploratory laparoscopy for small bowel ejection Protein calorie malnutrition Abdominal pain Severe COPD Chronic atrial fibrillation Hyponatremia O2 to maintain saturation greater than or equal to 88% Pain control Will initiate Mucinex for cough. The patient states this has helped her in the past. Patient is encouraged to consider going to rehab. PT and OT Diet per surgery Bronchodilators Discharge planning per primary team Respiratory status appears to be stable
[2017-01-21] MEDS: [UNRECOGNIZED DRUG - REMARK] IV SCH ×6 (16:23)
[2017-01-21 17:15] LABS: Glucose,Whole Blood 119 mg/dL (75-99)
[2017-01-21] MEDS: guaiFENesin 600 MG TABLET.ER PO SCH (21:00)
[2017-01-21] MEDS: LORazepam 1 MG TAB PO PRN (23:15)
[2017-01-21 23:53] LABS: Glucose,Whole Blood 106 mg/dL (75-99)
[2017-01-22] MEDS: INSULIN LISPRO (humaLOG) 300 UNIT/3 ML VIAL SQ SCH ×4 (02:39→16:55)
[2017-01-22 05:54] LABS: Glucose,Whole Blood 106 mg/dL (75-99)
[2017-01-22 07:44] LABS: Glucose,Whole Blood 106 mg/dL (75-99)
[2017-01-22] MEDS: guaiFENesin 600 MG TABLET.ER PO SCH ×2 (07:49→21:20)
[2017-01-22] MEDS: HEPARIN SODIUM,PORCINE 5,000 UNIT/ML 1 ML VIAL SQ SCH ×3 (07:49→23:58)
[2017-01-22] MEDS: METOPROLOL TARTRATE 12.5 MG TAB PO SCH ×2 (07:49→21:20)
[2017-01-22] MEDS: PANTOPRAZOLE 40 MG TABLET PO SCH (07:49)
[2017-01-22] MEDS: BISACODYL 10 MG SUPP RECTAL SCH (07:49)
[2017-01-22] MEDS: AMIODARONE 200 MG TAB PO SCH (07:49)
[2017-01-22] MEDS: IPRATROPIUM-ALBUTEROL 3 ML NEB INHALATION SCH ×4 (08:05→20:44)
[2017-01-22 08:55] LABS: Anion Gap 3 mmol/L; Blood Urea Nitrogen 10 mg/dL (7-17); Calcium 7.8 mg/dL (8.4-10.2); Carbon Dioxide 25 mmol/L (22-30); Chloride 104 mmol/L (98-107); Glucose 102 mg/dL (74-99); Magnesium 1.8 mg/dL (1.6-2.3); Non-African American GFR(MDRD) >60 (>60 ml/min/1.73 sqM); Phosphorous 3.8 mg/dL (2.5-4.5); Potassium 4.1 mmol/L (3.5-5.1); Sodium 132 mmol/L (137-145)
[2017-01-22 11:46] LABS: Glucose,Whole Blood 105 mg/dL (75-99)
[2017-01-22] MEDS: [UNRECOGNIZED DRUG - REMARK] IV SCH ×6 (12:28)
--- NOTE | 2017-01-22 13:41 | P.PN ---
Progress Note - Text The patient resting comfortably in her bed. She has no significant complaints of abdominal pain. She is tolerating her diet. On exam her vital signs are stable. Her abdomen soft. Resolving ileus. Patient will be discharged home per medicine.
[2017-01-22] MEDS: SODIUM CHLORIDE 0.9% 1,000 ML IV SCH (16:23)
[2017-01-22] MEDS: HYDROcodone/APAP 5-325MG 1 EACH TAB PO PRN (16:23)
[2017-01-22 16:52] LABS: Glucose,Whole Blood 124 mg/dL (75-99)
[2017-01-22 20:56] LABS: Glucose,Whole Blood 113 mg/dL (75-99)
[2017-01-22] MEDS: LORazepam 1 MG TAB PO PRN (21:20)
[2017-01-23 00:06] LABS: Glucose,Whole Blood 103 mg/dL (75-99)
[2017-01-23] MEDS: INSULIN LISPRO (humaLOG) 300 UNIT/3 ML VIAL SQ SCH ×4 (02:16→17:09)
[2017-01-23 05:43] LABS: Glucose,Whole Blood 127 mg/dL (75-99)
[2017-01-23 07:30] LABS: Glucose,Whole Blood 116 mg/dL (75-99)
[2017-01-23] MEDS: guaiFENesin 600 MG TABLET.ER PO SCH ×2 (07:32→20:39)
[2017-01-23] MEDS: AMIODARONE 200 MG TAB PO SCH (07:33)
[2017-01-23] MEDS: BISACODYL 10 MG SUPP RECTAL SCH (07:33)
[2017-01-23] MEDS: HYDROcodone/APAP 5-325MG 1 EACH TAB PO PRN ×2 (07:33→14:23)
[2017-01-23] MEDS: HEPARIN SODIUM,PORCINE 5,000 UNIT/ML 1 ML VIAL SQ SCH ×2 (07:33→15:18)
[2017-01-23] MEDS: METOPROLOL TARTRATE 12.5 MG TAB PO SCH ×2 (07:33→20:39)
[2017-01-23] MEDS: PANTOPRAZOLE 40 MG TABLET PO SCH (07:33)
[2017-01-23] MEDS: IPRATROPIUM-ALBUTEROL 3 ML NEB INHALATION SCH ×4 (08:41→19:57)
[2017-01-23] MEDS: [UNRECOGNIZED DRUG - REMARK] IV SCH ×6 (10:39)
[2017-01-23] MEDS: SODIUM CHLORIDE 0.9% 1,000 ML IV SCH (10:39)
--- NOTE | 2017-01-23 11:20 | P.PN ---
Subjective Principal diagnosis: Small bowel obstruction Patient seen and examined. Patient states she had some shortness of breath overnight. She did receive a breathing treatment which helped her. She states she is unsure if she is going to rehab or being discharged. Objective - Vital Signs Vital signs: Vital Signs Temp 98.4 F 01/23/17 07:00 Pulse 78 01/23/17 08:56 Resp 20 01/23/17 07:00 BP 138/63 01/23/17 07:00 Pulse Ox 92 L 01/23/17 08:41 Intake & Output 01/22/17 01/23/17 01/23/17 18:59 06:59 18:59 Intake Total 600 1025 Output Total 1600 900 0 Balance -1000 -900 1025 Weight 74.5 kg Intake: Intake, IV Titration 1025 Amount Mvi, Adult No.4 with Vit 1025 K 10 ml Trace (Conc-1Ml/ Dose) 1 ml Magnesium Sulfate 8 meq Potassium Phosphate 15 mmol Sodium Chloride 4Meq/ml Vial 28 meq In Amino Acid 5%-D25w +Lytes*E* 1,000 ml @ 50 mls/hr IV .[id number] [facility] Rx #:[id number] Oral 600 Output: Drainage 0 NG 0 Urine 1600 900 Other: Voiding Method Indwelling Catheter Indwelling Catheter Indwelling Catheter # Voids 1 1 # Bowel Movements 1 1 - Exam Gen.: Patient is alert and oriented 3, no acute distress Cardiovascular: Regular rate and rhythm, S1/S2 Lungs: Diminished bilaterally otherwise clear Abdomen: Soft mildly diffusely tender nondistended positive bowel sounds Extremities: No edema - Labs CBC & Chem 7: 01/18/17 10:50 01/22/17 08:07 Labs: Abnormal Lab Results - Last 24 Hours (Table) 01/22/17 01/22/17 01/22/17 Range/Units 11:35 16:38 20:54 POC Glucose (mg/dL) 105 H 124 H 113 H (75-99) mg/dL 01/23/17 01/23/17 01/23/17 Range/Units 00:03 05:41 07:28 POC Glucose (mg/dL) 103 H 127 H 116 H (75-99) mg/dL Assessment and Plan Plan: Acute on chronic hypoxic respiratory failure Bilateral pneumonia Status post exploratory laparoscopy for small bowel ejection Protein calorie malnutrition Abdominal pain Severe COPD Chronic atrial fibrillation Hyponatremia O2 to maintain saturation greater than or equal to 88% Pain control Continue Mucinex for cough. The patient states this has helped her in the past. Patient is encouraged to consider going to rehab. PT and OT Diet per surgery Bronchodilators Discharge planning per primary team Respiratory status appears to be stable. Okay to discharge from pulmonary standpoint Would continue nebulizer breathing treatments as an outpatient.
[2017-01-23 11:29] LABS: Anion Gap 5 mmol/L; Blood Urea Nitrogen 12 mg/dL (7-17); Carbon Dioxide 21 mmol/L (22-30); Chloride 107 mmol/L (98-107); Glucose 88 mg/dL (74-99); Magnesium 1.8 mg/dL (1.6-2.3); Non-African American GFR(MDRD) >60 (>60 ml/min/1.73 sqM); Phosphorous 3.7 mg/dL (2.5-4.5); Potassium 4.2 mmol/L (3.5-5.1); Sodium 133 mmol/L (137-145)
[2017-01-23 11:44] VITALS: BMI 28.1
[2017-01-23 12:04] LABS: Glucose,Whole Blood 118 mg/dL (75-99)
--- NOTE | 2017-01-23 15:43 | PN ---
DATE OF SERVICE: 01/21/2017 CHIEF COMPLAINT: Status post laparotomy and lysis of adhesions. HISTORY OF PRESENT ILLNESS: This lady remains very weak but is starting to advance her diet slowly. PHYSICAL EXAMINATION: She remains very pale. Chest demonstrates breath sounds on both sides with occasional rales. Cardiac exam is normal. The dressings are dry. IMPRESSION: Status post lysis of adhesions after laparotomy for bowel obstruction. PLAN: Continue to try to encourage increased oral intake as well as activity.
--- NOTE | 2017-01-23 16:13 | PN ---
DATE OF SERVICE: 01/22/2017 CHIEF COMPLAINT: Status post laparotomy for bowel obstruction. HISTORY OF PRESENT ILLNESS: This lady is doing a little bit better. She still remains weak and will have to go to extended-care facility. PHYSICAL EXAMINATION: She remains pale. Cardiac exam shows normal sinus rhythm and her chest is clear. ABDOMEN: Soft. Bowel sounds are present. IMPRESSION: 1. Status post laparotomy and lysis of adhesions for bowel obstruction. 2. Anemia. PLAN: Continue to follow with Surgery and eventually prepare her for move to rehab.
--- NOTE | 2017-01-23 16:25 | PN ---
DATE OF SERVICE: 01/23/2017 CHIEF COMPLAINT: Status post laparotomy. HISTORY OF PRESENT ILLNESS: This lady is doing better each day and can probably go home. PHYSICAL EXAMINATION: Chest is clear. The cardiac exam is normal. The abdomen is soft, nontender. IMPRESSION: Status post bowel obstruction and lysis of adhesions. PLAN: Home just about any time she is cleared by Surgery.
[2017-01-23] MEDS: FAT EMULSION 20% 250 ML in EMPTY BAG 1 BAG IV SCH (16:44)
[2017-01-23 17:11] LABS: Glucose,Whole Blood 122 mg/dL (75-99)
--- NOTE | 2017-01-23 17:57 | P.PN ---
Subjective Principal diagnosis: Abdominal pain Patient doing well. No complaints of pain. She is tolerating her diet. She is having bowel activity. Objective - Vital Signs Vital signs: Vital Signs Temp 98.6 F 01/23/17 15:00 Pulse 76 01/23/17 15:56 Resp 20 01/23/17 15:00 BP 120/67 01/23/17 15:00 Pulse Ox 94 L 01/23/17 15:00 Intake & Output 01/22/17 01/23/17 01/23/17 18:59 06:59 18:59 Intake Total 600 1025 Output Total 1600 900 0 Balance -1000 -900 1025 Weight 74.5 kg 74.5 kg Intake: Intake, IV Titration 1025 Amount Mvi, Adult No.4 with Vit 1025 K 10 ml Trace (Conc-1Ml/ Dose) 1 ml Magnesium Sulfate 8 meq Potassium Phosphate 15 mmol Sodium Chloride 4Meq/ml Vial 28 meq In Amino Acid 5%-D25w +Lytes*E* 1,000 ml @ 50 mls/hr IV .[id number] [facility] Rx #:[id number] Oral 600 Output: Drainage 0 NG 0 Urine 1600 900 Other: Voiding Method Indwelling Catheter Indwelling Catheter Indwelling Catheter # Voids 1 1 # Bowel Movements 1 1 1 - Exam Abdomen: Soft, nontender, nondistended - Labs CBC & Chem 7: 01/18/17 10:50 01/23/17 10:52 Labs: Abnormal Lab Results - Last 24 Hours (Table) 01/22/17 01/23/17 01/23/17 Range/Units 20:54 00:03 05:41 Sodium (137-145) mmol/L Carbon Dioxide (22-30) mmol/L Creatinine (0.52-1.04) mg/dL POC Glucose (mg/dL) 113 H 103 H 127 H (75-99) mg/dL Calcium (8.4-10.2) mg/dL 01/23/17 01/23/17 01/23/17 Range/Units 07:28 10:52 11:59 Sodium 133 L (137-145) mmol/L Carbon Dioxide 21 L (22-30) mmol/L Creatinine 0.44 L (0.52-1.04) mg/dL POC Glucose (mg/dL) 116 H 118 H (75-99) mg/dL Calcium 8.0 L (8.4-10.2) mg/dL 01/23/17 Range/Units 17:08 Sodium (137-145) mmol/L Carbon Dioxide (22-30) mmol/L Creatinine (0.52-1.04) mg/dL POC Glucose (mg/dL) 122 H (75-99) mg/dL Calcium (8.4-10.2) mg/dL Assessment and Plan (1) Abdominal pain Narrative/Plan: Stable for discharge from my standpoint. Follow-up with me in the office post discharge. Status: Acute
[2017-01-23] MEDS: LORazepam 1 MG TAB PO PRN (20:40)
[2017-01-23 23:37] VITALS: TEMP 97.2
[2017-01-24 00:55] LABS: Glucose,Whole Blood 111 mg/dL (75-99)
[2017-01-24] MEDS: INSULIN LISPRO (humaLOG) 300 UNIT/3 ML VIAL SQ SCH ×3 (00:55→12:19)
[2017-01-24 05:47] LABS: Glucose,Whole Blood 93 mg/dL (75-99)
[2017-01-24 07:48] VITALS: BP 135/78; RESP 18
[2017-01-24] MEDS: [UNRECOGNIZED DRUG - REMARK] IV SCH ×6 (08:09)
[2017-01-24] MEDS: HEPARIN SODIUM,PORCINE 5,000 UNIT/ML 1 ML VIAL SQ SCH ×2 (08:10)
[2017-01-24] MEDS: PANTOPRAZOLE 40 MG TABLET PO SCH (08:10)
[2017-01-24] MEDS: METOPROLOL TARTRATE 12.5 MG TAB PO SCH (08:10)
[2017-01-24] MEDS: guaiFENesin 600 MG TABLET.ER PO SCH (08:11)
[2017-01-24] MEDS: AMIODARONE 200 MG TAB PO SCH (08:11)
[2017-01-24] MEDS: HYDROcodone/APAP 5-325MG 1 EACH TAB PO PRN (08:11)
[2017-01-24] MEDS: BISACODYL 10 MG SUPP RECTAL SCH (08:12)
[2017-01-24] MEDS: IPRATROPIUM-ALBUTEROL 3 ML NEB INHALATION SCH ×2 (10:00→11:18)
[2017-01-24 11:22] VITALS: PULSE 72
--- NOTE | 2017-01-24 12:02 | P.PN ---
Subjective This is an 86-year-old female patient who is being evaluated and examined today in the intensive care unit. The patient was brought into the emergency room via EMS after family called due to increasing in abdominal pain with no nausea vomiting and diarrhea that had been going on for the past 3 days. Upon arrival the paramedics on the patient to be dyspneic and tachycardic and her pulse ox was low as well. She did have some altered mental status changes however normally is alert and oriented 3. She is also been having some frequency in urination and bedtime wetting. While in the emergency room the patient did go into SVT, was given adenosine which did not affect the rate. She also then went into possibly torsades and was given IV magnesium. CT of the abdomen and pelvis reveals suggestions for ileus, possible early small bowel obstruction, and a moderate fatty infiltration to the liver. Surgical on consult for CT results. Also GI was consulted. Chest x-ray was completed and reveals some mild cardiomegaly, worsening left basilar airspace disease, developing left effusion, and multiple stable pulmonary nodules. Upon examination today the patient's resting up in bed on the 2 L of oxygen via nasal cannula. Patient denies any cough or shortness of breath at this time. Patient denies any abdominal discomfort today. The patient had a laparotmy procedure or a small bowel resection with Surgical services. Patient continues to have intermittent confusion. Plan is for discharge either to home or rehabilitation facility. Objective - Vital Signs Vital signs: Vital Signs Temp 97.2 F L 01/24/17 07:00 Pulse 72 01/24/17 11:33 Resp 18 01/24/17 07:00 BP 135/78 01/24/17 07:00 Pulse Ox 92 L 01/24/17 07:00 Intake & Output 01/23/17 01/24/17 01/24/17 18:59 06:59 18:59 Intake Total 1025 200 Output Total 0 2600 Balance 1025 -2400 Weight 74.5 kg 76 kg Intake: Intake, IV Titration 1025 Amount Mvi, Adult No.4 with Vit 1025 K 10 ml Trace (Conc-1Ml/ Dose) 1 ml Magnesium Sulfate 8 meq Potassium Phosphate 15 mmol Sodium Chloride 4Meq/ml Vial 28 meq In Amino Acid 5%-D25w +Lytes*E* 1,000 ml @ 50 mls/hr IV .[id number] [facility] Rx #:[id number] Oral 200 Output: Drainage 0 NG 0 Urine 2600 Uretheral (Maxwell) 1300 Other: Voiding Method Indwelling Catheter Indwelling Catheter Indwelling Catheter # Bowel Movements 1 - Exam GENERAL EXAM: Alert, active, comfortable in no apparent distress. HEAD: Normocephalic. EYES: Normal reaction of pupils, equal size. NOSE: Clear with pink turbinates. THROAT: No erythema or exudates. NECK: No masses, no JVD. CHEST: No chest wall deformity. LUNGS: Equal air entry, some scattered rhonchi and wheeze. Basis diminished CVS: S1 and S2 normal with no audible mumurs, regular rhythm. ABDOMEN: No hepatosplenomegaly, normal bowel sounds, no guarding or rigidity. Slightly distended EXTREMITIES: No edema noted, pedal pulses palpable. SKIN: No rashes CENTRAL NERVOUS SYSTEM: No focal deficits, tone is normal in all 4 extremities. - Labs CBC & Chem 7: 01/18/17 10:50 01/23/17 10:52 Labs: Abnormal Lab Results - Last 24 Hours (Table) 01/23/17 01/23/17 01/24/17 Range/Units 11:59 17:08 00:52 POC Glucose (mg/dL) 118 H 122 H 111 H (75-99) mg/dL Assessment and Plan Plan: Assessment patchy bilateral pneumonia, more so on the left side. Acute hypoxic respiratory failure Paroxysmal supraventricular tachycardia Small bowel obstruction Dehydration Hypotension Diffuse abdominal pain Leukocytosis Plan She can be cleared from pulmonary standpoint for discharge. Medications have been reviewed and will be continued as ordered. Continue with nebulizer treatments, supplemental oxygen, and pulmonary hygiene. Incentive spirometer was initiated. Appreciate recommendations from surgical and GI. We will continue to monitor labs/reports and adjust treatment as necessary. I performed an examination of the patient and discussed their management with the nurse practitioner. I have reviewed the nurse practitioner's note and agree with the documented findings and plan of care.
--- NOTE | 2017-01-24 13:51 | P.DS ---
Providers Date of admission: 01/05/17 12:37 Expected date of discharge: 01/24/17 Attending physician: Humza Garcia Consults: 01/05/17 12:57 Consult Physician Routine Consulting Provider: Jeff Alfaro Consult Reason/Comments: Paroxysmal SVT Do you want consulting provider notified?: Yes Consult Physician Urgent Consulting Provider: Marek Green Consult Reason/Comments: Early small bowel obstruction Do you want consulting provider notified?: Yes 01/05/17 17:24 Consult Physician Stat Consulting Provider: Jorgito Kim Consult Reason/Comments: Patient known to you, ICU management Do you want consulting provider notified?: Already Contacted Primary care physician: Humza Garcia Hospital Course: 86-year-old female presented on the day of admission to the emergency room with chief complaint of abdominal pain. Patient was followed by multiple consulting physicians throughout the hospitalization. Patient did undergo on January 13 a diagnostic laparoscopic with lysis of adhesions. The workup was for abdominal pain with an ileus with a possible small bowel obstruction. Cardiology did participate in the plan of care as well. Patient did have an episode of atrial flutter during surgery. Was on amiodarone 200 mg along with metoprolol. Patient maintained heart rates in the 50s and 60s. No further episodes. The procedure the patient was admitted to the intensive care unit for close monitoring. Patient did have a CAT scan of the abdomen pelvis it did suggest an ileus with possible early small bowel obstruction. Patient was seen by physical and occupational therapy patient was able to be stabilized and discharged out of the ICU to a stepdown unit. Postop surgical care monitored closely by surgical service. Patient was felt to be appropriate candidate to be admitted to a subacute rehab. Patient's family is choice was [facility]. Subsequent patient was stabilized and felt to be appropriate to be discharged to the [facility] facility Impression discharge diagnosis Acute hypoxic respiratory failure Paroxysmal supraventricular tachycardia Small bowel obstruction Dehydration present on admission Episodes of hypotension Leukocytosis suspect reactive 13 of January diagnostic laparoscopic with lysis of adhesions suspect small bowel obstruction with ileus with adhesions Chronic debility Mild protein calorie malnutrition suspect due to poor caloric intake Present on admission nausea vomiting abdominal pain suspect ischemic bowel as etiology Present on admission coagulopathy INR 2.2 Episodes of paroxysmal atrial fibrillation with rapid ventricular response Present on admission hypocalcium Present on admission leukocytosis Echocardiogram on January 06 normal systolic function with an ejection fraction 55-60% with diastolic dysfunction Cardiac arrhythmias history of History of esophageal reflux disease History of a colonoscopy April [address] Barros negative findings Acute hypoxic respiratory failure resolving Paroxysmal supraventricular tachycardia Present on admission Atrial flutter with one-to-one conduction or atrial tachycardia ,atrial fibrillation unable to determine cardiology following Chronic diastolic dysfunction congestive heart failure The above dictated assessment and findings were discussed with dr norma Ferreira and the plan of care have been dictated as directed. Laura Patel nurse practitioner acting as a scribe for dr garcia Patient Condition at Discharge: Serious Plan - Discharge Summary New Discharge Prescriptions: HYDROcodone/APAP 5-325MG [Critz 5-325] 1 each PO Q6HR PRN #30 tab PRN Reason: Pain LORazepam [Ativan] 1 mg PO HS PRN #30 tab PRN Reason: Insomnia Discharge Medication List Albuterol Nebulized [Ventolin Nebulized] 2.5 mg INHALATION Q6H PRN 01/05/17 [ History] Aspirin 81 mg PO DAILY 01/05/17 [History] Budesonide/Formoterol Fumarate [Symbicort 160-4.5 Mcg Inhaler] 2 puff INHALATION RT-BID 01/05/17 [History] Calcium Carb-Vit D 500Mg-200Un [Oscal 500+D] 1 tab PO W/SUPPER 01/05/17 [History ] Hydrocodone/Acetaminophen [Critz 5-325] 1 tab PO TID PRN 01/05/17 [History] Ipratropium-Albuterol Nebulize [Duoneb 0.5 mg-3 mg/3 ml Soln] 3 ml INHALATION RT -TID 01/05/17 [History] Lactulose [Cephulac] 20 gm PO DAILY PRN 01/05/17 [History] Levothyroxine Sodium [Synthroid] 25 mcg PO DAILY 01/05/17 [History] Loratadine [Claritin] 10 mg PO DAILY PRN 01/05/17 [History] Magnesium Oxide [Mag-Ox] 400 mg PO W/SUPPER 01/05/17 [History] Meclizine HCl 12.5 mg PO TID PRN 01/05/17 [History] Melatonin 5 mg PO HS 01/05/17 [History] Omeprazole 20 mg PO DAILY 01/05/17 [History] Ondansetron HCl [Zofran] 8 mg PO Q8H PRN 01/05/17 [History] Potassium Chloride [Klor-Con 10] 10 meq PO BID-W/MEALS 01/05/17 [History] guaiFENesin [Mucinex] 600 mg PO BID-W/MEALS 01/05/17 [History] traZODone HCL 100 mg PO HS PRN 01/05/17 [History] Amiodarone [Cordarone] 200 mg PO DAILY tab 01/24/17 [Rx] HYDROcodone/APAP 5-325MG [Critz 5-325] 1 each PO Q6HR PRN #30 tab 01/24/17 [Rx] Ipratropium-Albuterol Nebulize [Duoneb 0.5 mg-3 mg/3 ml Soln] 3 ml INHALATION RT -Q2H PRN #0 ampul.neb 01/24/17 [Rx] LORazepam [Ativan] 1 mg PO HS PRN #30 tab 01/24/17 [Rx] Metoprolol Tartrate [Lopressor] 12.5 mg PO BID tab 01/24/17 [Rx] Follow up Appointment(s)/Referral(s): Sander Damon MD [STAFF PHYSICIAN] - 3 Weeks Humza Garcia MD [Primary Care Provider] - 1-2 days Jorgito Kim MD [STAFF PHYSICIAN] - 1 Week Discharge Disposition: TRANSFER TO SNF/ECF
[2017-01-24] MEDS: SODIUM CHLORIDE 0.9% 1,000 ML IV SCH (14:52)
--- NOTE | 2017-01-24 21:48 | PN ---
DATE OF SERVICE: 01/24/2017 CHIEF COMPLAINT: Abdominal pain and bowel obstruction. HISTORY OF PRESENT ILLNESS: This lady is doing fairly well and she may be discharged to a detention soon. PHYSICAL EXAMINATION: She is awake, alert, and she was pale. CHEST: Clear. CARDIAC: Normal. Dressing is dry. IMPRESSION: Status post laparotomy for lysis of adhesions. PLAN: Possibly move to detention today, and this will be arranged by the nurse practitioner.
== END 2017-01-24 17:22 | DRG 853 ==
LOC: EC 07:18 → 6ICU 12:37 → 6SEL 01-07 16:16 → 6ICU 01-13 17:27 → 4MS4W 01-15 12:25
PROVIDERS: ADMIT Family Medicine; ATTEND Family Medicine
PROC: 02HV33Z Insertion of Infusion Device into Superior Vena Cava, Percutaneous Approach (ICD-10-PCS; 2017-01-05)
PROC: 0DNS0ZZ (ICD-10-PCS; principal; 2017-01-13 13:10)
DX: A41.9 Sepsis, unspecified organism (principal); R65.21 Severe sepsis with septic shock; J96.21 Acute and chronic respiratory failure with hypoxia; J15.6 Pneumonia due to other Gram-negative bacteria; D68.9 Coagulation defect, unspecified; I11.0 Hypertensive heart disease with heart failure; K56.5 Intestinal adhesions [bands] with obstruction (postinfection); J44.0 Chronic obstructive pulmonary disease with (acute) lower respiratory infection; E87.2 Acidosis; I50.32 Chronic diastolic (congestive) heart failure; I48.1 Persistent atrial fibrillation; I47.1 Supraventricular tachycardia; I48.92 Unspecified atrial flutter; E44.1 Mild protein-calorie malnutrition; E87.1 Hypo-osmolality and hyponatremia; E11.65 Type 2 diabetes mellitus with hyperglycemia; E86.0 Dehydration; I48.0 Paroxysmal atrial fibrillation; I48.2 Chronic atrial fibrillation; E83.42 Hypomagnesemia; E83.39 Other disorders of phosphorus metabolism; E66.01 Morbid (severe) obesity due to excess calories; D64.9 Anemia, unspecified; E03.9 Hypothyroidism, unspecified; E78.5 Hyperlipidemia, unspecified; E87.6 Hypokalemia; F41.9 Anxiety disorder, unspecified; I25.10 Atherosclerotic heart disease of native coronary artery without angina pectoris; J45.909 Unspecified asthma, uncomplicated; K21.9 Gastro-esophageal reflux disease without esophagitis; K29.70 Gastritis, unspecified, without bleeding; K44.9 Diaphragmatic hernia without obstruction or gangrene; K52.9 Noninfective gastroenteritis and colitis, unspecified; K58.9 Irritable bowel syndrome, unspecified; R32 Unspecified urinary incontinence; Z79.82 Long term (current) use of aspirin; Z79.899 Other long term (current) drug therapy; Z85.3 Personal history of malignant neoplasm of breast; Z87.891 Personal history of nicotine dependence; Z88.1 Allergy status to other antibiotic agents; Z88.2 Allergy status to sulfonamides
CPT/HCPCS: 36415; 36600; 43753; 71010; 74000; 74020; 74177; 80048; 80053; 81003; 82150; 82330; 82550; 82553; 82805; 83605; 83690; 83735; 84100; 84443; 84478; 84484; 85025; 85610; 85730; 86850; 86900; 86901; 86920; 87086; 87502; 93005; 93306; 94002; 94003; 94640; 94760

== ENCOUNTER 2018-07-26 22:09 | Emergency (ER) | payer MEDICARE, OTHER ==
--- NOTE | 2018-07-26 22:34 | ED ---
General Adult HPI - General Chief complaint: Shortness of Breath Stated complaint: hypoxia, confusion Time Seen by Provider: 07/26/18 22:31 Source: patient, EMS Mode of arrival: EMS Limitations: no limitations - History of Present Illness Initial comments: Mary Ann is a pleasant 87-year-old female who presents the ED via EMS for evaluation of confusion. Patient states that she's been feeling well and she is not certain why she was sent here. EMS reports that there were told the patient has had hypoxia with oxygen saturations in the high 80s throughout the day today. The report that caregivers at her facility felt that she became more confused in the evening so sent her here for further evaluation. Patient had no fever, cough or any distress. - Related Data Home Medications Medication Instructions Recorded Confirmed RX: Calcium Carb-Vit D 500Mg-200Un 1 tab PO DAILY@0900 01/05/17 07/26/18 [Oscal 500+D] RX: Ipratropium-Albuterol Nebulize 3 ml INHALATION RT-TID 01/05/17 07/26/18 [Duoneb 0.5 mg-3 mg/3 ml Soln] RX: Levothyroxine Sodium 25 mcg PO DAILY 01/05/17 07/26/18 [Synthroid] RX: Loratadine [Claritin] 10 mg PO DAILY PRN 01/05/17 07/26/18 RX: Melatonin 5 mg PO HS 01/05/17 07/26/18 RX: Omeprazole 20 mg PO DAILY 01/05/17 07/26/18 RX: Potassium Chloride [Klor-Con 10 meq PO BID-W/MEALS 01/05/17 07/26/18 10] RX: traZODone HCL 100 mg PO HS PRN 01/05/17 07/26/18 RX: Diphenoxylate HCl/Atropine 2 tab PO QID PRN 09/01/17 07/26/18 [Lomotil 2.5-0.025 mg Tablet] Acetaminophen [Tylenol Arthritis] 650 mg PO Q4HR PRN 07/26/18 07/26/18 Aspirin [Adult Low Dose Aspirin EC] 81 mg PO DAILY 07/26/18 07/26/18 Dicyclomine [Bentyl] 20 mg PO TID 07/26/18 07/26/18 Ketorolac [Toradol] 10 mg PO Q6HR PRN 07/26/18 07/26/18 LORazepam [Ativan] 0.5 mg PO HS 07/26/18 07/26/18 Lactose-Reduced Food [Ensure Plus] 1 can PO BID 07/26/18 07/26/18 Olopatadine HCl [Patanol] 1 drop BOTH EYES Q12H PRN 07/26/18 07/26/18 RX: Meclizine HCl 12.5 mg PO TID PRN 07/26/18 07/26/18 busPIRone HCl [Buspar] 5 mg PO Q8H 07/26/18 07/26/18 diphenhydrAMINE HCL [Benadryl] 25 mg PO DAILY PRN 07/26/18 07/26/18 Previous Rx's Medication Instructions Recorded RX: Metoprolol Tartrate [Lopressor] 12.5 mg PO BID tab 01/24/17 Allergies Allergy/AdvReac Type Severity Reaction Status Date / Time metronidazole [From Flagyl] Allergy Unknown Verified 07/26/18 22:27 Eaqszay-Nps-Mju Reductase Allergy Unknown Verified 07/26/18 22:27 Inhibitor sulfamethoxazole Allergy Unknown Verified 07/26/18 22:27 [From Bactrim] trimethobenzamide Allergy Unknown Verified 07/26/18 22:27 [From Tigan] trimethoprim [From Bactrim] Allergy Unknown Verified 07/26/18 22:27 Review of Systems ROS Statement: Those systems with pertinent positive or pertinent negative responses have been documented in the HPI. ROS Other: All systems not noted in ROS Statement are negative. Past Medical History Past Medical History: Asthma, Coronary Artery Disease (CAD), Cancer, COPD, GERD/ Reflux, Hyperlipidemia, Hypertension, Osteoarthritis (OA), Pneumonia, Thyroid Disorder Additional Past Medical History / Comment(s): R BREAST CANCER, bronchitis, IBS ( newly diagnosed), balance issues, numbness/tingling bilateral legs/feet, anemia , UTI, chronic low back pain, past fracture L hip with sx and fx L wrist, sinus problems. History of Any Multi-Drug Resistant Organisms: None Reported Past Surgical History: Bladder Surgery, Breast Surgery, Cholecystectomy, Heart Catheterization, Hysterectomy Additional Past Surgical History / Comment(s): 1979 RIGHT MASTECTOMY, colonoscopies, bilateral cataracts removed with lasek sx, hemorroidectomy, L hip fx repair (metal in hip), bladder suspension. Past Anesthesia/Blood Transfusion Reactions: No Reported Reaction Past Psychological History: Anxiety Smoking Status: Former smoker Past Alcohol Use History: None Reported Past Drug Use History: None Reported - Past Family History Father History Unknown: Yes Additional Family Medical History / Comment(s): Pt adopted and does not know parents hx. General Exam - General Exam Comments Initial Comments: Physical Exam GENERAL: Patient is well-developed and well-nourished. Patient is nontoxic and well- hydrated and is in no distress. HENT: Normocephalic, Atraumatic. EYES: PERRL, EOMI PULMONARY: Unlabored respirations. No audible rales rhonchi or wheezing was noted. CARDIOVASCULAR: There is a regular rate and rhythm without any murmurs gallops or rubs. Extremities are warm and well perfused ABDOMEN: Soft and nontender with normal bowel sounds. SKIN: Skin is clear with no lesions or rashes and otherwise unremarkable. : Deferred NEUROLOGIC: Patient is alert and oriented to person, place and events leading up to hospitalization. Moving all extremities spontaneously MUSCULOSKELETAL: No obvious injuries PSYCHIATRIC: Normal psychiatric evaluation. Limitations: no limitations Limitations: no limitations Course Vital Signs 07/26/18 07/26/18 07/26/18 22:14 22:17 22:40 Temperature 98.1 F Pulse Rate 66 Respiratory 16 Rate Blood Pressure 176/143 138/52 O2 Sat by Pulse 95 96 Oximetry 07/26/18 07/27/18 07/27/18 23:19 01:00 01:57 Temperature 97.9 F Pulse Rate 74 69 71 Respiratory 16 22 18 Rate Blood Pressure 131/57 139/75 142/69 O2 Sat by Pulse 97 99 98 Oximetry Medical Decision Making - Medical Decision Making The patient was seen and evaluated, history was obtained from patient and EMS Patient with no acute complaints, in no acute distress, report was that the patient had been hypoxic throughout the day today. Upon my initial evaluation the patient was on supplemental oxygen but did have a oxygen saturation of 96-98 % when the waveform was reading appropriately A workup was ordered Chest x-ray with no acute pathology Labs with no significant abnormalities She was removed from supplemental oxygenation and was noted to have an oxygen saturation of 98%, patient had no complaints of chest tightness shortness of breath Results of the workup were discussed with the patient who is comfortable with the plan for discharge home to her long-term facility All questions pertaining to care were answered best my ability patient was discharged home in stable condition - Lab Data Result diagrams: 07/26/18 23:18 07/26/18 23:18 Lab Results 07/26/18 07/26/18 07/26/18 Range/Units 23:18 23:18 23:18 WBC 7.3 (3.8-10.6) k/uL RBC 4.18 (3.80-5.40) m/uL Hgb 10.8 L (11.4-16.0) gm/dL Hct 35.4 (34.0-46.0) % MCV 84.7 (80.0-100.0) fL MCH 26.0 (25.0-35.0) pg MCHC 30.7 L (31.0-37.0) g/dL RDW 16.1 H (11.5-15.5) % Plt Count 282 (150-450) k/uL Neutrophils % 67 % Lymphocytes % 20 % Monocytes % 7 % Eosinophils % 4 % Basophils % 0 % Neutrophils # 4.9 (1.3-7.7) k/uL Lymphocytes # 1.5 (1.0-4.8) k/uL Monocytes # 0.5 (0-1.0) k/uL Eosinophils # 0.3 (0-0.7) k/uL Basophils # 0.0 (0-0.2) k/uL Hypochromasia Moderate Anisocytosis Slight PT (9.0-12.0) sec INR (<1.2) APTT (22.0-30.0) sec Sodium 139 (137-145) mmol/L Potassium 4.6 (3.5-5.1) mmol/L Chloride 107 (98-107) mmol/L Carbon Dioxide 31 H (22-30) mmol/L Anion Gap 1 mmol/L BUN 20 H (7-17) mg/dL Creatinine 0.54 (0.52-1.04) mg/dL Est GFR (CKD-EPI)AfAm >90 (>60 ml/min/1.73 sqM) Est GFR (CKD-EPI)NonAf 85 (>60 ml/min/1.73 sqM) Glucose 118 H (74-99) mg/dL Calcium 8.8 (8.4-10.2) mg/dL Magnesium 1.8 (1.6-2.3) mg/dL Total Bilirubin 0.1 L (0.2-1.3) mg/dL AST 18 (14-36) U/L ALT 20 (9-52) U/L Alkaline Phosphatase 72 (38-126) U/L Total Creatine Kinase 35 (30-135) U/L CK-MB (CK-2) 0.3 (0.0-2.4) ng/mL CK-MB (CK-2) Rel Index 0.9 Troponin I <0.012 (0.000-0.034) ng/mL NT-Pro-B Natriuret Pep pg/mL Total Protein 6.5 (6.3-8.2) g/dL Albumin 3.0 L (3.5-5.0) g/dL Urine Color Urine Appearance (Clear) Urine pH (5.0-8.0) Ur Specific [place] (1.001-1.035) Urine Protein (Negative) Urine Glucose (UA) (Negative) Urine Ketones (Negative) Urine Blood (Negative) Urine Nitrite (Negative) Urine Bilirubin (Negative) Urine Urobilinogen (<2.0) mg/dL Ur Leukocyte Esterase (Negative) 07/26/18 07/26/18 07/27/18 Range/Units 23:18 23:18 00:50 WBC (3.8-10.6) k/uL RBC (3.80-5.40) m/uL Hgb (11.4-16.0) gm/dL Hct (34.0-46.0) % MCV (80.0-100.0) fL MCH (25.0-35.0) pg MCHC (31.0-37.0) g/dL RDW (11.5-15.5) % Plt Count (150-450) k/uL Neutrophils % % Lymphocytes % % Monocytes % % Eosinophils % % Basophils % % Neutrophils # (1.3-7.7) k/uL Lymphocytes # (1.0-4.8) k/uL Monocytes # (0-1.0) k/uL Eosinophils # (0-0.7) k/uL Basophils # (0-0.2) k/uL Hypochromasia Anisocytosis PT 9.9 (9.0-12.0) sec INR 1.0 (<1.2) APTT 26.9 (22.0-30.0) sec Sodium (137-145) mmol/L Potassium (3.5-5.1) mmol/L Chloride (98-107) mmol/L Carbon Dioxide (22-30) mmol/L Anion Gap mmol/L BUN (7-17) mg/dL Creatinine (0.52-1.04) mg/dL Est GFR (CKD-EPI)AfAm (>60 ml/min/1.73 sqM) Est GFR (CKD-EPI)NonAf (>60 ml/min/1.73 sqM) Glucose (74-99) mg/dL Calcium (8.4-10.2) mg/dL Magnesium (1.6-2.3) mg/dL Total Bilirubin (0.2-1.3) mg/dL AST (14-36) U/L ALT (9-52) U/L Alkaline Phosphatase (38-126) U/L Total Creatine Kinase (30-135) U/L CK-MB (CK-2) (0.0-2.4) ng/mL CK-MB (CK-2) Rel Index Troponin I (0.000-0.034) ng/mL NT-Pro-B Natriuret Pep 366 pg/mL Total Protein (6.3-8.2) g/dL Albumin (3.5-5.0) g/dL Urine Color Yellow Urine Appearance Clear (Clear) Urine pH 5.5 (5.0-8.0) Ur Specific [place] 1.027 (1.001-1.035) Urine Protein Trace H (Negative) Urine Glucose (UA) Negative (Negative) Urine Ketones Negative (Negative) Urine Blood Negative (Negative) Urine Nitrite Negative (Negative) Urine Bilirubin Negative (Negative) Urine Urobilinogen 2.0 (<2.0) mg/dL Ur Leukocyte Esterase Negative (Negative) Disposition Clinical Impression: Confusion Disposition: HOME SELF-CARE Condition: Stable Instructions: Altered Mental Status (ED) Is patient prescribed a controlled substance at d/c from ED?: No Referrals: Humza Garcia MD [Primary Care Provider] - 1-2 days
[2018-07-26 23:32] LABS: Anisocytosis Slight; Basophils % (A) 0 %; Eosinophils # (A) 0.3 k/uL (0-0.7); Eosinophils % (A) 4 %; HCT 35.4 % (34.0-46.0); HGB 10.8 gm/dL (11.4-16.0); Hypochromasia Moderate; Lymphocytes # (A) 1.5 k/uL (1.0-4.8); Lymphocytes % (A) 20 %; MCHC 30.7 g/dL (31.0-37.0); MCV 84.7 fL (80.0-100.0); Mean Platelet Volume 7.1; Monocytes # (A) 0.5 k/uL (0-1.0); Monocytes % (A) 7 %; Neutrophils # (A) 4.9 k/uL (1.3-7.7); Neutrophils % (A) 67 %; Platelet Count 282 k/uL (150-450); RBC 4.18 m/uL (3.80-5.40); RDW 16.1 % (11.5-15.5); WBC 7.3 k/uL (3.8-10.6)
[2018-07-26 23:41] LABS: ALT 20 U/L (9-52); AST 18 U/L (14-36); Alkaline Phosphatase 72 U/L (38-126); Anion Gap 1 mmol/L; Blood Urea Nitrogen 20 mg/dL (7-17); Calcium 8.8 mg/dL (8.4-10.2); Carbon Dioxide 31 mmol/L (22-30); Chloride 107 mmol/L (98-107); Glucose 118 mg/dL (74-99); Magnesium 1.8 mg/dL (1.6-2.3); Potassium 4.6 mmol/L (3.5-5.1); Sodium 139 mmol/L (137-145); Total Bilirubin 0.1 mg/dL (0.2-1.3); Total Protein 6.5 g/dL (6.3-8.2)
[2018-07-26 23:48] LABS: Partial Thromboplastin Time 26.9 sec (22.0-30.0); Prothrombin Time 9.9 sec (9.0-12.0)
[2018-07-26 23:55] LABS: Creatine Kinase 35 U/L (30-135)
--- NOTE | 2018-07-26 23:56 | XR ---
EXAMINATION TYPE: XR chest 2V DATE OF EXAM: 07/26/2018 COMPARISON: 01/17/2017 HISTORY: Difficulty breathing TECHNIQUE: Frontal and lateral views of the chest are obtained. FINDINGS: There is coarsening of interstitial markings. Heart is enlarged. There is some fluid in th e major fissures. There are small calcified granulomata scattered in the lungs. Thoracic aorta is ath eromatous. IMPRESSION: Cardiomegaly with pulmonary fibrotic changes. Small pleural effusions. No overt heart fa ilure. Fluid is decreased slightly compared to old exam.
[2018-07-27 00:07] LABS: Creatine Kinase MB 0.3 ng/mL (0.0-2.4); Troponin I <0.012 ng/mL (0.000-0.034)
[2018-07-27 01:02] LABS: Appearance,Urine Clear (Clear); Bilirubin,Urine Negative (Negative); Blood,Urine Negative (Negative); Color,Urine Yellow; Glucose,Urine (UA) Negative (Negative); Ketones,Urine Negative (Negative); Leukocyte Esterase,Urine Negative (Negative); Nitrite,Urine Negative (Negative); PH, Urine 5.5 (5.0-8.0); Protein,Urine Trace (Negative); Specific Gravity,Urine 1.027 (1.001-1.035)
[2018-07-27 02:04] VITALS: BP 142/69; PULSE 71; RESP 18; TEMP 97.9
== END 2018-07-27 02:48 | disposition home or self-care (01) ==
LOC: EC 22:09
DX: R41.0 Disorientation, unspecified (principal); J44.9 Chronic obstructive pulmonary disease, unspecified; I25.10 Atherosclerotic heart disease of native coronary artery without angina pectoris; K21.9 Gastro-esophageal reflux disease without esophagitis; I10 Essential (primary) hypertension; M19.90 Unspecified osteoarthritis, unspecified site; E07.9 Disorder of thyroid, unspecified; K58.9 Irritable bowel syndrome, unspecified; F41.9 Anxiety disorder, unspecified; Z85.3 Personal history of malignant neoplasm of breast; Z87.891 Personal history of nicotine dependence; Z79.82 Long term (current) use of aspirin; Z79.899 Other long term (current) drug therapy; Z88.1 Allergy status to other antibiotic agents; Z88.2 Allergy status to sulfonamides; Z88.8 Allergy status to other drugs, medicaments and biological substances; Z95.818 Presence of other cardiac implants and grafts
CPT/HCPCS: 36415; 71046; 80053; 81003; 82550; 82553; 83735; 83880; 84484; 85025; 85610; 85730; 93005; 99285

== ENCOUNTER 2018-07-27 10:08 | Emergency (ER) | payer MEDICARE, OTHER ==
--- NOTE | 2018-07-27 10:45 | ED ---
Altered Mental Status HPI - General Chief Complaint: Altered Mental Status Stated Complaint: Altered Mental Status Time Seen by Provider: 07/27/18 10:17 Source: patient, RN notes reviewed, old records reviewed Mode of arrival: EMS Limitations: no limitations, altered mental status - History of Present Illness Initial Comments: This is a 79-year-old female the ER for evaluation of altered mental state. Patient recently seen in ER as well as had outpatient lab test done today. Patient was sent in by [address] [place] [id number] brain drill any acute event. Patient is on was unable to provide accurate history history obtained from EMS and patient's staff MD Complaint: altered mental status -: days(s) Severity: mild Consistency of Symptoms: getting worse Associated Symptoms: denies other symptoms - Related Data Home Medications Medication Instructions Recorded Confirmed Calcium Carb-Vit D 500Mg-200Un 1 tab PO DAILY@0900 01/05/17 07/27/18 [Oscal 500+D] Ipratropium-Albuterol Nebulize 3 ml INHALATION RT-TID 01/05/17 07/27/18 [Duoneb 0.5 mg-3 mg/3 ml Soln] Levothyroxine Sodium [Synthroid] 25 mcg PO DAILY@0600 01/05/17 07/27/18 Loratadine [Claritin] 10 mg PO DAILY PRN 01/05/17 07/27/18 Melatonin 5 mg PO HS 01/05/17 07/27/18 Omeprazole 20 mg PO DAILY@0600 01/05/17 07/27/18 Potassium Chloride [Klor-Con 10] 10 meq PO AC-BID 01/05/17 07/27/18 traZODone HCL 100 mg PO HS PRN 01/05/17 07/27/18 Diphenoxylate HCl/Atropine 2 tab PO Q8H PRN 09/01/17 07/27/18 [Lomotil 2.5-0.025 mg Tablet] Acetaminophen [Tylenol Arthritis] 650 mg PO Q4HR PRN 07/26/18 07/27/18 Aspirin [Adult Low Dose Aspirin EC] 81 mg PO DAILY 07/26/18 07/27/18 Dicyclomine [Bentyl] 20 mg PO TID@0600,1400,2100 07/26/18 07/27/18 Ketorolac [Toradol] 10 mg PO Q6HR PRN 07/26/18 07/27/18 LORazepam [Ativan] 0.5 mg PO HS 07/26/18 07/27/18 Lactose-Reduced Food [Ensure Plus] 120 ml PO BID 07/26/18 07/27/18 Meclizine HCl 12.5 mg PO TID PRN 07/26/18 07/27/18 Olopatadine HCl [Patanol] 1 drop BOTH EYES Q12H PRN 07/26/18 07/27/18 busPIRone HCl [Buspar] 5 mg PO TID@0600,1400,2200 07/26/18 07/27/18 diphenhydrAMINE HCL [Benadryl] 25 mg PO DAILY PRN 07/26/18 07/27/18 Previous Rx's Medication Instructions Recorded Metoprolol Tartrate [Lopressor] 12.5 mg PO BID tab 01/24/17 Allergies Allergy/AdvReac Type Severity Reaction Status Date / Time metronidazole [From Flagyl] Allergy Unknown Verified 07/27/18 10:30 Wgoziof-Nvm-Kcq Reductase Allergy Unknown Verified 07/27/18 10:30 Inhibitor sulfamethoxazole Allergy Unknown Verified 07/27/18 10:30 [From Bactrim] trimethobenzamide Allergy Unknown Verified 07/27/18 10:30 [From Tigan] trimethoprim [From Bactrim] Allergy Unknown Verified 07/27/18 10:30 Review of Systems ROS Statement: Those systems with pertinent positive or pertinent negative responses have been documented in the HPI. ROS Other: All systems not noted in ROS Statement are negative. Past Medical History Past Medical History: Asthma, Coronary Artery Disease (CAD), Cancer, COPD, GERD/ Reflux, Hyperlipidemia, Hypertension, Osteoarthritis (OA), Pneumonia, Thyroid Disorder Additional Past Medical History / Comment(s): R BREAST CANCER, bronchitis, IBS ( newly diagnosed), balance issues, numbness/tingling bilateral legs/feet, anemia , UTI, chronic low back pain, past fracture L hip with sx and fx L wrist, sinus problems. History of Any Multi-Drug Resistant Organisms: None Reported Past Surgical History: Bladder Surgery, Breast Surgery, Cholecystectomy, Heart Catheterization, Hysterectomy Additional Past Surgical History / Comment(s): 1979 RIGHT MASTECTOMY, colonoscopies, bilateral cataracts removed with lasek sx, hemorroidectomy, L hip fx repair (metal in hip), bladder suspension. Past Anesthesia/Blood Transfusion Reactions: No Reported Reaction Past Psychological History: Anxiety Smoking Status: Former smoker Past Alcohol Use History: None Reported Past Drug Use History: None Reported - Past Family History Father History Unknown: Yes Additional Family Medical History / Comment(s): Pt adopted and does not know parents hx. General Exam Limitations: no limitations, altered mental status General appearance: alert, in no apparent distress Head exam: Present: atraumatic, normocephalic, normal inspection Eye exam: Present: normal appearance, PERRL, EOMI. Absent: scleral icterus, conjunctival injection, periorbital swelling ENT exam: Present: normal exam, mucous membranes moist Neck exam: Present: normal inspection. Absent: tenderness, meningismus, lymphadenopathy Respiratory exam: Present: normal lung sounds bilaterally. Absent: respiratory distress, wheezes, rales, rhonchi, stridor Cardiovascular Exam: Present: regular rate, normal rhythm, normal heart sounds. Absent: systolic murmur, diastolic murmur, rubs, gallop, clicks GI/Abdominal exam: Present: soft, normal bowel sounds. Absent: distended, tenderness, guarding, rebound, rigid Extremities exam: Present: normal inspection, full ROM, normal capillary refill. Absent: tenderness, pedal edema, joint swelling, calf tenderness Back exam: Present: normal inspection Neurological exam: Present: alert, oriented X3, CN II-XII intact Psychiatric exam: Present: normal affect, normal mood Skin exam: Present: warm, dry, intact, normal color. Absent: rash Course Vital Signs 07/27/18 07/27/18 07/27/18 10:15 10:17 10:30 Temperature 98.1 F Pulse Rate 71 71 Respiratory 16 18 Rate Blood Pressure 141/65 141/65 O2 Sat by Pulse 92 L 92 L 97 Oximetry 07/27/18 07/27/18 11:00 13:51 Temperature 98.2 F Pulse Rate 70 68 Respiratory 18 18 Rate Blood Pressure 117/51 118/62 O2 Sat by Pulse 98 98 Oximetry Medical Decision Making - Medical Decision Making 79 female the ER for evaluation of altered mental status, CT brain negative labwork normal. Patient can be discharged home - Lab Data Result diagrams: 07/27/18 10:50 07/27/18 10:50 Lab Results 07/27/18 07/27/18 07/27/18 Range/Units 10:50 10:50 10:50 WBC 7.4 (3.8-10.6) k/uL RBC 4.30 (3.80-5.40) m/uL Hgb 11.1 L (11.4-16.0) gm/dL Hct 36.3 (34.0-46.0) % MCV 84.5 (80.0-100.0) fL MCH 25.8 (25.0-35.0) pg MCHC 30.6 L (31.0-37.0) g/dL RDW 15.9 H (11.5-15.5) % Plt Count 280 (150-450) k/uL Neutrophils % 64 % Lymphocytes % 22 % Monocytes % 7 % Eosinophils % 5 % Basophils % 1 % Neutrophils # 4.8 (1.3-7.7) k/uL Lymphocytes # 1.6 (1.0-4.8) k/uL Monocytes # 0.5 (0-1.0) k/uL Eosinophils # 0.3 (0-0.7) k/uL Basophils # 0.0 (0-0.2) k/uL Hypochromasia Moderate PT (9.0-12.0) sec INR (<1.2) APTT (22.0-30.0) sec Sodium (137-145) mmol/L Potassium (3.5-5.1) mmol/L Chloride (98-107) mmol/L Carbon Dioxide (22-30) mmol/L Anion Gap mmol/L BUN (7-17) mg/dL Creatinine (0.52-1.04) mg/dL Est GFR (CKD-EPI)AfAm (>60 ml/min/1.73 sqM) Est GFR (CKD-EPI)NonAf (>60 ml/min/1.73 sqM) Glucose (74-99) mg/dL Calcium (8.4-10.2) mg/dL Magnesium (1.6-2.3) mg/dL Total Bilirubin (0.2-1.3) mg/dL AST (14-36) U/L ALT (9-52) U/L Alkaline Phosphatase (38-126) U/L Ammonia <9 (<30) umol/L Total Creatine Kinase 29 L (30-135) U/L CK-MB (CK-2) 0.3 (0.0-2.4) ng/mL CK-MB (CK-2) Rel Index 1.0 Troponin I <0.012 (0.000-0.034) ng/mL NT-Pro-B Natriuret Pep pg/mL Total Protein (6.3-8.2) g/dL Albumin (3.5-5.0) g/dL Urine Color Urine Appearance (Clear) Urine pH (5.0-8.0) Ur Specific Cobden (1.001-1.035) Urine Protein (Negative) Urine Glucose (UA) (Negative) Urine Ketones (Negative) Urine Blood (Negative) Urine Nitrite (Negative) Urine Bilirubin (Negative) Urine Urobilinogen (<2.0) mg/dL Ur Leukocyte Esterase (Negative) Urine RBC (0-5) /hpf Urine WBC (0-5) /hpf Urine Mucus (None) /hpf 07/27/18 07/27/18 07/27/18 Range/Units 10:50 10:50 10:50 WBC (3.8-10.6) k/uL RBC (3.80-5.40) m/uL Hgb (11.4-16.0) gm/dL Hct (34.0-46.0) % MCV (80.0-100.0) fL MCH (25.0-35.0) pg MCHC (31.0-37.0) g/dL RDW (11.5-15.5) % Plt Count (150-450) k/uL Neutrophils % % Lymphocytes % % Monocytes % % Eosinophils % % Basophils % % Neutrophils # (1.3-7.7) k/uL Lymphocytes # (1.0-4.8) k/uL Monocytes # (0-1.0) k/uL Eosinophils # (0-0.7) k/uL Basophils # (0-0.2) k/uL Hypochromasia PT 10.0 (9.0-12.0) sec INR 1.0 (<1.2) APTT 27.5 (22.0-30.0) sec Sodium 139 (137-145) mmol/L Potassium 4.8 (3.5-5.1) mmol/L Chloride 103 (98-107) mmol/L Carbon Dioxide 33 H (22-30) mmol/L Anion Gap 3 mmol/L BUN 16 (7-17) mg/dL Creatinine 0.47 L (0.52-1.04) mg/dL Est GFR (CKD-EPI)AfAm >90 (>60 ml/min/1.73 sqM) Est GFR (CKD-EPI)NonAf 89 (>60 ml/min/1.73 sqM) Glucose 84 (74-99) mg/dL Calcium 8.7 (8.4-10.2) mg/dL Magnesium 1.6 (1.6-2.3) mg/dL Total Bilirubin 0.3 (0.2-1.3) mg/dL AST 20 (14-36) U/L ALT 14 (9-52) U/L Alkaline Phosphatase 65 (38-126) U/L Ammonia (<30) umol/L Total Creatine Kinase (30-135) U/L CK-MB (CK-2) (0.0-2.4) ng/mL CK-MB (CK-2) Rel Index Troponin I (0.000-0.034) ng/mL NT-Pro-B Natriuret Pep 559 pg/mL Total Protein 6.4 (6.3-8.2) g/dL Albumin 2.8 L (3.5-5.0) g/dL Urine Color Urine Appearance (Clear) Urine pH (5.0-8.0) Ur Specific Cobden (1.001-1.035) Urine Protein (Negative) Urine Glucose (UA) (Negative) Urine Ketones (Negative) Urine Blood (Negative) Urine Nitrite (Negative) Urine Bilirubin (Negative) Urine Urobilinogen (<2.0) mg/dL Ur Leukocyte Esterase (Negative) Urine RBC (0-5) /hpf Urine WBC (0-5) /hpf Urine Mucus (None) /hpf 07/27/18 Range/Units 11:40 WBC (3.8-10.6) k/uL RBC (3.80-5.40) m/uL Hgb (11.4-16.0) gm/dL Hct (34.0-46.0) % MCV (80.0-100.0) fL MCH (25.0-35.0) pg MCHC (31.0-37.0) g/dL RDW (11.5-15.5) % Plt Count (150-450) k/uL Neutrophils % % Lymphocytes % % Monocytes % % Eosinophils % % Basophils % % Neutrophils # (1.3-7.7) k/uL Lymphocytes # (1.0-4.8) k/uL Monocytes # (0-1.0) k/uL Eosinophils # (0-0.7) k/uL Basophils # (0-0.2) k/uL Hypochromasia PT (9.0-12.0) sec INR (<1.2) APTT (22.0-30.0) sec Sodium (137-145) mmol/L Potassium (3.5-5.1) mmol/L Chloride (98-107) mmol/L Carbon Dioxide (22-30) mmol/L Anion Gap mmol/L BUN (7-17) mg/dL Creatinine (0.52-1.04) mg/dL Est GFR (CKD-EPI)AfAm (>60 ml/min/1.73 sqM) Est GFR (CKD-EPI)NonAf (>60 ml/min/1.73 sqM) Glucose (74-99) mg/dL Calcium (8.4-10.2) mg/dL Magnesium (1.6-2.3) mg/dL Total Bilirubin (0.2-1.3) mg/dL AST (14-36) U/L ALT (9-52) U/L Alkaline Phosphatase (38-126) U/L Ammonia (<30) umol/L Total Creatine Kinase (30-135) U/L CK-MB (CK-2) (0.0-2.4) ng/mL CK-MB (CK-2) Rel Index Troponin I (0.000-0.034) ng/mL NT-Pro-B Natriuret Pep pg/mL Total Protein (6.3-8.2) g/dL Albumin (3.5-5.0) g/dL Urine Color Yellow Urine Appearance Clear (Clear) Urine pH 5.5 (5.0-8.0) Ur Specific Cobden 1.015 (1.001-1.035) Urine Protein Negative (Negative) Urine Glucose (UA) Negative (Negative) Urine Ketones Negative (Negative) Urine Blood Trace H (Negative) Urine Nitrite Negative (Negative) Urine Bilirubin Negative (Negative) Urine Urobilinogen <2.0 (<2.0) mg/dL Ur Leukocyte Esterase Negative (Negative) Urine RBC 6 H (0-5) /hpf Urine WBC 1 (0-5) /hpf Urine Mucus Rare H (None) /hpf - EKG Data -: EKG Interpreted by Me (EKG shows normal sinus rhythm at 71, WA 142, QRS 70, QTc 428) EKG shows normal: sinus rhythm Rate: normal - Radiology Data Radiology results: report reviewed (CT brain is negative for acute disease), image reviewed Disposition Clinical Impression: Altered mental status Disposition: HOME SELF-CARE Condition: Good Instructions: Altered Mental Status (ED) Is patient prescribed a controlled substance at d/c from ED?: No Referrals: Humza Gacria MD [Primary Care Provider] - 1-2 days
[2018-07-27] MEDS: SODIUM CHLORIDE 0.9% 1,000 ML IV STA (10:49)
[2018-07-27 11:11] VITALS: RESP 18
[2018-07-27 11:22] LABS: Basophils % (A) 1 %; Eosinophils # (A) 0.3 k/uL (0-0.7); Eosinophils % (A) 5 %; HCT 36.3 % (34.0-46.0); HGB 11.1 gm/dL (11.4-16.0); Hypochromasia Moderate; Lymphocytes # (A) 1.6 k/uL (1.0-4.8); Lymphocytes % (A) 22 %; MCH 25.8 pg (25.0-35.0); MCHC 30.6 g/dL (31.0-37.0); MCV 84.5 fL (80.0-100.0); Mean Platelet Volume 7.4; Monocytes # (A) 0.5 k/uL (0-1.0); Monocytes % (A) 7 %; Neutrophils # (A) 4.8 k/uL (1.3-7.7); Neutrophils % (A) 64 %; Platelet Count 280 k/uL (150-450); RDW 15.9 % (11.5-15.5); WBC 7.4 k/uL (3.8-10.6)
[2018-07-27 11:35] LABS: Partial Thromboplastin Time 27.5 sec (22.0-30.0)
[2018-07-27 11:36] LABS: ALT 14 U/L (9-52); AST 20 U/L (14-36); Albumin 2.8 g/dL (3.5-5.0); Alkaline Phosphatase 65 U/L (38-126); Anion Gap 3 mmol/L; Blood Urea Nitrogen 16 mg/dL (7-17); Calcium 8.7 mg/dL (8.4-10.2); Carbon Dioxide 33 mmol/L (22-30); Chloride 103 mmol/L (98-107); Glucose 84 mg/dL (74-99); Magnesium 1.6 mg/dL (1.6-2.3); Potassium 4.8 mmol/L (3.5-5.1); Sodium 139 mmol/L (137-145); Total Bilirubin 0.3 mg/dL (0.2-1.3); Total Protein 6.4 g/dL (6.3-8.2)
[2018-07-27 11:53] LABS: Creatine Kinase 29 U/L (30-135)
[2018-07-27 11:59] LABS: Appearance,Urine Clear (Clear); Bilirubin,Urine Negative (Negative); Blood,Urine Trace (Negative); Color,Urine Yellow; Glucose,Urine (UA) Negative (Negative); Ketones,Urine Negative (Negative); Leukocyte Esterase,Urine Negative (Negative); Mucus,Urine Rare /hpf; Nitrite,Urine Negative (Negative); PH, Urine 5.5 (5.0-8.0); Protein,Urine Negative (Negative); RBC,Urine 6 /hpf (0-5); Specific Gravity,Urine 1.015 (1.001-1.035); Urobilinogen,Urine <2.0 mg/dL (<2.0); WBC,Urine 1 /hpf (0-5)
[2018-07-27 12:06] LABS: Creatine Kinase MB 0.3 ng/mL (0.0-2.4); Troponin I <0.012 ng/mL (0.000-0.034)
--- NOTE | 2018-07-27 12:52 | CT ---
EXAMINATION TYPE: CT brain wo con DATE OF EXAM: 07/27/2018 COMPARISON: 03/12/2013 HISTORY: Altered mental status CT DLP: 1094.4 mGycm Automated exposure control for dose reduction was used. TECHNIQUE: CT scan of the head is performed without contrast. FINDINGS: There is no acute intracranial hemorrhage or midline shift identified. No suspicious extr a-axial fluid collection. Punctate left basal ganglia calcification is incidentally noted. There is d iffuse ventricular and sulcal prominence consistent with diffuse age-related cerebral atrophy. There is low-attenuation in the periventricular white matter consistent with chronic small vessel ischemic change. Partially empty sella turcica is incidentally seen. Atherosclerosis of the intracranial vasc ulature is noted. The globes are intact and the visualized sinuses are clear. IMPRESSION: No acute intracranial hemorrhage or midline shift. Degree of diffuse age-related cerebra l atrophy and chronic small vessel ischemic has breast from the exam of 03/12/2013.
[2018-07-27 13:52] VITALS: BP 118/62; PULSE 68; TEMP 98.2
== END 2018-07-27 13:51 | disposition home or self-care (01) ==
LOC: EC 10:08
DX: R41.82 Altered mental status, unspecified (principal); J44.9 Chronic obstructive pulmonary disease, unspecified; I25.10 Atherosclerotic heart disease of native coronary artery without angina pectoris; K21.9 Gastro-esophageal reflux disease without esophagitis; E78.5 Hyperlipidemia, unspecified; I10 Essential (primary) hypertension; M19.90 Unspecified osteoarthritis, unspecified site; K58.9 Irritable bowel syndrome, unspecified; F41.9 Anxiety disorder, unspecified; Z85.3 Personal history of malignant neoplasm of breast; Z87.891 Personal history of nicotine dependence; Z79.82 Long term (current) use of aspirin; Z79.899 Other long term (current) drug therapy; Z88.1 Allergy status to other antibiotic agents; Z88.2 Allergy status to sulfonamides; Z88.8 Allergy status to other drugs, medicaments and biological substances; Z95.818 Presence of other cardiac implants and grafts
CPT/HCPCS: 36415; 70450; 80053; 81001; 82140; 82550; 82553; 83735; 83880; 84484; 85025; 85610; 85730; 93005; 96360; 96361; 99285

== ENCOUNTER 2018-11-03 21:59 | Inpatient (IN) | payer MEDICARE, OTHER ==
--- NOTE | 2018-11-03 23:48 | XR ---
EXAM: XR Abdomen, 2 Views CLINICAL HISTORY: Pain TECHNIQUE: Frontal view of the abdomen/pelvis with upright view of the abdomen. COMPARISON: CT abdomen and pelvis dated 09/01/2017 FINDINGS: Intraperitoneal space: Dilated loops of gas-filled bowel seen throughout the abdomen. Findings may represent bowel obstruction versus ileus. No pneumatosis or free air. Gastrointestinal tract: Unremarkable. No dilation. Organs: Evidence of prior cholecystectomy. Bones/joints: Degenerative changes of the spine. Posterior changes within the left hip. IMPRESSION: Dilated loops of gas-filled bowel seen throughout the abdomen. Findings may represent bowel obstruction versus ileus. No pneumatosis or free air.
[2018-11-04 01:02] LABS: ALT 18 U/L (9-52); AST 22 U/L (14-36); Albumin 2.2 g/dL (3.5-5.0); Alkaline Phosphatase 108 U/L (38-126); Anion Gap 3 mmol/L; Blood Urea Nitrogen 14 mg/dL (7-17); Calcium 7.7 mg/dL (8.4-10.2); Carbon Dioxide 26 mmol/L (22-30); Chloride 104 mmol/L (98-107); Glucose 81 mg/dL (74-99); Sodium 133 mmol/L (137-145); Total Bilirubin 0.2 mg/dL (0.2-1.3)
[2018-11-04] MEDS ORDERED: MORPHINE SULFATE 4 MG/ML SYRINGE IV STA (01:02)
[2018-11-04 01:32] LABS: Anisocytosis Moderate; Basophils # (A) 0.1 k/uL (0-0.2); Basophils % (A) 1 %; Eosinophils # (A) 0.5 k/uL (0-0.7); Eosinophils % (A) 7 %; HCT 29.9 % (34.0-46.0); HGB 9.2 gm/dL (11.4-16.0); Hypochromasia Slight; Lymphocytes # (A) 1.9 k/uL (1.0-4.8); Lymphocytes % (A) 26 %; MCH 26.8 pg (25.0-35.0); MCHC 30.9 g/dL (31.0-37.0); MCV 86.8 fL (80.0-100.0); Mean Platelet Volume 8.1; Monocytes # (A) 0.6 k/uL (0-1.0); Monocytes % (A) 8 %; Neutrophils # (A) 4.2 k/uL (1.3-7.7); Neutrophils % (A) 57 %; Platelet Count 508 k/uL (150-450); RBC 3.45 m/uL (3.80-5.40); RDW 21.7 % (11.5-15.5); WBC 7.4 k/uL (3.8-10.6)
[2018-11-04] MEDS ORDERED: NALOXONE 0.4 MG/ML 1 ML VIAL IV PRN (04:32)
[2018-11-04] MEDS: HYDROmorphone 1 MG/ML 1 ML SYRINGE IVP PRN ×4 (05:51→22:52)
[2018-11-04] MEDS: SODIUM CHLORIDE 0.9% 1,000 ML IV SCH ×3 (05:53→22:35)
--- NOTE | 2018-11-04 11:00 | P.GSHP ---
History of Present Illness H&P Date: 11/04/18 Chief Complaint: Ileus versus small bowel obstruction This is a 89-year-old female. She is admitted Dr. Garcia service. Patient is confused and is unable to give any medical history. Apparently she had a CAT scan performed which showed ileus versus partial small bowel obstruction. Patient is currently resting in her bed. She does not appear to be any distress. Her abdomen soft. Past Medical History Past Medical History: Asthma, Coronary Artery Disease (CAD), Cancer, COPD, GERD/ Reflux, Hyperlipidemia, Hypertension, Osteoarthritis (OA), Pneumonia, Thyroid Disorder Additional Past Medical History / Comment(s): R BREAST CANCER, bronchitis, IBS ( newly diagnosed), balance issues, numbness/tingling bilateral legs/feet, anemia , UTI, chronic low back pain, past fracture L hip with sx and fx L wrist, sinus problems. History of Any Multi-Drug Resistant Organisms: None Reported Past Surgical History: Bladder Surgery, Breast Surgery, Cholecystectomy, Heart Catheterization, Hysterectomy Additional Past Surgical History / Comment(s): 1979 RIGHT MASTECTOMY, colonoscopies, bilateral cataracts removed with lasek sx, hemorroidectomy, L hip fx repair (metal in hip), bladder suspension. Past Anesthesia/Blood Transfusion Reactions: No Reported Reaction Past Psychological History: Anxiety Additional Psychological History / Comment(s): She uses a walker with wheels or a 4 prong cane to ambulate. Smoking Status: Former smoker Past Alcohol Use History: None Reported Additional Past Alcohol Use History / Comment(s): Pt quit smoking in 1989. Past Drug Use History: None Reported - Past Family History Father History Unknown: Yes Additional Family Medical History / Comment(s): Pt adopted and does not know parents hx. Medications and Allergies Home Medications Medication Instructions Recorded Confirmed Type Ipratropium-Albuterol Nebulize 3 ml INHALATION RT-TID 01/05/17 11/03/18 History [Duoneb 0.5 mg-3 mg/3 ml Soln] Levothyroxine Sodium [Synthroid] 25 mcg PO DAILY@0600 01/05/17 11/03/18 History Loratadine [Claritin] 10 mg PO DAILY PRN 01/05/17 11/03/18 History Melatonin 5 mg PO HS@2100 01/05/17 11/03/18 History Omeprazole 20 mg PO DAILY@0600 01/05/17 11/03/18 History Potassium Chloride [Klor-Con 10] 10 meq PO BID@0600,1400 01/05/17 11/03/18 History Diphenoxylate HCl/Atropine 1 tab PO Q6H PRN 09/01/17 11/03/18 History [Lomotil 2.5-0.025 mg Tablet] Acetaminophen [Tylenol Arthritis] 650 mg PO Q4HR PRN 07/26/18 11/03/18 History Aspirin [Adult Low Dose Aspirin EC] 81 mg PO DAILY@0907/26/18 11/03/18 History Dicyclomine [Bentyl] 20 mg PO Q6H 07/26/18 11/03/18 History LORazepam [Ativan] 0.5 mg PO HS@209907/26/18 11/03/18 History Meclizine HCl 12.5 mg PO TID PRN 07/26/18 11/03/18 History Olopatadine HCl [Patanol] 1 drop BOTH EYES Q12H PRN 07/26/18 11/03/18 History busPIRone HCl [Buspar] 5 mg PO TID@0600,1400,2200 07/26/18 11/03/18 History diphenhydrAMINE HCL [Benadryl] 25 mg PO DAILY PRN 07/26/18 11/03/18 History Bismuth Subsalicylate 524 mg PO Q4H PRN 11/03/18 11/03/18 History [Pepto-Bismol] Dimethicone/Zinc Oxide [Inzo Zinc 1 applic TOPICAL Q12HR 11/03/18 11/03/18 History Oxide Barrier Cream] Lactobacillus Acidophilus 1 tab PO BID@0900,209911/03/18 11/03/18 History [Acidophilus] Metoprolol Tartrate [Lopressor] 12.5 mg PO BID@0900,209911/03/18 11/03/18 History Ondansetron HCl [Zofran] 8 mg PO Q8H PRN 11/03/18 11/03/18 History Oyster-Bao 500mg Tab 1 tab PO DAILY@00 11/03/18 11/03/18 History guaiFENesin [guaiFENesin Oral 200 mg PO Q4H PRN 11/03/18 11/03/18 History Solution] traZODone HCL [Desyrel] 100 mg PO HS@2100 11/03/18 11/03/18 History Allergies Allergy/AdvReac Type Severity Reaction Status Date / Time metronidazole [From Flagyl] Allergy Unknown Verified 11/03/18 22:00 Enfnylz-Pvo-Gyg Reductase Allergy Unknown Verified 11/03/18 22:00 Inhibitor sulfamethoxazole Allergy Unknown Verified 11/03/18 22:00 [From Bactrim] trimethobenzamide Allergy Unknown Verified 11/03/18 22:00 [From Tigan] trimethoprim [From Bactrim] Allergy Unknown Verified 11/03/18 22:00 Surgical - Exam Vital Signs Temp Pulse Resp BP Pulse Ox 97.4 F L 75 18 124/66 99 11/03/18 22:01 11/03/18 22:01 11/03/18 22:01 11/03/18 22:01 11/03/18 22:01 - General well developed, well nourished, no distress - Eyes PERRL - ENT normal pinna - Neck no masses - Respiratory normal expansion - Cardiovascular Rhythm: regular - Abdomen Abdomen: soft, non tender Results - Labs 11/03/18 22:10 11/03/18 22:10 Abnormal Lab Results - Last 24 Hours (Table) 11/03/18 11/03/18 Range/Units 22:10 22:10 RBC 3.45 L (3.80-5.40) m/uL Hgb 9.2 L (11.4-16.0) gm/dL Hct 29.9 L (34.0-46.0) % MCHC 30.9 L (31.0-37.0) g/dL RDW 21.7 H (11.5-15.5) % Plt Count 508 H (150-450) k/uL Sodium 133 L (137-145) mmol/L Creatinine 0.41 L (0.52-1.04) mg/dL Calcium 7.7 L (8.4-10.2) mg/dL Total Protein 6.0 L (6.3-8.2) g/dL Albumin 2.2 L (3.5-5.0) g/dL Diabetes panel 11/03/18 Range/Units 22:10 Sodium 133 L (137-145) mmol/L Potassium 5.0 (3.5-5.1) mmol/L Chloride 104 (98-107) mmol/L Carbon Dioxide 26 (22-30) mmol/L BUN 14 (7-17) mg/dL Creatinine 0.41 L (0.52-1.04) mg/dL Glucose 81 (74-99) mg/dL Calcium 7.7 L (8.4-10.2) mg/dL AST 22 (14-36) U/L ALT 18 (9-52) U/L Alkaline Phosphatase 108 (38-126) U/L Total Protein 6.0 L (6.3-8.2) g/dL Albumin 2.2 L (3.5-5.0) g/dL Calcium panel 11/03/18 Range/Units 22:10 Calcium 7.7 L (8.4-10.2) mg/dL Albumin 2.2 L (3.5-5.0) g/dL Pituitary panel 11/03/18 Range/Units 22:10 Sodium 133 L (137-145) mmol/L Potassium 5.0 (3.5-5.1) mmol/L Chloride 104 (98-107) mmol/L Carbon Dioxide 26 (22-30) mmol/L BUN 14 (7-17) mg/dL Creatinine 0.41 L (0.52-1.04) mg/dL Glucose 81 (74-99) mg/dL Calcium 7.7 L (8.4-10.2) mg/dL Adrenal panel 11/03/18 Range/Units 22:10 Sodium 133 L (137-145) mmol/L Potassium 5.0 (3.5-5.1) mmol/L Chloride 104 (98-107) mmol/L Carbon Dioxide 26 (22-30) mmol/L BUN 14 (7-17) mg/dL Creatinine 0.41 L (0.52-1.04) mg/dL Glucose 81 (74-99) mg/dL Calcium 7.7 L (8.4-10.2) mg/dL Total Bilirubin 0.2 (0.2-1.3) mg/dL AST 22 (14-36) U/L ALT 18 (9-52) U/L Alkaline Phosphatase 108 (38-126) U/L Total Protein 6.0 L (6.3-8.2) g/dL Albumin 2.2 L (3.5-5.0) g/dL Assessment and Plan Assessment: Probable ileus. Patient is currently on clear liquids. We will follow with you.
[2018-11-04] MEDS ORDERED: ONDANSETRON ODT 8 MG TAB.RAPDIS PO PRN (19:15)
[2018-11-04] MEDS: IPRATROPIUM-ALBUTEROL 3 ML NEB INHALATION SCH (19:42)
[2018-11-04] MEDS: METOPROLOL TARTRATE 12.5 MG TAB PO SCH (21:01)
[2018-11-04] MEDS: MELATONIN 5 MG TABLET PO SCH (21:01)
[2018-11-04] MEDS: LACTOBACILLUS ACIDOPH & BULGAR 1 EACH PACKET PO SCH (21:01)
--- NOTE | 2018-11-04 21:48 | HP ---
HISTORY AND PHYSICAL CHIEF COMPLAINT: Confusion and delirium with abdominal pain. HISTORY OF PRESENT ILLNESS: This is another admission for this 88-year-old white female from [facility] on the [place]. She has COPD and intermittent problems with irritable bowel syndrome. She apparently was becoming confused at the intermediate and was complaining of a lot of obtain lot of abdominal pain and sent to the emergency room where she was admitted with suspected ileus or small-bowel obstruction. She is not normally confused, but is now. REVIEW OF SYMPTOMS: Review of systems cannot be obtained except she keeps complaining of the abdominal pain. Past medical history, family history personal and social history are detailed on the documents coming from the intermediate with her. PHYSICAL EXAM: Blood pressure is 115/64 with a pulse of 88, respirations of 35 and she is afebrile. In general, she appeared to be pale, dehydrated. She was chronically ill in appearance. Head, ears, eyes, nose, mouth, and throat were normal. Neck veins not distended. Thyroid was not enlarged. Chest is clear with decreased only occasional rales. Cardiac exam demonstrated tachycardia and the abdomen was slightly distended and she had some generalized mild abdominal tenderness. No masses. Bowel sounds are present. Extremities: Normal. Neurological: She is intact. IMPRESSION: 1. Possible bowel obstruction. 2. Possible ileus. 3. Delirium. 4. Dehydration. 5. History of irritable bowel syndrome. PLAN: 1. Bed rest. 2. IV fluids. 3. Surgery consult. 4. CT of the abdomen and pelvis. MMODL / IJN: [id number] /
[2018-11-04 22:21] LABS: Appearance,Urine Cloudy (Clear); Bacteria,Urine Many /hpf; Bilirubin,Urine Negative (Negative); Blood,Urine Small (Negative); Color,Urine Yellow; Glucose,Urine (UA) Negative (Negative); Ketones,Urine 2+ (Negative); Leukocyte Esterase,Urine Large (Negative); Mucus,Urine Many /hpf; Nitrite,Urine Positive (Negative); Protein,Urine 1+ (Negative); RBC,Urine 3 /hpf (0-5); Specific Gravity,Urine 1.019 (1.001-1.035); Urobilinogen,Urine <2.0 mg/dL (<2.0)
[2018-11-05] MEDS: HYDROmorphone 1 MG/ML 1 ML SYRINGE IVP PRN ×3 (02:40→17:59)
[2018-11-05] MEDS: LEVOTHYROXINE 25 MCG TAB PO SCH (06:02)
[2018-11-05] MEDS: IPRATROPIUM-ALBUTEROL 3 ML NEB INHALATION SCH ×5 (07:45→19:42)
[2018-11-05] MEDS ORDERED: IPRATROPIUM-ALBUTEROL 3 ML NEB INHALATION PRN (09:15)
[2018-11-05] MEDS: IOPAMIDOL-300 CONTRAST 30 ML VIAL (ORAL USE) PO PRN ×2 (11:08→12:01)
[2018-11-05 11:16] LABS: Anisocytosis Moderate; Basophils # (A) 0.1 k/uL (0-0.2); Basophils % (A) 1 %; Eosinophils # (A) 0.5 k/uL (0-0.7); Eosinophils % (A) 6 %; HCT 31.9 % (34.0-46.0); HGB 9.5 gm/dL (11.4-16.0); Hypochromasia Moderate; Lymphocytes # (A) 2.3 k/uL (1.0-4.8); Lymphocytes % (A) 27 %; MCH 26.7 pg (25.0-35.0); MCHC 29.9 g/dL (31.0-37.0); MCV 89.1 fL (80.0-100.0); Macrocytosis Slight; Mean Platelet Volume 6.4; Monocytes # (A) 0.6 k/uL (0-1.0); Monocytes % (A) 7 %; Neutrophils % (A) 58 %; Platelet Count 538 k/uL (150-450); RBC 3.58 m/uL (3.80-5.40); RDW 21.4 % (11.5-15.5); WBC 8.6 k/uL (3.8-10.6)
[2018-11-05] MEDS: LACTOBACILLUS ACIDOPH & BULGAR 1 EACH PACKET PO SCH ×2 (11:52→18:01)
[2018-11-05] MEDS: SODIUM CHLORIDE 0.9% 1,000 ML IV SCH ×3 (11:55→23:22)
[2018-11-05] MEDS: PANTOPRAZOLE 40 MG TABLET PO SCH (11:56)
[2018-11-05] MEDS: METOPROLOL TARTRATE 12.5 MG TAB PO SCH ×2 (11:59→20:57)
[2018-11-05] MEDS: LEVOFLOXACIN 500MG-D5W PMX 500 MG in DEXTROSE/WATER 1 100ML.BAG IVPB SCH (12:05)
[2018-11-05] MEDS: ASPIRIN 81 MG PO SCH (12:05)
--- NOTE | 2018-11-05 13:19 | CT ---
EXAMINATION TYPE: CT abdomen pelvis w con DATE OF EXAM: 11/05/2018 COMPARISON: September 01, 2017 HISTORY: Small bowel obst CT DLP: 749.6 mGycm CONTRAST: CT scan of the abdomen and pelvis is performed with Oral Contrast and with IV Contrast, patient injec james with 100 mL of Isovue 300. FINDINGS: LUNG BASES-: No visible nodule. No infiltrate. Hiatal hernia noted. LIVER/GB: Stable hepatic cystic changes noted. Hepatic steatosis identified. Cholecystectomy clips in place. No space occupying hepatic lesion. Biliary tree is of normal caliber. PANCREAS: No inflammation. No distinct mass. SPLEEN: No splenic enlargement. No lesion seen. ADRENALS: No nodule. No thickening. KIDNEYS/BLADDER: No hydronephrosis. No nephrolithiasis. Renal cystic changes stable. Urinary bladde r grossly unremarkable. BOWEL: Wall thickening terminal ileum and cecum may reflect enterocolitis. Inflammatory bowel disease not excluded. Ischemic changes also considered. No evidence for free air or abscess. Remaining small and large bowel loops are of normal caliber. Sigmoid diverticulosis without diverticulitis. GENITAL ORGANS: No gross abnormality. LYMPH NODES: No greater than 1cm abdominal or pelvic lymph nodes are appreciated. AORTA: No significant abnormality. OSSEOUS STRUCTURES: No significant abnormality is seen. OTHER: No significant additional abnormality is seen. IMPRESSION: 1. Nonspecific enterocolitis of the terminal ileum and cecum. 2. Moderate fecal stasis. 3. Fatty liver.
--- NOTE | 2018-11-05 14:42 | XR ---
EXAMINATION TYPE: XR chest 2V DATE OF EXAM: 11/05/2018 COMPARISON: 07/26/2018 INDICATION: Cough TECHNIQUE: Frontal and lateral views of the chest are obtained. FINDINGS: The heart size is normal. The pulmonary vasculature is normal. There are scattered stable punctate nodularities throughout the bilateral lung molina. These been pre sent since 2012. IMPRESSION: 1. No acute pulmonary process. 2. Chronic appearing scattered punctate nodularity.
--- NOTE | 2018-11-05 17:45 | P.PN ---
Subjective Progress Note Date: 11/05/18 Principal diagnosis: Enterocolitis Patient seen on consult over the weekend by Dr. Horta. Patient was having abdominal pain lower in nature. She describes burning when she urinates. CAT scan shows mild inflammation of the ileum and cecum. Patient known to our service from a negative laparoscopy for possible ischemic bowel last December. Patient's last colonoscopy was normal April [address] Barros. Patient is having small bowel movements today. CAT scan suggests some constipation. Tolerating diet. Objective - Vital Signs Vital signs: Vital Signs Temp 98.7 F 11/05/18 15:00 Pulse 83 11/05/18 15:00 Resp 12 11/05/18 15:00 BP 104/65 11/05/18 15:00 Pulse Ox 98 11/05/18 15:00 Intake & Output 11/04/18 11/05/18 11/05/18 18:59 06:59 18:59 Intake Total 600 Balance 600 Intake: Oral 600 Other: Voiding Method Incontinent # Voids 1 3 # Bowel Movements 1 - Exam Abdomen: Soft, nondistended, mild lower abdominal tenderness - Labs CBC & Chem 7: 11/05/18 10:52 11/03/18 22:10 Labs: Abnormal Lab Results - Last 24 Hours (Table) 11/04/18 11/05/18 Range/Units 22:00 10:52 RBC 3.58 L (3.80-5.40) m/uL Hgb 9.5 L (11.4-16.0) gm/dL Hct 31.9 L (34.0-46.0) % MCHC 29.9 L (31.0-37.0) g/dL RDW 21.4 H (11.5-15.5) % Plt Count 538 H (150-450) k/uL Urine Appearance Cloudy H (Clear) Urine Protein 1+ H (Negative) Urine Ketones 2+ H (Negative) Urine Blood Small H (Negative) Urine Nitrite Positive H (Negative) Ur Leukocyte Esterase Large H (Negative) Urine WBC 130 H (0-5) /hpf Urine WBC Clumps Few H (None) /hpf Urine Bacteria Many H (None) /hpf Urine Mucus Many H (None) /hpf Microbiology - Last 24 Hours (Table) 11/04/18 13:37 Blood Culture - Preliminary Blood No Growth after 24 hours 11/04/18 22:00 Urine Culture - Preliminary Urine,Voided Assessment and Plan (1) Abdominal pain Narrative/Plan: CAT scan findings as described. Increased stool softeners given the constipation seen on CAT scan. Nonspecific findings of enterocolitis. If symptoms persist would consider repeating colonoscopy. We'll follow with you. Current Visit: No Status: Acute Code(s): R10.9 - UNSPECIFIED ABDOMINAL PAIN SNOMED Code(s): 80067340
--- NOTE | 2018-11-05 18:01 | PN ---
PROGRESS NOTE DATE OF SERVICE: 11/05/2018 CHIEF COMPLAINT: Confusion, dehydration, possible bowel obstruction. HISTORY OF PRESENT ILLNESS: This lady is still complaining of quite a bit of abdominal pain. She has had no vomiting. PHYSICAL EXAMINATION: She is still dehydrated and slightly pale and chronically ill in appearance. She is awake and alert. She is still delirious and confused. Her chest is clear. Cardiac exam is normal. The abdomen is soft and still slightly distended and tender in the mid aspects. Extremities are normal. Neurologically she is intact. IMPRESSION: 1. Possible small bowel obstruction or ileus. 2. Dehydration. 3. Delirium. 4. History of irritable bowel syndrome. PLAN: 1. Repeat laboratory studies. 2. CT of the abdomen report. 3. Start her on Levaquin for urinary tract infection. 4. Start updrafts. 5. Increase IV rate. MMODL / IJN: [id number] /
[2018-11-05] MEDS: LACTULOSE 20 GM/30 ML CUP PO SCH (20:57)
[2018-11-05] MEDS: MELATONIN 5 MG TABLET PO SCH (20:57)
[2018-11-06] MEDS: ACETAMINOPHEN TAB 325 MG TAB PO PRN (03:15)
[2018-11-06] MEDS: LEVOTHYROXINE 25 MCG TAB PO SCH (05:35)
[2018-11-06] MEDS: IPRATROPIUM-ALBUTEROL 3 ML NEB INHALATION SCH ×4 (07:44→19:48)
[2018-11-06] MEDS: HYDROmorphone 1 MG/ML 1 ML SYRINGE IVP PRN ×3 (08:26→19:44)
[2018-11-06] MEDS: PANTOPRAZOLE 40 MG TABLET PO SCH (08:27)
[2018-11-06] MEDS: METOPROLOL TARTRATE 12.5 MG TAB PO SCH ×2 (08:27→21:20)
[2018-11-06] MEDS: ASPIRIN 81 MG PO SCH (08:28)
[2018-11-06] MEDS: LACTULOSE 20 GM/30 ML CUP PO SCH ×2 (08:28→21:20)
[2018-11-06] MEDS: LACTOBACILLUS ACIDOPH & BULGAR 1 EACH PACKET PO SCH ×3 (08:28→17:01)
[2018-11-06] MEDS: LEVOFLOXACIN 500MG-D5W PMX 500 MG in DEXTROSE/WATER 1 100ML.BAG IVPB SCH (10:41)
[2018-11-06] MEDS: SODIUM CHLORIDE 0.9% 1,000 ML IV SCH ×2 (13:21→19:11)
--- NOTE | 2018-11-06 16:44 | P.PN ---
Subjective Progress Note Date: 11/06/18 Principal diagnosis: Enterocolitis Patient says she feels about the same today. Small bowel movement per patient. She probably was made nothing by mouth. No fevers. Objective - Vital Signs Vital signs: Vital Signs Temp 98.1 F 11/06/18 15:00 Pulse 90 11/06/18 15:57 Resp 16 11/06/18 15:00 BP 97/59 11/06/18 15:00 Pulse Ox 96 11/06/18 15:50 Intake & Output 11/05/18 11/06/18 11/06/18 18:59 06:59 18:59 Intake Total 1350 455 Balance 1350 455 Intake: Intake, IV Titration 850 455 Amount Levofloxacin 500Mg-D5w 100 Pmx 500 mg In Dextrose/ Water 1 100ml.bag @ 100 mls/hr IVPB Q24H [facility] Rx#: [id number] Sodium Chloride 0.9% 1, 750 455 000 ml @ 125 mls/hr IV . Q8H [facility] Rx#:[id number] Oral 500 Other: Voiding Method Incontinent Diaper Incontinent # Voids 3 - Exam Abdomen: Soft, mild lower abdominal tenderness, nondistended - Labs CBC & Chem 7: 11/05/18 10:52 11/03/18 22:10 Labs: Microbiology - Last 24 Hours (Table) 11/04/18 13:37 Blood Culture - Preliminary Blood No Growth after 48 hours 11/04/18 22:00 Urine Culture - Preliminary Urine,Voided Gram Neg Bacilli 11/05/18 10:52 Blood Culture - Preliminary Blood No Growth after 24 hours Assessment and Plan (1) Abdominal pain Narrative/Plan: Will resume diet at this time. Check abdominal x-rays tomorrow. Continue stool softeners. Current Visit: No Status: Acute Code(s): R10.9 - UNSPECIFIED ABDOMINAL PAIN SNOMED Code(s): 77678737
[2018-11-06] MEDS: MELATONIN 5 MG TABLET PO SCH (21:20)
[2018-11-07] MEDS: HYDROmorphone 1 MG/ML 1 ML SYRINGE IVP PRN ×4 (02:11→21:52)
[2018-11-07] MEDS: SODIUM CHLORIDE 0.9% 1,000 ML IV SCH ×2 (02:14→20:19)
[2018-11-07] MEDS: LEVOTHYROXINE 25 MCG TAB PO SCH (05:44)
[2018-11-07] MEDS: IPRATROPIUM-ALBUTEROL 3 ML NEB INHALATION SCH ×4 (09:09→19:41)
--- NOTE | 2018-11-07 09:20 | XR ---
EXAMINATION TYPE: XR abdomen 2V DATE OF EXAM: 11/07/2018 HISTORY: Evaluate abdominal pain/constipation Technique: 3 views of the abdomen are submitted. Comparison: November 03, 2018 Findings: There is no convincing evidence of pneumoperitoneum. Again noted are dilated loops of small and large bowel without transition zone which may reflect ileu s. Contrast is seen within the rectosigmoid colon. Persistent rectosigmoid constipation. No mass effects are noted. No renal calcifications are identified. IMPRESSION: 1. Persistent dilated loops of small and large bowel which may reflect ileus. Obstruction difficult t o exclude.
[2018-11-07] MEDS: ASPIRIN 81 MG PO SCH (09:31)
[2018-11-07] MEDS: LACTULOSE 20 GM/30 ML CUP PO SCH ×2 (09:31→21:34)
[2018-11-07] MEDS: LACTOBACILLUS ACIDOPH & BULGAR 1 EACH PACKET PO SCH ×2 (09:31→18:31)
[2018-11-07] MEDS: METOPROLOL TARTRATE 12.5 MG TAB PO SCH ×2 (09:31→21:34)
[2018-11-07] MEDS: PANTOPRAZOLE 40 MG TABLET PO SCH (09:31)
[2018-11-07] MEDS: LEVOFLOXACIN 500MG-D5W PMX 500 MG in DEXTROSE/WATER 1 100ML.BAG IVPB SCH (09:32)
--- NOTE | 2018-11-07 13:07 | PN ---
PROGRESS NOTE DATE OF SERVICE: 11/06/2018 CHIEF COMPLAINT: Abdominal pain, delirium. HISTORY OF PRESENT ILLNESS: This lady is just about the same. She remains confused. She is still complaining of pain, but she is not specific regarding location. She has had no fever or vomiting. PHYSICAL EXAM: She remains slightly pale. Her dehydrations has improved. Chest is clear. Cardiac exam is normal and the abdomen is still a little bit distended and slightly tender. Bowel sounds are not heard. IMPRESSION: 1. ? ileus. 2. ? small bowel obstruction. 3. Delirium. 4. Dehydration. PLAN: Continue with IV fluids and continue to follow her abdominal findings. She apparently has not passed gas or had a bowel movement yet and she is being seen by Surgery. MMODL / IJN: [id number] /
--- NOTE | 2018-11-07 13:14 | P.PN ---
Subjective Progress Note Date: 11/07/18 Principal diagnosis: Enterocolitis Patient states she had a small bowel movement. Today's abdominal x-rays show mildly dilated small bowel loops and colon with air. There is a large volume of stool in the sigmoid and rectum however. Objective - Vital Signs Vital signs: Vital Signs Temp 98.6 F 11/07/18 00:10 Pulse 90 11/07/18 00:30 Resp 16 11/07/18 00:10 BP 120/69 11/07/18 00:30 Pulse Ox 98 11/07/18 00:10 Intake & Output 11/06/18 11/07/18 11/07/18 18:59 06:59 18:59 Intake Total 455 110 Balance 455 110 Intake: Intake, IV Titration 455 Amount Sodium Chloride 0.9% 1, 455 000 ml @ 125 mls/hr IV . Q8H [facility] Rx#:[id number] Oral 110 Other: Voiding Method Diaper Diaper Incontinent Incontinent # Voids 1 # Bowel Movements 1 - Exam Abdomen: Soft, nontender, nondistended - Labs CBC & Chem 7: 11/05/18 10:52 11/03/18 22:10 Labs: Microbiology - Last 24 Hours (Table) 11/05/18 10:52 Blood Culture - Preliminary Blood No Growth after 48 hours 11/04/18 22:00 Urine Culture - Final Urine,Voided Klebsiella pneumoniae 11/04/18 13:37 Blood Culture - Preliminary Blood No Growth after 48 hours Assessment and Plan (1) Abdominal pain Narrative/Plan: Begin soapsuds enemas today. Continue diet as tolerated. Current Visit: No Status: Acute Code(s): R10.9 - UNSPECIFIED ABDOMINAL PAIN SNOMED Code(s): 74459618
--- NOTE | 2018-11-07 14:58 | PN ---
PROGRESS NOTE DATE OF SERVICE: 11/07/2018. CHIEF COMPLAINT: Abdominal pain and delirium. HISTORY OF PRESENT ILLNESS: This lady is about the same. She remains confused. A nurse said that she thought that the patient had scabies. This does not appear to be the case. She continues to have abdominal discomfort. PHYSICAL EXAM: Color is the same and chest is clear. The cardiac exam is normal and the abdomen is still slightly distended and she has soft tissue midline mass. IMPRESSION: 1. ? bowel obstruction. 2. ? ileus. 3. Delirium. 4. History of irritable bowel syndrome. PLAN: Continue workup and monitor her GI function. MMODL / IJN: [id number] /
[2018-11-07 15:51] LABS: ALT 21 U/L (9-52); AST 21 U/L (14-36); Albumin 2.1 g/dL (3.5-5.0); Alkaline Phosphatase 118 U/L (38-126); Anion Gap 6 mmol/L; Blood Urea Nitrogen 6 mg/dL (7-17); Carbon Dioxide 23 mmol/L (22-30); Chloride 108 mmol/L (98-107); Glucose 115 mg/dL (74-99); Potassium 3.6 mmol/L (3.5-5.1); Sodium 137 mmol/L (137-145); Total Bilirubin 0.5 mg/dL (0.2-1.3)
[2018-11-07] MEDS: ACETAMINOPHEN TAB 325 MG TAB PO PRN (17:06)
[2018-11-07 20:36] LABS: Anisocytosis Moderate; Basophils % (A) 1 %; Eosinophils % (A) 1 %; HCT 34.2 % (34.0-46.0); HGB 10.3 gm/dL (11.4-16.0); Hypochromasia Marked; Lymphocytes % (A) 14 %; MCH 27.8 pg (25.0-35.0); MCHC 30.2 g/dL (31.0-37.0); MCV 92.1 fL (80.0-100.0); Macrocytosis Slight; Mean Platelet Volume 7.2; Monocytes % (A) 7 %; Neutrophils # (A) 7.1 k/uL (1.3-7.7); Neutrophils % (A) 77 %; Platelet Count 514 k/uL (150-450); RBC 3.71 m/uL (3.80-5.40); RDW 21.3 % (11.5-15.5); WBC 9.3 k/uL (3.8-10.6)
[2018-11-07 20:37] LABS: Basophils # (A) 0.1 k/uL (0-0.2); Eosinophils # (A) 0.1 k/uL (0-0.7); Lymphocytes # (A) 1.3 k/uL (1.0-4.8); Monocytes # (A) 0.6 k/uL (0-1.0)
[2018-11-07] MEDS: MELATONIN 5 MG TABLET PO SCH (21:34)
[2018-11-08] MEDS: SODIUM CHLORIDE 0.9% 1,000 ML IV SCH ×2 (01:19→17:34)
[2018-11-08] MEDS: HYDROmorphone 1 MG/ML 1 ML SYRINGE IVP PRN ×3 (04:50→18:16)
[2018-11-08] MEDS: LEVOTHYROXINE 25 MCG TAB PO SCH (05:56)
[2018-11-08] MEDS: IPRATROPIUM-ALBUTEROL 3 ML NEB INHALATION SCH ×4 (07:12→20:03)
[2018-11-08] MEDS: ASPIRIN 81 MG PO SCH (08:29)
[2018-11-08] MEDS: LEVOFLOXACIN 500MG-D5W PMX 500 MG in DEXTROSE/WATER 1 100ML.BAG IVPB SCH (08:30)
[2018-11-08] MEDS: METOPROLOL TARTRATE 12.5 MG TAB PO SCH ×2 (08:30→21:53)
[2018-11-08] MEDS: LACTOBACILLUS ACIDOPH & BULGAR 1 EACH PACKET PO SCH ×2 (08:30→17:34)
[2018-11-08] MEDS: LACTULOSE 20 GM/30 ML CUP PO SCH ×2 (08:30→21:53)
[2018-11-08] MEDS: PANTOPRAZOLE 40 MG TABLET PO SCH (08:30)
[2018-11-08 12:31] LABS: Amylase <30 U/L (30-110); Lipase 11 U/L (23-300)
[2018-11-08 12:47] LABS: T4, Free (Free Thyroxine) 1.67 ng/dL (0.78-2.19)
--- NOTE | 2018-11-08 14:43 | P.PN ---
<Anuja Johnson A - Last Filed: 11/08/18 14:40> Subjective Progress Note Date: 11/08/18 HISTORY OF PRESENT ILLNESS: Patient examined at the bedside. She remains confused at times. Patient refused soap suds enema yesterday. She did have multiple bowel movements overnight. Nursing also reports 3 moderate sized soft stools today. Patient tolerating PO diet. Denies nausea or vomiting. Denies abdominal pain. PHYSICAL EXAM: VITAL SIGNS: Currently stable. GENERAL: Well-developed in no acute distress. HEENT: No sclera icterus. Extraocular movements grossly intact. Moist buccal mucosa. Head is atraumatic, normocephalic. No nasal drainage. NECK: Supple without lymphadenopathy. CHEST: Non-labored respirations and equal bilateral excursions. CARDIOVASCULAR: Regular rate with regular rhythm. ABDOMEN: Soft. Nondistended. Nontender. MUSCULOSKELETAL: No clubbing, cyanosis or edema. NEUROLOGIC: No focal or lateralizing signs. Cranial nerves II through XII grossly intact. PSYCH: Appropriate affect. Alert and oriented to person. SKIN: Well perfused. Good skin turgor. ASSESSMENT: 1. Abdominal pain, resolving 2. Constipation, resolving PLAN: Patient is stable from a surgical standpoint. Continue current diet and medications. Nurse practitioner note has been reviewed by physician. Signing provider agrees with the documented findings, assessment, and plan of care. Objective - Vital Signs Vital signs: Vital Signs Temp 98.4 F 11/08/18 07:58 Pulse 94 11/08/18 07:58 Resp 14 11/08/18 08:35 BP 124/73 11/08/18 07:58 Pulse Ox 96 11/08/18 07:58 Intake & Output 11/07/18 11/08/18 11/08/18 18:59 06:59 18:59 Intake Total 100 845 520 Output Total 1 Balance 100 844 520 Intake: Intake, IV Titration 100 845 520 Amount Levofloxacin 500Mg-D5w 100 Pmx 500 mg In Dextrose/ Water 1 100ml.bag @ 100 mls/hr IVPB Q24H [facility] Rx#: [id number] Sodium Chloride 0.9% 1, 845 520 000 ml @ 65 mls/hr IV . [id number] [facility] Rx#:[id number] Output: Urine/Stool Mix 1 Other: Voiding Method Incontinent Incontinent Incontinent # Voids 1 1 2 # Bowel Movements 1 2 - Labs CBC & Chem 7: 11/07/18 14:55 11/07/18 14:55 Labs: Abnormal Lab Results - Last 24 Hours (Table) 11/07/18 11/07/18 11/08/18 Range/Units 14:55 14:55 11:26 RBC 3.71 L (3.80-5.40) m/uL Hgb 10.3 L (11.4-16.0) gm/dL MCHC 30.2 L (31.0-37.0) g/dL RDW 21.3 H (11.5-15.5) % Plt Count 514 H (150-450) k/uL Chloride 108 H (98-107) mmol/L BUN 6 L (7-17) mg/dL Creatinine 0.34 L (0.52-1.04) mg/dL Glucose 115 H (74-99) mg/dL Calcium 8.0 L (8.4-10.2) mg/dL Total Protein 6.0 L (6.3-8.2) g/dL Albumin 2.1 L (3.5-5.0) g/dL Amylase <30 L (30-110) U/L Lipase 11 L (23-300) U/L Microbiology - Last 24 Hours (Table) 11/05/18 10:52 Blood Culture - Preliminary Blood No Growth after 72 hours 11/04/18 13:37 Blood Culture - Preliminary Blood No Growth after 72 hours 11/04/18 22:00 Urine Culture - Final Urine,Voided Klebsiella pneumoniae <Marek Green - Last Filed: 11/08/18 17:35> Subjective As above. Patient doing well at this time. Pain seems to be improved. Having good bowel function finally. Continue stool softeners. We'll sign off. Please call if needed. Objective - Vital Signs Vital signs: Vital Signs Temp 98.0 F 11/08/18 15:00 Pulse 91 11/08/18 15:00 Resp 14 11/08/18 15:11 BP 110/73 11/08/18 15:00 Pulse Ox 96 11/08/18 15:00 Intake & Output 11/07/18 11/08/18 11/08/18 18:59 06:59 18:59 Intake Total 100 845 540 Output Total 1 Balance 100 844 540 Intake: Intake, IV Titration 100 845 520 Amount Levofloxacin 500Mg-D5w 100 Pmx 500 mg In Dextrose/ Water 1 100ml.bag @ 100 mls/hr IVPB Q24H [facility] Rx#: [id number] Sodium Chloride 0.9% 1, 845 520 000 ml @ 65 mls/hr IV . [id number] [facility] Rx#:[id number] Oral 20 Output: Urine/Stool Mix 1 Other: Voiding Method Incontinent Incontinent Incontinent # Voids 1 1 2 # Bowel Movements 1 2 - Labs CBC & Chem 7: 11/07/18 14:55 11/07/18 14:55 Labs: Abnormal Lab Results - Last 24 Hours (Table) 11/07/18 11/08/18 Range/Units 14:55 11:26 RBC 3.71 L (3.80-5.40) m/uL Hgb 10.3 L (11.4-16.0) gm/dL MCHC 30.2 L (31.0-37.0) g/dL RDW 21.3 H (11.5-15.5) % Plt Count 514 H (150-450) k/uL Amylase <30 L (30-110) U/L Lipase 11 L (23-300) U/L Microbiology - Last 24 Hours (Table) 11/04/18 13:37 Blood Culture - Preliminary Blood No Growth after 96 hours 11/05/18 10:52 Blood Culture - Preliminary Blood No Growth after 72 hours Assessment and Plan (1) Abdominal pain Current Visit: No Status: Acute Code(s): R10.9 - UNSPECIFIED ABDOMINAL PAIN SNOMED Code(s): 86311651
--- NOTE | 2018-11-08 18:23 | PN ---
PROGRESS NOTE DATE OF SERVICE: 11/08/2018 CHIEF COMPLAINT: Ileus or small-bowel obstruction. HISTORY OF PRESENT ILLNESS: This lady is just about the same. She is not vomiting. Studies continue to show that she either has an ileus or bowel obstruction. PHYSICAL EXAMINATION: She is a little bit less confused. Chest is clear. Cardiac exam is normal. She still has some mid abdominal fullness and tenderness. Bowel sounds are not heard. IMPRESSION: 1. ? ileus. 2. ? bowel obstruction. 3. Dehydration. 4. Dementia. PLAN: Continue to follow conservatively to see if her small bowel opens up. MMODL / IJN: [id number] /
[2018-11-08] MEDS: MELATONIN 5 MG TABLET PO SCH (21:53)
[2018-11-09] MEDS: HYDROmorphone 1 MG/ML 1 ML SYRINGE IVP PRN (03:17)
[2018-11-09] MEDS: LEVOTHYROXINE 25 MCG TAB PO SCH (05:50)
[2018-11-09] MEDS: LACTOBACILLUS ACIDOPH & BULGAR 1 EACH PACKET PO SCH ×3 (09:06→18:39)
[2018-11-09] MEDS: ASPIRIN 81 MG PO SCH (09:06)
[2018-11-09] MEDS: ACETAMINOPHEN TAB 325 MG TAB PO PRN ×3 (09:06→18:38)
[2018-11-09] MEDS: PANTOPRAZOLE 40 MG TABLET PO SCH (09:06)
[2018-11-09] MEDS: METOPROLOL TARTRATE 12.5 MG TAB PO SCH (09:07)
[2018-11-09] MEDS: LACTULOSE 20 GM/30 ML CUP PO SCH ×2 (09:07→09:22)
[2018-11-09] MEDS: IPRATROPIUM-ALBUTEROL 3 ML NEB INHALATION SCH ×3 (09:31→16:35)
[2018-11-09 09:35] VITALS: RESP 20
[2018-11-09] MEDS: LEVOFLOXACIN 500MG-D5W PMX 500 MG in DEXTROSE/WATER 1 100ML.BAG IVPB SCH (10:58)
[2018-11-09 14:37] VITALS: BMI 29.0
[2018-11-09 15:04] VITALS: BP 127/63; PULSE 103; TEMP 97.8
[2018-11-09] MEDS: SODIUM CHLORIDE 0.9% 1,000 ML IV SCH (18:58)
--- NOTE | 2018-11-09 19:17 | DS ---
DISCHARGE SUMMARY CHIEF COMPLAINT: Abdominal pain and delirium. HISTORY OF PRESENT ILLNESS AND PHYSICAL EXAM: Details of this lady's history and physical can be found in the initial workup. LABORATORY STUDIES: While she was in the hospital, she had laboratory studies, details of which can be found laboratory section of the chart. COURSE IN HOSPITAL: After admission, she was placed on bedrest, started on intravenous fluids and was watched for further development of a possible bowel obstruction. She was seen and followed by surgery. She continued to have significant discomfort for several days, but no vomiting. She became quite delirious. Eventually, however, she started to pass gas and then started to have bowel movements again. She stabilized enough and it was felt that she could go back to the skilled nursing, although she was still confused. FINAL DIAGNOSES: 1. Ileus versus small-bowel obstruction. 2. Dehydration. 3. Delirium. 4. History of irritable bowel syndrome. OPERATIONS: None. CONSULTATION: Surgery. She is improved. MMJOSE MARTIN / PEPITON: [id number] /
[2018-11-10] MEDS ORDERED: LEVOFLOXACIN 500 MG TAB PO SCH (09:00)
== END 2018-11-09 19:22 | DRG 389 ==
LOC: EC 21:59 → 4SSUR 11-04 04:40
PROVIDERS: ADMIT Family Medicine; ATTEND Family Medicine
DX: K56.609 Unspecified intestinal obstruction, unspecified as to partial versus complete obstruction (principal); N39.0 Urinary tract infection, site not specified; E78.5 Hyperlipidemia, unspecified; E86.0 Dehydration; F03.90 Unspecified dementia, unspecified severity, without behavioral disturbance, psychotic disturbance, mood disturbance, and anxiety; F41.9 Anxiety disorder, unspecified; I10 Essential (primary) hypertension; I25.10 Atherosclerotic heart disease of native coronary artery without angina pectoris; J44.9 Chronic obstructive pulmonary disease, unspecified; K21.9 Gastro-esophageal reflux disease without esophagitis; K52.9 Noninfective gastroenteritis and colitis, unspecified; Z79.82 Long term (current) use of aspirin; Z79.890 Hormone replacement therapy; Z79.899 Other long term (current) drug therapy; Z85.3 Personal history of malignant neoplasm of breast; Z87.891 Personal history of nicotine dependence; Z90.11 Acquired absence of right breast and nipple; Z90.710 Acquired absence of both cervix and uterus; Z90.49 Acquired absence of other specified parts of digestive tract; Z98.42 Cataract extraction status, left eye; Z98.41 Cataract extraction status, right eye; E07.9 Disorder of thyroid, unspecified; M54.5 Low back pain; G89.29 Other chronic pain; Z87.81 Personal history of (healed) traumatic fracture; Z88.1 Allergy status to other antibiotic agents; Z88.2 Allergy status to sulfonamides
CPT/HCPCS: 36415; 71046; 74018; 74019; 74177; 80053; 81001; 82024; 82150; 82533; 83605; 83690; 83880; 84439; 85025; 85379; 87040; 87077; 87086; 87186; 94640; 94760; 96374; 99285

== ENCOUNTER 2018-11-10 15:07 | Inpatient (IN) | payer MEDICARE, OTHER ==
--- NOTE | 2018-11-10 15:42 | ED ---
General Adult HPI - General Chief complaint: GI Bleed Stated complaint: GI Bleed Time Seen by Provider: 11/10/18 15:27 Source: patient, EMS, RN notes reviewed, old records reviewed Mode of arrival: EMS Limitations: no limitations - History of Present Illness Initial comments: 88-year-old female presents for evaluation of rectal bleeding. Patient was recently in the hospital with admission for abdominal pain and constipation. She was discharged home several days prior, presents today with an episode of bright red rectal bleeding. Patient states she is on a daily aspirin, denies any other anticoagulation. Denies abdominal pain. She states there was a significant amount of blood in her brief. She denies vomiting. Denies diarrhea. States she has been constipated and this was addressed with her recent admission. No chest pain. No dyspnea. No cough. No fever. - Related Data Home Medications Medication Instructions Recorded Confirmed Ipratropium-Albuterol Nebulize 3 ml INHALATION RT-TID 01/05/17 11/10/18 [Duoneb 0.5 mg-3 mg/3 ml Soln] Levothyroxine Sodium [Synthroid] 25 mcg PO DAILY@0600 01/05/17 11/10/18 Loratadine [Claritin] 10 mg PO DAILY 01/05/17 11/10/18 Melatonin 5 mg PO HS@2100 01/05/17 11/10/18 Omeprazole 20 mg PO DAILY@0600 01/05/17 11/10/18 Potassium Chloride [Klor-Con 10] 10 meq PO BID@0600,1400 01/05/17 11/10/18 Diphenoxylate HCl/Atropine 1 tab PO Q6H PRN 09/01/17 11/10/18 [Lomotil 2.5-0.025 mg Tablet] Aspirin [Adult Low Dose Aspirin EC] 81 mg PO DAILY@0900 07/26/18 11/10/18 Dicyclomine [Bentyl] 20 mg PO Q6H 07/26/18 11/10/18 Olopatadine HCl [Patanol] 1 drop BOTH EYES Q12H PRN 07/26/18 11/10/18 busPIRone HCl [Buspar] 5 mg PO TID@0600,1400,2200 07/26/18 11/10/18 Bismuth Subsalicylate 524 mg PO Q4H PRN 11/03/18 11/10/18 [Pepto-Bismol] Dimethicone/Zinc Oxide [Inzo Zinc 1 applic TOPICAL Q12HR 11/03/18 11/10/18 Oxide Barrier Cream] Lactobacillus Acidophilus 1 tab PO BID@0900,209911/03/18 11/10/18 [Acidophilus] Metoprolol Tartrate [Lopressor] 12.5 mg PO BID@0900,209911/03/18 11/10/18 Ondansetron HCl [Zofran] 8 mg PO Q8H PRN 11/03/18 11/10/18 Oyster-Bao 500mg Tab 1 tab PO DAILY@0900 11/03/18 11/10/18 traZODone HCL [Desyrel] 100 mg PO HS@209911/03/18 11/10/18 Acetaminophen Tab [Tylenol] 650 mg PO Q4HR PRN 11/10/18 11/10/18 Levofloxacin [Levaquin] 500 mg PO DAILY 11/10/18 11/10/18 Allergies Allergy/AdvReac Type Severity Reaction Status Date / Time metronidazole [From Flagyl] Allergy Unknown Verified 11/10/18 15:20 Meqdtqs-Int-Lum Reductase Allergy Unknown Verified 11/10/18 15:20 Inhibitor sulfamethoxazole Allergy Unknown Verified 11/10/18 15:20 [From Bactrim] trimethobenzamide Allergy Unknown Verified 11/10/18 15:20 [From Tigan] trimethoprim [From Bactrim] Allergy Unknown Verified 11/10/18 15:20 Review of Systems ROS Statement: Those systems with pertinent positive or pertinent negative responses have been documented in the HPI. ROS Other: All systems not noted in ROS Statement are negative. Past Medical History Past Medical History: Asthma, Coronary Artery Disease (CAD), Cancer, COPD, GERD/ Reflux, Hyperlipidemia, Hypertension, Osteoarthritis (OA), Pneumonia, Thyroid Disorder Additional Past Medical History / Comment(s): R BREAST CANCER, bronchitis, IBS ( newly diagnosed), balance issues, numbness/tingling bilateral legs/feet, anemia , UTI, chronic low back pain, past fracture L hip with sx and fx L wrist, sinus problems. History of Any Multi-Drug Resistant Organisms: None Reported Past Surgical History: Bladder Surgery, Breast Surgery, Cholecystectomy, Heart Catheterization, Hysterectomy Additional Past Surgical History / Comment(s): 1979 RIGHT MASTECTOMY, colonoscopies, bilateral cataracts removed with lasik sx, hemorroidectomy, L hip fx repair (metal in hip), bladder suspension. Past Anesthesia/Blood Transfusion Reactions: No Reported Reaction Past Psychological History: Anxiety Smoking Status: Former smoker Past Alcohol Use History: None Reported Past Drug Use History: None Reported - Past Family History Father History Unknown: Yes Additional Family Medical History / Comment(s): Pt adopted and does not know parents hx. General Exam Limitations: no limitations General appearance: alert, in no apparent distress Head exam: Present: atraumatic, normocephalic Eye exam: Present: normal appearance, PERRL ENT exam: Present: normal exam Neck exam: Present: normal inspection. Absent: tenderness, meningismus Respiratory exam: Present: normal lung sounds bilaterally. Absent: respiratory distress, wheezes Cardiovascular Exam: Present: regular rate, normal rhythm GI/Abdominal exam: Present: soft, distended. Absent: tenderness, guarding, rebound Rectal exam: Present: heme (+) stool, bloody stool, tenderness, other (Stage I sacral decubitus) Extremities exam: Present: normal inspection, normal capillary refill. Absent: pedal edema Neurological exam: Present: alert. Absent: motor sensory deficit Skin exam: Present: warm, dry. Absent: cyanosis, diaphoretic Course Vital Signs 11/10/18 15:10 Temperature 97 F L Pulse Rate 71 Respiratory 20 Rate Blood Pressure 129/118 O2 Sat by Pulse 98 Oximetry - Reevaluation(s) Reevaluation #1: 11/10/18 19:04 Patient reevaluated, resting comfortably, no pain, patient is hungry and wants to. Denies any episodes of bright red blood per rectum while in the emergency department. EKG Findings - EKG Comments: EKG Findings:: EKG: Sinus tachycardia, rate of 105, ME interval 130, QRS duration 78, QTC 454, no definitive signs of acute ischemia, no ST segment elevation Medical Decision Making - Medical Decision Making 88-year-old female presenting for evaluation of rectal bleeding. Patient did not have abdominal pain she had abdominal pain over the past week and was admitted with these symptoms. Abdominal exam does reveal some mild distention, no focal tenderness. Patient has red blood cell count 10.6, hemoglobin 10.2 which is stable from previous at 10.3. INR 1.6 without anticoagulation from baseline of 1.0. Calcium 7.7 with an albumin of 2. Magnesium 1.4 which is replaced. Patient has elevated AST and ALT as well as alkaline phosphatase above baseline, normal lipase. CT is performed, shows fatty liver and some mild edema. Patient's has stable vitals, resting comfortably in the emergency department, she's hungry and eager to eat. She will be To 4 repeat hemoglobin, as well as sleep. Repeat liver function testing as this does appear to be some degree of transaminitis with possible liver failure. She is on Tylenol, , Tylenol level 23.7 which is therapeutic, nontoxic. Case discussed with admitting physician Dr. Garcia, will except. I placed both gastroenterology and general surgery on consult for evaluation, patient will be kept nothing by mouth. - Lab Data Result diagrams: 11/10/18 15:33 11/10/18 15:33 Lab Results 11/10/18 11/10/18 11/10/18 Range/Units 15:33 15:33 15:33 WBC 10.6 (3.8-10.6) k/uL RBC 3.66 L (3.80-5.40) m/uL Hgb 10.2 L (11.4-16.0) gm/dL Hct 32.2 L (34.0-46.0) % MCV 88.1 (80.0-100.0) fL MCH 27.8 (25.0-35.0) pg MCHC 31.5 (31.0-37.0) g/dL RDW 20.6 H (11.5-15.5) % Plt Count 398 (150-450) k/uL Neutrophils % 79 % Lymphocytes % 15 % Monocytes % 5 % Eosinophils % 1 % Basophils % 0 % Neutrophils # 8.3 H (1.3-7.7) k/uL Lymphocytes # 1.6 (1.0-4.8) k/uL Monocytes # 0.5 (0-1.0) k/uL Eosinophils # 0.1 (0-0.7) k/uL Basophils # 0.0 (0-0.2) k/uL Hypochromasia Slight Anisocytosis Moderate PT 15.9 H (9.0-12.0) sec INR 1.6 H (<1.2) APTT 34.6 H (22.0-30.0) sec Sodium 138 (137-145) mmol/L Potassium 3.8 (3.5-5.1) mmol/L Chloride 109 H (98-107) mmol/L Carbon Dioxide 24 (22-30) mmol/L Anion Gap 5 mmol/L BUN 12 (7-17) mg/dL Creatinine 0.39 L (0.52-1.04) mg/dL Est GFR (CKD-EPI)AfAm >90 (>60 ml/min/1.73 sqM) Est GFR (CKD-EPI)NonAf >90 (>60 ml/min/1.73 sqM) Glucose 108 H (74-99) mg/dL Calcium 7.7 L (8.4-10.2) mg/dL Magnesium 1.4 L (1.6-2.3) mg/dL Total Bilirubin 1.0 (0.2-1.3) mg/dL AST 459 H (14-36) U/L ALT 80 H (9-52) U/L Alkaline Phosphatase 144 H (38-126) U/L Total Protein 5.7 L (6.3-8.2) g/dL Albumin 2.0 L (3.5-5.0) g/dL Lipase (23-300) U/L Stool Occult Blood (Negative) Acetaminophen ug/mL Blood Type Blood Type Recheck Antibody Screen Spec Expiration Date 11/10/18 11/10/18 11/10/18 Range/Units 15:33 15:33 15:33 WBC (3.8-10.6) k/uL RBC (3.80-5.40) m/uL Hgb (11.4-16.0) gm/dL Hct (34.0-46.0) % MCV (80.0-100.0) fL MCH (25.0-35.0) pg MCHC (31.0-37.0) g/dL RDW (11.5-15.5) % Plt Count (150-450) k/uL Neutrophils % % Lymphocytes % % Monocytes % % Eosinophils % % Basophils % % Neutrophils # (1.3-7.7) k/uL Lymphocytes # (1.0-4.8) k/uL Monocytes # (0-1.0) k/uL Eosinophils # (0-0.7) k/uL Basophils # (0-0.2) k/uL Hypochromasia Anisocytosis PT (9.0-12.0) sec INR (<1.2) APTT (22.0-30.0) sec Sodium (137-145) mmol/L Potassium (3.5-5.1) mmol/L Chloride (98-107) mmol/L Carbon Dioxide (22-30) mmol/L Anion Gap mmol/L BUN (7-17) mg/dL Creatinine (0.52-1.04) mg/dL Est GFR (CKD-EPI)AfAm (>60 ml/min/1.73 sqM) Est GFR (CKD-EPI)NonAf (>60 ml/min/1.73 sqM) Glucose (74-99) mg/dL Calcium (8.4-10.2) mg/dL Magnesium (1.6-2.3) mg/dL Total Bilirubin (0.2-1.3) mg/dL AST (14-36) U/L ALT (9-52) U/L Alkaline Phosphatase (38-126) U/L Total Protein (6.3-8.2) g/dL Albumin (3.5-5.0) g/dL Lipase 19 L (23-300) U/L Stool Occult Blood (Negative) Acetaminophen 23.7 ug/mL Blood Type O Positive Blood Type Recheck No Antibody Screen NEGATIVE Spec Expiration Date 11/13/2018 - 233211/10/18 Range/Units 15:43 WBC (3.8-10.6) k/uL RBC (3.80-5.40) m/uL Hgb (11.4-16.0) gm/dL Hct (34.0-46.0) % MCV (80.0-100.0) fL MCH (25.0-35.0) pg MCHC (31.0-37.0) g/dL RDW (11.5-15.5) % Plt Count (150-450) k/uL Neutrophils % % Lymphocytes % % Monocytes % % Eosinophils % % Basophils % % Neutrophils # (1.3-7.7) k/uL Lymphocytes # (1.0-4.8) k/uL Monocytes # (0-1.0) k/uL Eosinophils # (0-0.7) k/uL Basophils # (0-0.2) k/uL Hypochromasia Anisocytosis PT (9.0-12.0) sec INR (<1.2) APTT (22.0-30.0) sec Sodium (137-145) mmol/L Potassium (3.5-5.1) mmol/L Chloride (98-107) mmol/L Carbon Dioxide (22-30) mmol/L Anion Gap mmol/L BUN (7-17) mg/dL Creatinine (0.52-1.04) mg/dL Est GFR (CKD-EPI)AfAm (>60 ml/min/1.73 sqM) Est GFR (CKD-EPI)NonAf (>60 ml/min/1.73 sqM) Glucose (74-99) mg/dL Calcium (8.4-10.2) mg/dL Magnesium (1.6-2.3) mg/dL Total Bilirubin (0.2-1.3) mg/dL AST (14-36) U/L ALT (9-52) U/L Alkaline Phosphatase (38-126) U/L Total Protein (6.3-8.2) g/dL Albumin (3.5-5.0) g/dL Lipase (23-300) U/L Stool Occult Blood Positive H (Negative) Acetaminophen ug/mL Blood Type Blood Type Recheck Antibody Screen Spec Expiration Date Disposition Clinical Impression: Dehydration, Hematochezia, Transaminitis Disposition: ADMITTED IP TO THIS [facility] Condition: Stable Is patient prescribed a controlled substance at d/c from ED?: No Referrals: Humza Garcia MD [Primary Care Provider] - 1-2 days Decision to Admit Reason: Admit from EC Decision Date: 11/10/18 Decision Time: 19:08
[2018-11-10 15:52] LABS: Anisocytosis Moderate; Basophils % (A) 0 %; Eosinophils # (A) 0.1 k/uL (0-0.7); Eosinophils % (A) 1 %; HCT 32.2 % (34.0-46.0); HGB 10.2 gm/dL (11.4-16.0); Hypochromasia Slight; Lymphocytes # (A) 1.6 k/uL (1.0-4.8); Lymphocytes % (A) 15 %; MCH 27.8 pg (25.0-35.0); MCHC 31.5 g/dL (31.0-37.0); MCV 88.1 fL (80.0-100.0); Mean Platelet Volume 6.9; Monocytes # (A) 0.5 k/uL (0-1.0); Monocytes % (A) 5 %; Neutrophils # (A) 8.3 k/uL (1.3-7.7); Neutrophils % (A) 79 %; Platelet Count 398 k/uL (150-450); RBC 3.66 m/uL (3.80-5.40); RDW 20.6 % (11.5-15.5); WBC 10.6 k/uL (3.8-10.6)
[2018-11-10 16:01] LABS: INR 1.6 (<1.2); Partial Thromboplastin Time 34.6 sec (22.0-30.0); Prothrombin Time 15.9 sec (9.0-12.0)
[2018-11-10 16:05] LABS: Anion Gap 5 mmol/L; Blood Urea Nitrogen 12 mg/dL (7-17); Calcium 7.7 mg/dL (8.4-10.2); Carbon Dioxide 24 mmol/L (22-30); Chloride 109 mmol/L (98-107); Glucose 108 mg/dL (74-99); Sodium 138 mmol/L (137-145); Total Protein 5.7 g/dL (6.3-8.2)
[2018-11-10 16:09] LABS: AST 459 U/L (14-36); Magnesium 1.4 mg/dL (1.6-2.3); Potassium 3.8 mmol/L (3.5-5.1)
[2018-11-10 16:10] LABS: ALT 80 U/L (9-52); Alkaline Phosphatase 144 U/L (38-126)
[2018-11-10] MEDS ORDERED: SODIUM CHLORIDE 0.9% 500 ML 500 ML IV ONE (17:08)
[2018-11-10] MEDS: MAGNESIUM SULFATE-D5W PMX 1 GM in DEXTROSE/WATER 1 100ML.BAG IVPB SCH ×2 (18:25→19:32)
[2018-11-10] MEDS: SODIUM CHLORIDE 0.9% 1,000 ML IV SCH (18:27)
--- NOTE | 2018-11-10 18:33 | CT ---
EXAMINATION TYPE: CT abdomen pelvis w con DATE OF EXAM: 11/10/2018 COMPARISON: 11/05/2018 HISTORY: Rectal bleeding. CT DLP: 712.5 mGycm Automated exposure control for dose reduction was used. TECHNIQUE: Helical acquisition of images was performed from the lung bases through the pelvis. CONTRAST: Performed without Oral Contrast and with IV Contrast, patient injected with 100 mL of Isovue 300. FINDINGS: There are small bilateral pleural effusions. There is some infiltrate and atelectasis at the posterio r lung bases. There is no pericardial effusion. Abdominal aorta is atheromatous. Liver shows no focal defect. There are clips from cholecystectomy. Spleen appears normal. There is no pancreatic mass. There is no adrenal mass. Kidneys show satisfactory contrast opacification. There is no hydronephrosi s. There are multiple small renal cortical cysts that measure up to 1 cm. There is no retroperitoneal adenopathy. There is no hydronephrosis. Ureters are not dilated. The appendix appears normal. There is no evidence of a bowel obstruction. There is left hip prosthesis. There is metal artifact. There i s no free fluid in the pelvis. There is no inguinal hernia. Bladder is distended and smoothly. There is no sign of a pelvic mass. There is perirectal edema. There is also some edema around the ascending colon. There is subcutaneous edema over the lower lumbar spine. There is no mesenteric edema or polo opathy. There is no sign of pneumoperitoneum. There is probably some fatty infiltration of the liver. There are scattered percent compression fracture of L1 vertebral body. Fracture appears old. There i s 15% compression of T12 vertebra. There is similar 25% anterior wedging of T10. IMPRESSION: There is some fatty infiltration of the liver. There are new pleural effusions and basilar mild infil trate or atelectasis compared to old exam. This could relate to congestive heart failure. There is ne w perirectal edema and right pericolic edema also consistent with heart failure. Multiple compression fractures unchanged.
[2018-11-10] MEDS ORDERED: PANTOPRAZOLE 40 MG/10 ML VIAL IVP STA (18:36)
[2018-11-10] MEDS ORDERED: ONDANSETRON 4 MG/2 ML VIAL IVP PRN (18:45)
[2018-11-10] MEDS ORDERED: NALOXONE 0.4 MG/ML 1 ML VIAL IV PRN (18:45)
[2018-11-10] MEDS: PANTOPRAZOLE 40 MG/10 ML VIAL IVP SCH (21:40)
[2018-11-11] MEDS: MORPHINE SULFATE 4 MG/ML SYRINGE IV PRN ×3 (03:32→18:16)
[2018-11-11] MEDS: SODIUM CHLORIDE 0.9% 1,000 ML IV SCH (06:26)
[2018-11-11 06:57] LABS: INR 1.8 (<1.2); Prothrombin Time 17.7 sec (9.0-12.0)
[2018-11-11 06:59] LABS: Anisocytosis Moderate; Basophils % (A) 0 %; Eosinophils # (A) 0.1 k/uL (0-0.7); Eosinophils % (A) 1 %; HCT 34.7 % (34.0-46.0); HGB 10.6 gm/dL (11.4-16.0); Hypochromasia Moderate; Lymphocytes # (A) 1.1 k/uL (1.0-4.8); Lymphocytes % (A) 13 %; MCH 27.2 pg (25.0-35.0); MCHC 30.6 g/dL (31.0-37.0); MCV 88.9 fL (80.0-100.0); Mean Platelet Volume 7.5; Monocytes # (A) 0.4 k/uL (0-1.0); Monocytes % (A) 4 %; Neutrophils # (A) 7.1 k/uL (1.3-7.7); Neutrophils % (A) 81 %; Platelet Count 350 k/uL (150-450); RDW 20.7 % (11.5-15.5); WBC 8.8 k/uL (3.8-10.6)
[2018-11-11 07:02] LABS: Chloride 111 mmol/L (98-107)
[2018-11-11 07:04] LABS: ALT 183 U/L (9-52); Albumin 1.9 g/dL (3.5-5.0); Alkaline Phosphatase 155 U/L (38-126); Amylase <30 U/L (30-110); Anion Gap 2 mmol/L; Blood Urea Nitrogen 11 mg/dL (7-17); Calcium 7.3 mg/dL (8.4-10.2); Carbon Dioxide 26 mmol/L (22-30); Glucose 68 mg/dL (74-99); Lipase 16 U/L (23-300); Magnesium 1.8 mg/dL (1.6-2.3); Potassium 3.6 mmol/L (3.5-5.1); Sodium 139 mmol/L (137-145); Total Bilirubin 1.1 mg/dL (0.2-1.3); Total Protein 5.6 g/dL (6.3-8.2)
[2018-11-11 07:11] LABS: AST 1145 U/L (14-36)
[2018-11-11] MEDS: PANTOPRAZOLE 40 MG/10 ML VIAL IVP SCH (08:22)
--- NOTE | 2018-11-11 13:02 | HP ---
HISTORY AND PHYSICAL DATE OF ADMISSION: 11/10/2018. CHIEF COMPLAINT: Abdominal pain, confusion, and elevated liver function studies. HISTORY OF PRESENT ILLNESS: This is another recent admission for this 88-year-old white female who was admitted with what turned out to be an ileus. She went back to the residential and continues to complain of abdominal and back pain and was sent back to the emergency room. She continues to be delirious. In the emergency room, her liver function studies had elevated significantly. She is not jaundice. REVIEW OF SYSTEMS: Is not obtainable except she complains of abdominal back pain. She is confused. Past medical history, family history, personal and social histories are unchanged from her recent admitting and discharge summaries. PHYSICAL EXAMINATION: Blood pressure is 136/74 with a pulse of 81, respirations of 32 and she is afebrile. In general, she appeared to be slightly pale and slightly dehydrated and chronically ill. Head, ears, eyes, nose, mouth, and throat were normal. Chest demonstrated rhonchi bilaterally. There are occasional rales. Cardiac exam demonstrates sinus rhythm and no murmurs or extra sounds. The abdomen seems soft and she complained of some lower abdominal pain, but there is no definite masses or visceromegaly. Bowel sounds are heard. Extremities are normal. Neurologically she is awake, but confused. She is admitted to hospital with diagnoses: IMPRESSION: 1. Abdominal pain, etiology unknown. 2. Back pain, etiology unknown. 3. Elevated liver function studies. 4. Recent ileus. 5. Possible bronchial pneumonia. 6. Delirium. PLAN: 1. Bed rest. 2. IV fluids. 3. Look for source of hepatic failure. 4. Refer back to General surgery and Gastroenterology. MMODL / IJN: [id number] /
--- NOTE | 2018-11-11 13:08 | PN ---
PROGRESS NOTE DATE OF SERVICE: 11/11/2018 CHIEF COMPLAINT: Abdominal pain and elevated liver function studies. HISTORY OF PRESENT ILLNESS: This lady seems about the same. She sis till slightly confused, but she is awake. She is complaining of lower abdominal and back pain. She has had no vomiting. PHYSICAL EXAM: Hydration is about the same and color is unchanged. She has a congested cough. There are scattered rhonchi. Cardiac exam is normal. The abdomen is slightly tender in the lower aspect without any definite masses or fullness. There is no tenderness in the upper abdomen and there is no visceromegaly. Bowel sounds are present. IMPRESSION: 1. Abdominal pain with back pain and elevated liver function studies. 2. Delirium. 3. Recent episode of ileus. PLAN: 1. Lactic acid. 2. Continue to look for source of her abdominal pain and elevated liver function studies. MMODL / IJN: [id number] /
[2018-11-11] MEDS: IPRATROPIUM-ALBUTEROL 3 ML NEB INHALATION SCH ×2 (13:54→20:09)
[2018-11-11 15:29] LABS: Albumin 1.9 g/dL (3.5-5.0); Anion Gap 2 mmol/L; Blood Urea Nitrogen 12 mg/dL (7-17); Calcium 7.2 mg/dL (8.4-10.2); Carbon Dioxide 23 mmol/L (22-30); Chloride 113 mmol/L (98-107); Glucose 74 mg/dL (74-99); Sodium 138 mmol/L (137-145); Total Bilirubin 1.3 mg/dL (0.2-1.3); Total Protein 5.8 g/dL (6.3-8.2)
[2018-11-11 15:32] LABS: Anisocytosis Moderate; Basophils % (A) 0 %; Eosinophils # (A) 0.1 k/uL (0-0.7); Eosinophils % (A) 1 %; HCT 35.2 % (34.0-46.0); HGB 10.8 gm/dL (11.4-16.0); Hypochromasia Marked; Lymphocytes # (A) 1.5 k/uL (1.0-4.8); Lymphocytes % (A) 16 %; MCH 28.5 pg (25.0-35.0); MCHC 30.6 g/dL (31.0-37.0); MCV 92.9 fL (80.0-100.0); Macrocytosis Slight; Mean Platelet Volume 7.1; Monocytes # (A) 0.5 k/uL (0-1.0); Monocytes % (A) 5 %; Neutrophils # (A) 7.3 k/uL (1.3-7.7); Neutrophils % (A) 77 %; Platelet Count 330 k/uL (150-450); RBC 3.79 m/uL (3.80-5.40); RDW 20.7 % (11.5-15.5); WBC 9.4 k/uL (3.8-10.6)
[2018-11-11 15:51] LABS: ALT 289 U/L (9-52); AST 1650 U/L (14-36); Alkaline Phosphatase 150 U/L (38-126); Potassium 5.1 mmol/L (3.5-5.1)
[2018-11-11 16:11] LABS: Poikilocytosis (M) Present
--- NOTE | 2018-11-11 17:44 | XR ---
EXAMINATION TYPE: XR chest 2V DATE OF EXAM: 11/11/2018 COMPARISON: November 05, 2018 HISTORY: Cough TECHNIQUE: Frontal and lateral views of the chest are obtained. FINDINGS: There is blunting of the posterior costophrenic angles. Heart size is normal. Thoracic aor ta is atheromatous. There are tiny calcified granulomata in both upper lobes. There is no heart failu re. The bony thorax appears intact. IMPRESSION: There are new small pleural effusions posteriorly compared to old exam. No heart failure . Old granulomatous disease.
[2018-11-11] MEDS ORDERED: HALOPERIDOL LACTATE 5 MG/ML 1 ML VIAL IM STA (22:46)
[2018-11-11] MEDS: METOPROLOL TARTRATE 50 MG TAB PO SCH (22:54)
[2018-11-12] MEDS: SODIUM CHLORIDE 0.9% 1,000 ML IV SCH ×2 (02:33→08:52)
[2018-11-12] MEDS: PANTOPRAZOLE 40 MG/10 ML VIAL IVP SCH ×3 (02:33→20:19)
[2018-11-12] MEDS: ZINC OXIDE 20% OINT 28.4 GM TUBE TOPICAL SCH ×2 (02:33→08:52)
--- NOTE | 2018-11-12 06:24 | P.CONS ---
History of Present Illness - Reason for Consult Consult date: 11/11/18 GI bleed. - History of Present Illness 88-year-old female presents for evaluation of rectal bleeding. Patient was recently in the hospital with admission for abdominal pain and constipation. She was discharged home several days prior, presents today with an episode of bright red rectal bleeding. Patient states she is on a daily aspirin, denies any other anticoagulation. Denies abdominal pain. She states there was a significant amount of blood in her brief. She denies vomiting. Denies diarrhea. States she has been constipated and this was addressed with her recent admission. No chest pain. No dyspnea. No cough. No fever. Hb has been stable around 10.8. Liver enzyme elevation noted. CT of abdomen pelvis reviewed. S/P cholecystectomy and fatty infiltration of the liver. Possible pneumonia/CHF. Review of Systems REVIEW OF SYSTEMS: CONSTITUTIONAL: Denies any fevers, chills, weight change or fatigue. CARDIOVASCULAR: Denies any chest pain, palpitations high or low blood pressures RESPIRATORY: Denies any shortness of breath, hemoptysis or cough. GENITOURINARY: No dysuria or hematuria. MUSCULOSKELETAL: No weakness reported. SKIN: Denies any new rashes or lesions, jaundice or pallor. PSYCHIATRIC: Denies any depression or anxiety. NEUROLOGY: Denies headache, denies any new focal deficits. EARS/NOSE/THROAT: No recent hearing change, congestion, nasal discharge or sore throat. EYES: No pain in eyes, discharge or change in vision. GASTROINTESTINAL: As per HPI. Past Medical History Past Medical History: Asthma, Coronary Artery Disease (CAD), Cancer, COPD, GERD/ Reflux, Hyperlipidemia, Hypertension, Osteoarthritis (OA), Pneumonia, Thyroid Disorder Additional Past Medical History / Comment(s): R BREAST CANCER, bronchitis, IBS ( newly diagnosed), balance issues, numbness/tingling bilateral legs/feet, anemia , UTI, chronic low back pain, past fracture L hip with sx and fx L wrist, sinus problems. History of Any Multi-Drug Resistant Organisms: None Reported Past Surgical History: Bladder Surgery, Breast Surgery, Cholecystectomy, Heart Catheterization, Hysterectomy Additional Past Surgical History / Comment(s): 1979 RIGHT MASTECTOMY, colonoscopies, bilateral cataracts removed with lasik sx, hemorroidectomy, L hip fx repair (metal in hip), bladder suspension. Past Anesthesia/Blood Transfusion Reactions: No Reported Reaction Past Psychological History: Anxiety Additional Psychological History / Comment(s): She uses a walker with wheels or a 4 prong cane to ambulate. Smoking Status: Former smoker Past Alcohol Use History: None Reported Additional Past Alcohol Use History / Comment(s): Pt quit smoking in 1989. Past Drug Use History: None Reported - Past Family History Father History Unknown: Yes Additional Family Medical History / Comment(s): Pt adopted and does not know parents hx. Medications and Allergies Home Medications Medication Instructions Recorded Confirmed Type Ipratropium-Albuterol Nebulize 3 ml INHALATION RT-TID 01/05/17 11/10/18 History [Duoneb 0.5 mg-3 mg/3 ml Soln] Levothyroxine Sodium [Synthroid] 25 mcg PO DAILY@0600 01/05/17 11/10/18 History Loratadine [Claritin] 10 mg PO DAILY 01/05/17 11/10/18 History Melatonin 5 mg PO HS@2100 01/05/17 11/10/18 History Omeprazole 20 mg PO DAILY@0600 01/05/17 11/10/18 History Potassium Chloride [Klor-Con 10] 10 meq PO BID@0600,1400 01/05/17 11/10/18 History Diphenoxylate HCl/Atropine 1 tab PO Q6H PRN 09/01/17 11/10/18 History [Lomotil 2.5-0.025 mg Tablet] Aspirin [Adult Low Dose Aspirin EC] 81 mg PO DAILY@0900 07/26/18 11/10/18 History Dicyclomine [Bentyl] 20 mg PO Q6H 07/26/18 11/10/18 History Olopatadine HCl [Patanol] 1 drop BOTH EYES Q12H PRN 07/26/18 11/10/18 History busPIRone HCl [Buspar] 5 mg PO TID@0600,1400,2200 07/26/18 11/10/18 History Bismuth Subsalicylate 524 mg PO Q4H PRN 11/03/18 11/10/18 History [Pepto-Bismol] Dimethicone/Zinc Oxide [Inzo Zinc 1 applic TOPICAL Q12HR 11/03/18 11/10/18 History Oxide Barrier Cream] Lactobacillus Acidophilus 1 tab PO BID@0900,2100 02/09/19 02/16/19 History [Acidophilus] Metoprolol Tartrate [Lopressor] 12.5 mg PO BID@0900,209911/03/18 11/10/18 History Ondansetron HCl [Zofran] 8 mg PO Q8H PRN 11/03/18 11/10/18 History Oyster-Bao 500mg Tab 1 tab PO DAILY@0900 11/03/18 11/10/18 History traZODone HCL [Desyrel] 100 mg PO HS@209911/03/18 11/10/18 History Acetaminophen Tab [Tylenol] 650 mg PO Q4HR PRN 11/10/18 11/10/18 History Levofloxacin [Levaquin] 500 mg PO DAILY 11/10/18 11/10/18 History Allergies Allergy/AdvReac Type Severity Reaction Status Date / Time metronidazole [From Flagyl] Allergy Unknown Verified 11/10/18 15:20 Eyfljgm-Ewf-Uqw Reductase Allergy Unknown Verified 11/10/18 15:20 Inhibitor sulfamethoxazole Allergy Unknown Verified 11/10/18 15:20 [From Bactrim] trimethobenzamide Allergy Unknown Verified 11/10/18 15:20 [From Tigan] trimethoprim [From Bactrim] Allergy Unknown Verified 11/10/18 15:20 Physical Exam Vitals: Vital Signs Temp Pulse Pulse Resp BP BP Pulse Ox 11/11/18 16:00 106 H 20 102/75 97 11/11/18 14:02 70 11/11/18 13:54 74 11/11/18 11:56 96.1 F L 90 18 116/58 96 11/11/18 08:00 96.0 F L 101 H 18 116/70 99 11/11/18 03:52 93 20 11/11/18 03:35 98.1 F 93 20 132/62 96 11/11/18 00:00 98 F 76 16 114/54 98 11/10/18 23:32 76 20 11/10/18 21:19 97.7 F 101 H 20 113/55 98 11/10/18 20:45 97.7 F 101 H 20 113/55 98 11/10/18 19:20 98.3 F 96 16 102/66 99 Intake and Output 11/11/18 11/11/18 11/11/18 06:59 14:59 22:59 Intake Total 240 Balance 240 Intake: Intake, IV Titration 240 Amount Sodium Chloride 0.9% 1, 240 000 ml @ 75 mls/hr IV . [id number] [facility] Rx#:[id number] Other: Voiding Method Diaper Diaper # Voids 1 # Bowel Movements 2 1 Weight 78.5 kg On physical examination, patient appears comfortable in no apparent distress. HEAD: Normocephalic, atraumatic. EYES: No scleral icterus. No conjunctival injection. MOUTH: No lesions, tongue midline. NECK: Trachea midline, no gross abnormalities. CHEST: Clear to auscultation with no wheezing or rhonchi appreciated. HEART: Regular rate and rhythm. ABDOMEN: Soft, obese. Bowel sounds are positive. No organomegaly. No guarding or rigidity. EXTREMITIES: No pedal edema. SKIN: No rashes, no jaundice. NEUROLOGIC: Alert and oriented x3. No focal deficits. Results CBC & Chem 7: 11/11/18 15:01 11/11/18 15:01 Labs: Abnormal Lab Results - Last 24 Hours (Table) 11/10/18 11/10/18 11/10/18 Range/Units 15:33 15:33 15:33 RBC 3.66 L (3.80-5.40) m/uL Hgb 10.2 L (11.4-16.0) gm/dL Hct 32.2 L (34.0-46.0) % MCHC (31.0-37.0) g/dL RDW 20.6 H (11.5-15.5) % Neutrophils # 8.3 H (1.3-7.7) k/uL PT (9.0-12.0) sec INR (<1.2) Chloride 109 H (98-107) mmol/L Creatinine 0.39 L (0.52-1.04) mg/dL Glucose 108 H (74-99) mg/dL Calcium 7.7 L (8.4-10.2) mg/dL Magnesium 1.4 L (1.6-2.3) mg/dL AST 459 H (14-36) U/L ALT 80 H (9-52) U/L Alkaline Phosphatase 144 H (38-126) U/L Total Protein 5.7 L (6.3-8.2) g/dL Albumin 2.0 L (3.5-5.0) g/dL Amylase (30-110) U/L Lipase 19 L (23-300) U/L Stool Occult Blood (Negative) 11/10/18 11/11/18 11/11/18 Range/Units 15:43 05:36 05:36 RBC (3.80-5.40) m/uL Hgb 10.6 L (11.4-16.0) gm/dL Hct (34.0-46.0) % MCHC 30.6 L (31.0-37.0) g/dL RDW 20.7 H (11.5-15.5) % Neutrophils # (1.3-7.7) k/uL PT 17.7 H (9.0-12.0) sec INR 1.8 H (<1.2) Chloride (98-107) mmol/L Creatinine (0.52-1.04) mg/dL Glucose (74-99) mg/dL Calcium (8.4-10.2) mg/dL Magnesium (1.6-2.3) mg/dL AST (14-36) U/L ALT (9-52) U/L Alkaline Phosphatase (38-126) U/L Total Protein (6.3-8.2) g/dL Albumin (3.5-5.0) g/dL Amylase (30-110) U/L Lipase (23-300) U/L Stool Occult Blood Positive H (Negative) 11/11/18 11/11/18 11/11/18 Range/Units 05:36 15:01 15:01 RBC 3.79 L (3.80-5.40) m/uL Hgb 10.8 L (11.4-16.0) gm/dL Hct (34.0-46.0) % MCHC 30.6 L (31.0-37.0) g/dL RDW 20.7 H (11.5-15.5) % Neutrophils # (1.3-7.7) k/uL PT (9.0-12.0) sec INR (<1.2) Chloride 111 H 113 H (98-107) mmol/L Creatinine 0.37 L 0.34 L (0.52-1.04) mg/dL Glucose 68 L (74-99) mg/dL Calcium 7.3 L 7.2 L (8.4-10.2) mg/dL Magnesium (1.6-2.3) mg/dL AST 1145 H 1650 H (14-36) U/L ALT 183 H 289 H (9-52) U/L Alkaline Phosphatase 155 H 150 H (38-126) U/L Total Protein 5.6 L 5.8 L (6.3-8.2) g/dL Albumin 1.9 L 1.9 L (3.5-5.0) g/dL Amylase <30 L (30-110) U/L Lipase 16 L (23-300) U/L Stool Occult Blood (Negative) Assessment and Plan Assessment: Rectal bleeding and abnormal liver tests. Infectious/inflammatory pathology to be considered. Plan: Will monitor Hb and liver enzymes and plan further management based on her course.
--- NOTE | 2018-11-12 07:53 | P.GSCN ---
History of Present Illness Consult date: 11/11/18 History of present illness: Patient is stable at this time and tolerating liquids. GI following. No surgical intervention at this time. Past Medical History Past Medical History: Asthma, Coronary Artery Disease (CAD), Cancer, COPD, GERD/ Reflux, Hyperlipidemia, Hypertension, Osteoarthritis (OA), Pneumonia, Thyroid Disorder Additional Past Medical History / Comment(s): R BREAST CANCER, bronchitis, IBS ( newly diagnosed), balance issues, numbness/tingling bilateral legs/feet, anemia , UTI, chronic low back pain, past fracture L hip with sx and fx L wrist, sinus problems. History of Any Multi-Drug Resistant Organisms: None Reported Past Surgical History: Bladder Surgery, Breast Surgery, Cholecystectomy, Heart Catheterization, Hysterectomy Additional Past Surgical History / Comment(s): 1979 RIGHT MASTECTOMY, colonoscopies, bilateral cataracts removed with lasik sx, hemorroidectomy, L hip fx repair (metal in hip), bladder suspension. Past Anesthesia/Blood Transfusion Reactions: No Reported Reaction Past Psychological History: Anxiety Additional Psychological History / Comment(s): She uses a walker with wheels or a 4 prong cane to ambulate. Smoking Status: Former smoker Past Alcohol Use History: None Reported Additional Past Alcohol Use History / Comment(s): Pt quit smoking in 1989. Past Drug Use History: None Reported - Past Family History Father History Unknown: Yes Additional Family Medical History / Comment(s): Pt adopted and does not know parents hx. Medications and Allergies Home Medications Medication Instructions Recorded Confirmed Type Ipratropium-Albuterol Nebulize 3 ml INHALATION RT-TID 01/05/17 11/10/18 History [Duoneb 0.5 mg-3 mg/3 ml Soln] Levothyroxine Sodium [Synthroid] 25 mcg PO DAILY@0600 01/05/17 11/10/18 History Loratadine [Claritin] 10 mg PO DAILY 01/05/17 11/10/18 History Melatonin 5 mg PO HS@2100 01/05/17 11/10/18 History Omeprazole 20 mg PO DAILY@0600 01/05/17 11/10/18 History Potassium Chloride [Klor-Con 10] 10 meq PO BID@0600,1400 01/05/17 11/10/18 History Diphenoxylate HCl/Atropine 1 tab PO Q6H PRN 09/01/17 11/10/18 History [Lomotil 2.5-0.025 mg Tablet] Aspirin [Adult Low Dose Aspirin EC] 81 mg PO DAILY@0900 07/26/18 11/10/18 History Dicyclomine [Bentyl] 20 mg PO Q6H 07/26/18 11/10/18 History Olopatadine HCl [Patanol] 1 drop BOTH EYES Q12H PRN 07/26/18 11/10/18 History busPIRone HCl [Buspar] 5 mg PO TID@0600,1400,2200 07/26/18 11/10/18 History Bismuth Subsalicylate 524 mg PO Q4H PRN 11/03/18 11/10/18 History [Pepto-Bismol] Dimethicone/Zinc Oxide [Inzo Zinc 1 applic TOPICAL Q12HR 11/03/18 11/10/18 History Oxide Barrier Cream] Lactobacillus Acidophilus 1 tab PO BID@0900,2100 11/03/18 11/10/18 History [Acidophilus] Metoprolol Tartrate [Lopressor] 12.5 mg PO BID@0900,2100 11/03/18 11/10/18 History Ondansetron HCl [Zofran] 8 mg PO Q8H PRN 11/03/18 11/10/18 History Oyster-Bao 500mg Tab 1 tab PO DAILY@0900 11/03/18 11/10/18 History traZODone HCL [Desyrel] 100 mg PO HS@2100 11/03/18 11/10/18 History Acetaminophen Tab [Tylenol] 650 mg PO Q4HR PRN 11/10/18 11/10/18 History Levofloxacin [Levaquin] 500 mg PO DAILY 11/10/18 11/10/18 History Allergies Allergy/AdvReac Type Severity Reaction Status Date / Time metronidazole [From Flagyl] Allergy Unknown Verified 11/10/18 15:20 Psujeil-Edv-Psf Reductase Allergy Unknown Verified 11/10/18 15:20 Inhibitor sulfamethoxazole Allergy Unknown Verified 11/10/18 15:20 [From Bactrim] trimethobenzamide Allergy Unknown Verified 11/10/18 15:20 [From Tigan] trimethoprim [From Bactrim] Allergy Unknown Verified 11/10/18 15:20 Surgical - Exam Vital Signs Temp Pulse Resp BP Pulse Ox 97 F L 71 20 129/118 98 11/10/18 15:10 11/10/18 15:10 11/10/18 15:10 11/10/18 15:10 11/10/18 15:10 Results - Labs 11/11/18 15:01 11/11/18 15:01 Abnormal Lab Results - Last 24 Hours (Table) 11/11/18 11/11/18 11/11/18 Range/Units 05:36 05:36 05:36 RBC (3.80-5.40) m/uL Hgb 10.6 L (11.4-16.0) gm/dL MCHC 30.6 L (31.0-37.0) g/dL RDW 20.7 H (11.5-15.5) % PT 17.7 H (9.0-12.0) sec INR 1.8 H (<1.2) Chloride 111 H (98-107) mmol/L Creatinine 0.37 L (0.52-1.04) mg/dL Glucose 68 L (74-99) mg/dL Calcium 7.3 L (8.4-10.2) mg/dL AST 1145 H (14-36) U/L ALT 183 H (9-52) U/L Alkaline Phosphatase 155 H (38-126) U/L Total Protein 5.6 L (6.3-8.2) g/dL Albumin 1.9 L (3.5-5.0) g/dL Amylase <30 L (30-110) U/L Lipase 16 L (23-300) U/L 11/11/18 11/11/18 Range/Units 15:01 15:01 RBC 3.79 L (3.80-5.40) m/uL Hgb 10.8 L (11.4-16.0) gm/dL MCHC 30.6 L (31.0-37.0) g/dL RDW 20.7 H (11.5-15.5) % PT (9.0-12.0) sec INR (<1.2) Chloride 113 H (98-107) mmol/L Creatinine 0.34 L (0.52-1.04) mg/dL Glucose (74-99) mg/dL Calcium 7.2 L (8.4-10.2) mg/dL AST 1650 H (14-36) U/L ALT 289 H (9-52) U/L Alkaline Phosphatase 150 H (38-126) U/L Total Protein 5.8 L (6.3-8.2) g/dL Albumin 1.9 L (3.5-5.0) g/dL Amylase (30-110) U/L Lipase (23-300) U/L Diabetes panel 11/11/18 11/11/18 Range/Units 05:36 15:01 Sodium 139 138 (137-145) mmol/L Potassium 3.6 5.1 (3.5-5.1) mmol/L Chloride 111 H 113 H (98-107) mmol/L Carbon Dioxide 26 23 (22-30) mmol/L BUN 11 12 (7-17) mg/dL Creatinine 0.37 L 0.34 L (0.52-1.04) mg/dL Glucose 68 L 74 (74-99) mg/dL Calcium 7.3 L 7.2 L (8.4-10.2) mg/dL AST 1145 H 1650 H (14-36) U/L ALT 183 H 289 H (9-52) U/L Alkaline Phosphatase 155 H 150 H (38-126) U/L Total Protein 5.6 L 5.8 L (6.3-8.2) g/dL Albumin 1.9 L 1.9 L (3.5-5.0) g/dL Calcium panel 11/11/18 11/11/18 Range/Units 05:36 15:01 Calcium 7.3 L 7.2 L (8.4-10.2) mg/dL Albumin 1.9 L 1.9 L (3.5-5.0) g/dL Pituitary panel 11/11/18 11/11/18 Range/Units 05:36 15:01 Sodium 139 138 (137-145) mmol/L Potassium 3.6 5.1 (3.5-5.1) mmol/L Chloride 111 H 113 H (98-107) mmol/L Carbon Dioxide 26 23 (22-30) mmol/L BUN 11 12 (7-17) mg/dL Creatinine 0.37 L 0.34 L (0.52-1.04) mg/dL Glucose 68 L 74 (74-99) mg/dL Calcium 7.3 L 7.2 L (8.4-10.2) mg/dL Adrenal panel 11/11/18 11/11/18 Range/Units 05:36 15:01 Sodium 139 138 (137-145) mmol/L Potassium 3.6 5.1 (3.5-5.1) mmol/L Chloride 111 H 113 H (98-107) mmol/L Carbon Dioxide 26 23 (22-30) mmol/L BUN 11 12 (7-17) mg/dL Creatinine 0.37 L 0.34 L (0.52-1.04) mg/dL Glucose 68 L 74 (74-99) mg/dL Calcium 7.3 L 7.2 L (8.4-10.2) mg/dL Total Bilirubin 1.1 1.3 (0.2-1.3) mg/dL AST 1145 H 1650 H (14-36) U/L ALT 183 H 289 H (9-52) U/L Alkaline Phosphatase 155 H 150 H (38-126) U/L Total Protein 5.6 L 5.8 L (6.3-8.2) g/dL Albumin 1.9 L 1.9 L (3.5-5.0) g/dL
[2018-11-12] MEDS: MORPHINE SULFATE 4 MG/ML SYRINGE IV PRN ×2 (08:51→19:06)
[2018-11-12] MEDS: METOPROLOL TARTRATE 50 MG TAB PO SCH ×2 (08:52→20:18)
[2018-11-12] MEDS: IPRATROPIUM-ALBUTEROL 3 ML NEB INHALATION SCH ×3 (09:05→19:51)
--- NOTE | 2018-11-12 10:44 | P.PN ---
Subjective Progress Note Date: 11/12/18 Principal diagnosis: GI bleeding 88-year-old female history of recent UTI, constipation colonic diverticulosis evaluated for rectal bleeding elevated liver enzymes possible infectious inflammatory pathology. Yesterday hemoglobin 10.8 stable. INR 1.8. Denies abdominal pain. No bleeding through the night or this morning. Yesterday LFTs worsened total bilirubin 1.3. AST elevated 1650. ALT 289. AP 150. Morning chemistries pending. CT abdomen and pelvis fatty infiltration of liver pleural effusions possible CHF. Afebrile. Hepatitis panel pending. VSS no episodes of hypotension. Objective - Vital Signs Vital signs: Vital Signs Temp 97.6 F 11/12/18 03:01 Pulse 77 11/12/18 03:01 Resp 20 11/12/18 03:01 BP 123/57 11/12/18 03:01 Pulse Ox 97 11/12/18 03:01 Intake & Output 11/11/18 11/12/18 11/12/18 18:59 06:59 18:59 Intake Total 10 100 Balance 10 100 Weight 77 kg Intake: IV 10 Invasive Line 2 10 Oral 100 Other: Voiding Method Diaper Diaper # Voids 1 1 # Bowel Movements 1 2 - Exam General appearance: The patient is alert, oriented, in no acute distress. HET: Head is normocephalic and atraumatic. Pupils are equal and reactive. Oropharynx is clear without lesions. Neck: Supple without lymphadenopathy. Trachea midline. Heart: S1 S2. Regular rate and rhythm. Lungs: No crackles or wheezes are heard. Abdomen: Soft, nontender, nondistended with bowel sounds. No peritoneal signs. No palpable organomegaly or masses. Extremities: Normal skin color and turgor. No cyanosis, rash, ulceration, clubbing, or edema. Radial and pedal pulses are 2/4 bilaterally. Neurological: No focal deficits. Strength and sensation are grossly intact. - Labs CBC & Chem 7: 11/14/18 08:46 11/14/18 12:38 Labs: Abnormal Lab Results - Last 24 Hours (Table) 11/11/18 11/11/18 Range/Units 15:01 15:01 RBC 3.79 L (3.80-5.40) m/uL Hgb 10.8 L (11.4-16.0) gm/dL MCHC 30.6 L (31.0-37.0) g/dL RDW 20.7 H (11.5-15.5) % Chloride 113 H (98-107) mmol/L Creatinine 0.34 L (0.52-1.04) mg/dL Calcium 7.2 L (8.4-10.2) mg/dL AST 1650 H (14-36) U/L ALT 289 H (9-52) U/L Alkaline Phosphatase 150 H (38-126) U/L Total Protein 5.8 L (6.3-8.2) g/dL Albumin 1.9 L (3.5-5.0) g/dL Assessment and Plan (1) Elevated liver enzymes Narrative/Plan: Worsened. Etiology unclear. Possible component of congestive hepatopathy possible medication related possible ischemic possible viral. Current Visit: Yes Status: Acute Code(s): R74.8 - ABNORMAL LEVELS OF OTHER SERUM ENZYMES SNOMED Code(s): 683190799 (2) Hematochezia Narrative/Plan: Possible colonic diverticular bleed exacerbated by constipation possible inflammatory. Previous CT abdomen reports colonic diverticulosis. Current Visit: Yes Status: Acute Code(s): K92.1 - MELENA SNOMED Code(s): 425564041 (3) Elevated INR Current Visit: Yes Status: Acute Code(s): R79.1 - ABNORMAL COAGULATION PROFILE SNOMED Code(s): 910935310 (4) Colon, diverticulosis Current Visit: Yes Status: Acute Code(s): K57.30 - DVRTCLOS OF LG INT W/O PERFORATION OR ABSCESS W/O BLEEDING SNOMED Code(s): 994766925 Plan: Assessment and plan a care discussed with Dr. Jasso 1. US abdomen. 2. Viral studies including hepatitis panel. 3. Daily CBC CMP PT/INR. 4. Light diet. Assessment and plan of care discussed with Dr. Jasso.
--- NOTE | 2018-11-12 11:31 | P.CRDCN ---
History of Present Illness Consult date: 11/12/18 Requesting physician: Humza Garcia Reason for Consult (text): Tachycardia Chief complaint: Rectal bleeding History of present illness: This is an 88-year-old female who has a known history of hypertension , hypothyroidism, GERD, history of paroxysmal atrial flutter in the past according to prior documentation, most of the information was taken from the medical record as the patient is mildly confused this morning. She apparently presented to the hospital on this admission with rectal bleeding. She had recently been in the hospital just prior to this admission with abdominal pain and constipation. She does take a daily aspirin at home, she is not on anticoagulation. A cardiology consultation was requested because of intermittent tachycardia. Her initial EKG on presentation here showed a sinus tachycardia with no acute changes. Chest x-ray showed new small pleural effusions as compared to the old exam. Blood pressure 146/50 with a heart rate in the 70s, 94% on room air. White blood cell count on admission 10.6, hemoglobin 10.2, platelet count 398. INR 1.6 on the 16th, 1.8 yesterday. Sodium 138, potassium 5.1, BUN 12, creatinine 0.3. AST on admission 459, subsequent AST is 1145 and 1650, ALT 80, 183, 289, alk phos 144, 155, 150. Albumin 2.0, 1.9, 1.9. BNP [id number]. Stool for occult blood positive. Upon review of the rhythm strips in the chart, it appears that the patient's persistent tachycardia or sinus tachycardia. Past Medical History Past Medical History: Asthma, Coronary Artery Disease (CAD), Cancer, COPD, GERD/ Reflux, Hyperlipidemia, Hypertension, Osteoarthritis (OA), Pneumonia, Thyroid Disorder Additional Past Medical History / Comment(s): R BREAST CANCER, bronchitis, IBS ( newly diagnosed), balance issues, numbness/tingling bilateral legs/feet, anemia , UTI, chronic low back pain, past fracture L hip with sx and fx L wrist, sinus problems. History of Any Multi-Drug Resistant Organisms: None Reported Past Surgical History: Bladder Surgery, Breast Surgery, Cholecystectomy, Heart Catheterization, Hysterectomy Additional Past Surgical History / Comment(s): 1979 RIGHT MASTECTOMY, colonoscopies, bilateral cataracts removed with lasik sx, hemorroidectomy, L hip fx repair (metal in hip), bladder suspension. Past Anesthesia/Blood Transfusion Reactions: No Reported Reaction Past Psychological History: Anxiety Additional Psychological History / Comment(s): She uses a walker with wheels or a 4 prong cane to ambulate. Smoking Status: Former smoker Past Alcohol Use History: None Reported Additional Past Alcohol Use History / Comment(s): Pt quit smoking in 1989. Past Drug Use History: None Reported - Past Family History Father History Unknown: Yes Additional Family Medical History / Comment(s): Pt adopted and does not know parents hx. Medications and Allergies Home Medications Medication Instructions Recorded Confirmed Type Ipratropium-Albuterol Nebulize 3 ml INHALATION RT-TID 01/05/17 11/10/18 History [Duoneb 0.5 mg-3 mg/3 ml Soln] Levothyroxine Sodium [Synthroid] 25 mcg PO DAILY@0600 01/05/17 11/10/18 History Loratadine [Claritin] 10 mg PO DAILY 01/05/17 11/10/18 History Melatonin 5 mg PO HS@2100 01/05/17 11/10/18 History Omeprazole 20 mg PO DAILY@0600 01/05/17 11/10/18 History Potassium Chloride [Klor-Con 10] 10 meq PO BID@0600,1400 01/05/17 11/10/18 History Diphenoxylate HCl/Atropine 1 tab PO Q6H PRN 09/01/17 11/10/18 History [Lomotil 2.5-0.025 mg Tablet] Aspirin [Adult Low Dose Aspirin EC] 81 mg PO DAILY@0900 07/26/18 11/10/18 History Dicyclomine [Bentyl] 20 mg PO Q6H 07/26/18 11/10/18 History Olopatadine HCl [Patanol] 1 drop BOTH EYES Q12H PRN 07/26/18 11/10/18 History busPIRone HCl [Buspar] 5 mg PO TID@0600,1400,2200 07/26/18 11/10/18 History Bismuth Subsalicylate 524 mg PO Q4H PRN 11/03/18 11/10/18 History [Pepto-Bismol] Dimethicone/Zinc Oxide [Inzo Zinc 1 applic TOPICAL Q12HR 11/03/18 11/10/18 History Oxide Barrier Cream] Lactobacillus Acidophilus 1 tab PO BID@0900,209911/03/18 11/10/18 History [Acidophilus] Metoprolol Tartrate [Lopressor] 12.5 mg PO BID@0900,209911/03/18 11/10/18 History Ondansetron HCl [Zofran] 8 mg PO Q8H PRN 11/03/18 11/10/18 History Oyster-Bao 500mg Tab 1 tab PO DAILY@0900 11/03/18 11/10/18 History traZODone HCL [Desyrel] 100 mg PO HS@209911/03/18 11/10/18 History Acetaminophen Tab [Tylenol] 650 mg PO Q4HR PRN 11/10/18 11/10/18 History Levofloxacin [Levaquin] 500 mg PO DAILY 11/10/18 11/10/18 History Allergies Allergy/AdvReac Type Severity Reaction Status Date / Time metronidazole [From Flagyl] Allergy Unknown Verified 11/10/18 15:20 Yaujqlp-Mnc-Fft Reductase Allergy Unknown Verified 11/10/18 15:20 Inhibitor sulfamethoxazole Allergy Unknown Verified 11/10/18 15:20 [From Bactrim] trimethobenzamide Allergy Unknown Verified 11/10/18 15:20 [From Tigan] trimethoprim [From Bactrim] Allergy Unknown Verified 11/10/18 15:20 Physical Exam Vitals: Vital Signs Temp Pulse Pulse Resp BP Pulse Ox 11/12/18 09:16 74 11/12/18 09:05 72 11/12/18 08:00 97.7 F 72 16 147/56 94 L 11/12/18 03:01 97.6 F 77 19 123/57 97 11/12/18 00:00 97.0 F L 150 H 20 116/59 95 11/11/18 20:20 80 11/11/18 20:10 80 11/11/18 20:00 96.9 F L 116 H 18 118/55 94 L 11/11/18 16:00 106 H 20 102/75 97 11/11/18 14:02 70 11/11/18 13:54 74 11/11/18 11:56 96.1 F L 90 18 116/58 96 Intake and Output 11/11/18 11/12/18 11/12/18 22:59 06:59 14:59 Intake Total 110 Balance 110 Intake: IV 10 Invasive Line 2 10 Oral 100 Other: Voiding Method Diaper Diaper Diaper # Voids 3 1 # Bowel Movements 2 Weight 77 kg PHYSICAL EXAMINATION: GENERAL: 88-year-old female in no acute distress at the time of my examination. HEENT: Head is atraumatic, normocephalic. Pupils equal, round. Sclera anicteric. Conjunctiva are clear. Mucous membranes of the mouth are moist. Neck is supple. There is no elevated jugular venous pressure. No carotid bruit is heard. HEART EXAMINATION: Heart S1, S2 normal. No murmur or gallop heard. CHEST EXAMINATION: On's reveal diminished air entry to bilateral bases. ABDOMEN: Soft, generalized tenderness . Bowel sounds are heard. No organomegaly noted. EXTREMITIES: 2+ peripheral pulses with trace evidence of peripheral edema and no calf tenderness noted. NEUROLOGIC patient is awake, alert and oriented 2. . Results 11/11/18 15:01 11/11/18 15:01 Cardiac Enzymes 11/11/18 Range/Units 15:01 AST 1650 H (14-36) U/L CBC 11/11/18 Range/Units 15:01 WBC 9.4 (3.8-10.6) k/uL RBC 3.79 L (3.80-5.40) m/uL Hgb 10.8 L (11.4-16.0) gm/dL Hct 35.2 (34.0-46.0) % Plt Count 330 (150-450) k/uL Comprehensive Metabolic Panel 11/11/18 Range/Units 15:01 Sodium 138 (137-145) mmol/L Potassium 5.1 (3.5-5.1) mmol/L Chloride 113 H (98-107) mmol/L Carbon Dioxide 23 (22-30) mmol/L BUN 12 (7-17) mg/dL Creatinine 0.34 L (0.52-1.04) mg/dL Glucose 74 (74-99) mg/dL Calcium 7.2 L (8.4-10.2) mg/dL AST 1650 H (14-36) U/L ALT 289 H (9-52) U/L Alkaline Phosphatase 150 H (38-126) U/L Total Protein 5.8 L (6.3-8.2) g/dL Albumin 1.9 L (3.5-5.0) g/dL Current Medications Generic Name Dose Route Start Last Admin Trade Name Freq PRN Reason Stop Dose Admin Albuterol/Ipratropium 3 ml 11/11/18 13:00 11/12/18 09:05 Duoneb 0.5 Mg-3 Mg/3 Ml Soln INHALATION 3 ml RT-TID SELENA Administration Sodium Chloride 1,000 mls @ 75 mls/hr 11/10/18 17:15 11/12/18 08:52 Saline 0.9% IV 75 mls/hr .[id number] SELENA Administration Metoprolol Tartrate 50 mg 11/11/18 23:00 11/12/18 08:52 Lopressor PO 50 mg BID SELENA Administration Morphine Sulfate 4 mg 11/10/18 18:45 11/12/18 08:51 Morphine Sulfate (Inj) IV 4 mg Q4HR PRN Administration Severe Pain Multi-Ingredient Ointment 1 applic 11/11/18 21:00 11/12/18 08:52 Zinc Oxide 20% Oint TOPICAL 1 applic Q12HR SELENA Administration Naloxone HCl 0.2 mg 11/10/18 18:45 Narcan IV Q2M PRN Opioid Reversal Ondansetron HCl 4 mg 11/10/18 18:45 Zofran IVP Q8HR PRN Nausea And Vomiting Pantoprazole Sodium 40 mg 11/10/18 21:00 11/12/18 08:52 Protonix IVP 40 mg BID SELENA Administration Intake and Output 11/11/18 11/12/18 11/12/18 22:59 06:59 14:59 Intake Total 110 Balance 110 Intake: IV 10 Invasive Line 2 10 Oral 100 Other: Voiding Method Diaper Diaper Diaper # Voids 3 1 # Bowel Movements 2 Weight 77 kg 11/11/18 15:01 11/11/18 15:01 EKG Interpretations (text) Initial EKG shows a sinus tachycardia with no acute changes. Assessment and Plan Plan: Assessment and plan #1 lower GI bleed, GI service on consult #2 elevated liver enzymes #3 episodes of sinus tachycardia #4 diverticulosis #5 UTI #6 mild congestive cardiac failure Plan We will obtain an echocardiogram with Doppler study. Start the patient on some IV Lasix. Continue Lopressor 50 mg one tablet by mouth twice a day. Check TSH level. Further recommendations to follow. DNP note has been reviewed, I agree with a documented findings and plan of care. Patient was seen and examined.
[2018-11-12 12:17] LABS: ALT 419 U/L (9-52); Albumin 1.6 g/dL (3.5-5.0); Alkaline Phosphatase 164 U/L (38-126); Anion Gap 4 mmol/L; Blood Urea Nitrogen 14 mg/dL (7-17); Calcium 7.1 mg/dL (8.4-10.2); Carbon Dioxide 22 mmol/L (22-30); Chloride 114 mmol/L (98-107); Glucose 76 mg/dL (74-99); INR 1.8 (<1.2); Potassium 3.8 mmol/L (3.5-5.1); Prothrombin Time 17.4 sec (9.0-12.0); Sodium 140 mmol/L (137-145); Total Bilirubin 0.8 mg/dL (0.2-1.3); Total Protein 4.9 g/dL (6.3-8.2)
--- NOTE | 2018-11-12 12:38 | P.PN ---
Subjective Progress Note Date: 11/12/18 CHIEF COMPLAINT: Rectal bleeding HISTORY OF PRESENT ILLNESS: Patient examined at the bedside. Denies abdominal pain. No further episodes of rectal bleeding per patient. Hemoglobin 10.8. PHYSICAL EXAM: VITAL SIGNS: Currently stable. GENERAL: Well-developed in no acute distress. HEENT: No sclera icterus. Extraocular movements grossly intact. Moist buccal mucosa. Head is atraumatic, normocephalic. Hears conversational speech. No nasal drainage. NECK: Supple without lymphadenopathy. CHEST: Non-labored respirations and equal bilateral excursions. CARDIOVASCULAR: Regular rate with regular rhythm. Palpable 2+ radial pulses. ABDOMEN: Soft. Nondistended. Nontender. MUSCULOSKELETAL: No clubbing, cyanosis or edema. NEUROLOGIC: No focal or lateralizing signs. Cranial nerves II through XII grossly intact. PSYCH: Appropriate affect. Alert and oriented to self. SKIN: Well perfused. Good skin turgor. ASSESSMENT: 1. Rectal bleeding PLAN: Hemoglobin remains stable. No surgical intervention recommended. We will sign off. Please reconsult if needed. Nurse practitioner note has been reviewed by physician. Signing provider agrees with the documented findings, assessment, and plan of care. Objective - Vital Signs Vital signs: Vital Signs Temp 98.0 F 11/12/18 11:45 Pulse 62 11/12/18 11:45 Resp 16 11/12/18 11:45 BP 106/61 11/12/18 11:45 Pulse Ox 98 11/12/18 11:45 Intake & Output 11/11/18 11/12/18 11/12/18 18:59 06:59 18:59 Intake Total 10 100 300 Balance 10 100 300 Weight 77 kg Intake: IV 10 Invasive Line 2 10 Intake, IV Titration 300 Amount Sodium Chloride 0.9% 1, 300 000 ml @ 75 mls/hr IV . [id number] SELENA Rx#:[id number] Oral 100 Other: Voiding Method Diaper Diaper Diaper # Voids 1 1 1 # Bowel Movements 1 2 - Labs CBC & Chem 7: 11/11/18 15:01 11/11/18 15:01 Labs: Abnormal Lab Results - Last 24 Hours (Table) 11/11/18 11/11/18 11/12/18 Range/Units 15:01 15:01 11:58 RBC 3.79 L (3.80-5.40) m/uL Hgb 10.8 L (11.4-16.0) gm/dL MCHC 30.6 L (31.0-37.0) g/dL RDW 20.7 H (11.5-15.5) % PT 17.4 H (9.0-12.0) sec INR 1.8 H (<1.2) Chloride 113 H (98-107) mmol/L Creatinine 0.34 L (0.52-1.04) mg/dL Calcium 7.2 L (8.4-10.2) mg/dL AST 1650 H (14-36) U/L ALT 289 H (9-52) U/L Alkaline Phosphatase 150 H (38-126) U/L Total Protein 5.8 L (6.3-8.2) g/dL Albumin 1.9 L (3.5-5.0) g/dL
[2018-11-12 12:54] LABS: AST 2058 U/L (14-36)
--- NOTE | 2018-11-12 13:19 | ECHOF ---
Referral Reason:tachy MEASUREMENTS -------- HEIGHT: 162.6 cm WEIGHT: 76.7 kg BP: RVIDd: 3.4 cm (< 3.3) IVSd: 1.2 cm (0.6 - 1.1) LVIDd: 4.1 cm (3.9 - 5.3) LVPWd: 1.0 cm (0.6 - 1.1) IVSs: 1.7 cm LVIDs: 1.6 cm LVPWs: 1.6 cm Ao Diam: 3.0 cm (2.0 - 3.7) AV Cusp: 1.3 cm (1.5 - 2.6) LA Diam: 2.8 cm (2.7 - 3.8) MV EXCURSION: 12.842 mm (> 18.000) MV EF SLOPE: 38 mm/s (70 - 150) EPSS: 0.7 cm MV E Terrance: 0.90 m/s MV DecT: 292 ms MV A Terrance: 1.01 m/s MV E/A Ratio: 0.89 AV maxP.01 mmHg AV meanP.52 mmHg AR PHT: 521 ms RAP: 5.00 mmHg RVSP: 15.27 mmHg FINDINGS -------- Sinus rhythm with extra systolic beats. This was a technically good study. The left ventricular size is normal. There is mild concentric left ventricular hypertrophy. Overa ll left ventricular systolic function is normal with, an EF between 55 - 60 %. The right ventricle is mildly enlarged. The left atrium is normal in size. The right atrium is normal in size. Aortic valve is trileaflet and is mildly thickened. There is mild aortic valve sclerosis. There i s [id number] aortic regurgitation. Peak/mean gradient across the Aortic Valve is 12.01mmHg / 5.52mmHg. The mitral valve leaflets are mildly thickened. Mild mitral regurgitation is present. Mild tricuspid regurgitation present. The right ventricular systolic pressure, as measured by Doppl er, is 15.27mmHg. Pulmonic valve appears structurally normal. The aortic root size is normal. IVC Not well visulized. The pericardium is normal. CONCLUSIONS -------- 1. Sinus rhythm with extra systolic beats. 2. This was a technically good study. 3. The left ventricular size is normal. 4. There is mild concentric left ventricular hypertrophy. 5. Overall left ventricular systolic function is normal with, an EF between 55 - 60 %. 6. The right ventricle is mildly enlarged. 7. The left atrium is normal in size. 8. The right atrium is normal in size. 9. Aortic valve is trileaflet and is mildly thickened. 10. There is mild aortic valve sclerosis. 11. There is [id number] aortic regurgitation. 12. Peak/mean gradient across the Aortic Valve is 12.01mmHg / 5.52mmHg. 13. The mitral valve leaflets are mildly thickened. 14. Mild mitral regurgitation is present. 15. Mild tricuspid regurgitation present. 16. The right ventricular systolic pressure, as measured by Doppler, is 15.27mmHg. 17. Pulmonic valve appears structurally normal. 18. The aortic root size is normal. 19. IVC Not well visulized. 20. The pericardium is normal. DIRECTOR OF SCIENCE: Shana Lomeli RDCS
[2018-11-12] MEDS: FUROSEMIDE 10 MG/ML 4 ML VIAL IV SCH ×2 (13:46→20:18)
--- NOTE | 2018-11-12 19:05 | US ---
EXAMINATION TYPE: US abdomen limited DATE OF EXAM: 11/12/2018 COMPARISON: Correlation CT 11/10/2018 CLINICAL HISTORY: 88-year-old female elevated liver enzymes. TECHNIQUE: Multiple sonographic images of the right upper quadrant are obtained. FINDINGS: EXAM MEASUREMENTS: Liver Length: 12.5 cm CBD: 0.6 cm Right Kidney: 9.9 x 4.2 x 4.8 cm Pancreas: not visualized due to midline bowel gas Liver: Echogenic appearance. Limited visualization, mostly seen through intercostal window. Gallbladder: Surgically absent CBD: wnl Right Kidney: limited visualization, no hydronephrosis. IMPRESSION: Limited visualization of multiple structures. Liver appears echogenic suggesting underlying fatty infiltration. Correlate with LFTs, lipid profile, and patient risk factors. Status post cholecystectomy. No biliary ductal dilatation.
--- NOTE | 2018-11-12 20:08 | PN ---
PROGRESS NOTE DATE OF SERVICE: 11/12/2018. CHIEF COMPLAINT: Persistent abdominal pain with anemia and apparent GI blood loss. HISTORY OF PRESENT ILLNESS: This lady is having more difficulty. She is going into episodes of sinus tachycardia up to around 150 beats per minute. She denies chest pain and she has had no diaphoresis. PHYSICAL EXAM: She continues to look pale and chronically ill. Chest is clear. Cardiac exam is normal. Abdomen is soft and she is seems to be slightly tender in the lower aspects. IMPRESSION: 1. Abdominal pain. 2. Probable GI blood loss anemia. 3. Question GI bleeding. 4. Delirium. 5. Dementia. PLAN: Continue workup and follow with Gastroenterology. She is not a good candidate for endoscopy at this time. MMODL / IJN: [id number] /
[2018-11-12] MEDS: SPIRONOLACTONE 25 MG TAB PO SCH (20:18)
[2018-11-12 21:06] LABS: Hepatitis A Antibody IgM Non-Reactive (Non-Reactive); Hepatitis B Core IgM Non-Reactive (Non-Reactive)
[2018-11-13] MEDS: ZINC OXIDE 20% OINT 28.4 GM TUBE TOPICAL SCH ×3 (03:52→21:34)
[2018-11-13] MEDS: SODIUM CHLORIDE 0.9% 1,000 ML IV SCH ×3 (03:52→21:24)
[2018-11-13 06:41] LABS: INR 1.7 (<1.2); Prothrombin Time 16.6 sec (9.0-12.0)
[2018-11-13] MEDS: IPRATROPIUM-ALBUTEROL 3 ML NEB INHALATION SCH ×3 (07:17→20:07)
[2018-11-13 07:38] LABS: ALT 383 U/L (9-52); Albumin 1.9 g/dL (3.5-5.0); Alkaline Phosphatase 173 U/L (38-126); Anion Gap 5 mmol/L; Blood Urea Nitrogen 12 mg/dL (7-17); Calcium 7.2 mg/dL (8.4-10.2); Carbon Dioxide 25 mmol/L (22-30); Chloride 112 mmol/L (98-107); Glucose 72 mg/dL (74-99); Potassium 3.3 mmol/L (3.5-5.1); Sodium 142 mmol/L (137-145); Total Bilirubin 1.2 mg/dL (0.2-1.3); Total Protein 5.7 g/dL (6.3-8.2)
[2018-11-13 07:55] LABS: AST 1265 U/L (14-36)
[2018-11-13] MEDS: METOPROLOL TARTRATE 50 MG TAB PO SCH ×3 (08:52→21:48)
[2018-11-13] MEDS: MORPHINE SULFATE 4 MG/ML SYRINGE IV PRN ×2 (08:52→15:42)
[2018-11-13] MEDS: SPIRONOLACTONE 25 MG TAB PO SCH ×3 (08:52→21:49)
[2018-11-13] MEDS: PANTOPRAZOLE 40 MG/10 ML VIAL IVP SCH (08:53)
[2018-11-13] MEDS: FUROSEMIDE 10 MG/ML 4 ML VIAL IV SCH (08:54)
--- NOTE | 2018-11-13 13:34 | P.PN ---
Subjective Progress Note Date: 11/13/18 This is an 88-year-old female who has a known history of hypertension , hypothyroidism, GERD, history of paroxysmal atrial flutter in the past according to prior documentation, most of the information was taken from the medical record as the patient is mildly confused this morning. She apparently presented to the hospital on this admission with rectal bleeding. She had recently been in the hospital just prior to this admission with abdominal pain and constipation. She does take a daily aspirin at home, she is not on anticoagulation. A cardiology consultation was requested because of intermittent tachycardia. Her initial EKG on presentation here showed a sinus tachycardia with no acute changes. Chest x-ray showed new small pleural effusions as compared to the old exam. Blood pressure 146/50 with a heart rate in the 70s, 94% on room air. White blood cell count on admission 10.6, hemoglobin 10.2, platelet count 398. INR 1.6 on the 16th, 1.8 yesterday. Sodium 138, potassium 5.1, BUN 12, creatinine 0.3. AST on admission 459, subsequent AST is 1145 and 1650, ALT 80, 183, 289, alk phos 144, 155, 150. Albumin 2.0, 1.9, 1.9. BNP [id number]. Stool for occult blood positive. Upon review of the rhythm strips in the chart, it appears that the patient's persistent tachycardia or sinus tachycardia. Patient seen and examined this morning. Blood pressure 126/60 with a heart rate in the 60s to 70s, 94% on 2 L of oxygen. Sodium 142, potassium 3.3, BUN 12 creatinine 0.4. LFTs improving. Echo cardiac gram with Doppler study was performed which revealed a normal left ventricular systolic function. Objective - Vital Signs Vital signs: Vital Signs Temp 96.9 F L 11/13/18 12:00 Pulse 78 11/13/18 12:00 Resp 20 11/13/18 12:00 BP 127/60 11/13/18 12:00 Pulse Ox 94 L 11/13/18 12:00 Intake & Output 11/12/18 11/13/18 11/13/18 18:59 06:59 18:59 Intake Total 1020 120 Balance 1020 120 Weight 78 kg Intake: Intake, IV Titration 900 Amount Sodium Chloride 0.9% 1, 900 000 ml @ 75 mls/hr IV . [id number] [facility] Rx#:[id number] Oral 120 120 Other: Voiding Method Diaper Diaper Diaper # Voids 1 3 1 # Bowel Movements 1 - Exam PHYSICAL EXAMINATION: GENERAL: 88-year-old female in no acute distress at the time of my examination. HEENT: Head is atraumatic, normocephalic. Pupils equal, round. Sclera anicteric. Conjunctiva are clear. Mucous membranes of the mouth are moist. Neck is supple. There is no elevated jugular venous pressure. No carotid bruit is heard. HEART EXAMINATION: Heart S1, S2 normal. No murmur or gallop heard. CHEST EXAMINATION: On's reveal diminished air entry to bilateral bases. ABDOMEN: Soft, generalized tenderness . Bowel sounds are heard. No organomegaly noted. EXTREMITIES: 2+ peripheral pulses with trace evidence of peripheral edema and no calf tenderness noted. NEUROLOGIC patient is awake, alert and oriented 2. - Labs CBC & Chem 7: 11/11/18 15:01 11/13/18 06:37 Labs: Abnormal Lab Results - Last 24 Hours (Table) 11/13/18 11/13/18 Range/Units 05:48 06:37 PT 16.6 H (9.0-12.0) sec INR 1.7 H (<1.2) Potassium 3.3 L (3.5-5.1) mmol/L Chloride 112 H (98-107) mmol/L Creatinine 0.42 L (0.52-1.04) mg/dL Glucose 72 L (74-99) mg/dL Calcium 7.2 L (8.4-10.2) mg/dL AST 1265 H (14-36) U/L ALT 383 H (9-52) U/L Alkaline Phosphatase 173 H (38-126) U/L Total Protein 5.7 L (6.3-8.2) g/dL Albumin 1.9 L (3.5-5.0) g/dL Assessment and Plan Plan: Assessment and plan #1 lower GI bleed, GI service on consult #2 elevated liver enzymes, improving #3 episodes of sinus tachycardia #4 diverticulosis #5 UTI #6 mild congestive cardiac failure Plan Echocardiogram with Doppler study was performed which revealed a normal left ventricular systolic function. We will continue the patient on current medication, we will discontinue the IV Lasix, decrease IV fluids to KVO. We'll follow along with you now on an as-needed basis only, please don't hesitate to call with any questions. DNP note has been reviewed, I agree with a documented findings and plan of care. Patient was seen and examined.
--- NOTE | 2018-11-13 15:03 | PN ---
PROGRESS NOTE CHIEF COMPLAINT: Abdominal pain, GI bleeding, delirium. HISTORY OF PRESENT ILLNESS: This lady continues to do poorly. She continues to complain of pain, particularly in the perineum. She has had no nausea or vomiting. PHYSICAL EXAM: She remains pale, chronically ill. Her chest is clear and cardiac exam is normal. The abdomen seems soft and there are no definite masses or visceromegaly. IMPRESSION: 1. Gastrointestinal bleed. 2. Elevated liver function studies. PLAN: Repeat laboratory studies today and try to make further determination as to the etiology of her this lady's intraabdominal problems and whether or not they can be treated or should she be [facility] to the [facility]. MMODL / IJN: [id number] /
--- NOTE | 2018-11-13 17:01 | P.PN ---
Subjective Progress Note Date: 11/13/18 Principal diagnosis: GI bleeding 88-year-old female history of recent UTI, constipation colonic diverticulosis evaluated for rectal bleeding elevated liver enzymes possible infectious inflammatory pathology. No CBC today. INR 1.7. Denies abdominal pain. No bleeding through the night or this morning. Yesterday LFTs worsened however improved today. Total bilirubin 1.2. AST 1265. ALT 383. AP 173. Afebrile. Hepatitis panel negative. VSS no episodes of hypotension. Objective - Vital Signs Vital signs: Vital Signs Temp 97.2 F L 11/13/18 16:00 Pulse 76 11/13/18 16:00 Resp 20 11/13/18 16:00 BP 113/76 11/13/18 16:00 Pulse Ox 95 11/13/18 16:00 Intake & Output 11/12/18 11/13/18 11/13/18 18:59 06:59 18:59 Intake Total 1020 120 Balance 1020 120 Weight 78 kg Intake: Intake, IV Titration 900 Amount Sodium Chloride 0.9% 1, 900 000 ml @ 75 mls/hr IV . [id number] [facility] Rx#:[id number] Oral 120 120 Other: Voiding Method Diaper Diaper Diaper # Voids 1 3 1 # Bowel Movements 1 - Exam General appearance: The patient is alert, oriented, in no acute distress. HET: Head is normocephalic and atraumatic. Pupils are equal and reactive. Oropharynx is clear without lesions. Neck: Supple without lymphadenopathy. Trachea midline. Heart: S1 S2. Regular rate and rhythm. Lungs: No crackles or wheezes are heard. Abdomen: Soft, nontender, nondistended with bowel sounds. No peritoneal signs. No palpable organomegaly or masses. Extremities: Normal skin color and turgor. No cyanosis, rash, ulceration, clubbing, or edema. Radial and pedal pulses are 2/4 bilaterally. Neurological: No focal deficits. Strength and sensation are grossly intact. - Labs CBC & Chem 7: 11/14/18 08:46 11/14/18 12:38 Labs: Abnormal Lab Results - Last 24 Hours (Table) 11/13/18 11/13/18 Range/Units 05:48 06:37 PT 16.6 H (9.0-12.0) sec INR 1.7 H (<1.2) Potassium 3.3 L (3.5-5.1) mmol/L Chloride 112 H (98-107) mmol/L Creatinine 0.42 L (0.52-1.04) mg/dL Glucose 72 L (74-99) mg/dL Calcium 7.2 L (8.4-10.2) mg/dL AST 1265 H (14-36) U/L ALT 383 H (9-52) U/L Alkaline Phosphatase 173 H (38-126) U/L Total Protein 5.7 L (6.3-8.2) g/dL Albumin 1.9 L (3.5-5.0) g/dL Assessment and Plan (1) Elevated liver enzymes Narrative/Plan: Etiology unclear. Possible medication related possible ischemic possible viral possible component of congestive hepatopathy. Improving today. Current Visit: Yes Status: Acute Code(s): R74.8 - ABNORMAL LEVELS OF OTHER SERUM ENZYMES SNOMED Code(s): 833360138 (2) Hematochezia Narrative/Plan: Resolved Current Visit: Yes Status: Acute Code(s): K92.1 - MELENA SNOMED Code(s): 118105566 (3) Elevated INR Current Visit: Yes Status: Acute Code(s): R79.1 - ABNORMAL COAGULATION PROFILE SNOMED Code(s): 362935748 (4) Colon, diverticulosis Current Visit: Yes Status: Acute Code(s): K57.30 - DVRTCLOS OF LG INT W/O PERFORATION OR ABSCESS W/O BLEEDING SNOMED Code(s): 549881990 (5) CHF (congestive heart failure) Narrative/Plan: Mild Current Visit: Yes Status: Acute Code(s): I50.9 - HEART FAILURE, UNSPECIFIED SNOMED Code(s): 34404746 Plan: 1. Regular diet. 2. Daily CMP/INR; still need to monitor LFTS make sure they do not worsen if improved tomorrow may DC per medicine and patient can follow up in GI clinic. 3. If LFTS do not improve full serologic workup will be requested. assessment and plan of care discussed with Dr. aJsso
[2018-11-13 17:20] LABS: EBV-VCA (IgG) >8.0 AI
[2018-11-13] MEDS: PANTOPRAZOLE 40 MG TABLET PO SCH ×2 (21:34→21:49)
[2018-11-14] MEDS: MORPHINE SULFATE 4 MG/ML SYRINGE IV PRN (02:39)
[2018-11-14 06:53] LABS: Anion Gap 5 mmol/L; Blood Urea Nitrogen 15 mg/dL (7-17); Calcium 6.9 mg/dL (8.4-10.2); Carbon Dioxide 28 mmol/L (22-30); Chloride 108 mmol/L (98-107); Glucose 88 mg/dL (74-99); Potassium 3.2 mmol/L (3.5-5.1); Sodium 141 mmol/L (137-145)
[2018-11-14] MEDS: IPRATROPIUM-ALBUTEROL 3 ML NEB INHALATION SCH ×3 (07:59→20:24)
[2018-11-14 09:48] LABS: Anisocytosis Moderate; Basophils # (A) 0.1 k/uL (0-0.2); Basophils % (A) 0 %; Eosinophils # (A) 0.1 k/uL (0-0.7); Eosinophils % (A) 1 %; HCT 35.4 % (34.0-46.0); HGB 11.1 gm/dL (11.4-16.0); Hypochromasia Moderate; Lymphocytes # (A) 2.5 k/uL (1.0-4.8); Lymphocytes % (A) 20 %; MCH 28.2 pg (25.0-35.0); MCHC 31.3 g/dL (31.0-37.0); MCV 90.1 fL (80.0-100.0); Mean Platelet Volume 7.3; Monocytes # (A) 0.8 k/uL (0-1.0); Monocytes % (A) 6 %; Neutrophils # (A) 9.2 k/uL (1.3-7.7); Neutrophils % (A) 72 %; Platelet Count 403 k/uL (150-450); RBC 3.93 m/uL (3.80-5.40); RDW 20.9 % (11.5-15.5); WBC 12.8 k/uL (3.8-10.6)
[2018-11-14] MEDS: METOPROLOL TARTRATE 50 MG TAB PO SCH ×2 (11:14→17:56)
[2018-11-14] MEDS: PANTOPRAZOLE 40 MG TABLET PO SCH ×2 (11:14→22:46)
[2018-11-14] MEDS: SPIRONOLACTONE 25 MG TAB PO SCH ×2 (11:14→22:46)
[2018-11-14 11:19] LABS: Poikilocytosis (M) Present; Target Cells Present
[2018-11-14 13:17] LABS: ALT 229 U/L (9-52); AST 277 U/L (14-36); Alkaline Phosphatase 167 U/L (38-126); Anion Gap 8 mmol/L; Blood Urea Nitrogen 16 mg/dL (7-17); Calcium 7.2 mg/dL (8.4-10.2); Carbon Dioxide 22 mmol/L (22-30); Chloride 110 mmol/L (98-107); Glucose 102 mg/dL (74-99); Sodium 140 mmol/L (137-145); Total Bilirubin 1.2 mg/dL (0.2-1.3); Total Protein 5.8 g/dL (6.3-8.2)
[2018-11-14 13:19] LABS: Potassium 3.6 mmol/L (3.5-5.1)
--- NOTE | 2018-11-14 14:14 | PN ---
PROGRESS NOTE CHIEF COMPLAINT: Persistent abdominal pain, GI blood loss, delirium, hypokalemia and hypocalcemia. HISTORY OF PRESENT ILLNESS: This lady continues to struggle. She is not eating well. She maintains her anemia due to GI blood loss. She is getting morphine regularly and that she probably be stopped in favor of something less sedating. PHYSICAL EXAM: She remains pale and chronically ill in appearance. Her chest is clear and cardiac exam is normal. The abdomen seems soft and slightly tender. There are no definite masses. IMPRESSION: 1. Abdominal pain. 2. Gastrointestinal blood loss. 3. Blood loss anemia. 4. Hypokalemia. 5. Hypocalcemia. PLAN: 1. Try stopping morphine and switch to plain Tylenol. 2. Correct hypocalcemia and hypokalemia. MMODL / IJN: [id number] /
--- NOTE | 2018-11-14 16:28 | P.PN ---
Subjective Progress Note Date: 11/14/18 Principal diagnosis: GI bleeding LFTs improved. Denies abdominal pain. Tolerating diet. Objective - Vital Signs Vital signs: Vital Signs Temp 98.2 F 11/14/18 08:00 Pulse 116 H 11/14/18 15:33 Resp 20 11/14/18 15:33 BP 138/76 11/14/18 08:00 Pulse Ox 96 11/14/18 08:00 Intake & Output 11/13/18 11/14/18 11/14/18 18:59 06:59 18:59 Intake Total 170 100 Output Total 5 Balance 170 95 Weight 76.5 kg Intake: Oral 170 100 Output: Urine/Stool Mix 5 Other: Voiding Method Diaper Diaper Diaper # Voids 1 1 1 - Exam General appearance: The patient is alert, oriented, in no acute distress. HET: Head is normocephalic and atraumatic. Pupils are equal and reactive. Oropharynx is clear without lesions. Neck: Supple without lymphadenopathy. Trachea midline. Heart: S1 S2. Regular rate and rhythm. Lungs: No crackles or wheezes are heard. Abdomen: Soft, nontender, nondistended with bowel sounds. No peritoneal signs. No palpable organomegaly or masses. Extremities: Normal skin color and turgor. No cyanosis, rash, ulceration, clubbing, or edema. Radial and pedal pulses are 2/4 bilaterally. Neurological: No focal deficits. Strength and sensation are grossly intact. - Labs CBC & Chem 7: 11/14/18 08:46 11/14/18 12:38 Labs: Abnormal Lab Results - Last 24 Hours (Table) 11/11/18 11/13/18 11/14/18 Range/Units 15:01 06:37 05:25 WBC (3.8-10.6) k/uL Hgb (11.4-16.0) gm/dL RDW (11.5-15.5) % Neutrophils # (1.3-7.7) k/uL Potassium 3.2 L (3.5-5.1) mmol/L Chloride 108 H (98-107) mmol/L Creatinine 0.47 L (0.52-1.04) mg/dL Glucose (74-99) mg/dL Calcium 6.9 L (8.4-10.2) mg/dL AST (14-36) U/L ALT (9-52) U/L Alkaline Phosphatase (38-126) U/L Total Protein (6.3-8.2) g/dL Albumin (3.5-5.0) g/dL CMV IgG Ab Reactive H (Non-Reactive) EBV Capsid Ag IgG Intrp POSITIVE H (NEGATIVE) EBV Nuc Ag IgG Interp POSITIVE H (NEGATIVE) 11/14/18 11/14/18 Range/Units 08:46 12:38 WBC 12.8 H (3.8-10.6) k/uL Hgb 11.1 L (11.4-16.0) gm/dL RDW 20.9 H (11.5-15.5) % Neutrophils # 9.2 H (1.3-7.7) k/uL Potassium (3.5-5.1) mmol/L Chloride 110 H (98-107) mmol/L Creatinine 0.46 L (0.52-1.04) mg/dL Glucose 102 H (74-99) mg/dL Calcium 7.2 L (8.4-10.2) mg/dL AST 277 H (14-36) U/L ALT 229 H (9-52) U/L Alkaline Phosphatase 167 H (38-126) U/L Total Protein 5.8 L (6.3-8.2) g/dL Albumin 2.0 L (3.5-5.0) g/dL CMV IgG Ab (Non-Reactive) EBV Capsid Ag IgG Intrp (NEGATIVE) EBV Nuc Ag IgG Interp (NEGATIVE) Assessment and Plan (1) Elevated liver enzymes Narrative/Plan: Etiology unclear. Possible medication related possible ischemic possible viral possible component of congestive hepatopathy. improving Current Visit: Yes Status: Acute Code(s): R74.8 - ABNORMAL LEVELS OF OTHER SERUM ENZYMES SNOMED Code(s): 791530308 (2) Hematochezia Narrative/Plan: Possible colonic diverticular bleed exacerbated by constipation possible inflammatory. Previous CT abdomen reports colonic diverticulosis. Current Visit: Yes Status: Acute Code(s): K92.1 - MELENA SNOMED Code(s): 509022118 (3) Elevated INR Current Visit: Yes Status: Acute Code(s): R79.1 - ABNORMAL COAGULATION PROFILE SNOMED Code(s): 118345238 (4) Colon, diverticulosis Current Visit: Yes Status: Acute Code(s): K57.30 - DVRTCLOS OF LG INT W/O PERFORATION OR ABSCESS W/O BLEEDING SNOMED Code(s): 450277180 (5) CHF (congestive heart failure) Narrative/Plan: Mild Current Visit: Yes Status: Acute Code(s): I50.9 - HEART FAILURE, UNSPECIFIED SNOMED Code(s): 75601400 Plan: 1. Regular diet. No further workup from a GI standpoint discharge per medicine. assessment and plan of care discussed with Dr. Jasso
[2018-11-14] MEDS: ACETAMINOPHEN TAB 325 MG TAB PO PRN (17:56)
[2018-11-14] MEDS: CALCIUM ACETATE 667 MG CAP PO SCH (17:59)
[2018-11-14] MEDS: SODIUM CHLORIDE 0.9% 1,000 ML IV SCH (17:59)
[2018-11-14] MEDS: POTASSIUM CHLORIDE ER 20 MEQ TAB.ER PO SCH ×2 (17:59→22:46)
[2018-11-14] MEDS: ZINC OXIDE 20% OINT 28.4 GM TUBE TOPICAL SCH ×2 (20:03→22:46)
[2018-11-15] MEDS: ACETAMINOPHEN TAB 325 MG TAB PO PRN (03:11)
[2018-11-15] MEDS: PANTOPRAZOLE 40 MG TABLET PO SCH ×2 (08:18→20:53)
[2018-11-15] MEDS: SPIRONOLACTONE 25 MG TAB PO SCH ×2 (08:18→20:53)
[2018-11-15] MEDS: CALCIUM ACETATE 667 MG CAP PO SCH ×3 (08:18→16:35)
[2018-11-15] MEDS: METOPROLOL TARTRATE 50 MG TAB PO SCH ×2 (08:18→20:53)
[2018-11-15] MEDS: POTASSIUM CHLORIDE ER 20 MEQ TAB.ER PO SCH ×2 (08:18→20:53)
[2018-11-15] MEDS: ZINC OXIDE 20% OINT 28.4 GM TUBE TOPICAL SCH ×2 (08:19→21:09)
[2018-11-15] MEDS: IPRATROPIUM-ALBUTEROL 3 ML NEB INHALATION SCH ×3 (08:38→21:28)
--- NOTE | 2018-11-15 11:48 | PN ---
PROGRESS NOTE DATE OF SERVICE: 11/15/2018 CHIEF COMPLAINT: Abdominal pain. HISTORY OF PRESENT ILLNESS: This lady continues to do poorly. She remains confused and complaining of pain. She does not seem to be improving. Liver enzymes are slowly coming down, however. She is urinating and passing stool. PHYSICAL EXAM: She remains slightly pale. Chest is clear and cardiac exam is unchanged. Abdomen is soft, nontender. There are no masses. IMPRESSION: 1. Lower abdominal pain, etiology unknown. 2. Delirium. PLAN: Ask discharge planning to make arrangements for her to go back to the retirement, but her outlook and prognosis are poor. She is a FULL CODE and this needs to be addressed as well and the son will be contacted. MMODL / IJN: [id number] /
[2018-11-15] MEDS: SODIUM CHLORIDE 0.9% 1,000 ML IV SCH (16:35)
[2018-11-15] MEDS: MORPHINE SULFATE 4 MG/ML SYRINGE IVP SCH ×2 (17:49→23:40)
[2018-11-15] MEDS: CLINDAMYCIN 150 MG CAP PO SCH (21:42)
[2018-11-16] MEDS: LORazepam 2 MG/ML INJ IV SCH ×2 (05:36→09:04)
[2018-11-16] MEDS: IPRATROPIUM-ALBUTEROL 3 ML NEB INHALATION SCH ×2 (08:48→13:25)
[2018-11-16 08:49] VITALS: TEMP 98.6
[2018-11-16] MEDS: CALCIUM ACETATE 667 MG CAP PO SCH ×2 (08:53→12:10)
[2018-11-16] MEDS: MORPHINE SULFATE 4 MG/ML SYRINGE IVP SCH (09:02)
[2018-11-16] MEDS: SPIRONOLACTONE 25 MG TAB PO SCH ×2 (09:03→09:10)
[2018-11-16] MEDS: METOPROLOL TARTRATE 50 MG TAB PO SCH ×2 (09:03→09:09)
[2018-11-16] MEDS: PANTOPRAZOLE 40 MG TABLET PO SCH ×2 (09:03→09:10)
[2018-11-16] MEDS: POTASSIUM CHLORIDE ER 20 MEQ TAB.ER PO SCH ×2 (09:03→09:10)
[2018-11-16] MEDS: ZINC OXIDE 20% OINT 28.4 GM TUBE TOPICAL SCH (09:04)
[2018-11-16] MEDS: CLINDAMYCIN 150 MG CAP PO SCH ×2 (09:06→09:09)
[2018-11-16] MEDS ORDERED: MORPHINE SULFATE 4 MG/ML SYRINGE IVP PRN (09:59)
[2018-11-16] MEDS ORDERED: LORazepam 2 MG/ML INJ IV PRN (09:59)
[2018-11-16] MEDS ORDERED: DILTIAZEM DRIP BOLUS FROM BAG 1 MG SOLN IV ONE (11:37)
[2018-11-16] MEDS ORDERED: DILTIAZEM 125 MG in SODIUM CHLORIDE 0.9% 100 ML IV SCH (12:00)
[2018-11-16 12:01] VITALS: RESP 16
[2018-11-16 14:03] VITALS: BMI 28.9
[2018-11-16 17:01] VITALS: BP 112/61; PULSE 96
--- NOTE | 2018-11-16 18:34 | PN ---
PROGRESS NOTE DATE OF SERVICE: 11/16/2018 I am covering for Dr. Garcia. This 88-year-old woman was admitted with change in mental status as well as GI bleed, also had dehydration; intestinal ischemia is suspected. Patient also had delirium. Patient is confused today. The patient also has atrial fibrillation and Cardizem drip was initiated. The case was discussed at length with the family. The patient was initially made no code, no CPR, no vent. Subsequently, the son who is the power of employment attorney is also considering the possibility of hospice also. PAST MEDICAL HISTORY: Reviewed. REVIEW OF SYSTEMS: Could not be taken, the patient is stuporous. CURRENT MEDICATIONS ARE: 1. Tylenol p.r.n. 2. DuoNeb q.i.d. and p.r.n. 3. PhosLo t.i.d. 4. Cleocin 300 mg b.i.d. 5. Ativan. 6. Lopressor 50 mg b.i.d. 7. Narcan. 8. Zofran. 9. Protonix. 10.Aldactone. PHYSICAL EXAM: Patient is stuporous. Pulse is 148, blood pressure 90/60, respirations 16, temperature is normal, pulse ox 94% on 2 L. HEENT: Sclerae anicteric. Conjunctivae normal. NECK: No jugular venous distention. CARDIOVASCULAR: S1 and S2, muffled. RESPIRATORY: Breath sounds diminished at the bases. Bilateral scattered rhonchi. ABDOMEN: Soft. No distention. No guarding. No rigidity. LEGS: No edema, no cyanosis. NERVOUS SYSTEM: Diffusely weak. LAB STUDIES: WBC 12.2, hemoglobin 11.1. ASSESSMENT: 1. Acute gastrointestinal bleed, possibly ischemic bowel. 2. Elevated LFTs, hepatitis, possibly ischemic hepatitis. 3. Hypokalemia. 4. Change in mental status, metabolic encephalopathy, acute on chronic. 5. Atrial fibrillation with fast ventricular rate. 6. Acute delirium. 7. History of asthma. 8. History of coronary artery disease. 9. History of chronic obstructive pulmonary disease. 10.Hypertension. 11.Hyperlipidemia. 12.History of degenerative joint disease. 13.History pneumonia. 14.History of breast cancer. 15.History of irritable bowel syndrome. 16.History of prior cholecystectomy. 17.History of mastectomy. 18.History of anxiety. 19.NO CODE, NO CPR, NO VENT. 20.Hospice measures. RECOMMENDATION: This is an 88-year-old woman who presented with multiple complex medical issues , will monitor the patient closely, continue the current management, continue the symptomatic treatment. hospice, we will give her morphine p.r.n., top all other medications , comfort measures. Prognosis extremely guarded. Discussed with multiple members of family and we will follow the patient closely. Prognosis guarded. Further recommendations to follow. MMODL / IJN: [id number] / STONE
--- NOTE | 2018-11-17 20:11 | DS ---
DISCHARGE SUMMARY DATE OF SERVICE: 11/17/2018. PRIMARY CAUSE OF : Gastrointestinal bleed with possible ischemic bowel. OTHER DIAGNOSES: 1. Elevated LFTs. 2. Hepatitis, possibly ischemic hepatitis. 3. Hypokalemia. 4. Change in mental status, metabolic encephalopathy with acute on chronic. 5. Atrial fibrillation with fast ventricular rate. 6. Acute delirium. 7. History of asthma. 8. History of coronary artery disease. 9. History of chronic obstructive pulmonary disease. 10.Hypertension. 11.Hyperlipidemia. 12.History of degenerative joint disease. 13.History of pneumonia. 14.History of breast cancer. 15.History of irritable bowel syndrome. 16.History of prior cholecystectomy. 17.History of mastectomy. 18.History of anxiety. 19.NO CODE, NO CPR, NO VENT. HOSPICE. HISTORY OF PRESENT ILLNESS: This 88-year-old woman with a past medical history of multiple medical problems was admitted with apparent GI bleed. Ischemic colitis was suspected. The patient also had multiple complex medical issues as mentioned earlier. Please refer to Dr. Garcia notes and multiple consultants notes and staff notes for further information. Otherwise, the patient did not improve and case discussed at length with the family and the family made the patient comfort measures and hospice was consulted and the patient subsequently succumbed to the above-mentioned medical issues. The prognosis was extremely guarded throughout the hospital stay. SERVANDO / ANGELICA: [id number] /
--- NOTE | 2018-11-19 11:56 | CDI ---
Documentation Clarification Form Date: 11/19/2018 11:25:30 AM From: [place]; [employer] Phone: If you have a question about this query, please contact [employer] at [phone] between 8am and 5pm. Admit Date: 11/10/2018 7:14:00 PM Patient Name: Mary Ann Culver Visit Number: [id number] Discharge Date: 11/16/2018 5:01:00 PM ATTENTION: The Clinical Documentation Specialists (CDI) and [facility] Coding Staff appreciate your assistance in clarifying documentation. Please respond to the clarification below the line at the bottom and electronically sign. The CDI & [facility] Coding staff will review the response and follow-up if needed. Please note: Queries are made part of the Legal Health Record. If you have any questions, please contact the author of this message via ITS. Dr. Humza Garcia Mild CHF is documented in process notes 2-18 through 2-20. Abdominal CT showed new pleural effusions. History/Risk Factors: History of rectal bleeding, CAD, COPD, Gerd. Clinical Indicators: Trace peripheral edema. BNP: 1460 Echocardiogram Results: Overall left ventricular systolic function is normal with EF between 55 and 60% Chest X Ray: Small pleural effusions Treatment: IV Lasix In your professional opinion, can you please clarify the acuity and type of CHF if known? Systolic Heart Failure: Acute Chronic Acute on Chronic Diastolic Heart Failure: Acute Chronic Acute on Chronic Systolic & Diastolic Heart Failure: Acute Chronic Acute on Chronic Heart Failure Unable to Determine Other, please specify MTDD
--- NOTE | 2018-11-20 11:27 | MISC ---
MISCELLANOUS REPORT QUERY This is about CHF. I would say she did not have CHF, normal ejection fraction. MMODL / IJN: [id number] /
== END 2018-11-16 17:01 | disposition hospice, inpatient (51) | DRG 377 ==
LOC: EC 15:07 → 3SCARD 19:14
PROVIDERS: ADMIT Family Medicine; ATTEND Family Medicine
DX: K92.2 Gastrointestinal hemorrhage, unspecified (principal); G93.41 Metabolic encephalopathy; K55.9 Vascular disorder of intestine, unspecified; N39.0 Urinary tract infection, site not specified; D50.0 Iron deficiency anemia secondary to blood loss (chronic); E03.9 Hypothyroidism, unspecified; E78.5 Hyperlipidemia, unspecified; E87.6 Hypokalemia; E83.51 Hypocalcemia; E86.0 Dehydration; F03.90 Unspecified dementia, unspecified severity, without behavioral disturbance, psychotic disturbance, mood disturbance, and anxiety; I11.0 Hypertensive heart disease with heart failure; I25.10 Atherosclerotic heart disease of native coronary artery without angina pectoris; I48.91 Unspecified atrial fibrillation; J44.9 Chronic obstructive pulmonary disease, unspecified; K21.9 Gastro-esophageal reflux disease without esophagitis; K57.30 Diverticulosis of large intestine without perforation or abscess without bleeding; K58.9 Irritable bowel syndrome, unspecified; K76.0 Fatty (change of) liver, not elsewhere classified; R79.1 Abnormal coagulation profile; Z51.5 Encounter for palliative care; Z66 Do not resuscitate; K75.89 Other specified inflammatory liver diseases; Z79.82 Long term (current) use of aspirin; Z79.890 Hormone replacement therapy; Z79.899 Other long term (current) drug therapy; Z85.3 Personal history of malignant neoplasm of breast; Z87.891 Personal history of nicotine dependence; Z90.11 Acquired absence of right breast and nipple; Z90.49 Acquired absence of other specified parts of digestive tract; Z90.710 Acquired absence of both cervix and uterus; Z87.01 Personal history of pneumonia (recurrent); Z98.42 Cataract extraction status, left eye; Z98.41 Cataract extraction status, right eye; Z88.1 Allergy status to other antibiotic agents; Z88.2 Allergy status to sulfonamides; Z88.8 Allergy status to other drugs, medicaments and biological substances
CPT/HCPCS: 36415; 71046; 74177; 76705; 80048; 80053; 80074; 82150; 82272; 83520; 83605; 83690; 83735; 83880; 84443; 85025; 85610; 85730; 86644; 86645; 86663; 86664; 86665; 86850; 86900; 86901; 93005; 93306; 94640; 94760; 96365; 96375; 99285

== ENCOUNTER 2018-11-16 15:23 | Inpatient (IN) | payer MEDICAID ==
[2018-11-16] MEDS ORDERED: LORazepam 2 MG/ML INJ IV PRN (16:39)
[2018-11-16] MEDS ORDERED: ATROPINE OPHTH SOLN 1% 5ML BTL SUBLINGUAL PRN (16:39)
[2018-11-16] MEDS ORDERED: ACETAMINOPHEN SUPPOSITORY 650 MG SUPP RECTAL PRN (16:39)
[2018-11-16] MEDS ORDERED: ONDANSETRON 4 MG/2 ML VIAL IVP PRN (16:39)
[2018-11-16] MEDS ORDERED: MORPHINE SULFATE 2 MG/ML SYRINGE IV PRN (16:39)
[2018-11-16] MEDS ORDERED: SCOPOLAMINE 1.5MG/72HR PATCH TRANSDERM SCH (17:00)
[2018-11-17 12:32] VITALS: PULSE 150; RESP 30
== END 2018-11-17 17:28 | disposition expired | DRG 951 ==
LOC: 3SCARD 17:02
PROVIDERS: ADMIT Hospitalist; ATTEND Hospitalist
DX: Z51.5 Encounter for palliative care (principal); G93.41 Metabolic encephalopathy; K55.9 Vascular disorder of intestine, unspecified; K92.2 Gastrointestinal hemorrhage, unspecified; Z66 Do not resuscitate; J44.9 Chronic obstructive pulmonary disease, unspecified; E86.0 Dehydration; K75.9 Inflammatory liver disease, unspecified; E87.6 Hypokalemia; I25.10 Atherosclerotic heart disease of native coronary artery without angina pectoris; I10 Essential (primary) hypertension; E78.5 Hyperlipidemia, unspecified; M19.90 Unspecified osteoarthritis, unspecified site; Z79.82 Long term (current) use of aspirin; Z79.890 Hormone replacement therapy; Z79.899 Other long term (current) drug therapy; Z87.01 Personal history of pneumonia (recurrent); Z85.3 Personal history of malignant neoplasm of breast; Z90.10 Acquired absence of unspecified breast and nipple; Z90.49 Acquired absence of other specified parts of digestive tract